=== PATIENT | female | born 1965 | race Caucasian/White ===

== ENCOUNTER 2017-01-15 10:49 | Observation (INO) ==
[2017-01-15] MEDS ORDERED: Ondansetron 4 MG/2 ML VIAL IVP ONE (11:13)
[2017-01-15] MEDS ORDERED: *HR* HYDROmorphone (PF) 1 MG/ML SYRINGE IVP ONE ×2 (11:13→14:29)
--- NOTE | 2017-01-15 11:26 | Emergency Department Note ---
Disposition Clinical Impression: Nephrostomy complication, Renal colic on right side Hydronephrosis Qualifiers: Hydronephrosis type: unspecified Qualified Code(s): N13.30 - Unspecified hydronephrosis Disposition: Admitted As Inpatient Condition: Fair Referrals: NO,PCP [Primary Care Provider] - Forms: Work/School Release, ED Satisfaction Letter Time of Disposition: 13:08 Female Urogenital HPI - General Chief complaint: ED Abdominal Pain Stated complaint: Right flank pain Time Seen by Provider: 01/15/17 11:05 Source: patient Mode of arrival: ambulatory Limitations: no limitations Nursing Notes Reviewed: Yes Vital Signs Reviewed: Yes - History of Present Illness HPI Narrative: Patient with a known history of cervical cancer, bilateral nephrostomy tubes, and diverting urostomy presents with right flank pain since yesterday as well as nausea. No objective fevers. The urostomies continued to drain urine adequately into the collection appliance. She states she is currently taking Bactrim as prescribed for a recent positive urine culture. Pt Subjective Complaint: other Onset (ago): day(s) Radiation: R flank Severity: severe Quality: aching Duration: constant Improves with: none Worsens with: none Urinary Symptoms: flank pain : no Associated symptoms: Reports: nausea/vomiting - Related Data Home Medications Medication Instructions Recorded Confirmed ALPRAZolam [Xanax 1 MG Tablet] 1 mg PO QID PRN 05/24/15 07/30/16 Bupropion HCl [Wellbutrin Xl] 150 mg PO BID 05/24/15 07/30/16 traZODone [TraZODone] 300 mg PO HS 05/24/15 07/30/16 Quetiapine Fumarate [SEROquel] 300 mg PO HS 05/25/15 07/30/16 Omeprazole [PriLOSEC] 20 mg PO DAILY 01/11/17 01/11/17 Previous Rx's Medication Instructions Recorded Sulfamethoxazole/Trimeth DS 1 each PO BID #14 tablet 01/11/17 [Bactrim DS] Allergies Allergy/AdvReac Type Severity Reaction Status Date / Time codeine AdvReac Hives Verified 01/15/17 11:01 ibuprofen AdvReac See Verified 01/15/17 11:01 Comments All systems ED: reviewed and negative except as stated. Constitutional: Reports: as per HPI Eyes: Reports: as per HPI ENT ED: Reports: as per HPI Cardiovascular: Reports: as per HPI Respiratory: Reports: as per HPI Gastrointestinal: Reports: abdominal pain, nausea, vomiting Genitourinary: Reports: other (Right flank pain) Musculoskeletal: Reports: back pain Integumentary: Reports: as per HPI Neurological: Reports: as per HPI Psychiatric: Reports: as per HPI Endocrine: Reports: as per HPI Hematological/Lymphatic: Reports: as per HPI Allergic/Immunologic: Reports: as per HPI Past Medical History - Past Medical History Source: patient Medical history: Reports: other (Cervical cancer) Surgical history: Reports: colostomy, hysterectomy, other Psychiatric history: Reports: anxiety, bipolar, depression 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 - Social History Smoking Status: Current every day smoker Smokeless Tobacco Status: No Alcohol use: Reports: none Drug use: Reports: none Physical Exam - General Limitations: no limitations General appearance: alert, anxious - Head Head exam: atraumatic - Eye Eye exam: Present: normal appearance - ENT ENT exam: normal exam - Neck Neck exam: Present: normal inspection, full ROM - Chest Chest inspection: Present: normal inspection, symmetric chest wall rise - Respiratory Respiratory exam: Present: normal lung sounds bilaterally - Cardiovascular Cardiovascular exam: Present: regular rate, normal rhythm, normal heart sounds - Abdominal Exam Abdominal exam: Present: soft, tenderness (Mild right upper quadrant tenderness without guarding or rebound), other (Healed surgical incision. Diverting urostomy in place with collection appliance intact.) - Rectal Exam Rectal exam: Present: deferred - Extremities Exam Extremities exam: Present: normal inspection - Back Exam Back exam: Present: other (Urostomy tubes in place. No CVA tenderness) - Neurological Exam Neurological exam: Present: alert, oriented X3, CN II-XII intact - Psychiatric Psychiatric exam: Present: anxious - Skin Skin exam: Present: warm, dry, intact Course Course Narrative: Patient presents with continued right flank pain despite taking Bactrim as prescribed for previous UTI. I have reviewed her medical records and see that on 01/11/17 per urine grew out Proteus. It was sensitive to Bactrim. I will obtain an imaging study via CT scan of her abdomen and pelvis to evaluate for obstructing uropathy given her history of cervical cancer and diverting urostomy. I will treat her with analgesics symptomatically. She will be reassessed - Consultations Consultation #1: call placed to urology continuous pillowcase cutter - Dr. Ortiz Consultation #2: Call please to interventional radiology on-call Vital Signs Temperature 97.5 F L 01/15/17 11:01 Pulse Rate 87 01/15/17 11:01 Respiratory Rate 20 01/15/17 11:01 Blood Pressure 107/73 01/15/17 11:01 O2 Sat by Pulse Oximetry 96 01/15/17 11:01 Temperature 97.5 F L 01/15/17 11:01 Pulse Rate 87 01/15/17 11:01 Respiratory Rate 20 01/15/17 11:01 Blood Pressure 107/73 01/15/17 11:01 O2 Sat by Pulse Oximetry 96 01/15/17 11:01 Oxygen Delivery Oxygen Delivery Room Air Urogenital-Female - Medical Records Medical records reviewed: Yes I reviewed the patient's medical records. - Lab Data Lab results reviewed: Yes I reviewed the patient's lab results. Result diagrams: 01/15/17 11:25 01/15/17 11:25 Lab Results 01/15/17 01/15/17 01/15/17 Range/Units 11:25 11:25 12:24 WBC 5.2 (4.3-11.1) K/mcL RBC 4.15 (3.82-4.97) M/mcL Hgb 12.2 (11.5-15.4) g/dL Hct 37.2 (35.3-44.9) % MCV 89.6 (83.0-100.0) fL MCH 29.4 (28.0-33.3) pg MCHC 32.8 (31.6-35.5) g/dL RDW 14.1 (11.5-14.5) % Plt Count 207 (140-400) K/mcL MPV 9.4 (9.4-12.4) fL Immature Gran % 0.2 (0-4) % Seg Neutrophils % 69.1 % Lymphocytes % 23.5 % Monocytes % 5.7 % Eosinophils % 1.1 % Basophils % 0.4 % Neutrophils # 3.6 (1.6-8.9) K/mcL Lymphocytes # 1.2 (0.6-4.6) K/mcL Monocytes # 0.3 (0.0-1.3) K/mcL Eosinophils # 0.1 (0.0-0.6) K/mcL Basophils # 0.0 (0.0-0.2) K/mcL Sodium 136 (136-145) mEq/L Potassium 4.6 H (3.5-4.5) mEq/L Chloride 107 (98-109) mEq/L Carbon Dioxide 24 (19-29) mEq/L BUN 27 H (7-20) mg/dL Creatinine 2.47 H (0.57-1.11) mg/dL Est GFR ( Amer) 25 L (> 60) Est GFR (Non-Af Amer) 21 L (> 60) BUN/Creatinine Ratio 11 (6-26) Glucose 90 (70-99) mg/dL Calculated Osmolality 287 (280-300) Calcium 9.3 (8.6-10.8) mg/dL Total Bilirubin 0.2 (0.2-1.2) mg/dL AST 7 (5-34) Units/L ALT < 6 (0-55) Units/L Alkaline Phosphatase 62 (38-126) Units/L Serum Total Protein 7.0 (6.0-8.3) g/dL Albumin 3.5 (3.5-5.0) g/dL Globulin 3.5 (2.4-3.5) g/dL Albumin/Globulin Ratio 1.0 L (1.1-2.2) Urine Color Yellow (Yellow) Urine Clarity Turbid A (Clear) Urine pH 8.5 H (5.0-8.0) pH Units Ur Specific Moran 1.021 (1.010-1.025) Urine Protein >=300 H (Neg-Trace) mg/dL Urine Glucose (UA) 250 H (Normal) mg/dL Urine Ketones Negative (Negative) mg/dL Urine Blood Negative (Negative) Urine Nitrite Negative (Negative) Urine Bilirubin Small H (Negative) Urine Urobilinogen Normal (Normal) mg/dL Ur Leukocyte Esterase Small H (Negative) - Radiology Data Radiology results reviewed: Yes I reviewed the patient's radiology results.
[2017-01-15 11:32] LABS: Basophils % 0.4 %; Eosinophils # 0.1 K/mcL (0.0-0.6); Eosinophils % 1.1 %; Hematocrit 37.2 % (35.3-44.9); Hemoglobin 12.2 g/dL (11.5-15.4); Immature Granulocytes % 0.2 % (0-4); Lymphocytes # 1.2 K/mcL (0.6-4.6); Lymphocytes % 23.5 %; Mean Corpuscular HGB Conc 32.8 g/dL (31.6-35.5); Mean Corpuscular Hemoglobin 29.4 pg (28.0-33.3); Mean Corpuscular Volume 89.6 fL (83.0-100.0); Mean Platelet Volume 9.4 fL (9.4-12.4); Monocytes # 0.3 K/mcL (0.0-1.3); Monocytes % 5.7 %; Neutrophils # 3.6 K/mcL (1.6-8.9); Platelet Count 207 K/mcL (140-400); Red Blood Count 4.15 M/mcL (3.82-4.97); Red Cell Distribution Width 14.1 % (11.5-14.5); Segmented Neutrophils % 69.1 %
[2017-01-15 11:48] LABS: Albumin 3.5 g/dL (3.5-5.0); Alkaline Phosphatase 62 Units/L (38-126); Aspartate Amino Transferase 7 Units/L (5-34); BUN/Creatinine Ratio 11 (6-26); Bilirubin,Total 0.2 mg/dL (0.2-1.2); Blood Urea Nitrogen 27 mg/dL (7-20); Calcium 9.3 mg/dL (8.6-10.8); Carbon Dioxide 24 mEq/L (19-29); Chloride 107 mEq/L (98-109); Globulin 3.5 g/dL (2.4-3.5); Glucose 90 mg/dL (70-99); Osmolality,Calculated 287 (280-300); Potassium 4.6 mEq/L (3.5-4.5); Sodium 136 mEq/L (136-145); eGFR For African Americans 25 (> 60); eGFR For Non-African Americans 21 (> 60)
[2017-01-15 11:49] LABS: Alanine Aminotransferase < 6 Units/L (0-55)
[2017-01-15 12:59] LABS: Bilirubin,Urine Small (Negative); Blood,Urine Negative (Negative); Clarity,Urine Turbid (Clear); Color,Urine Yellow (Yellow); Glucose,Urine (UA) 250 mg/dL (Normal); Ketones,Urine Negative (Negative); Leukocyte Esterase,Urine Small (Negative); Nitrite,Urine Negative (Negative); PH,Urine 8.5 pH Units (5.0-8.0); Protein,Urine >=300 mg/dL (Neg-Trace); Specific Gravity,Urine 1.021 (1.010-1.025); Urobilinogen,Urine Normal (Normal)
[2017-01-15 13:54] LABS: Bacteria,Urine Many per hpf (None-Few); Calcium Oxalate Crystals,Urine Present; Other Crystals,Urine Present
[2017-01-15] MEDS ORDERED: 0.9 % Sodium Chloride 500 ML ONE (14:00)
[2017-01-15] MEDS ORDERED: Ampicillin/Sulbactam 1,500 MG in 0.9 % Sodium Chloride Mini Bag 100 ML IVPB ONE (14:05)
[2017-01-15] MEDS ORDERED: *HR* HYDROmorphone 2 MG/ML SYRINGE ONE (14:30)
--- NOTE | 2017-01-15 14:43 | IR Procedure Note ---
Date of procedure: 01/15/17 Consent Obtained: Written consent Timeout: Correct patient and procedure verified, Correct site verified, Time out performed, Skin prep completed Local anesthetic: Lidocaine 1% Indications: Malfunction right NU catheter Results/Findings: Exchange right NU catheter Complications: None; Tolerated procedure well (Monitor on floor)
[2017-01-15] MEDS ORDERED: ALPRAZolam 1 MG TABLET PO PRN (16:59)
[2017-01-15] MEDS ORDERED: Ondansetron 4 MG/2 ML VIAL IVP PRN (17:00)
[2017-01-15] MEDS ORDERED: Naloxone 0.4 MG/ML INJ IVP PRN (17:00)
--- NOTE | 2017-01-15 17:14 | Internal Med History&Physical ---
Date of Encounter: 01/15/17 Time of Encounter: 04:45 Assessment and Plan (1) Urinary tract infection Current visit: No Status: Acute Patient is currently on Bactrim. -Cultures pending. -Urology has been consulted. Qualifiers: Urinary tract infection type: acute cystitis Hematuria presence: with hematuria Qualified Code(s): N30.01 - Acute cystitis with hematuria (2) Nephrostomy complication Current visit: Yes Status: Acute Patient's nephrostomy bag sites have been examined. No sign of erythema, bleeding, or infection. CT scan was performed. There is new severe right-sided hydronephrosis, possibly indicating drain/stent malfunction. There is stable mild left hydronephrosis. There is also right nephrolithiasis. Continue antibiotics. Urology has been consulted. (3) Renal colic on right side Current visit: Yes Status: Acute (4) Hydronephrosis Current visit: Yes Status: Acute Qualifiers: Hydronephrosis type: unspecified Qualified Code(s): N13.30 - Unspecified hydronephrosis Internal Medicine - H&P: HPI Chief complaint: Right flank pain Admitted From: Emergency Dept Plans for Post Hospital Care: Home History of present illness: Ms. Joseph is a 52 year old female who presented to the ED today with the chief complaint of pain in the right side of her back for lower rib cage. Patient states that she has had a urinary tract infection for the last 2 weeks, for which she states she saw her primary care provider. She discovered she had an infection due to her nephrostomy bags turning purple. She noted that this indicates bacteria in the urine. She was given Bactrim. About 3 days ago patient began to experience pain in the right side of her back, right below the bottom of her rib cage. She denies having this pain before. She does note however that she does have history of urinary tract infections. She notes that when she was about 18 years old, she began to get them quite frequently. Patient notes that she recently had cervical cancer, and had extensive abdominal surgery. As a result, she had to get nephrostomy bags. She denies having any previous issues with him. Patient states that her pain since admission has really remained relatively stable. Her pain has not changed since she got here. She currently denies nausea, vomiting, fever, chills, headache, or any change in appearance of her urine. Past Med Surg Social Fam HX - Past Medical History Medical history: cancer (Patient has a history of cervical cancer.), other Psychiatric history: anxiety, bipolar, depression - Past Surgical History Surgical History: colostomy, hysterectomy, other - Social History Smoking Status: Current every day smoker Smokeless Tobacco Status: No Alcohol use: none Drug use: none - Family History Father Living Status: Still Living Hx Family Cancer: Yes (prostate) Internal Medicine - H&P: Meds ALPRAZolam [Xanax 1 MG Tablet] 1 mg PO TID PRN 05/24/15 [History] Bupropion HCl [Wellbutrin Xl] 300 mg PO DAILY 05/24/15 [History] traZODone [TraZODone] 300 mg PO HS 05/24/15 [History] Quetiapine Fumarate [SEROquel] 300 mg PO HS 05/25/15 [History] Omeprazole [PriLOSEC] 20 mg PO DAILY 01/11/17 [History] Docusate [Colace] 100 mg PO BID 01/15/17 [History] Perphenazine [Trilafon] 8 mg PO DAILY 01/15/17 [History] Sulfamethoxazole/Trimeth DS [Bactrim DS] 1 tab PO BID 01/15/17 [History] Allergies codeine Adverse Reaction (Verified 01/15/17 11:01) Hives ibuprofen Adverse Reaction (Verified 01/15/17 11:01) See Comments effected liver during chemo treatments All Systems PM: A 10-system review of systems was performed and is negative for pertinent findings except as documented above in the HPI. - Constitutional Constitutional: no chills, no fatigue, no fever(s) - Genitourinary Genitourinary: flank pain (The patient has right-sided flank pain.) - Constitutional Vitals: Temp Pulse Resp BP Pulse Ox 97.5 F L 61 15 129/83 98 01/15/17 15:15 01/15/17 15:15 01/15/17 15:15 01/15/17 15:15 01/15/17 15:15 - Head Head exam: Present: atraumatic, normocephalic - Neck Neck exam general surgery: Present: supple, trachea midline. Absent: lymphadenopathy - Respiratory Respiratory exam: Present: CTAB. Absent: accessory muscle use, rales, rhonchi, wheezes - Cardiovascular Cardiovascular exam: Present: RRR, +S1, +S2. Absent: diastolic murmur, gallop, rubs, systolic murmur - GI/Abdominal GI/Abdominal exam: Present: soft. Absent: tenderness Additional comments: Ostomy bag visualized. Nephrostomy bags examined bilaterally. No redness, swelling, or discharge noted in the area. - Skin Skin exam: Present: dry, intact Internal Med - H&P Results - Labs CBC & Chem 7: 01/15/17 11:25 01/15/17 11:25
--- NOTE | 2017-01-15 17:19 | Event Note ---
Date of Encounter: 01/15/17 Time of Encounter: 17:11 1. Severe right hydronephrosis status post nephrostomy tube placement by the interventional radiology therapy Needs to be followed up by urology 2. Urinary tract infection growing Proteus ESBL, continue Bactrim for a total of 3 weeks May switch to ertapenem if worse 3. Bipolar disorder, stable 4. History of cervical cancer Omeprazole for GI prophylaxis and subcutaneous heparin for DVT prophylaxis. The patient will be admitted for observation. Full code. Time spent on this admission 40 minutes.
--- NOTE | 2017-01-15 17:33 | Urology - Consult Note ---
Date of Encounter: 01/15/17 Time of Encounter: 17:31 - Assessment and Plan (1) Hydronephrosis Current Visit: Yes Status: Acute Assessment and plan: Patient's hydronephrosis has resolved with the exchange of the nephroureteral catheters. Patient can follow-up with urology as needed. It sounds like the nephroureteral catheters are being managed by the gynecologic oncologist. Qualifiers: Hydronephrosis type: unspecified Qualified Code(s): N13.30 - Unspecified hydronephrosis Urology CN:HPI Consult date: 01/15/17 Reason for consult Urology: Hydronephrosis Requesting physician: Tano Elena History of present illness: Ivonne is a 52-year-old female well-known to the urology service for gynecological cancer which led the patient to have bilateral nephroureteral catheters. Patient in the [facility] emergency department today secondary to severe right-sided flank pain. She was found to have severe right-sided hydronephrosis. The right nephroureteral catheter was exchanged and the patient felt remarkably better. Patient has followed up with her gynecological oncologist but patient states she is unaware of any further definitive plan to rid her of her catheters. Past Med Surg Social Fam HX - Past Medical History Medical history: cancer (Patient has a history of cervical cancer.), other Psychiatric history: anxiety, bipolar, depression - Past Surgical History Surgical History: colostomy, hysterectomy, other - Social History Smoking Status: Current every day smoker Smokeless Tobacco Status: No Alcohol use: none Drug use: none - Family History Father Living Status: Still Living Hx Family Cancer: Yes (prostate) Medications and Allergies ALPRAZolam [Xanax 1 MG Tablet] 1 mg PO TID PRN 05/24/15 [History] Bupropion HCl [Wellbutrin Xl] 300 mg PO DAILY 05/24/15 [History] traZODone [TraZODone] 300 mg PO HS 05/24/15 [History] Quetiapine Fumarate [SEROquel] 300 mg PO HS 05/25/15 [History] Omeprazole [PriLOSEC] 20 mg PO DAILY 01/11/17 [History] Docusate [Colace] 100 mg PO BID 01/15/17 [History] Perphenazine [Trilafon] 8 mg PO DAILY 01/15/17 [History] Sulfamethoxazole/Trimeth DS [Bactrim DS] 1 tab PO BID 01/15/17 [History] Allergies codeine Adverse Reaction (Verified 01/15/17 11:01) Hives ibuprofen Adverse Reaction (Verified 01/15/17 11:01) See Comments effected liver during chemo treatments Review of Systems - Constitutional no chills - EENT Nose, mouth and throat: no dizziness - Cardiovascular no chest pain - Respiratory no cough - Gastrointestinal abdominal pain - Genitourinary Genitourinary: as per HPI Exam Initial Vital Signs Temp Pulse Resp BP Pulse Ox 97.5 F L 87 20 107/73 96 01/15/17 11:01 01/15/17 11:01 01/15/17 11:01 01/15/17 11:01 01/15/17 11:01 - General physical appearance Present: well developed - Eyes Present: PERRL - ENT Present: normal nares - Neck Present: no masses - Respiratory Present: normal respiratory effort - Cardiovascular Cardiovascular exam IM: RRR - Abdomen Abdomen: Present: soft Urology Results - Labs 01/15/17 11:25 01/15/17 11:25 Abnormal lab results Potassium 4.6 mEq/L (3.5-4.5) H 01/15/17 11:25 BUN 27 mg/dL (7-20) H 01/15/17 11:25 Creatinine 2.47 mg/dL (0.57-1.11) H 01/15/17 11:25 Est GFR ( Amer) 25 (> 60) L 01/15/17 11:25 Est GFR (Non-Af Amer) 21 (> 60) L 01/15/17 11:25 Albumin/Globulin Ratio 1.0 (1.1-2.2) L 01/15/17 11:25 Urine Clarity Turbid (Clear) A 01/15/17 12:24 Urine pH 8.5 pH Units (5.0-8.0) H 01/15/17 12:24 Urine Protein >=300 mg/dL (Neg-Trace) H 01/15/17 12:24 Urine Glucose (UA) 250 mg/dL (Normal) H 01/15/17 12:24 Urine Bilirubin Small (Negative) H 01/15/17 12:24 Ur Leukocyte Esterase Small (Negative) H 07/18/17 12:24 Urine Bacteria Many per hpf (None-Few) H 01/15/17 12:24 All other labs normal. - Imaging CT scan - abdomen: image reviewed CT scan - pelvis: image reviewed Consult Discharge Plan - Plan Referrals: Yanick Dunn MD [Primary Care Provider] -
[2017-01-15] MEDS: *HR* OxyCODONE/APAP 5/325 TABLET PO PRN (19:04)
[2017-01-15] MEDS: Sulfamethoxazole/Trimeth DS 1 EACH TABLET PO SCH (20:32)
[2017-01-15] MEDS ORDERED: traZODone 50 MG TABLET PO SCH (21:00)
[2017-01-16 07:38] LABS: Basophils % 0.4 %; Eosinophils # 0.1 K/mcL (0.0-0.6); Eosinophils % 1.8 %; Hematocrit 35.4 % (35.3-44.9); Hemoglobin 11.6 g/dL (11.5-15.4); Immature Granulocytes % 0.2 % (0-4); Lymphocytes # 1.7 K/mcL (0.6-4.6); Lymphocytes % 34.8 %; Mean Corpuscular HGB Conc 32.8 g/dL (31.6-35.5); Mean Corpuscular Hemoglobin 29.4 pg (28.0-33.3); Mean Corpuscular Volume 89.8 fL (83.0-100.0); Mean Platelet Volume 10.6 fL (9.4-12.4); Monocytes # 0.3 K/mcL (0.0-1.3); Monocytes % 6.5 %; Neutrophils # 2.8 K/mcL (1.6-8.9); Nucleated Red Blood Cells 0.4 /100 WBC (0); Platelet Count 189 K/mcL (140-400); Red Blood Count 3.94 M/mcL (3.82-4.97); Segmented Neutrophils % 56.3 %
[2017-01-16 08:02] LABS: Calcium 8.7 mg/dL (8.6-10.8)
[2017-01-16 08:03] LABS: Potassium 4.8 mEq/L (3.5-4.5)
[2017-01-16] MEDS: Sulfamethoxazole/Trimeth DS 1 EACH TABLET PO SCH (08:28)
[2017-01-16] MEDS ORDERED: Perphenazine 8 MG TABLET PO SCH (09:00)
[2017-01-16] MEDS ORDERED: 0.9 % Sodium Chloride 1,000 ML IVC SCH ×2 (09:00→11:00)
[2017-01-16] MEDS ORDERED: BuPROPion XL (24 HR) 150 MG TABLET PO SCH (09:00)
[2017-01-16 11:06] VITALS: BP 97/62
--- NOTE | 2017-01-16 11:29 | Discharge Summary ---
<Tano Elena - Last Filed: 01/16/17 11:18> Date of Encounter: 01/16/17 Time of Encounter: 11:00 - Discharge Diagnosis (1) Urinary tract infection Priority: Primary Status: Acute Comments: Patient is currently on Bactrim. Will be continued on bactrim for 14 days after discharge. Qualifiers: Urinary tract infection type: acute cystitis Hematuria presence: with hematuria Qualified Code(s): N30.01 - Acute cystitis with hematuria (2) Nephrostomy complication Priority: Secondary Status: Acute Comments: Patient's nephrostomy bag sites have been examined. No sign of erythema, bleeding, or infection. CT scan was performed. There is new severe right-sided hydronephrosis, possibly indicating drain/stent malfunction. There is stable mild left hydronephrosis. There is also right nephrolithiasis. -Continue antibiotics. (3) Renal colic on right side Priority: Secondary Status: Acute (4) Hydronephrosis Priority: Secondary Status: Acute Qualifiers: Hydronephrosis type: unspecified Qualified Code(s): N13.30 - Unspecified hydronephrosis - Discharge Medications Prescriptions: Sulfamethoxazole/Trimeth SS [Bactrim SS] 1 each PO BID #28 tablet Home Medications: ALPRAZolam [Xanax 1 MG Tablet] 1 mg PO TID PRN 05/24/15 [History] Bupropion HCl [Wellbutrin Xl] 300 mg PO DAILY 05/24/15 [History] traZODone [TraZODone] 300 mg PO HS 05/24/15 [History] Quetiapine Fumarate [SEROquel] 300 mg PO HS 05/25/15 [History] Omeprazole [PriLOSEC] 20 mg PO DAILY 01/11/17 [History] Docusate [Colace] 100 mg PO BID 01/15/17 [History] Perphenazine [Trilafon] 8 mg PO DAILY 01/15/17 [History] Sulfamethoxazole/Trimeth DS [Bactrim DS] 1 tab PO BID 01/15/17 [History] Sulfamethoxazole/Trimeth SS [Bactrim SS] 1 each PO BID #28 tablet 01/16/17 [Rx] Allergies/Adverse Reactions: Allergies codeine Adverse Reaction (Verified 01/15/17 11:01) Hives ibuprofen Adverse Reaction (Verified 01/15/17 11:01) See Comments effected liver during chemo treatments Date of admission: 01/15/17 14:11 Primary care physician: Yanick Dunn MD Consults: 01/15/17 17:08 Consult to Urology [CONS] Routine Consulting Provider: Shanice Howe Reason for Consult: R sided hydronephrosis Call Completed: Yes Discharging clinician: Tano Elena Anticipated date of discharge: 01/16/17 - Patient Status Disposition: Home, Self-Care Condition: Good Overall status at discharge: patient is progressing back to baseline - Discharge Instructions Follow Up With: Yanick Dunn MD [Primary Care Provider] - Additional Instructions: Continue with Bactrim DS by mouth twice a day for 14 days. - Diet and Activity Activity: increase activity as tolerated Diet: advance to your usual diet Hospital course: Ms. Joseph is a 52 year old female with a past history of cervical cancer, nephrostomy, ostomy, and UTI who presented to the ED yesterday with the chief complaint of pain in the right side of her back for lower rib cage. Patient stated that she had had a urinary tract infection for the last 2 weeks, for which she saw her PCP. She discovered she had an infection due to her nephrostomy bags turning purple. She noted that this indicates bacteria in the urine. She was given Bactrim. About 4 days ago patient began to experience pain in the right side of her back, right below the bottom of her rib cage. Patient notes that she recently had cervical cancer, and had extensive abdominal surgery. As a result, she had to get nephrostomy bags. She denies having any previous issues with him. She denied having nausea, vomiting, fever , chills, headache, or any change in appearance of her urine. Patient's temperature on admission was 97.5. Cultures were obtained, and grew Proteus ESBL. This morning, patient's blood pressure was low at 81/58. Patient was given 1 bolus of normal saline. On date of discharge, patient will be given an additional 200 mL per hour for 5 hours. Today, patient states that her pain has improved. She has no other complaints at this time. She states that she would like to go home. She was given the option of staying one more night to monitor fluid levels. The patient stated that she preferred to leave. She will be given Bactrim DS for 14 days. - Time Spent with Patient Total time spent providing and/or coordinating discharge services: - Constitutional Vitals: Temp Pulse Resp BP Pulse Ox 98.0 F 76 14 97/62 97 01/16/17 11:05 01/16/17 11:05 01/16/17 11:05 01/16/17 11:05 01/16/17 11:05 - Head Head exam: Present: atraumatic, normocephalic - Neck Neck exam general surgery: Present: supple, trachea midline. Absent: lymphadenopathy - Respiratory Respiratory exam: Present: CTAB. Absent: accessory muscle use, rales, rhonchi, wheezes - Cardiovascular Cardiovascular exam: Present: RRR, +S1, +S2. Absent: diastolic murmur, gallop, rubs, systolic murmur - GI/Abdominal GI/Abdominal exam: Present: soft, no peritoneal signs. Absent: distended, tenderness Additional comments: Ostomy bag and nephrostomy bags visualized. - Skin Skin exam: Present: dry, intact <Antoine Eubanks H - Last Filed: 01/16/17 11:46> Date of Encounter: 01/16/17 Date of admission: 01/15/17 14:11 Primary care physician: Yanick Dunn MD Consults: 01/15/17 17:08 Consult to Urology [CONS] Routine Consulting Provider: Sharay Carley Reason for Consult: R sided hydronephrosis Call Completed: Yes Hospital course: Ms. Joseph is a 52 year old female - Time Spent with Patient Total time spent providing and/or coordinating discharge services: - Constitutional Vitals: Temp Pulse Resp BP Pulse Ox 98.0 F 76 14 97/62 97 01/16/17 11:05 01/16/17 11:05 01/16/17 11:05 01/16/17 11:05 01/16/17 11:05 - Attending Attestation Poonam VIERA, complete 2 more weeks of Bactrim Patient was given the option to stay an additional day and received fluids but prefers to be discharged later today. I examined this patient and my medical decision-making was reviewed with the Resident Physician. I agree with the documented findings, disposition and treatment plan as described except to the extent set forth below.
[2017-01-16] MEDS: *HR* OxyCODONE/APAP 5/325 TABLET PO PRN (14:11)
== END 2017-01-16 16:25 | disposition home or self-care (01) ==
LOC: 3ANU 10:49 → EMEROO 10:49 → SUATTDRO 14:11 → 3ANU 14:52
PROVIDERS: ADMIT Internal Medicine; ATTEND Internal Medicine

== ENCOUNTER 2017-02-19 18:57 | Inpatient (IN) ==
[2017-02-19 21:56] LABS: Basophils % 0.3 %; Eosinophils % 0.2 %; Hematocrit 41.7 % (35.3-44.9); Hemoglobin 13.3 g/dL (11.5-15.4); Immature Granulocytes % 0.3 % (0-4); Lymphocytes # 1.1 K/mcL (0.6-4.6); Lymphocytes % 8.7 %; Mean Corpuscular HGB Conc 31.9 g/dL (31.6-35.5); Mean Corpuscular Hemoglobin 29.4 pg (28.0-33.3); Mean Corpuscular Volume 92.1 fL (83.0-100.0); Mean Platelet Volume 9.8 fL (9.4-12.4); Monocytes # 0.6 K/mcL (0.0-1.3); Monocytes % 4.8 %; Neutrophils # 10.3 K/mcL (1.6-8.9); Platelet Count 246 K/mcL (140-400); Red Blood Count 4.53 M/mcL (3.82-4.97); Red Cell Distribution Width 13.3 % (11.5-14.5); Segmented Neutrophils % 85.7 %
[2017-02-19] MEDS ORDERED: *HR* Morphine 2 MG/ML SYRINGE IVP ONE (22:08)
[2017-02-19] MEDS ORDERED: Ondansetron 4 MG/2 ML VIAL IVP ONE (22:08)
[2017-02-19] MEDS ORDERED: 0.9 % Sodium Chloride 1,000 ML IVC ONE (22:08)
[2017-02-19 22:11] LABS: Calcium 10.1 mg/dL (8.6-10.8); Potassium 4.8 mEq/L (3.5-4.5)
--- NOTE | 2017-02-19 22:16 | Emergency Department Note ---
START Narrative - START START: 52 year old female wih HX of nephrostomy tube and recently had it changed secondary to stones. Patient is experiencing incresed pain in her nephrostomy tube. I initiated workup on patient with labs and we will need a ABCT to evalluate the nephrotom tube. She will be seen by the PA.
[2017-02-19] MEDS ORDERED: *HR* HYDROmorphone (PF) 1 MG/ML SYRINGE IVP ONE (22:24)
[2017-02-19 22:29] LABS: INR 0.9; Prothrombin Time 9.8 Seconds (9.4-12.1)
[2017-02-19 22:31] LABS: Activated Partial Thrombo Time 32.5 Seconds (26.0-36.0)
[2017-02-19 22:37] LABS: Bilirubin,Direct 0.1 mg/dL (0.0-0.5); Bilirubin,Indirect 0.3 mg/dL (0.0-1.2); Bilirubin,Total 0.4 mg/dL (0.2-1.2)
[2017-02-19] MEDS ORDERED: Levofloxacin 750 MG/150 ML 750 MG/150 ML BAG IVPB ONE (22:53)
[2017-02-19] MEDS ORDERED: Piperacillin/Tazobactam 4.5 GM in D5% in Water (Mini-Bag+) 100 ML IVPB ONE (22:55)
--- NOTE | 2017-02-19 23:11 | Emergency Department Note ---
Disposition Clinical Impression: Malfunction of nephrostomy tube, Right flank pain Leukocytosis Qualifiers: Leukocytosis type: unspecified Qualified Code(s): D72.829 - Elevated white blood cell count, unspecified Parastomal hernia Qualifiers: Obstruction and gangrene presence: without obstruction or gangrene Qualified Code(s): K43.5 - Parastomal hernia without obstruction or gangrene Disposition: Admitted As Inpatient Condition: Fair Abdominal Pain HPI - General Chief Complaint: ED General Medical Stated Complaint: nephro tubes hurting, vomiting Time Seen by Provider: 02/19/17 22:06 Source: patient Mode of arrival: private vehicle Limitations: no limitations Nursing Notes Reviewed: Yes Vital Signs Reviewed: Yes - History of Present Illness Pt Subjective Complaint: flank pain Onset (ago): day(s) Consistency: constant Location: R flank Pain Severity: moderate, severe Pain Scale: 10 Quality: stabbing, sharp Radiation: RLQ Improves with: nothing Worsens with: nothing Context: recent antibiotic use, recent surgery/procedure (Right nephrostomy tube changed 01/14), history of similar episodes Associated symptoms: Reports: nausea, vomiting, other (decreased amount of urine output from right NU tube). Denies: diarrhea, fever, chills, constipation , dysuria, hematemesis, hematochezia, melena, hematuria, anorexia, syncope Treatments prior to arrival: none - Related Data Home Medications Medication Instructions Recorded Confirmed ALPRAZolam [Xanax 1 MG Tablet] 1 mg PO TID PRN 05/24/15 01/15/17 Bupropion HCl [Wellbutrin Xl] 300 mg PO DAILY 05/24/15 01/15/17 traZODone [TraZODone] 300 mg PO HS 05/24/15 01/15/17 Quetiapine Fumarate [SEROquel] 300 mg PO HS 05/25/15 01/15/17 Omeprazole [PriLOSEC] 20 mg PO DAILY 01/11/17 01/15/17 Docusate [Colace] 100 mg PO BID 01/15/17 01/15/17 Perphenazine [Trilafon] 8 mg PO DAILY 01/15/17 01/15/17 Sulfamethoxazole/Trimeth DS 1 tab PO BID 01/15/17 01/15/17 [Bactrim DS] Previous Rx's Medication Instructions Recorded Sulfamethoxazole/Trimeth SS 1 each PO BID #28 tablet 01/16/17 [Bactrim SS] Allergies Allergy/AdvReac Type Severity Reaction Status Date / Time codeine AdvReac Hives Verified 01/15/17 11:01 ibuprofen AdvReac See Verified 01/15/17 11:01 Comments All systems ED: reviewed and negative except as stated. Review of Systems: As Per HPI Constitutional: Denies: fever, chills, weakness, night sweats Cardiovascular: Denies: chest pain, palpitations, dyspnea on exertion Respiratory: Denies: dyspnea Gastrointestinal: Reports: as per HPI, abdominal pain, nausea, vomiting. Denies : diarrhea, constipation, hematemesis, melena, hematochezia Genitourinary: Denies: dysuria, hematuria Musculoskeletal: Denies: joint swelling, arthralgia Neurological: Denies: headache, weakness, confusion Hematological/Lymphatic: Denies: easy bleeding, easy bruising, lymphadenopathy Abdominal Pain PMH - Past Medical History Medical history: Reports: cancer (cervical), other Female Surgical History: Reports: colostomy, JUDITH/BSO, ureteral stent, other ( bilateral nephrostomy tubes) [employer] TECH[employer]ICIAN history: Reports: cervical cancer, other Psychiatric history: Reports: anxiety, bipolar, depression - Social History Smoking status: Current every day smoker Alcohol use: Reports: none Drug use: Reports: none Physical Exam - General Limitations: no limitations General appearance: alert, in no apparent distress - Head Head exam: atraumatic, normocephalic, normal inspection - Eye Eye exam: Present: normal appearance, PERRL. Absent: scleral icterus, conjunctival injection, periorbital swelling - ENT ENT exam: normal exam, normal oropharynx, mucous membranes moist - Neck Neck exam: Present: normal inspection, full ROM, trachea midline. Absent: meningismus - Chest Chest inspection: Present: normal inspection - Respiratory Respiratory exam: Present: normal lung sounds bilaterally. Absent: respiratory distress, wheezes, stridor - Cardiovascular Cardiovascular exam: Present: regular rate, normal rhythm, normal heart sounds - Abdominal Exam Abdominal exam: Present: soft, Non-Tender. Absent: distention, guarding, rebound, rigidity, mass, pulsatile mass - Extremities Exam Extremities exam: Present: normal inspection. Absent: pedal edema - Back Exam Back exam: Present: CVA tenderness (R), other (no erythema or drainage). Absent : CVA tenderness (L), vertebral tenderness - Neurological Exam Neurological exam: Present: alert, oriented X3, CN II-XII intact, normal gait Course Course Narrative: Patient presents for evaluation of right flank pain with nausea, vomiting, and generalized malaise. She states that about a month ago. She was seen here and was diagnosed with a kidney infection and kidney stones. She had her right nephrostomy tube replaced and was put on Bactrim for three weeks. She took this as prescribed. She has had pain, nausea and vomiting for several days. She also noted a decreased urine output and a purple discoloration of the urine bag bilaterally today. She is currently afebrile, mildly hypertensive, and is not tachycardic. She appears uncomfortable but nontoxic. Labs and a CAT scan have been ordered by Dr. Meek Rodriguez. CT shows no acute abnormality. Patient has multiple stable abnormal findings, but nothing acute. Urinalysis is pending. Patient has had little to no output from either kidney, all day today reports nausea, vomiting and right flank pain in the setting of recently replaced right nephrostomy tube. She has a history of renal calculi causing obstruction of the nephrostomy tube a month ago. She does have mildly elevated white blood cell count and is at her baseline renal insufficiency. She will require admission for further evaluation and management. Case was discussed with Dr. Roblero. He has seen the patient and agrees with assessment, plan. He has spoken with the hospitalist who has accepted the patient. Vital Signs Temperature 97.5 F L 02/19/17 19:43 Pulse Rate 88 02/19/17 19:43 Respiratory Rate 20 02/19/17 19:43 Blood Pressure 148/102 02/19/17 19:43 O2 Sat by Pulse Oximetry 98 02/19/17 19:43 Temperature 97.5 F L 02/19/17 19:43 Pulse Rate 88 02/19/17 19:43 Respiratory Rate 20 02/19/17 19:43 Blood Pressure 148/102 02/19/17 19:43 O2 Sat by Pulse Oximetry 98 02/19/17 19:43 Oxygen Delivery Oxygen Delivery Room Air Abdominal Pain - Medical Records Medical records reviewed: Yes I reviewed the patient's medical records. - Lab Data Lab results reviewed: Yes I reviewed the patient's lab results. Lab results narrative: Laboratory Last Values WBC 12.1 K/mcL (4.3-11.1) H 02/19/17 21:46 RBC 4.53 M/mcL (3.82-4.97) 02/19/17 21:46 Hgb 13.3 g/dL (11.5-15.4) 02/19/17 21:46 Hct 41.7 % (35.3-44.9) 02/19/17 21:46 MCV 92.1 fL (83.0-100.0) 02/19/17 21:46 MCH 29.4 pg (28.0-33.3) 02/19/17 21:46 MCHC 31.9 g/dL (31.6-35.5) 02/19/17 21:46 RDW 13.3 % (11.5-14.5) 02/19/17 21:46 Plt Count 246 K/mcL (140-400) 02/19/17 21:46 MPV 9.8 fL (9.4-12.4) 02/19/17 21:46 Immature Gran % 0.3 % (0-4) 02/19/17 21:46 Seg Neutrophils % 85.7 % 02/19/17 21:46 Lymphocytes % 8.7 % 02/19/17 21:46 Monocytes % 4.8 % 02/19/17 21:46 Eosinophils % 0.2 % 02/19/17 21:46 Basophils % 0.3 % 02/19/17 21:46 Neutrophils # 10.3 K/mcL (1.6-8.9) H 02/19/17 21:46 Lymphocytes # 1.1 K/mcL (0.6-4.6) 02/19/17 21:46 Monocytes # 0.6 K/mcL (0.0-1.3) 02/19/17 21:46 Eosinophils # 0.0 K/mcL (0.0-0.6) 02/19/17 21:46 Basophils # 0.0 K/mcL (0.0-0.2) 02/19/17 21:46 PT 9.8 Seconds (9.4-12.1) 02/19/17 21:46 INR 0.9 02/19/17 21:46 APTT 32.5 Seconds (26.0-36.0) 02/19/17 21:46 Sodium 137 mEq/L (136-145) 02/19/17 21:46 Potassium 4.8 mEq/L (3.5-4.5) H 02/19/17 21:46 Chloride 103 mEq/L (98-109) 02/19/17 21:46 Carbon Dioxide 26 mEq/L (19-29) 02/19/17 21:46 BUN 40 mg/dL (7-20) H 02/19/17 21:46 Creatinine 2.61 mg/dL (0.57-1.11) H 02/19/17 21:46 Est GFR ( Amer) 23 (> 60) L 02/19/17 21:46 Est GFR (Non-Af Amer) 19 (> 60) L 02/19/17 21:46 BUN/Creatinine Ratio 15 (6-26) 02/19/17 21:46 Glucose 104 mg/dL (70-99) H 02/19/17 21:46 Calculated Osmolality 294 (280-300) 02/19/17 21:46 Lactic Acid 0.4 mmol/L (0.5-2.2) L 02/19/17 22:43 Calcium 10.1 mg/dL (8.6-10.8) 02/19/17 21:46 Total Bilirubin 0.4 mg/dL (0.2-1.2) 02/19/17 21:46 Direct Bilirubin 0.1 mg/dL (0.0-0.5) 02/19/17 21:46 Indirect Bilirubin 0.3 mg/dL (0.0-1.2) 02/19/17 21:46 AST 9 Units/L (5-34) 02/19/17 21:46 ALT 7 Units/L (0-55) 02/19/17 21:46 Alkaline Phosphatase 73 Units/L (38-126) 02/19/17 21:46 Troponin I 0.01 ng/mL (0-0.03) 02/19/17 21:46 Serum Total Protein 8.0 g/dL (6.0-8.3) 02/19/17 21:46 Albumin 4.0 g/dL (3.5-5.0) 02/19/17 21:46 Globulin 4.0 g/dL (2.4-3.5) H 02/19/17 21:46 Albumin/Globulin Ratio 1.0 (1.1-2.2) L 02/19/17 21:46 Amylase 70 Units/L (25-125) 02/19/17 21:46 Lipase 13 Units/L (8-78) 02/19/17 21:46 Urine Color Red (Yellow) A 02/20/17 01:00 Urine Clarity Turbid (Clear) A 02/20/17 01:00 Urine pH 8.5 pH Units (5.0-8.0) H 02/20/17 01:00 Ur Specific [place] 1.009 (1.010-1.025) L 02/20/17 01:00 Urine Protein >=300 mg/dL (Neg-Trace) H 02/20/17 01:00 Urine Glucose (UA) Normal mg/dL (Normal) 02/20/17 01:00 Urine Ketones Negative mg/dL (Negative) 02/20/17 01:00 Urine Blood Negative (Negative) 02/20/17 01:00 Urine Nitrite Positive (Negative) A 02/20/17 01:00 Urine Bilirubin Negative (Negative) 02/20/17 01:00 Urine Urobilinogen Normal mg/dL (Normal) 02/20/17 01:00 Ur Leukocyte Esterase Moderate (Negative) H 02/20/17 01:00 Result diagrams: 02/19/17 21:46 02/19/17 21:46 Lab Results 02/19/17 02/19/17 02/19/17 Range/Units 21:46 21:46 21:46 WBC 12.1 H (4.3-11.1) K/mcL RBC 4.53 (3.82-4.97) M/mcL Hgb 13.3 (11.5-15.4) g/dL Hct 41.7 (35.3-44.9) % MCV 92.1 (83.0-100.0) fL MCH 29.4 (28.0-33.3) pg MCHC 31.9 (31.6-35.5) g/dL RDW 13.3 (11.5-14.5) % Plt Count 246 (140-400) K/mcL MPV 9.8 (9.4-12.4) fL Immature Gran % 0.3 (0-4) % Seg Neutrophils % 85.7 % Lymphocytes % 8.7 % Monocytes % 4.8 % Eosinophils % 0.2 % Basophils % 0.3 % Neutrophils # 10.3 H (1.6-8.9) K/mcL Lymphocytes # 1.1 (0.6-4.6) K/mcL Monocytes # 0.6 (0.0-1.3) K/mcL Eosinophils # 0.0 (0.0-0.6) K/mcL Basophils # 0.0 (0.0-0.2) K/mcL PT 9.8 (9.4-12.1) Seconds INR 0.9 APTT 32.5 (26.0-36.0) Seconds Sodium 137 (136-145) mEq/L Potassium 4.8 H (3.5-4.5) mEq/L Chloride 103 (98-109) mEq/L Carbon Dioxide 26 (19-29) mEq/L BUN 40 H (7-20) mg/dL Creatinine 2.61 H (0.57-1.11) mg/dL Est GFR ( Amer) 23 L (> 60) Est GFR (Non-Af Amer) 19 L (> 60) BUN/Creatinine Ratio 15 (6-26) Glucose 104 H (70-99) mg/dL Calculated Osmolality 294 (280-300) Lactic Acid (0.5-2.2) mmol/L Calcium 10.1 (8.6-10.8) mg/dL Total Bilirubin 0.4 (0.2-1.2) mg/dL Direct Bilirubin 0.1 (0.0-0.5) mg/dL Indirect Bilirubin 0.3 (0.0-1.2) mg/dL AST 9 (5-34) Units/L ALT 7 (0-55) Units/L Alkaline Phosphatase 73 (38-126) Units/L Troponin I (0-0.03) ng/mL Serum Total Protein 8.0 (6.0-8.3) g/dL Albumin 4.0 (3.5-5.0) g/dL Globulin 4.0 H (2.4-3.5) g/dL Albumin/Globulin Ratio 1.0 L (1.1-2.2) Amylase 70 (25-125) Units/L Lipase 13 (8-78) Units/L Urine Color (Yellow) Urine Clarity (Clear) Urine pH (5.0-8.0) pH Units Ur Specific [place] (1.010-1.025) Urine Protein (Neg-Trace) mg/dL Urine Glucose (UA) (Normal) mg/dL Urine Ketones (Negative) mg/dL Urine Blood (Negative) Urine Nitrite (Negative) Urine Bilirubin (Negative) Urine Urobilinogen (Normal) mg/dL Ur Leukocyte Esterase (Negative) Urine Microscopic RBC (0-3) per hpf Urine Microscopic WBC (0-3) per hpf Ur Squamous Epith Cells (None-Few) per lpf Ur Renal Epithelial Cell (None-Few) per hpf Triple Phos Crystals Amorphous Sediment (Few) Urine Bacteria (None-Few) per hpf Hyaline Casts Urine Mucus (Few) Ur Culture Indicated? (NO) 02/19/17 02/19/17 02/20/17 Range/Units 21:46 22:43 01:00 WBC (4.3-11.1) K/mcL RBC (3.82-4.97) M/mcL Hgb (11.5-15.4) g/dL Hct (35.3-44.9) % MCV (83.0-100.0) fL MCH (28.0-33.3) pg MCHC (31.6-35.5) g/dL RDW (11.5-14.5) % Plt Count (140-400) K/mcL MPV (9.4-12.4) fL Immature Gran % (0-4) % Seg Neutrophils % % Lymphocytes % % Monocytes % % Eosinophils % % Basophils % % Neutrophils # (1.6-8.9) K/mcL Lymphocytes # (0.6-4.6) K/mcL Monocytes # (0.0-1.3) K/mcL Eosinophils # (0.0-0.6) K/mcL Basophils # (0.0-0.2) K/mcL PT (9.4-12.1) Seconds INR APTT (26.0-36.0) Seconds Sodium (136-145) mEq/L Potassium (3.5-4.5) mEq/L Chloride (98-109) mEq/L Carbon Dioxide (19-29) mEq/L BUN (7-20) mg/dL Creatinine (0.57-1.11) mg/dL Est GFR ( Amer) (> 60) Est GFR (Non-Af Amer) (> 60) BUN/Creatinine Ratio (6-26) Glucose (70-99) mg/dL Calculated Osmolality (280-300) Lactic Acid 0.4 L (0.5-2.2) mmol/L Calcium (8.6-10.8) mg/dL Total Bilirubin (0.2-1.2) mg/dL Direct Bilirubin (0.0-0.5) mg/dL Indirect Bilirubin (0.0-1.2) mg/dL AST (5-34) Units/L ALT (0-55) Units/L Alkaline Phosphatase (38-126) Units/L Troponin I 0.01 (0-0.03) ng/mL Serum Total Protein (6.0-8.3) g/dL Albumin (3.5-5.0) g/dL Globulin (2.4-3.5) g/dL Albumin/Globulin Ratio (1.1-2.2) Amylase (25-125) Units/L Lipase (8-78) Units/L Urine Color Dark Yellow (Yellow) Urine Clarity Turbid A (Clear) Urine pH 8.5 H (5.0-8.0) pH Units Ur Specific [place] 1.020 (1.010-1.025) Urine Protein >=300 H (Neg-Trace) mg/dL Urine Glucose (UA) Normal (Normal) mg/dL Urine Ketones Negative (Negative) mg/dL Urine Blood Negative (Negative) Urine Nitrite Positive A (Negative) Urine Bilirubin Negative (Negative) Urine Urobilinogen Normal (Normal) mg/dL Ur Leukocyte Esterase Large H (Negative) Urine Microscopic RBC 5-15 H (0-3) per hpf Urine Microscopic WBC 0-3 (0-3) per hpf Ur Squamous Epith Cells Many H (None-Few) per lpf Ur Renal Epithelial Cell (None-Few) per hpf Triple Phos Crystals Present Amorphous Sediment Few (Few) Urine Bacteria Many H (None-Few) per hpf Hyaline Casts Test Not Performed Urine Mucus Moderate H (Few) Ur Culture Indicated? YES A (NO) 02/20/17 Range/Units 01:00 WBC (4.3-11.1) K/mcL RBC (3.82-4.97) M/mcL Hgb (11.5-15.4) g/dL Hct (35.3-44.9) % MCV (83.0-100.0) fL MCH (28.0-33.3) pg MCHC (31.6-35.5) g/dL RDW (11.5-14.5) % Plt Count (140-400) K/mcL MPV (9.4-12.4) fL Immature Gran % (0-4) % Seg Neutrophils % % Lymphocytes % % Monocytes % % Eosinophils % % Basophils % % Neutrophils # (1.6-8.9) K/mcL Lymphocytes # (0.6-4.6) K/mcL Monocytes # (0.0-1.3) K/mcL Eosinophils # (0.0-0.6) K/mcL Basophils # (0.0-0.2) K/mcL PT (9.4-12.1) Seconds INR APTT (26.0-36.0) Seconds Sodium (136-145) mEq/L Potassium (3.5-4.5) mEq/L Chloride (98-109) mEq/L Carbon Dioxide (19-29) mEq/L BUN (7-20) mg/dL Creatinine (0.57-1.11) mg/dL Est GFR ( Amer) (> 60) Est GFR (Non-Af Amer) (> 60) BUN/Creatinine Ratio (6-26) Glucose (70-99) mg/dL Calculated Osmolality (280-300) Lactic Acid (0.5-2.2) mmol/L Calcium (8.6-10.8) mg/dL Total Bilirubin (0.2-1.2) mg/dL Direct Bilirubin (0.0-0.5) mg/dL Indirect Bilirubin (0.0-1.2) mg/dL AST (5-34) Units/L ALT (0-55) Units/L Alkaline Phosphatase (38-126) Units/L Troponin I (0-0.03) ng/mL Serum Total Protein (6.0-8.3) g/dL Albumin (3.5-5.0) g/dL Globulin (2.4-3.5) g/dL Albumin/Globulin Ratio (1.1-2.2) Amylase (25-125) Units/L Lipase (8-78) Units/L Urine Color Red A (Yellow) Urine Clarity Turbid A (Clear) Urine pH 8.5 H (5.0-8.0) pH Units Ur Specific [place] 1.009 L (1.010-1.025) Urine Protein >=300 H (Neg-Trace) mg/dL Urine Glucose (UA) Normal (Normal) mg/dL Urine Ketones Negative (Negative) mg/dL Urine Blood Negative (Negative) Urine Nitrite Positive A (Negative) Urine Bilirubin Negative (Negative) Urine Urobilinogen Normal (Normal) mg/dL Ur Leukocyte Esterase Moderate H (Negative) Urine Microscopic RBC 5-15 H (0-3) per hpf Urine Microscopic WBC 3-5 H (0-3) per hpf Ur Squamous Epith Cells Many H (None-Few) per lpf Ur Renal Epithelial Cell Few (None-Few) per hpf Triple Phos Crystals Present Amorphous Sediment Moderate H (Few) Urine Bacteria Many H (None-Few) per hpf Hyaline Casts Urine Mucus Many H (Few) Ur Culture Indicated? YES A (NO) - EKG Data EKG attestation: Yes I reviewed and interpreted this EKG. EKG shows normal: sinus rhythm Rate: normal Rhythm: NSR [place]/QRS: normal When compared to previous EKG there are: previous EKG unavailable Interpretation: normal EKG Attestation Statement - Attestation Attestation: I, Bird Roblero DO have provided [id number] time during the care of this patient. Detailed review the presentation, symptoms, medical history were discussed and reviewed with the mid-level provider Makayla Carnes PA-C/[facility]. Medical intervention labs and imaging studies were reviewed in detail. See full documentation of physical exam and course of care in the mid-level provider 's note. I agree with the determined course of care, medical interventio,n and disposition put forth by the mid-level provider. See below documentation for changes or alterations in documentation. 52-year-old female with chronic medical issues including bilateral nephrostomy tube and diverting colostomy presents with decreased output in the right nephrostomy tube as well as decreased output in the left nephrostomy tube. Patient has history of obstruction secondary to stone and possible infection. She is concerned she had abdominal discomfort including right flank pain. Patient denied any other complaints or issues prior to the events. Labs and imaging were ordered. Patient has stable CT imaging of the abdomen at this time but otherwise patient has a negative workup for infectious etiology or signs of issue in the abdomen. Patient will be admitted for evaluation of the nephrostomy related issue. She is comfortable with this plan no other concerns or issues. Hospitals contacted admission accepted at this point. See detailed documentation by the mid-level provider.
[2017-02-20 01:28] LABS: Bilirubin,Urine Negative (Negative); Blood,Urine Negative (Negative); Clarity,Urine Turbid (Clear); Color,Urine Red (Yellow); Glucose,Urine (UA) Normal (Normal); Ketones,Urine Negative (Negative); Leukocyte Esterase,Urine Moderate (Negative); Nitrite,Urine Positive (Negative); PH,Urine 8.5 pH Units (5.0-8.0); Protein,Urine >=300 mg/dL (Neg-Trace); Specific Gravity,Urine 1.009 (1.010-1.025); Urobilinogen,Urine Normal (Normal)
[2017-02-20 01:33] LABS: Bilirubin,Urine Negative (Negative); Blood,Urine Negative (Negative); Clarity,Urine Turbid (Clear); Color,Urine Dark Yellow (Yellow); Glucose,Urine (UA) Normal (Normal); Ketones,Urine Negative (Negative); Leukocyte Esterase,Urine Large (Negative); Nitrite,Urine Positive (Negative); PH,Urine 8.5 pH Units (5.0-8.0); Protein,Urine >=300 mg/dL (Neg-Trace); Squamous Epithelial Cell,Urine Many per lpf (None-Few); Urobilinogen,Urine Normal (Normal)
[2017-02-20 01:35] LABS: Squamous Epithelial Cell,Urine Many per lpf (None-Few); WBC,Urine 0-3 per hpf (0-3)
[2017-02-20 01:43] LABS: Amorphous Sediment,Urine Moderate (Few); Renal Epithelial Cells,Urine Few per hpf (None-Few); Triple Phosphate Crystal,Urine Present
[2017-02-20 01:44] LABS: Bacteria,Urine Many per hpf (None-Few); Mucus,Urine Many (Few)
[2017-02-20 01:45] LABS: Amorphous Sediment,Urine Few (Few); Bacteria,Urine Many per hpf (None-Few); Mucus,Urine Moderate (Few); Triple Phosphate Crystal,Urine Present
[2017-02-20] MEDS ORDERED: Naloxone 0.4 MG/ML INJ IVP PRN (02:05)
[2017-02-20] MEDS ORDERED: *HR* Morphine 2 MG/ML SYRINGE IVP PRN (02:05)
--- NOTE | 2017-02-20 02:19 | Internal Med History&Physical ---
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 No significant change compared to prior study. 2. Stable positioning of bilateral nephro ureteral tubes. 3. Stable severe right hydronephrosis. 4. Stable mild nonspecific perinephric stranding. 5. The left kidney is unchanged in appearance. No definite left hydronephrosis identified. There is either prominent no calices versus hyperdense renal pyramids. 6. Stable postsurgical changes as before. 7. Compared to the prior study there is a new small parastomal hernia containing a loop of nonobstructed small bowel. etiology: complicated UTI vs pyelonephritis (stranding of b/l kidneys) Plan: IVF Will start zosyn (ESBL proteus sensitive based on previous cultures) Urine cultures Blood cultures Urology consult Nausea and pain control GI prophylaxis Regular diet (2) Anxiety and depression Current visit: Yes Status: Acute Controlled. Patient states she developed this secondary to her cervical cancer Plan: Continue Seroquel, Wellbutrin, Xanax (3) DVT prophylaxis Current visit: Yes Status: Acute Heparin subcutaneous Internal Medicine - H&P: HPI Chief complaint: right flank pain Admitted From: Home Plans for Post Hospital Care: Home History of present illness: Ms. Joseph is a 52 year old female cc of right flank pain. Patient has b/l nephrostomy tubes 2nd to extensive abdominal surgery (colostomy, removal of baldder, vaginal reconstruction) from cervical cancer. States had sudden onset of right flank pain radiating to the front describes a throbbing 10 out of 10 associated nausea and chills. Reports brownish discoloration of urine in right nephrostomy bag, with decreased urine production and change in color to left nephrostomy bag to purple which she indicates is a sign of infection. Reports no pain on left flank and no change in urine production on the left. Reports drainage from bilateral entry points nephrostomy tube described as brownish fluid. Denies erythema around nephrostomy tube. Dressing was changed earlier this morning. Patient tried Aleve without relief. Denies other exacerbation and relieving factors. On 02/14/17 patient was admitted for similar presentation and was found to have blockage of the right nephrostomy tube secondary to renal colliculi with concomitant right hydronephrosis. At that time she had replacement regimen nephrostomy tube. She also was treated for ESBL Proteus and was on Bactrim for 14 days. Patient reports finishing her antibiotic regimen. Past Med Surg Social Fam HX - Past Medical History Medical history: cancer (cervical), other Psychiatric history: anxiety, bipolar, depression - Past Surgical History Surgical History: colostomy, hysterectomy, other - Social History Smoking Status: Current every day smoker Smokeless Tobacco Status: No Alcohol use: none Drug use: none - Family History Father Living Status: Still Living Hx Family Cancer: Yes (prostate) Internal Medicine - H&P: Meds ALPRAZolam [Xanax 1 MG Tablet] 1 mg PO TID PRN 05/24/15 [History] Bupropion HCl [Wellbutrin Xl] 300 mg PO DAILY 05/24/15 [History] traZODone [TraZODone] 300 mg PO HS 05/24/15 [History] Quetiapine Fumarate [SEROquel] 300 mg PO HS 05/25/15 [History] Omeprazole [PriLOSEC] 20 mg PO DAILY 01/11/17 [History] Docusate [Colace] 100 mg PO BID 01/15/17 [History] Perphenazine [Trilafon] 8 mg PO DAILY 01/15/17 [History] Sulfamethoxazole/Trimeth DS [Bactrim DS] 1 tab PO BID 01/15/17 [History] Sulfamethoxazole/Trimeth SS [Bactrim SS] 1 each PO BID #28 tablet 01/16/17 [Rx] 3 Allergy/AdvReac Type Severity Reaction Status Date / Time codeine AdvReac Hives Verified 01/15/17 11:01 ibuprofen AdvReac See Verified 01/15/17 11:01 Comments All Systems PM: A 10-system review of systems was performed and is negative for pertinent findings except as documented above in the HPI. Review of systems: Constitutional: Denies fever. Reports chills HEENT: Denies headache, vision changes, neck pain, sore throat, rhinorrhea Heart: Denies chest pain palpitations Lungs: Denies shortness of breath cough Abdomen: Right flank pain with nausea. Denies vomiting, diarrhea, reports no change in colostomy output Back: Denies back pain Skin: Denies erythema, rash Kidney: Denies dysuria, hematuria Extremities: Denies swelling, pain Neuro: Denies numbness, and tingling - Constitutional Vitals: Temp Pulse Resp BP Pulse Ox 97.5 F L 88 18 138/95 98 02/19/17 19:43 02/19/17 19:43 02/20/17 02:07 02/20/17 02:07 02/19/17 19:43 - Other Additional findings: General: Alert and oriented to place time and situation. Without distress HEENT: Head atraumatic, normocephalic, EOMI, PERRLA, neck nontender to palpation , absent Lymphadenopathy, Moist Mucous Membranes, Heart: Regular rate and rhythm with no murmur Lungs: Clear to auscultation bilaterally Abdomen: Soft nontender, nondistended positive bowel sounds, colostomy bag LLQ with output of fecal material Urinary: b/l nephorostomy tube without surround erythema or drainage. W/ dressing. right bag outputing red turbid urine and left bag purple discoloration Extremities: Absent pedal edema, Skin: warm and dry Neuro: Cranial nerves II through XII intact, sensation equal bilaterally, strength upper and lower extremity 5/5, alert oriented 3 Vascular: Pedal and radial pulses 2 out of 4 Internal Med - H&P Results - Labs CBC & Chem 7: 02/19/17 21:46 02/19/17 21:46 <Ja Staley - Last Filed: 02/20/17 04:50> Date of Encounter: 02/20/17 Internal Medicine - H&P: HPI History of present illness: Ms. Joseph is a 52 year old female All Systems PM: A 10-system review of systems was performed and is negative for pertinent findings except as documented above in the HPI. - Constitutional Vitals: Temp Pulse Resp BP Pulse Ox 98.0 F 69 17 122/79 94 02/20/17 02:41 02/20/17 02:41 02/20/17 02:41 02/20/17 02:41 02/20/17 02:41 Internal Med - H&P Results - Labs CBC & Chem 7: 02/19/17 21:46 02/19/17 21:46 - Attending Attestation I examined this patient and my medical decision-making was reviewed with the Resident Physician, Dr. Tyler Alvarado. I agree with the documented findings, disposition and treatment plan as described except to the extent set forth below. I have independently obtained history and examined the patient and my findings are summarized below: Patient presented to the hospital due to right flank pain. She is in no acute distress awake alert oriented. Vital signs are stable Heart is regular, lungs are clear, abdomen is soft. There are bilateral nephrostomy tubes draining dark urine. Left nephrostomy tube and bag are purple secondary to continuing an indicator of infection. Plan: IV fluids, IV hydromorphone for pain, Zofran for nausea. We will treat infection with Zosyn. Follow-up blood cultures and urine cultures. Consult urology. Acute on chronic renal failure: IV fluids, avoid nephrotoxins, replacement nephrostomy tube by urology. Monitor BUN and creatinine. She is at high risk for morbidity, mortality and complications due to history of cancer and treatment with IV controlled substances for pain.
[2017-02-20] MEDS: 0.9 % Sodium Chloride 1,000 ML IVC SCH ×2 (04:14→10:16)
[2017-02-20] MEDS: *HR* HYDROmorphone (PF) 1 MG/ML SYRINGE IVP PRN ×3 (04:25→19:50)
[2017-02-20] MEDS: *HR* Heparin 5,000 UNIT/ML VIAL SQ SCH ×3 (05:30→21:18)
[2017-02-20] MEDS ORDERED: Piperacillin/Tazobactam 3.375 GM in D5% in Water (Mini-Bag+) 100 ML IVPB SCH (06:00)
[2017-02-20] MEDS ORDERED: 0.9 % Sodium Chloride 500 ML ONE (07:54)
--- NOTE | 2017-02-20 09:23 | IR Procedure Note ---
Consent Obtained: Written consent Timeout: Correct patient and procedure verified, Correct site verified, Time out performed, Skin prep completed Indications: obstructed nephroureteric catheter right Procedure Performed: exchange Site/Technique: right Results/Findings: Pussy urine Estimated blood loss (cc): 0 Complications: None; Tolerated procedure well Post Procedure Treatment Plan: dc to floor
[2017-02-20] MEDS: BuPROPion XL (24 HR) 150 MG TABLET PO SCH (10:16)
[2017-02-20] MEDS: ALPRAZolam 1 MG TABLET PO PRN ×2 (10:30→21:18)
--- NOTE | 2017-02-20 13:35 | Event Note ---
Date of Encounter: 02/20/17 Time of Encounter: 10:45 Patient underwent replacement of nephrostomy tube this morning. Doing well postprocedure. Patient did have purulent urine through the catheter. We will await culture results as patient has had prior urinary tract infections with ESBL producing Proteus. She has never been treated with intravenous antibiotics long-term. If her urine cultures are positive again with ESBL producing bacteria, she will need to be treated with intravenous antibiotics. For now will start patient back on her diet. Change antibiotics to ertapenem.
[2017-02-20] MEDS: Ertapenem 1,000 MG in 0.9 % Sodium Chloride Mini Bag 100 ML IVPB SCH (14:20)
--- NOTE | 2017-02-20 14:55 | Electrocardiograph Report ---
[place] [id number] Test Date: 2017-02-19 Pat Name: Ivonne Joseph Department: 104 Room: 3A Gender: F Manufacturing Manager: JENS : 1965 Requested By: Lourdes Rodriguez Order Number: [id number] Reading MD: Andrea Cabrera MD Measurements Intervals [place] Rate: 66 P: MN: 0 QRS: 66 QRSD: 84 T: 52 QT: 400 QTc: 413 Interpretive Statements SINUS BRADYCARDIA BASELINE ARTIFACT Electronically Signed On 02-20-2017 14:53:28 EDT by Andrea Cabrera MD
[2017-02-20] MEDS: Ondansetron 4 MG/2 ML VIAL IVP PRN (19:50)
[2017-02-20] MEDS: traZODone 50 MG TABLET PO SCH (21:18)
[2017-02-21] MEDS: 0.9 % Sodium Chloride 1,000 ML IVC SCH ×2 (00:16→10:25)
[2017-02-21] MEDS ORDERED: Acetaminophen 325 MG TABLET PO PRN (04:36)
[2017-02-21] MEDS: *HR* Heparin 5,000 UNIT/ML VIAL SQ SCH ×3 (05:30→19:52)
[2017-02-21 06:26] LABS: Basophils % 0.4 %; Eosinophils # 0.1 K/mcL (0.0-0.6); Eosinophils % 1.5 %; Immature Granulocytes % 0.4 % (0-4); Lymphocytes # 1.2 K/mcL (0.6-4.6); Lymphocytes % 25.8 %; Mean Corpuscular HGB Conc 32.3 g/dL (31.6-35.5); Mean Corpuscular Hemoglobin 29.6 pg (28.0-33.3); Mean Corpuscular Volume 91.5 fL (83.0-100.0); Mean Platelet Volume 10.1 fL (9.4-12.4); Monocytes # 0.4 K/mcL (0.0-1.3); Monocytes % 8.2 %; Platelet Count 136 K/mcL (140-400); Red Blood Count 3.28 M/mcL (3.82-4.97); Red Cell Distribution Width 13.4 % (11.5-14.5); Segmented Neutrophils % 63.7 %
[2017-02-21 06:27] LABS: Hemoglobin 9.7 g/dL (11.5-15.4)
[2017-02-21 06:45] LABS: Potassium 4.1 mEq/L (3.5-4.5)
[2017-02-21 06:46] LABS: Calcium 8.5 mg/dL (8.6-10.8)
[2017-02-21] MEDS: Perphenazine 8 MG TABLET PO SCH (10:04)
[2017-02-21] MEDS: BuPROPion XL (24 HR) 150 MG TABLET PO SCH (10:04)
[2017-02-21] MEDS: *HR* HYDROmorphone (PF) 1 MG/ML SYRINGE IVP PRN ×3 (10:05→19:45)
[2017-02-21] MEDS: Ertapenem 1,000 MG in 0.9 % Sodium Chloride Mini Bag 100 ML IVPB SCH (10:05)
--- NOTE | 2017-02-21 13:02 | Internal Med Progress Note ---
Date of Encounter: 02/21/17 Time of Encounter: 09:20 - Assessment and plan (1) Complicated UTI (urinary tract infection) Current Visit: Yes Status: Acute Assessment and plan: Patient with acute urinary tract infection/pyelitis of the left kidney. Urine culture positive for Proteus mirabilis. Patient has had recurrent infections with the same organism and in the past has had ESBL producing Proteus mirabilis infection. As such, her antibiotics have been changed to ertapenem. We will await sensitivity on current infection but most likely patient will need IV antibiotics for 2 weeks to treat this infection. Case management are aware of patient's situation. Moderate risk for complications. (2) Malfunction of nephrostomy tube Current Visit: Yes Status: Acute Assessment and plan: Status post replacement of left sided nephrostomy tube. Draining well. (3) Chronic kidney disease, stage III (moderate) Current Visit: Yes Status: Chronic Assessment and plan: Stable renal function. Creatinine is 1.88 today. (4) DVT prophylaxis Current Visit: Yes Status: Acute Assessment and plan: With subcutaneous heparin - Subjective Interval history: Patient is awake and alert and feels much better today. Denies any new complaints at this time. No significant pain. No fever or chills reported. - Constitutional Vitals: Temp Pulse Resp BP Pulse Ox 97.9 F 69 18 104/74 96 02/21/17 10:04 02/21/17 10:04 02/21/17 10:04 02/21/17 10:04 02/21/17 10:04 General appearance: Present: cooperative, A&O X 3, no acute distress, answers questions appropriately - Neck Neck exam general surgery: Present: supple, trachea midline. Absent: lymphadenopathy - Respiratory Respiratory exam: Present: CTAB. Absent: accessory muscle use, rales, rhonchi, wheezes - Cardiovascular Cardiovascular exam: Present: RRR, +S1, +S2. Absent: diastolic murmur, gallop, rubs, systolic murmur - GI/Abdominal GI/Abdominal exam: Present: normal bowel sounds, soft, no peritoneal signs. Absent: distended, tenderness - Additional comments: Bilateral nephrostomy tubes in place - Neurological Exam Neurological exam: Present: alert, oriented X3, no focal deficits. Absent: facial droop, speech deficit Internal Medicine: Result - Labs CBC & Chem 7: 02/21/17 05:59 08/24/17 05:59 Labs: Short CBC 02/21/17 Range/Units 05:59 WBC 4.7 D (4.3-11.1) K/mcL Hgb 9.7 L D (11.5-15.4) g/dL Hct 30.0 L (35.3-44.9) % Plt Count 136 L (140-400) K/mcL Neutrophils # 3.0 (1.6-8.9) K/mcL BMP 02/21/17 05:59 Sodium 139 Potassium 4.1 Chloride 108 Carbon Dioxide 21 BUN 21 H D Creatinine 1.88 H Glucose 90 Calcium 8.5 L D - ABG Interpretation ABG results: PT/INR, D-dimer PT 9.8 Seconds (9.4-12.1) 02/19/17 21:46 Consult Discharge Plan - Plan Referrals: Yanick Dunn MD [Primary Care Provider] -
[2017-02-21] MEDS: Ondansetron 4 MG/2 ML VIAL IVP PRN (14:45)
[2017-02-21] MEDS: ALPRAZolam 1 MG TABLET PO PRN (14:45)
[2017-02-21] MEDS: traZODone 50 MG TABLET PO SCH (19:44)
[2017-02-22] MEDS: *HR* Heparin 5,000 UNIT/ML VIAL SQ SCH (06:15)
[2017-02-22 07:00] VITALS: BP 94/59
[2017-02-22] MEDS: Ertapenem 1,000 MG in 0.9 % Sodium Chloride Mini Bag 100 ML IVPB SCH (08:13)
[2017-02-22] MEDS: BuPROPion XL (24 HR) 150 MG TABLET PO SCH (08:14)
[2017-02-22] MEDS: Perphenazine 8 MG TABLET PO SCH (08:15)
[2017-02-22] MEDS: *HR* HYDROmorphone (PF) 1 MG/ML SYRINGE IVP PRN (08:47)
[2017-02-22] MEDS ORDERED: Lidocaine -MPF 1% 5 ML AMPUL INFILT ONE (10:04)
--- NOTE | 2017-02-22 10:17 | Discharge Summary ---
Date of Encounter: 02/22/17 Time of Encounter: 09:35 - Discharge Diagnosis (1) Complicated UTI (urinary tract infection) Priority: Primary Status: Acute (2) Malfunction of nephrostomy tube Priority: Secondary Status: Acute (3) Chronic kidney disease, stage III (moderate) Priority: Secondary Status: Chronic (4) DVT prophylaxis Priority: Secondary Status: Acute (5) ESBL (extended spectrum beta-lactamase) producing bacteria infection Priority: Secondary Status: Acute - Discharge Medications Prescriptions: Ertapenem [INVanz] 1,000 mg IVPB DAILY #11 vial Home Medications: ALPRAZolam [Xanax 1 MG Tablet] 1 mg PO TID PRN 05/24/15 [History] Bupropion HCl [Wellbutrin Xl] 300 mg PO DAILY 05/24/15 [History] traZODone [TraZODone] 300 mg PO HS 05/24/15 [History] Quetiapine Fumarate [Seroquel] 300 mg PO HS 05/25/15 [History] Omeprazole [PriLOSEC] 20 mg PO DAILY 01/11/17 [History] Docusate [Colace] 100 mg PO BID 01/15/17 [History] Perphenazine [Trilafon] 8 mg PO DAILY 01/15/17 [History] Ertapenem [INVanz] 1,000 mg IVPB DAILY #11 vial 02/22/17 [Rx] Allergies/Adverse Reactions: 3 Allergy/AdvReac Type Severity Reaction Status Date / Time codeine AdvReac Hives Verified 01/15/17 11:01 ibuprofen AdvReac See Verified 01/15/17 11:01 Comments Date of admission: 02/21/17 12:53 Primary care physician: Yanick Dunn MD Consults: 02/22/17 10:04 Consult to Invasive Line Access Team [CONS] Routine Reason for Consult: Picc Line Insertion Line Type: EPIV PICC line indications: assistant terminal manager Med/Antibiotic Discharging clinician: Mari Sigala Anticipated date of discharge: 02/22/17 - Patient Status Disposition: Home Health Service Condition: Good Functional capacity at discharge: independent ambulation Overall status at discharge: patient is progressing back to baseline - Discharge Instructions Instructions: Urinary Tract Infection in Women (DC) Follow Up With: Yanick Dunn MD [Primary Care Provider] - 02/27/17 1:00 pm - Diet and Activity Activity: increase activity as tolerated Diet: low fat, low cholesterol, low salt diet Hospital course: Ms. Joseph is a 52 year old female patient with a history of chronic bilateral nephrostomy tubes due to cervical cancer with extensive lower abdominal surgeries, vaginal reconstruction and cystectomy, presented to the ER with complaints of right-sided flank pain. She did have right-sided severe hydronephrosis and there was concern for obstructed nephrostomy tube on the right. She was evaluated by urology and recommended replacement of the right for ostomy tube. Interventional radiology evaluated the patient and then exchanged the right nephrostomy tube. Patient was found to have a pyelitis/ pyonephrosis. Patient has had multiple recurrent infections with Proteus mirabilis and was also previously ESBL positive. This time again her urine cultures have grown Proteus mirabilis and this again appears to be ESBL producing. It is sensitive to ertapenem and patient will be discharged on intravenous ertapenem for 2 weeks. She can follow up further with urology as outpatient for management of her nephrostomy. - Time Spent with Patient Total time spent providing and/or coordinating discharge services: Less than 30 minutes (25 min) - Constitutional Vitals: Temp Pulse Resp BP Pulse Ox 98.0 F 64 15 94/59 95 02/22/17 06:55 02/22/17 06:55 02/22/17 06:55 02/22/17 06:55 02/22/17 06:55 General appearance: Present: cooperative, A&O X 3, no acute distress, answers questions appropriately - Respiratory Respiratory exam: Present: CTAB. Absent: accessory muscle use, rales, rhonchi, wheezes - Cardiovascular Cardiovascular exam: Present: RRR, +S1, +S2. Absent: diastolic murmur, gallop, rubs, systolic murmur - GI/Abdominal GI/Abdominal exam: Present: normal bowel sounds, soft, no peritoneal signs. Absent: distended, tenderness
--- NOTE | 2017-02-22 10:20 | Physician Discharge Referral ---
Home Health/Hosp Referral Info Transfer to: Home Health Provider in Charge Post Discharge: PCP - Diagnosis (1) Complicated UTI (urinary tract infection) Priority: Primary Status: Acute (2) Malfunction of nephrostomy tube Priority: Secondary Status: Acute (3) Chronic kidney disease, stage III (moderate) Priority: Secondary Status: Chronic (4) DVT prophylaxis Priority: Secondary Status: Acute (5) ESBL (extended spectrum beta-lactamase) producing bacteria infection Priority: Secondary Status: Acute - Respiratory Orders Smoking Cessation: Smoking cessation has been advised. For more information, call the [place] [employer] Quit Line at 2-451-XYMP-NOW. - Activity Activity Orders: Up ad bonita - Services Needed Following services are medically necessary services: Nursing - Transfer Medications Prescriptions: Ertapenem [INVanz] 1,000 mg IVPB DAILY #11 vial Home Medications: ALPRAZolam [Xanax 1 MG Tablet] 1 mg PO TID PRN 05/24/15 [History] Bupropion HCl [Wellbutrin Xl] 300 mg PO DAILY 05/24/15 [History] traZODone [TraZODone] 300 mg PO HS 05/24/15 [History] Quetiapine Fumarate [Seroquel] 300 mg PO HS 05/25/15 [History] Omeprazole [PriLOSEC] 20 mg PO DAILY 01/11/17 [History] Docusate [Colace] 100 mg PO BID 01/15/17 [History] Perphenazine [Trilafon] 8 mg PO DAILY 01/15/17 [History] Ertapenem [INVanz] 1,000 mg IVPB DAILY #11 vial 02/22/17 [Rx] Allergies/Adverse Reactions: 3 Allergy/AdvReac Type Severity Reaction Status Date / Time codeine AdvReac Hives Verified 01/15/17 11:01 ibuprofen AdvReac See Verified 01/15/17 11:01 Comments Certification: Further, I certify that my clinical findings support that this patient is homebound (i.e. absences from home require considerable and taxing effort and are for medical reasons or latter-day services or infrequently or short duration when for other reasons) because: Homebound Reason: Patient requires assistance of a person or device to safely leave home (Needs home IV antibiotic therapy for ESBL proteus infection) Attestation: My signature below is to certify that this patient is under my care and that I, or nurse practitioner, or a physician's insurance assistant working with me, has a face-to -face encounter with this patient.
== END 2017-02-22 14:23 | disposition home health service (06) | DRG 690 ==
LOC: 3ANU 18:57 → EMEROO 18:57 → 3ANU 02-20 02:19
PROVIDERS: ADMIT Internal Medicine Hematology & Oncology; ATTEND Internal Medicine

== ENCOUNTER 2017-05-09 14:12 | Inpatient (IN) ==
--- NOTE | 2017-05-09 15:39 | Emergency Department Note ---
Disposition Clinical Impression: Pyelonephritis Disposition: Admitted As Inpatient Condition: Fair Female Urogenital HPI - General Chief complaint: ED Urogenital-Female Stated complaint: Possible kidney infection Time Seen by Provider: 05/09/17 14:52 Source: patient Limitations: no limitations Nursing Notes Reviewed: Yes Vital Signs Reviewed: Yes - History of Present Illness HPI Narrative: Patient has a history of cervical cancer with recurrence and does have a surgeon at [facility] and presents with back pain which started today constant and does have nausea and chills but no recorded fever. No vomiting. Does have bilateral nephrostomy tubes due to recurrent kidney stones. She denies any blood in the urine or stool. States that the urine evident in the tubes is cloudy. Social history: Smoker but only one or 2 cigarettes per day, no alcohol or drugs - Related Data Home Medications Medication Instructions Recorded Confirmed ALPRAZolam [Xanax 1 MG Tablet] 1 mg PO TID PRN 05/24/15 05/09/17 Quetiapine Fumarate [Seroquel] 300 mg PO HS 05/25/15 05/09/17 Omeprazole [PriLOSEC] 20 mg PO BID 01/11/17 05/09/17 Docusate [Colace] 100 mg PO BID 01/15/17 05/09/17 Trazodone HCl 300 mg PO HS 05/09/17 05/09/17 buPROPion HCl [Bupropion HCl Sr] 200 mg PO BID 05/09/17 05/09/17 Allergies Allergy/AdvReac Type Severity Reaction Status Date / Time codeine AdvReac Hives Verified 05/09/17 14:29 ibuprofen AdvReac See Verified 05/09/17 14:29 Comments Review of Systems: Constitutional: No fever Vision: No blurred vision ENT: No rhinorrhea Respiratory: No cough Allergic: No allergies : No blood in urine GI: No blood in stool Hematologic: No bruising Dermatologic: No skin rash Musculoskeletal: No pain in the extremities Neuro: No numbness of the extremities Past Medical History - Past Medical History Medical history: Reports: cancer, renal disease, other Surgical history: Reports: colostomy, hysterectomy, other Psychiatric history: Reports: anxiety, bipolar, 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 EYES: PERRL, no scleral icterus. NOSE: The nose is normal in appearance without rhinorrhea RESP: Normal chest excursion with respiration; breath sounds clear and equal bilaterally; no wheezes, rhonchi, or rales CARD: Regular rhythm, without murmurs, rub or gallop ABD: Non-distended; non-tender, soft,without rigidity, rebound or guarding SKIN: Normal for age and race; warm and dry; no apparent lesions Back: Bilateral nephrostomy tubes, bilateral CVA discomfort with percussion - General Limitations: no limitations General appearance: alert Course Vital Signs Temperature 98.2 F 05/09/17 14:34 Pulse Rate 89 05/09/17 14:34 Respiratory Rate 20 05/09/17 14:34 Blood Pressure 110/75 05/09/17 14:34 O2 Sat by Pulse Oximetry 96 05/09/17 14:34 Temperature 97.9 F 05/09/17 20:37 Pulse Rate 69 05/09/17 20:37 Respiratory Rate 18 05/09/17 20:37 Blood Pressure 104/71 05/09/17 20:37 O2 Sat by Pulse Oximetry 97 05/09/17 20:37 Oxygen Delivery Oxygen Delivery Room Air Urogenital-Female - MDM Narrative Medical decision making narrative: Patient's symptoms are concerning for a polynephritis, she just finished taking amoxicillin for urinary tract infection, culture results are been reviewed, she likely admitted for intravenous antibiotics. She states that if things go onto a long that she has had significant problems related to waiting too long to start antibiotics 1540 - Medical Records Medical records reviewed: Yes I reviewed the patient's medical records. - Lab Data Result diagrams: 05/09/17 16:49 05/09/17 16:49 Lab Results 05/09/17 05/09/17 05/09/17 Range/Units 16:49 16:49 16:49 WBC 5.3 (4.3-11.1) K/mcL RBC 4.21 (3.82-4.97) M/mcL Hgb 12.8 (11.5-15.4) g/dL Hct 38.5 (35.3-44.9) % MCV 91.4 (83.0-100.0) fL MCH 30.4 (28.0-33.3) pg MCHC 33.2 (31.6-35.5) g/dL RDW 12.7 (11.5-14.5) % Plt Count 201 (140-400) K/mcL MPV 10.3 (9.4-12.4) fL Immature Gran % 0.2 (0-4) % Seg Neutrophils % 60.4 % Lymphocytes % 31.4 % Monocytes % 5.7 % Eosinophils % 1.7 % Basophils % 0.6 % Neutrophils # 3.2 (1.6-8.9) K/mcL Lymphocytes # 1.7 (0.6-4.6) K/mcL Monocytes # 0.3 (0.0-1.3) K/mcL Eosinophils # 0.1 (0.0-0.6) K/mcL Basophils # 0.0 (0.0-0.2) K/mcL Sodium 137 (136-145) mEq/L Potassium 4.0 (3.5-4.5) mEq/L Chloride 108 (98-109) mEq/L Carbon Dioxide 19 (19-29) mEq/L BUN 20 (7-20) mg/dL Creatinine 2.07 H (0.57-1.11) mg/dL Est GFR ( Amer) 30 L (> 60) Est GFR (Non-Af Amer) 25 L (> 60) BUN/Creatinine Ratio 10 (6-26) Glucose 75 (70-99) mg/dL Calculated Osmolality 285 (280-300) Lactic Acid 0.6 (0.5-2.2) mmol/L Calcium 9.2 (8.6-10.8) mg/dL
[2017-05-09] MEDS ORDERED: Ondansetron 4 MG/2 ML VIAL IVP ONE (15:40)
[2017-05-09] MEDS: 0.9 % Sodium Chloride 1,000 ML IVC SCH ×2 (16:16→23:56)
[2017-05-09] MEDS ORDERED: *HR* HYDROmorphone (PF) 1 MG/ML SYRINGE IVP ONE (16:42)
[2017-05-09 17:05] LABS: Basophils % 0.6 %; Eosinophils # 0.1 K/mcL (0.0-0.6); Eosinophils % 1.7 %; Hematocrit 38.5 % (35.3-44.9); Hemoglobin 12.8 g/dL (11.5-15.4); Immature Granulocytes % 0.2 % (0-4); Lymphocytes # 1.7 K/mcL (0.6-4.6); Lymphocytes % 31.4 %; Mean Corpuscular HGB Conc 33.2 g/dL (31.6-35.5); Mean Corpuscular Hemoglobin 30.4 pg (28.0-33.3); Mean Corpuscular Volume 91.4 fL (83.0-100.0); Mean Platelet Volume 10.3 fL (9.4-12.4); Monocytes # 0.3 K/mcL (0.0-1.3); Monocytes % 5.7 %; Neutrophils # 3.2 K/mcL (1.6-8.9); Platelet Count 201 K/mcL (140-400); Red Blood Count 4.21 M/mcL (3.82-4.97); Red Cell Distribution Width 12.7 % (11.5-14.5); Segmented Neutrophils % 60.4 %
[2017-05-09 17:13] LABS: Calcium 9.2 mg/dL (8.6-10.8)
[2017-05-09] MEDS ORDERED: Piperacillin/Tazobactam 4.5 GM in D5% in Water (Mini-Bag+) 100 ML IVPB ONE (18:08)
[2017-05-09] MEDS ORDERED: FLUARIX QUAD 2017-18 36MOS UP/PF 0.5 ML SYRINGE IM ONE (20:48)
[2017-05-09] MEDS ORDERED: Naloxone 0.4 MG/ML INJ IVP PRN (21:46)
[2017-05-09] MEDS ORDERED: *HR* HYDROcodone/Acet 5/325 mg TABLET PO PRN (21:46)
[2017-05-09] MEDS ORDERED: Acetaminophen 325 MG TABLET PO PRN (21:46)
[2017-05-09] MEDS ORDERED: *HR* Morphine 2 MG/ML SYRINGE IVP PRN (21:46)
--- NOTE | 2017-05-09 21:55 | Internal Med History&Physical ---
Date of Encounter: 05/09/17 Time of Encounter: 21:53 Assessment and Plan (1) Pyelonephritis Current visit: Yes Status: Acute - Pt has a history of recurrent UTI and pyelonephritis with b/l nephrostomy tubes - Afebrile, no WBC count. - Recently completed course of amoxicillin 2 weeks ago. Hx of ESBL - Started on Zosyn in ED. Will continue zosyn pending results of UA. - Will hold off on extended spectrum abx until cultures retuen. Pt is non septic. - UA and culture pending. Blood cx pending. (2) UTI (urinary tract infection) Current visit: Yes Status: Acute - UA and UTI pending. - Further management as above for pyelonephritis. Qualifiers: Urinary tract infection type: catheter-associated UTI Indwelling urinary catheter type: nephrostomy catheter Encounter type: subsequent encounter Qualified Code(s): T83.512D - Infection and inflammatory reaction due to nephrostomy catheter, subsequent encounter; N39.0 - Urinary tract infection, site not specified (3) Anxiety and depression Current visit: Yes Status: Chronic - Well controlled at this time. - Continue home meds. (4) Chronic kidney disease, stage III (moderate) Current visit: Yes Status: Chronic Cr of 2.07 on admission. - Appears to be at baseline per chart review. - Will continue to monitor and avoid nephrotoxic agents. (5) DVT prophylaxis Current visit: No Status: Acute - No hematuria. Heparin 5000 units q12 Internal Medicine - H&P: HPI Chief complaint: CVA pain b/l Admitted From: Emergency Dept Plans for Post Hospital Care: Home History of present illness: Ms. Joseph is a 52 year old female with a PMHx of b/l nephrostomy tubes secondary to nephrolithiasis and recurrent UTIs with ESBL presents to ED with a complaint of bilateral back tenderness and pain. She states that she gets recurrent UTIs and was recently treated 2 weeks ago for one with amoxicillin. She is unsure if her symptoms ever completely resolved. She admits to feeling warm but has not taken her temperature. She also has noticed some cloudiness in her ostomy tubes as well as symptoms of nausea with vomiting and radiation of her CVA pain to bilateral groin. She follows with Dr. Aguirre at [facility], and was recently referred to [facility] but was not able to make an appointment until May. Abdominal CT on 02/19/17 shows chronic severe right hydronephrosis with bilateral nephrostomy tubes in good position. Non specific perinephric stranding. In the ED, vital signs unremarkable. Labs show Cr of 2.07 which appears to be at baseline. She was started on Zosyn. Past Med Surg Social Fam HX - Past Medical History Medical history: cancer, renal disease, other Psychiatric history: anxiety, bipolar, depression - Past Surgical History Surgical History: colostomy, hysterectomy, other - Social History Smoking Status: Current every day smoker Smokeless Tobacco Status: No Alcohol use: none Drug use: none - Family History Father Living Status: Still Living Hx Family Cancer: Yes (prostate) Internal Medicine - H&P: Meds ALPRAZolam [Xanax 1 MG Tablet] 1 mg PO TID PRN 05/24/15 [History] Quetiapine Fumarate [Seroquel] 300 mg PO HS 05/25/15 [History] Omeprazole [PriLOSEC] 20 mg PO BID 01/11/17 [History] Docusate [Colace] 100 mg PO BID 01/15/17 [History] Trazodone HCl 300 mg PO HS 05/09/17 [History] buPROPion HCl [Bupropion HCl Sr] 200 mg PO BID 05/09/17 [History] 3 Allergy/AdvReac Type Severity Reaction Status Date / Time codeine AdvReac Hives Verified 05/09/17 14:29 ibuprofen AdvReac See Verified 05/09/17 14:29 Comments All Systems PM: A 10-system review of systems was performed and is negative for pertinent findings except as documented above in the HPI. - Constitutional Constitutional: chills, no excessive sweating, no fatigue, no fever(s), no lethargy, no malaise, no weakness - Cardiovascular Cardiovascular ROS IM: no chest pain, no dyspnea, no dyspnea on exertion, no edema, no lightheadedness - Respiratory Respiratory: no cough, no dyspnea, no dyspnea on exertion - Gastrointestinal Gastrointestinal: abdominal pain, nausea, no change in bowel habits, no change in stool character, no constipation, no diarrhea, no hematemesis, no hematochezia, no loose stools, no melena, no vomiting - Genitourinary Genitourinary: as per HPI, other (cloudy urine), no hematuria - Neurological Neurological ROS: no numbness, no tingling, no weakness - Constitutional Vitals: Temp Pulse Resp BP Pulse Ox 97.9 F 69 18 104/71 97 05/09/17 20:37 05/09/17 20:37 05/09/17 20:37 05/09/17 20:37 05/09/17 20:37 Exam: Gen.: Vitals noted. No acute distress. AAOx3 HEENT: PERRL/EOMI, oropharynx clear, Normocephalic, atraumatic, MMM Neck: Supple. No adenopathy. Cardiac: RRR, no murmur, +S1/S2 Pulmonary: CTA bilaterally, no wheezes, rales or rhonchi, equal chest expansion Abdomen: soft, tender to palpation in LUQ, epigastric regions. BS noted, no guarding Back: Urostomy tubes bilaterally with tenderness to palpation. Bags recently emptied. No obvious blood. MSK: ROM intact, no joint swelling noted Extremities: no BLE edema, nontender calf, no cyanosis or clubbing Neuro: A&Ox3, moves all extremities, no focal deficits Psych: Appropriate mood and behavior Internal Med - H&P Results - Labs CBC & Chem 7: 05/09/17 16:49 05/09/17 16:49
--- NOTE | 2017-05-09 23:14 | Event Note ---
Date of Encounter: 05/09/17 Time of Encounter: 23:12 Patient and examined with medical imaging technologist. Patient has bilateral nephrostomy tubes after complications related to radiation therapy for uterine cancer. She has been complaining of bilateral loin pain, cloudy urine and foul-smelling urine. She also mentioned that left nephrostomy tube is not draining well but this is also not new. Will check your analysis. She has prior history of multi- drug-resistant urine tract infections. She just completed the course of ampicillin 2 weeks ago.
[2017-05-10 00:32] LABS: Bilirubin,Urine Negative (Negative); Clarity,Urine Turbid (Clear); Color,Urine Yellow (Yellow); Glucose,Urine (UA) Normal (Normal)
[2017-05-10 00:33] LABS: Blood,Urine Negative (Negative); Ketones,Urine Negative (Negative); Leukocyte Esterase,Urine Large (Negative); Nitrite,Urine Positive (Negative); PH,Urine 8.5 pH Units (5.0-8.0); Protein,Urine 100 mg/dL (Neg-Trace); Urobilinogen,Urine Normal (Normal)
[2017-05-10 00:40] LABS: Amorphous Sediment,Urine Few (Few); Bacteria,Urine Many per hpf (None-Few)
[2017-05-10 00:42] LABS: Triple Phosphate Crystal,Urine Present
[2017-05-10 00:43] LABS: RBC,Urine 0-3 per hpf (0-3)
[2017-05-10] MEDS: Ondansetron 4 MG/2 ML VIAL IVP PRN ×2 (03:16→16:19)
[2017-05-10] MEDS: *HR* HYDROmorphone (PF) 1 MG/ML SYRINGE IVP PRN ×4 (03:16→21:59)
[2017-05-10 03:47] LABS: Basophils % 0.6 %; Eosinophils # 0.1 K/mcL (0.0-0.6); Eosinophils % 2.2 %; Hematocrit 36.6 % (35.3-44.9); Hemoglobin 12.1 g/dL (11.5-15.4); Immature Granulocytes % 0.6 % (0-4); Lymphocytes # 2.4 K/mcL (0.6-4.6); Lymphocytes % 38.7 %; Mean Corpuscular HGB Conc 33.1 g/dL (31.6-35.5); Mean Corpuscular Hemoglobin 30.1 pg (28.0-33.3); Mean Platelet Volume 10.4 fL (9.4-12.4); Monocytes # 0.5 K/mcL (0.0-1.3); Monocytes % 7.7 %; Platelet Count 192 K/mcL (140-400); Red Blood Count 4.02 M/mcL (3.82-4.97); Red Cell Distribution Width 12.8 % (11.5-14.5); Segmented Neutrophils % 50.2 %
[2017-05-10 04:06] LABS: Neutrophils # 3.2 K/mcL (1.6-8.9)
[2017-05-10 04:07] LABS: Platelet Estimate Normal (Normal)
[2017-05-10 05:18] LABS: Calcium 8.5 mg/dL (8.6-10.8); Potassium 4.1 mEq/L (3.5-4.5)
[2017-05-10] MEDS: *HR* Heparin 5,000 UNIT/ML VIAL SQ SCH ×2 (05:28→18:23)
[2017-05-10] MEDS ORDERED: Piperacillin/Tazobactam 3.375 GM in D5% in Water 50 ML IVPB SCH (06:00)
[2017-05-10] MEDS: BuPROPion SR (12 HR) 100 MG TABLET PO SCH ×2 (08:39→22:02)
[2017-05-10] MEDS: 0.9 % Sodium Chloride 1,000 ML IVC SCH ×15 (12:00→12:56)
[2017-05-10] MEDS ORDERED: *HR* OxyCODONE/APAP 5/325 TABLET PO PRN (13:08)
[2017-05-10] MEDS: Piperacillin/Tazobactam 3.375 GM in D5% in Water 50 ML IVPB SCH (18:23)
[2017-05-10] MEDS: traZODone 50 MG TABLET PO SCH (22:01)
--- NOTE | 2017-05-10 23:27 | Internal Med Progress Note ---
Date of Encounter: 05/10/17 Time of Encounter: 14:24 - Assessment and plan (1) Pyelonephritis Current Visit: Yes Status: Acute Assessment and plan: Cultures returned positive for multiple organisms. Sensitivities are available. They are sensitive to Zosyn so will continue this for now. Nephrostomy tubes draining fluid and do not appear clotted/obstructed. She has an upcoming appointment in May at [facility] for urologic complications. Will consult Urology, appreciate recommendations on antibiotic selection upon discharge. Discontinue [place] and change to Percocet prn. (2) History of creation of ostomy Current Visit: No Status: Acute (3) ESBL (extended spectrum beta-lactamase) producing bacteria infection Current Visit: No Status: Acute (4) Chronic kidney disease, stage III (moderate) Current Visit: Yes Status: Chronic - Subjective Interval history: Pain still present only mildly improved with [place]. She denies fevers/chills. - Constitutional Vitals: Temp Pulse Resp BP Pulse Ox 97.5 F L 69 16 118/69 95 05/10/17 19:40 05/10/17 19:40 05/10/17 19:40 05/10/17 19:40 05/10/17 19:40 Exam: HEENT: MMM Cardiac: RRR, no murmur, +S1/S2 Pulmonary: CTA bilaterally, no wheezes, rales or rhonchi, equal chest expansion Abdomen: soft, tender to palpation in LUQ, epigastric regions. BS noted, no guarding Back: Urostomy tubes bilaterally with tenderness to palpation. Bags recently emptied. No obvious blood. Extremities: no BLE edema, nontender calf, no cyanosis or clubbing Neuro: A&Ox3, moves all extremities, no focal deficits Psych: Appropriate mood and behavior Internal Medicine: Result - Labs CBC & Chem 7: 05/10/17 03:34 05/10/17 04:08 Labs: Short CBC 05/10/17 Range/Units 03:34 WBC 6.3 (4.3-11.1) K/mcL Hgb 12.1 (11.5-15.4) g/dL Hct 36.6 (35.3-44.9) % Plt Count 192 (140-400) K/mcL Neutrophils # 3.2 (1.6-8.9) K/mcL BMP 05/10/17 04:08 Sodium 140 Potassium 4.1 Chloride 109 Carbon Dioxide 23 BUN 22 H Creatinine 2.34 H Glucose 92 Calcium 8.5 L Urine 05/10/17 Range/Units 00:12 Urine Color Yellow (Yellow) Urine Clarity Turbid A (Clear) Urine pH 8.5 H (5.0-8.0) pH Units Ur Specific [place] 1.020 (1.010-1.025) Urine Protein 100 H (Neg-Trace) mg/dL Urine Glucose (UA) Normal (Normal) mg/dL Consult Discharge Plan - Plan Referrals: Yanick Dunn MD [Primary Care Provider] - 05/15/17 1:00 pm
[2017-05-11] MEDS: 0.9 % Sodium Chloride 1,000 ML IVC SCH (02:34)
[2017-05-11] MEDS: *HR* HYDROmorphone (PF) 1 MG/ML SYRINGE IVP PRN ×5 (03:15→22:22)
[2017-05-11 06:33] LABS: Basophils % 0.5 %; Eosinophils # 0.1 K/mcL (0.0-0.6); Eosinophils % 2.8 %; Hemoglobin 11.4 g/dL (11.5-15.4); Lymphocytes # 1.6 K/mcL (0.6-4.6); Lymphocytes % 39.4 %; Mean Corpuscular HGB Conc 31.7 g/dL (31.6-35.5); Mean Corpuscular Hemoglobin 29.6 pg (28.0-33.3); Mean Corpuscular Volume 93.5 fL (83.0-100.0); Mean Platelet Volume 10.3 fL (9.4-12.4); Monocytes # 0.2 K/mcL (0.0-1.3); Monocytes % 6.1 %; Platelet Count 158 K/mcL (140-400); Red Blood Count 3.85 M/mcL (3.82-4.97); Red Cell Distribution Width 12.9 % (11.5-14.5); Segmented Neutrophils % 51.2 %
[2017-05-11 06:49] LABS: Calcium 8.4 mg/dL (8.6-10.8); Potassium 4.7 mEq/L (3.5-4.5)
[2017-05-11] MEDS: *HR* Heparin 5,000 UNIT/ML VIAL SQ SCH ×2 (08:11→17:39)
[2017-05-11] MEDS: Piperacillin/Tazobactam 3.375 GM in D5% in Water 50 ML IVPB SCH ×2 (08:45→17:39)
[2017-05-11] MEDS: BuPROPion SR (12 HR) 100 MG TABLET PO SCH ×2 (08:57→22:21)
--- NOTE | 2017-05-11 09:03 | Urology - Consult Note ---
Date of Encounter: 05/11/17 Time of Encounter: 09:01 - Assessment and Plan (1) Complicated UTI (urinary tract infection) Current Visit: No Status: Acute Assessment and plan: Recommend to continue with broad-spectrum antibiotic until cultures return. Patient is scheduled with [facility] next month for evaluation of ileal conduit revision. Patient may need nephroureteral catheters exchanged as they were last changed in January. This can be performed on Saturday or Saturday with interventional radiology. Urology CN:SHAYAN Consult date: 05/11/17 Reason for consult Urology: Other (bilateral nephrostomy tubes) Requesting physician: Kota Ortez History of present illness: Ivonne is a 52-year-old female with a history of bilateral nephroureteral catheters secondary to hydronephrosis from ileo-ureteral anastomotic issues. Patient is scheduled with [facility] urology for evaluation of possible revision. Patient is now admitted secondary to another urinary tract infection. Initial results reveal Proteus. Patient had multi drug resistant Proteus during last admission. Past Med Surg Social Fam HX - Past Medical History Medical history: cancer, renal disease, other Psychiatric history: anxiety, bipolar, depression - Past Surgical History Surgical History: colostomy, hysterectomy, other - Social History Smoking Status: Current every day smoker Smokeless Tobacco Status: No Alcohol use: none Drug use: none - Family History Father Living Status: Still Living Hx Family Cancer: Yes (prostate) Medications and Allergies ALPRAZolam [Xanax 1 MG Tablet] 1 mg PO TID PRN 05/24/15 [History] Quetiapine Fumarate [Seroquel] 300 mg PO HS 05/25/15 [History] Omeprazole [PriLOSEC] 20 mg PO BID 01/11/17 [History] Docusate [Colace] 100 mg PO BID 01/15/17 [History] Trazodone HCl 300 mg PO HS 05/09/17 [History] buPROPion HCl [Bupropion HCl Sr] 200 mg PO BID 05/09/17 [History] 3 Allergy/AdvReac Type Severity Reaction Status Date / Time codeine AdvReac Hives Verified 05/09/17 14:29 ibuprofen AdvReac See Verified 05/09/17 14:29 Comments Review of Systems - Constitutional no chills - EENT Nose, mouth and throat: no dizziness - Respiratory no cough - Gastrointestinal abdominal pain Exam Initial Vital Signs Temp Pulse Resp BP Pulse Ox 98.2 F 89 20 110/75 96 05/09/17 14:34 05/09/17 14:34 05/09/17 14:34 05/09/17 14:34 05/09/17 14:34 - General physical appearance Present: well developed - Neck Present: no masses - Respiratory Present: normal respiratory effort - Cardiovascular Cardiovascular exam IM: RRR - Abdomen Abdomen: Present: soft Urology Results - Labs 05/11/17 06:22 05/11/17 06:22 Abnormal lab results WBC 4.0 K/mcL (4.3-11.1) L 05/11/17 06:22 Hgb 11.4 g/dL (11.5-15.4) L 05/11/17 06:22 Potassium 4.7 mEq/L (3.5-4.5) H 05/11/17 06:22 Chloride 111 mEq/L (98-109) H 05/11/17 06:22 BUN 21 mg/dL (7-20) H 05/11/17 06:22 Creatinine 1.96 mg/dL (0.57-1.11) H 05/11/17 06:22 Est GFR ( Amer) 32 (> 60) L 05/11/17 06:22 Est GFR (Non-Af Amer) 27 (> 60) L 05/11/17 06:22 Glucose 105 mg/dL (70-99) H 05/11/17 06:22 Calcium 8.4 mg/dL (8.6-10.8) L 05/11/17 06:22 Urine Clarity Turbid (Clear) A 05/10/17 00:12 Urine pH 8.5 pH Units (5.0-8.0) H 05/10/17 00:12 Urine Protein 100 mg/dL (Neg-Trace) H 05/10/17 00:12 Urine Nitrite Positive (Negative) A 05/10/17 00:12 Ur Leukocyte Esterase Large (Negative) H 05/10/17 00:12 Urine Microscopic WBC 5-15 per hpf (0-3) H 05/10/17 00:12 Urine Bacteria Many per hpf (None-Few) H 05/10/17 00:12 Ur Culture Indicated? YES (NO) A 11/10/17 00:12 Diabetes panel 05/11/17 Range/Units 06:22 Sodium 141 (136-145) mEq/L Potassium 4.7 H (3.5-4.5) mEq/L Chloride 111 H (98-109) mEq/L Carbon Dioxide 22 (19-29) mEq/L BUN 21 H (7-20) mg/dL Creatinine 1.96 H (0.57-1.11) mg/dL Glucose 105 H (70-99) mg/dL Calcium 8.4 L (8.6-10.8) mg/dL Calcium panel 05/11/17 Range/Units 06:22 Calcium 8.4 L (8.6-10.8) mg/dL Pituitary panel 05/11/17 Range/Units 06:22 Sodium 141 (136-145) mEq/L Potassium 4.7 H (3.5-4.5) mEq/L Chloride 111 H (98-109) mEq/L Carbon Dioxide 22 (19-29) mEq/L BUN 21 H (7-20) mg/dL Creatinine 1.96 H (0.57-1.11) mg/dL Glucose 105 H (70-99) mg/dL Calcium 8.4 L (8.6-10.8) mg/dL Adrenal panel 05/11/17 Range/Units 06:22 Sodium 141 (136-145) mEq/L Potassium 4.7 H (3.5-4.5) mEq/L Chloride 111 H (98-109) mEq/L Carbon Dioxide 22 (19-29) mEq/L BUN 21 H (7-20) mg/dL Creatinine 1.96 H (0.57-1.11) mg/dL Glucose 105 H (70-99) mg/dL Calcium 8.4 L (8.6-10.8) mg/dL All other labs normal. Consult Discharge Plan - Plan Referrals: Yanick Dunn MD [Primary Care Provider] - 05/15/17 1:00 pm
[2017-05-11] MEDS ORDERED: *HR* OxyCODONE/APAP 5/325 TABLET PO PRN (10:12)
[2017-05-11] MEDS: ALPRAZolam 1 MG TABLET PO PRN (12:37)
[2017-05-11] MEDS: *HR* OxyCODONE Immed Rel 5 MG TABLET PO PRN (17:40)
[2017-05-11] MEDS: Ondansetron 4 MG/2 ML VIAL IVP PRN (18:44)
[2017-05-11] MEDS: traZODone 50 MG TABLET PO SCH (22:20)
--- NOTE | 2017-05-11 23:41 | Internal Med Progress Note ---
Date of Encounter: 05/11/17 Time of Encounter: 13:39 - Assessment and plan (1) Complicated UTI (urinary tract infection) Current Visit: No Status: Acute Assessment and plan: Secondary to Proteus. Urology is following, recommendations appreciated. Continue Zosyn until cultures result. Will place IR consult Saturday morning, as she may need nephroureteral cath exchange. She is concerned of APAP in Percocet, she states she has had elevated liver enzymes in the past. Will change to Roxycodone. If pain is still unmanageable , will consider increasing Roxycodone dose. Possibly increase Dilaudid for breakthrough to 1 mg Q3H but this is less desirable for chronic pain. NSAIDs such as Toradol are contraindicated for her due to CKD. (2) History of creation of ostomy Current Visit: No Status: Acute (3) Chronic kidney disease, stage III (moderate) Current Visit: Yes Status: Chronic - Subjective Interval history: Switched to Percocet yesterday as [place] was ineffective. Percocet was tried yesterday and this morning, does not seem to alleviate pain much. She denies fevers/chills, n/v. - Constitutional Vitals: Temp Pulse Resp BP Pulse Ox 97.9 F 65 18 115/75 96 05/11/17 18:39 05/11/17 18:39 05/11/17 18:39 05/11/17 18:39 05/11/17 18:39 Exam: Gen: NAD, AAOx3 CVS: RRR Lungs: CTAB Abd: NT/ND : nephrotomy tubes in place, draining without any purulence Ext: no edema Internal Medicine: Result - Labs CBC & Chem 7: 05/11/17 06:22 05/11/17 06:22 Labs: Short CBC 05/11/17 Range/Units 06:22 WBC 4.0 L (4.3-11.1) K/mcL Hgb 11.4 L (11.5-15.4) g/dL Hct 36.0 (35.3-44.9) % Plt Count 158 (140-400) K/mcL Neutrophils # 2.0 (1.6-8.9) K/mcL BMP 05/11/17 06:22 Sodium 141 Potassium 4.7 H Chloride 111 H Carbon Dioxide 22 BUN 21 H Creatinine 1.96 H Glucose 105 H Calcium 8.4 L Consult Discharge Plan - Plan Referrals: Yanick Dunn MD [Primary Care Provider] - 05/15/17 1:00 pm
[2017-05-12] MEDS: *HR* OxyCODONE Immed Rel 5 MG TABLET PO PRN ×3 (04:25→22:05)
[2017-05-12 05:01] LABS: Basophils % 0.4 %; Eosinophils # 0.1 K/mcL (0.0-0.6); Eosinophils % 2.5 %; Hematocrit 34.2 % (35.3-44.9); Hemoglobin 10.9 g/dL (11.5-15.4); Immature Granulocytes % 0.2 % (0-4); Lymphocytes # 1.7 K/mcL (0.6-4.6); Lymphocytes % 36.4 %; Mean Corpuscular HGB Conc 31.9 g/dL (31.6-35.5); Mean Corpuscular Hemoglobin 29.9 pg (28.0-33.3); Mean Platelet Volume 10.5 fL (9.4-12.4); Monocytes # 0.2 K/mcL (0.0-1.3); Monocytes % 5.1 %; Neutrophils # 2.6 K/mcL (1.6-8.9); Platelet Count 172 K/mcL (140-400); Red Blood Count 3.64 M/mcL (3.82-4.97); Segmented Neutrophils % 55.4 %
[2017-05-12 06:02] LABS: Calcium 8.8 mg/dL (8.6-10.8); Potassium 5.4 mEq/L (3.5-4.5)
[2017-05-12] MEDS: *HR* Heparin 5,000 UNIT/ML VIAL SQ SCH ×2 (06:27→17:50)
[2017-05-12] MEDS: *HR* HYDROmorphone (PF) 1 MG/ML SYRINGE IVP PRN ×3 (06:52→17:50)
[2017-05-12] MEDS: Piperacillin/Tazobactam 3.375 GM in D5% in Water 50 ML IVPB SCH ×2 (06:53→17:49)
--- NOTE | 2017-05-12 08:42 | Urology Progress Note ---
Date of Encounter: 05/12/17 Time of Encounter: 08:41 - Assessment and Plan (1) Complicated UTI (urinary tract infection) Current Visit: No Status: Acute Assessment and plan: order for nephrostomy tube exchanged placed. abx per primary team. Progress Note Narrative: patient seen. feeling better. final culture not returned. Objective Initial Vital Signs Temp Pulse Resp BP Pulse Ox 98.2 F 89 20 110/75 96 05/09/17 14:34 05/09/17 14:34 05/09/17 14:34 05/09/17 14:34 05/09/17 14:34 - General physical appearance Present: well developed - Abdomen Present: soft - Labs 05/12/17 04:12 05/12/17 05:43 Diabetes panel 05/12/17 Range/Units 05:43 Sodium 138 (136-145) mEq/L Potassium 5.4 H (3.5-4.5) mEq/L Chloride 108 (98-109) mEq/L Carbon Dioxide 23 (19-29) mEq/L BUN 26 H (7-20) mg/dL Creatinine 2.02 H (0.57-1.11) mg/dL Glucose 98 (70-99) mg/dL Calcium 8.8 (8.6-10.8) mg/dL Calcium panel 05/12/17 Range/Units 05:43 Calcium 8.8 (8.6-10.8) mg/dL Pituitary panel 05/12/17 Range/Units 05:43 Sodium 138 (136-145) mEq/L Potassium 5.4 H (3.5-4.5) mEq/L Chloride 108 (98-109) mEq/L Carbon Dioxide 23 (19-29) mEq/L BUN 26 H (7-20) mg/dL Creatinine 2.02 H (0.57-1.11) mg/dL Glucose 98 (70-99) mg/dL Calcium 8.8 (8.6-10.8) mg/dL Adrenal panel 05/12/17 Range/Units 05:43 Sodium 138 (136-145) mEq/L Potassium 5.4 H (3.5-4.5) mEq/L Chloride 108 (98-109) mEq/L Carbon Dioxide 23 (19-29) mEq/L BUN 26 H (7-20) mg/dL Creatinine 2.02 H (0.57-1.11) mg/dL Glucose 98 (70-99) mg/dL Calcium 8.8 (8.6-10.8) mg/dL Consult Discharge Plan - Plan Referrals: Yanick Dunn MD [Primary Care Provider] - 05/15/17 1:00 pm
[2017-05-12] MEDS: BuPROPion SR (12 HR) 100 MG TABLET PO SCH ×2 (09:26→20:17)
[2017-05-12] MEDS: traZODone 50 MG TABLET PO SCH (20:16)
--- NOTE | 2017-05-12 22:46 | Internal Med Progress Note ---
Date of Encounter: 05/12/17 Time of Encounter: 10:43 - Assessment and plan (1) Complicated UTI (urinary tract infection) Current Visit: No Status: Acute Assessment and plan: Continue Zosyn until cultures result. Urology is following, recommendations appreciated. IR consulted as she may need nephroureteral cath exchange. Continue pain control with Roxycodone and Dilaudid for breakthrough. She is poor candidate for NSAIDs due to renal function. Has history of elevated LFTs and so Percocet was discontinued. (2) History of creation of ostomy Current Visit: No Status: Acute (3) Chronic kidney disease, stage III (moderate) Current Visit: Yes Status: Chronic - Subjective Interval history: Denies fevers/chills, n/v. - Constitutional Vitals: Temp Pulse Resp BP Pulse Ox 98.2 F 67 15 104/71 95 05/12/17 19:10 05/12/17 19:10 05/12/17 19:10 05/12/17 19:10 05/12/17 19:10 Exam: Gen: NAD CVS: RRR Lungs: CTAB Ext: No edema Bilateral nephrostomy tubes in place. Internal Medicine: Result - Labs CBC & Chem 7: 05/12/17 04:12 05/12/17 05:43 Labs: Short CBC 05/12/17 Range/Units 04:12 WBC 4.7 (4.3-11.1) K/mcL Hgb 10.9 L (11.5-15.4) g/dL Hct 34.2 L (35.3-44.9) % Plt Count 172 (140-400) K/mcL Neutrophils # 2.6 (1.6-8.9) K/mcL BMP 05/12/17 05:43 Sodium 138 Potassium 5.4 H Chloride 108 Carbon Dioxide 23 BUN 26 H Creatinine 2.02 H Glucose 98 Calcium 8.8 Consult Discharge Plan - Plan Referrals: Yanick Dunn MD [Primary Care Provider] - 05/15/17 1:00 pm
[2017-05-13] MEDS: *HR* HYDROmorphone (PF) 1 MG/ML SYRINGE IVP PRN ×5 (02:38→21:52)
[2017-05-13] MEDS: *HR* Heparin 5,000 UNIT/ML VIAL SQ SCH ×2 (05:44→17:56)
[2017-05-13] MEDS: Piperacillin/Tazobactam 3.375 GM in D5% in Water 50 ML IVPB SCH (05:44)
[2017-05-13 05:50] LABS: Basophils % 0.7 %; Eosinophils # 0.1 K/mcL (0.0-0.6); Eosinophils % 3.1 %; Hemoglobin 10.5 g/dL (11.5-15.4); Immature Granulocytes % 0.2 % (0-4); Lymphocytes # 1.7 K/mcL (0.6-4.6); Mean Corpuscular HGB Conc 31.8 g/dL (31.6-35.5); Mean Corpuscular Hemoglobin 29.5 pg (28.0-33.3); Mean Corpuscular Volume 92.7 fL (83.0-100.0); Mean Platelet Volume 10.4 fL (9.4-12.4); Monocytes # 0.4 K/mcL (0.0-1.3); Monocytes % 7.8 %; Neutrophils # 2.3 K/mcL (1.6-8.9); Platelet Count 156 K/mcL (140-400); Red Blood Count 3.56 M/mcL (3.82-4.97); Red Cell Distribution Width 12.8 % (11.5-14.5); Segmented Neutrophils % 51.2 %
[2017-05-13 05:53] LABS: Prothrombin Time 10.3 Seconds (9.4-12.1)
[2017-05-13 05:55] LABS: Activated Partial Thrombo Time 30.3 Seconds (26.0-36.0)
[2017-05-13 06:09] LABS: Calcium 8.7 mg/dL (8.6-10.8); Potassium 4.6 mEq/L (3.5-4.5)
[2017-05-13] MEDS: Ondansetron 4 MG/2 ML VIAL IVP PRN ×2 (07:48→16:04)
[2017-05-13] MEDS: BuPROPion SR (12 HR) 100 MG TABLET PO SCH ×2 (08:01→21:52)
[2017-05-13] MEDS ORDERED: 0.9 % Sodium Chloride 500 ML ONE ×2 (11:02→11:52)
[2017-05-13] MEDS ORDERED: *HR* Midazolam HCl 2 MG/2 ML VIAL IVP ONE (11:46)
[2017-05-13] MEDS ORDERED: *HR* FentaNYL (PF) 100 MCG/2 ML VIAL IVP ONE ×2 (11:46→12:00)
--- NOTE | 2017-05-13 11:47 | Pre-Sedation Evaluation ---
Pre-sedation evaluation - Pre-sedation checklist Date of procedure: 05/13/17 Procedure: nephrostomy tube insertion Recent Vitals: Last Vital Signs Temp 97.8 F 05/13/17 06:28 Pulse 74 05/13/17 06:28 Resp 18 05/13/17 06:28 BP 114/77 05/13/17 06:28 Pulse Ox 95 05/13/17 06:28 H&P (including ROS) documented in medical record: Yes Previous reaction to sedatives/anesthetics: No Dietary Status: NPO after Midnight Airway Assessment: Patient can open mouth completely, TMJ function normal, Micrognathia (under-bite, receding chin) absent, Neck with adequate range of motion Dentition: No loose teeth or bridges Possible difficult airway: No ASA Classification *see protocol: CLASS II-Mild systemic disease Plan of Care: Pt appropriate candidate for procedure/moderate/conscious sedation , Risks/benefits of procedure/sedation discussed w/ patient/family, If not NPO; Risk of intake outweiged by necessity to perform procedure
--- NOTE | 2017-05-13 13:57 | IR Procedure Note ---
Date of procedure: 05/13/17 Consent Obtained: Written consent Timeout: Correct patient and procedure verified, Correct site verified, Time out performed, Skin prep completed Indications: renal obstruction, infection Procedure Performed: exchange of bilateral nephroureteric tubes Site/Technique: bilateral Results/Findings: adequate placement Estimated blood loss (cc): 0 Complications: None; Tolerated procedure well Post Procedure Treatment Plan: dc to floor
[2017-05-13] MEDS: *HR* OxyCODONE Immed Rel 5 MG TABLET PO PRN (14:14)
[2017-05-13] MEDS ORDERED: Cefepime HCl 2,000 MG in Water for inj. (sterile) 20 ML IVP SCH (15:00)
[2017-05-13] MEDS: ALPRAZolam 1 MG TABLET PO PRN (17:56)
[2017-05-13] MEDS: traZODone 50 MG TABLET PO SCH (21:52)
[2017-05-14 04:17] LABS: Basophils % 0.6 %; Eosinophils # 0.1 K/mcL (0.0-0.6); Eosinophils % 2.2 %; Hematocrit 34.8 % (35.3-44.9); Hemoglobin 11.3 g/dL (11.5-15.4); Immature Granulocytes % 0.4 % (0-4); Lymphocytes # 1.3 K/mcL (0.6-4.6); Lymphocytes % 26.2 %; Mean Corpuscular HGB Conc 32.5 g/dL (31.6-35.5); Mean Corpuscular Volume 92.3 fL (83.0-100.0); Mean Platelet Volume 10.4 fL (9.4-12.4); Monocytes # 0.4 K/mcL (0.0-1.3); Monocytes % 8.1 %; Neutrophils # 3.2 K/mcL (1.6-8.9); Platelet Count 156 K/mcL (140-400); Red Blood Count 3.77 M/mcL (3.82-4.97); Red Cell Distribution Width 12.6 % (11.5-14.5); Segmented Neutrophils % 62.5 %
[2017-05-14] MEDS: *HR* OxyCODONE Immed Rel 5 MG TABLET PO PRN ×2 (04:22→13:31)
--- NOTE | 2017-05-14 04:25 | Internal Med Progress Note ---
Date of Encounter: 05/13/17 Time of Encounter: 09:55 - Assessment and plan (1) Complicated UTI (urinary tract infection) Current Visit: No Status: Acute Assessment and plan: Continue Zosyn until cultures result. Urology is following, recommendations appreciated. IR to exchange of bilateral nephro-ureteric catheters today. (2) Chronic kidney disease, stage III (moderate) Current Visit: Yes Status: Chronic - Subjective Interval history: No acute events. Denies fevers/chills, n/v. - Constitutional Vitals: Temp Pulse Resp BP Pulse Ox 98.2 F 67 17 111/76 93 05/14/17 04:03 05/14/17 04:03 05/14/17 04:03 05/14/17 04:03 05/14/17 04:03 Exam: Gen: NAD CVS: RRR Lungs: CTAB Ext: No edema Bilateral nephrostomy tubes in place. Internal Medicine: Result - Labs CBC & Chem 7: 05/14/17 04:01 05/13/17 05:31 Labs: Short CBC 05/13/17 05/14/17 Range/Units 05:31 04:01 WBC 4.5 5.1 (4.3-11.1) K/mcL Hgb 10.5 L 11.3 L (11.5-15.4) g/dL Hct 33.0 L 34.8 L (35.3-44.9) % Plt Count 156 156 (140-400) K/mcL Neutrophils # 2.3 3.2 (1.6-8.9) K/mcL BMP 05/13/17 05:31 Sodium 137 Potassium 4.6 H Chloride 105 Carbon Dioxide 24 BUN 27 H Creatinine 2.45 H Glucose 100 H Calcium 8.7 - ABG Interpretation ABG results: PT/INR, D-dimer PT 10.3 Seconds (9.4-12.1) 05/13/17 05:31 - Impressions Impressions Nephrostomy Tube Change 05/13/17 00:00 IMPRESSION: Successful exchange of bilateral nephro-ureteric catheters. Moderate sedation administered over 30 minutes. D/ / 05/13/2017 14:22:24 Silvana Wong MD / julian Interpreting Provider: Silvana Wong MD Nephrostomy Tube Change 05/13/17 00:00 IMPRESSION: Successful exchange of bilateral nephro-ureteric catheters. Moderate sedation administered over 30 minutes. D/ / 05/13/2017 14:22:24 Silvana Wong MD / julian Interpreting Provider: Silvana Wong MD Consult Discharge Plan - Plan Referrals: Yanick Dunn MD [Primary Care Provider] - 05/22/17 1:00 pm
[2017-05-14 04:30] LABS: Calcium 9.1 mg/dL (8.6-10.8); Potassium 4.5 mEq/L (3.5-4.5)
[2017-05-14] MEDS: *HR* Heparin 5,000 UNIT/ML VIAL SQ SCH (06:22)
[2017-05-14] MEDS ORDERED: Ertapenem 1,000 MG in Water for inj. (sterile) 10 ML IVP SCH ×2 (09:00→09:15)
[2017-05-14] MEDS: ALPRAZolam 1 MG TABLET PO PRN (09:29)
[2017-05-14] MEDS: *HR* HYDROmorphone (PF) 1 MG/ML SYRINGE IVP PRN (09:29)
[2017-05-14] MEDS: BuPROPion SR (12 HR) 100 MG TABLET PO SCH (09:29)
[2017-05-14 10:34] VITALS: BP 98/67
[2017-05-14] MEDS: Ondansetron 4 MG/2 ML VIAL IVP PRN (13:31)
--- NOTE | 2017-05-14 14:17 | Discharge Summary ---
Date of Encounter: 05/14/17 Time of Encounter: 14:16 - Discharge Diagnosis (1) Complicated UTI (urinary tract infection) Priority: Primary Status: Acute (2) Chronic kidney disease, stage III (moderate) Priority: Secondary Status: Chronic - Discharge Medications Prescriptions: Ertapenem [INVanz] 500 mg IVPB DAILY #13 vial Home Medications: ALPRAZolam [Xanax 1 MG Tablet] 1 mg PO TID PRN 05/24/15 [History] Quetiapine Fumarate [Seroquel] 300 mg PO HS 05/25/15 [History] Omeprazole [PriLOSEC] 20 mg PO BID 01/11/17 [History] Docusate [Colace] 100 mg PO BID 01/15/17 [History] Trazodone HCl 300 mg PO HS 05/09/17 [History] buPROPion HCl [Bupropion HCl Sr] 200 mg PO BID 05/09/17 [History] Ertapenem [INVanz] 500 mg IVPB DAILY #13 vial 05/14/17 [Rx] Allergies/Adverse Reactions: 3 Allergy/AdvReac Type Severity Reaction Status Date / Time codeine AdvReac Hives Verified 05/09/17 14:29 ibuprofen AdvReac See Verified 05/09/17 14:29 Comments Date of admission: 05/14/17 11:45 Primary care physician: Yanick Dunn MD Consults: 05/10/17 16:19 Consult to Urology [CONS] Routine Consulting Provider: Urology [place] Reason for Consult: Pyelonephritis Call Completed: Yes 05/12/17 08:40 Consult to Interventional Radiology [CONS] Routine Consulting Provider: Radiology Interventional [place] Reason for Consult: change bilateral nephroureteral catheters Call Completed: No 05/14/17 07:52 Consult to Paring Machine Operator [CONS] Routine Reason for SW Consult: discharge plan- needs Iv antibiotics Discharging clinician: Mari Sigala Anticipated date of discharge: 05/14/17 - Patient Status Disposition: Home Health Service Condition: Good Functional capacity at discharge: independent ambulation Overall status at discharge: patient is progressing back to baseline - Discharge Instructions Instructions: Urinary Tract Infection in Women (DC) Follow Up With: Yanick Dunn MD [Primary Care Provider] - 05/22/17 1:00 pm Marixa Mccoy, OBSERVER HELPER [Advanced Practice Nurse] - (in 1-2 weeks for follow up regarding recurrent UTI) - Diet and Activity Activity: as per physical therapy Diet: low fat, low cholesterol, low salt diet Hospital course: Ms. Joseph is a 52 year old female patient with a history of bilateral nephrostomy tubes due to nephrolithiasis with recurrent urinary tract infections with ESBL organisms presented to the ER with complaints of bilateral lower back tenderness and pain. She had been treated with antibiotics multiple times recently and was once again diagnosed with acute urinary tract infection. Urology was consulted as she was noted to have cloudy urine and through her nephrostomy tubes. She was evaluated by urology and recommended exchange of nephrostomy tubes this procedure was done yesterday. Her urine culture was positive for Escherichia coli and Klebsiella pneumoniae along with Proteus mirabilis. All 3 bacteria are sensitive to ertapenem. Patient has now been started on ertapenem and will complete 14 day antibiotic course at home. She will also follow up with her urologist and has also been referred to [facility] to help manage her condition. She will also follow up with infectious disease for further management. It Is very likely that the patient has chronic colonization with Proteus mirabilis and may not require further treatment for this organism if this is the case. - Time Spent with Patient Total time spent providing and/or coordinating discharge services: Greater than 30 minutes (35 min) - Constitutional Vitals: Temp Pulse Resp BP Pulse Ox 97.6 F 62 16 98/67 94 05/14/17 10:30 05/14/17 10:30 05/14/17 10:30 05/14/17 10:30 05/14/17 10:30 General appearance: Present: cooperative, A&O X 3, answers questions appropriately - Respiratory Respiratory exam: Present: CTAB. Absent: accessory muscle use, rales, rhonchi, wheezes - Cardiovascular Cardiovascular exam: Present: RRR, +S1, +S2. Absent: diastolic murmur, gallop, rubs, systolic murmur - GI/Abdominal GI/Abdominal exam: Present: normal bowel sounds, soft, no peritoneal signs. Absent: distended, tenderness Additional comments: Bilateral nephrostomy tubes in place draining clear urine - Neurological Exam Neurological exam: Present: alert, oriented X3, no focal deficits. Absent: facial droop, speech deficit
--- NOTE | 2017-05-14 14:26 | Physician Discharge Referral ---
Home Health/Hosp Referral Info Transfer to: Home Health Provider in Charge Post Discharge: PCP - Diagnosis (1) Complicated UTI (urinary tract infection) Priority: Primary Status: Acute (2) Chronic kidney disease, stage III (moderate) Priority: Secondary Status: Chronic - Respiratory Orders Smoking Cessation: Smoking cessation has been advised. For more information, call the [place] Tobacco Quit Line at 4-654-VNPL-NOW. - Diet/Nutrition Diet/Nutrition Orders: Cardiac - Activity Activity Orders: Up ad bonita - Services Needed Following services are medically necessary services: Nursing, Home Infusion Home Care Orders: Please check CBC, basic panel on 05/17/17 - Transfer Medications Prescriptions: Ertapenem [INVanz] 500 mg IVPB DAILY #13 vial Home Medications: ALPRAZolam [Xanax 1 MG Tablet] 1 mg PO TID PRN 05/24/15 [History] Quetiapine Fumarate [Seroquel] 300 mg PO HS 05/25/15 [History] Omeprazole [PriLOSEC] 20 mg PO BID 01/11/17 [History] Docusate [Colace] 100 mg PO BID 01/15/17 [History] Trazodone HCl 300 mg PO HS 05/09/17 [History] buPROPion HCl [Bupropion HCl Sr] 200 mg PO BID 05/09/17 [History] Ertapenem [INVanz] 500 mg IVPB DAILY #13 vial 05/14/17 [Rx] Allergies/Adverse Reactions: 3 Allergy/AdvReac Type Severity Reaction Status Date / Time codeine AdvReac Hives Verified 05/09/17 14:29 ibuprofen AdvReac See Verified 05/09/17 14:29 Comments Certification: Further, I certify that my clinical findings support that this patient is homebound (i.e. absences from home require considerable and taxing effort and are for medical reasons or evangelical services or infrequently or short duration when for other reasons) because: Homebound Reason: Patient requires assistance of a person or device to safely leave home (Patient requires home IV antibiotics) Attestation: My signature below is to certify that this patient is under my care and that I, or nurse practitioner, or a physician's nurseryman assistant working with me, has a face-to -face encounter with this patient.
[2017-05-14] MEDS ORDERED: FLUBLOK QUAD 17/18 (18YR UP)/PF 0.5 ML SYRINGE IM ONE (15:00)
[2017-05-14] MEDS ORDERED: FLUARIX QUAD 2017-18 36MOS UP/PF 0.5 ML SYRINGE IM ONE (15:15)
[2017-05-15] MEDS ORDERED: ERTAPENEM IVP SCH (09:00)
[2017-05-15] MEDS ORDERED: WATER FOR INJ IVP SCH (09:00)
== END 2017-05-14 15:43 | disposition home health service (06) | DRG 699 ==
LOC: EMEROO 14:12 → 3ANU 14:12 → SUATTDRO 19:04 → 3ANU 19:06
PROVIDERS: ADMIT Internal Medicine; ATTEND Internal Medicine

== ENCOUNTER 2017-06-23 15:26 | Inpatient (IN) ==
[2017-06-23] MEDS ORDERED: 0.9 % Sodium Chloride 1,000 ML IVC ONE (15:49)
--- NOTE | 2017-06-23 15:53 | Emergency Department Note ---
START Narrative - START START: I examined this patient and my medical decision-making was reviewed with the emergency medicine resident. I agree with the documented findings, disposition and treatment plan as described except to the extent set forth below. Patient seen with emergency medicine resident Dr. Aquiles Grove, Please see a copy of his note for details of the H&P, ED evaluation, management and disposition. I have independently evaluated the patient and confirmed appropriate portions of the history and physical exam. Briefly: A 52-year-old female history of bladder cancer with bilateral nephrostomy tubes being treated for infection of her nephrostomy tube status post. IV ertapenem but has not filled the prescription yet presents here with bilateral flank pain and fatigue. Low-grade fever chills. She said that she has been cleaning her PICC line but noticed that there is little red. The nephrostomy tubes are draining bilaterally with cloudy material not frankly purulent at this time. Patient will undergo sepsis protocol with IV fluids blood cultures place an ultrasound-guided line on the other ARM and remove this PICC line since is some redness around it concerning for possible line infection. She will get labs including serum lactate with admission and anticipated. Provided 30 minutes of critical care services for this patient. Disposition is pending
[2017-06-23 16:00] LABS: Bilirubin,Urine Negative (Negative); Blood,Urine Negative (Negative); Clarity,Urine Cloudy (Clear); Color,Urine Yellow (Yellow); Glucose,Urine (UA) Normal (Normal); Ketones,Urine Negative (Negative); Leukocyte Esterase,Urine Large (Negative); Nitrite,Urine Positive (Negative); PH,Urine 7.5 pH Units (5.0-8.0); Protein,Urine 100 mg/dL (Neg-Trace); Specific Gravity,Urine 1.023 (1.010-1.025); Urobilinogen,Urine Normal (Normal)
[2017-06-23 16:02] LABS: Bacteria,Urine Many per hpf (None-Few); Hyaline Casts,Urine None Seen per lpf (None-Few); Squamous Epithelial Cell,Urine Many per lpf (None-Few); WBC,Urine TNTC per hpf (0-3)
--- NOTE | 2017-06-23 16:05 | Emergency Department Note ---
Disposition Clinical Impression: Pyelonephritis, Chronic kidney disease, stage III (moderate), Complicated UTI ( urinary tract infection) Disposition: Admitted As Inpatient Condition: Good Time of Disposition: 17:41 General Adult HPI - General Chief complaint: ED Abdominal Pain Stated complaint: bilat flank pain Time Seen by Provider: 06/23/17 15:33 Source: patient Limitations: no limitations Nursing Notes Reviewed: Yes Vital Signs Reviewed: Yes - History of Present Illness HPI Narrative: 52-year-old female history of cervical carcinoma and bilateral nephrostomy tubes presents to the ED with bilateral flank pain. Symptoms have been ongoing for the past several weeks. Patient reports chills at home no fevers. She complains of some nausea and some mild abdominal pain but most of her pain is to both her flanks near the nephrostomy tube. She has noticed cloudier output. She has what she reported a PICC line in her right arm where she was supposed to receive IV antibiotics but has not. She has the prescription with her in it appears that the prescription date was 05/14/[address] Sigala for Ertapenem. States she been diagnosed with multiple urinary tract and kidney infections but has not been receiving any antibiotics. She also has a colostomy in the left lower quadrant. All of these replaced after her radical hysterectomy for her cervical carcinoma. Patient denies any other complaints such as fever or chills. Septic workup initiated with blood cultures urinalysis and lactate. Patients urologist is Dr. Aguirre. She also states she is followed up with a specialist at [facility] Dr. Mack who should be performing a procedure regarding her nephrostomy tubes she reports. He is supposed to receive a call sometime in the next week or so regarding this. Pain Scale: 8 - Related Data Home Medications Medication Instructions Recorded Confirmed ALPRAZolam [Xanax 1 MG Tablet] 1 mg PO TID PRN 05/24/15 05/09/17 Quetiapine Fumarate [Seroquel] 300 mg PO HS 05/25/15 05/09/17 Omeprazole [PriLOSEC] 20 mg PO BID 01/11/17 05/09/17 Docusate [Colace] 100 mg PO BID 01/15/17 05/09/17 Trazodone HCl 300 mg PO HS 05/09/17 05/09/17 buPROPion HCl [Bupropion HCl Sr] 200 mg PO BID 05/09/17 05/09/17 Previous Rx's Medication Instructions Recorded Ertapenem [INVanz] 500 mg IVPB DAILY #13 vial 05/14/17 Ondansetron ODT [Zofran ODT] 4 mg SL Q6HR #10 tab.rapdis 06/04/17 Allergies Allergy/AdvReac Type Severity Reaction Status Date / Time codeine AdvReac Hives Verified 06/23/17 15:27 ibuprofen AdvReac See Verified 06/23/17 15:27 Comments All systems ED: reviewed and negative except as stated. Review of Systems: As Per HPI Constitutional: Reports: chills. Denies: fever ENT ED: Denies: congestion Cardiovascular: Denies: chest pain, dyspnea on exertion Respiratory: Denies: cough, dyspnea Gastrointestinal: Reports: abdominal pain, nausea, vomiting. Denies: diarrhea Genitourinary: Denies: urgency, dysuria Musculoskeletal: Reports: back pain Integumentary: Denies: rash, abrasion, lesions Neurological: Denies: headache Past Medical History - Past Medical History Attestation: Yes The following information was validated with the patient. Source: patient Medical history: Reports: cancer, renal disease, other Surgical history: Reports: colostomy, hysterectomy, other Psychiatric history: Reports: anxiety, bipolar, depression ACCOUNTING MANAGER history: Reports: cervical cancer, other - Social History Smoking Status: Current every day smoker Smokeless Tobacco Status: No Alcohol use: Reports: none Drug use: Reports: none Physical Exam - General Limitations: no limitations General appearance: alert, in no apparent distress - Head Head exam: atraumatic, normocephalic, normal inspection - Eye Eye exam: Present: normal appearance, PERRL, EOMI - ENT ENT exam: normal exam, normal oropharynx, mucous membranes moist - Neck Neck exam: Present: normal inspection, full ROM, trachea midline. Absent: tenderness - Chest Chest inspection: Present: normal inspection, symmetric chest wall rise - Respiratory Respiratory exam: Present: normal lung sounds bilaterally. Absent: respiratory distress, wheezes - Cardiovascular Cardiovascular exam: Present: regular rate, normal rhythm, normal heart sounds - Abdominal Exam Abdominal exam: Present: soft, Non-Tender, diminished bowel sounds, other ( Colostomy and left lower quadrant, pink stoma). Absent: tenderness, distention , guarding, rebound, rigidity - Extremities Exam Extremities exam: Present: normal inspection, full ROM, normal capillary refill. Absent: tenderness, pedal edema - Back Exam Back exam: Present: normal inspection, full ROM, CVA tenderness (R), CVA tenderness (L), other (Bilateral nephrostomy tubes with cloudy urine output). Absent: tenderness - Neurological Exam Neurological exam: Present: alert, oriented X3 - Skin Skin exam: Present: warm, dry, intact, normal color. Absent: rash, cyanosis, diaphoresis Course - Reevaluation(s) Reevaluation #1: Patient presents with bilateral flank pain was some mild abdominal pain and nausea. Patient is afebrile. She is slightly tachycardic with some CVA tenderness more on the left than the right. Patient has bilateral nephrostomy tubes. Review of her prior urinalysis and culture she has multi-resistant urinary tract infections. She was recently prescribed antibiotic that she has not been receiving she has not filled prescription. Concern for pyelonephritis. Basic labs and imaging ordered. CT of the abdomen and pelvis shows no hydronephrosis but there is a nonobstructing right renal calculi. Urinalysis is cloudy with positive nitrite and large leuk esterase with an acute infection. She is not septic appearing. Heart rate has improved with normal saline. She began is afebrile without leukocytosis. Lactic acid added. Blood cultures ordered. Her renal insufficiency appears that baseline at 1.75. She has underlying CKD 3. At this time she would benefit from admission for further treatment for her infection. Patients in agreement with this plan. Impression is urinary tract infection possible pyelonephritis Abdomen/Pelvis CT 06/23/17 15:50 IMPRESSION: Bilateral percutaneous nephrostomy tubes remain in place. Previously noted nonobstructing right renal calculi have migrated from the collecting system to the proximal ureter. No hydronephrosis. Unchanged periaortic lymphadenopathy. D/ / Regan Cee MD / Regan Cee MD Interpreting Provider: Regan Cee MD - Consultations Consultation #1: Spoke with on-call hospitalist justice Royal to admit for multi-resistant UTI, flank pain, pyelonephritis. No further orders at this time Time: 17:21 Vital Signs Temperature 97.8 F 06/23/17 15:28 Pulse Rate 100 06/23/17 15:28 Respiratory Rate 18 06/23/17 15:28 Blood Pressure 107/81 06/23/17 15:28 O2 Sat by Pulse Oximetry 99 06/23/17 15:28 Temperature 97.8 F 06/23/17 15:28 Pulse Rate 100 06/23/17 15:28 Respiratory Rate 18 06/23/17 15:28 Blood Pressure 107/81 06/23/17 15:28 O2 Sat by Pulse Oximetry 99 06/23/17 15:28 Oxygen Delivery Oxygen Delivery Room Air Medical Decision Making - MDM Narrative Medical decision making narrative: Patient was discussed with my attending physician who agrees with ED management and final disposition. They independently evaluated the patient. Please refer to their attestation to this encounter for additional information. This note was generated by [employer] voice recognition software and as a result grammatical or spelling errors may occur using this program. - Medical Records Medical records reviewed: Yes I reviewed the patient's medical records. - Lab Data Lab results reviewed: Yes I reviewed the patient's lab results. Result diagrams: 06/23/17 16:19 06/23/17 16:19 Lab Results 06/23/17 06/23/17 06/23/17 Range/Units 15:34 16:19 16:19 WBC 6.8 (4.3-11.1) K/mcL RBC 4.42 (3.82-4.97) M/mcL Hgb 13.1 (11.5-15.4) g/dL Hct 39.7 (35.3-44.9) % MCV 89.8 (83.0-100.0) fL MCH 29.6 (28.0-33.3) pg MCHC 33.0 (31.6-35.5) g/dL RDW 12.9 (11.5-14.5) % Plt Count 321 (140-400) K/mcL MPV 9.6 (9.4-12.4) fL Immature Gran % 0.1 (0-4) % Seg Neutrophils % 77.6 % Lymphocytes % 17.4 % Monocytes % 4.0 % Eosinophils % 0.6 % Basophils % 0.3 % Neutrophils # 5.3 (1.6-8.9) K/mcL Lymphocytes # 1.2 (0.6-4.6) K/mcL Monocytes # 0.3 (0.0-1.3) K/mcL Eosinophils # 0.0 (0.0-0.6) K/mcL Basophils # 0.0 (0.0-0.2) K/mcL Immature Plt Fraction 2.9 (1.1-6.1) % Sodium 140 (136-145) mEq/L Potassium 4.6 (3.5-5.1) mEq/L Chloride 105 (98-107) mEq/L Carbon Dioxide 24 (23-29) mEq/L BUN 17 (6-20) mg/dL Creatinine 1.75 H (0.60-1.20) mg/dL Est GFR ( Amer) 37 L (> 60) Est GFR (Non-Af Amer) 31 L (> 60) BUN/Creatinine Ratio 10 (6-26) Glucose 86 (70-105) mg/dL Calculated Osmolality 291 (280-300) Calcium 9.6 (8.6-10.3) mg/dL Total Bilirubin 0.3 (0.3-1.0) mg/dL Direct Bilirubin 0.0 (0.0-0.2) mg/dL Indirect Bilirubin 0.3 (0.0-1.2) mg/dL AST 8 L (13-39) Units/L ALT 5 L (7-52) Units/L Alkaline Phosphatase 59 (34-104) Units/L Serum Total Protein 7.1 (6.4-8.9) g/dL Albumin 4.0 (3.5-5.7) g/dL Globulin 3.1 (2.4-3.5) g/dL Albumin/Globulin Ratio 1.3 (1.1-2.2) Lipase 5 L (11-82) Units/L Urine Color Yellow (Yellow) Urine Clarity Cloudy A (Clear) Urine pH 7.5 (5.0-8.0) pH Units Ur Specific [place] 1.023 (1.010-1.025) Urine Protein 100 H (Neg-Trace) mg/dL Urine Glucose (UA) Normal (Normal) mg/dL Urine Ketones Negative (Negative) mg/dL Urine Blood Negative (Negative) Urine Nitrite Positive A (Negative) Urine Bilirubin Negative (Negative) Urine Urobilinogen Normal (Normal) mg/dL Ur Leukocyte Esterase Large H (Negative) Urine Microscopic RBC 3-5 H (0-3) per hpf Urine Microscopic WBC TNTC H (0-3) per hpf Ur Squamous Epith Cells Many H (None-Few) per lpf Urine Bacteria Many H (None-Few) per hpf Hyaline Casts None Seen (None-Few) per lpf - Radiology Data Radiology results reviewed: Yes I reviewed the patient's radiology results. Abdomen/Pelvis CT 06/23/17 15:50
[2017-06-23 16:26] LABS: Basophils % 0.3 %; Eosinophils % 0.6 %; Hematocrit 39.7 % (35.3-44.9); Hemoglobin 13.1 g/dL (11.5-15.4); Immature Granulocytes % 0.1 % (0-4); Immature Platelets 2.9 % (1.1-6.1); Lymphocytes # 1.2 K/mcL (0.6-4.6); Lymphocytes % 17.4 %; Mean Corpuscular Hemoglobin 29.6 pg (28.0-33.3); Mean Corpuscular Volume 89.8 fL (83.0-100.0); Mean Platelet Volume 9.6 fL (9.4-12.4); Monocytes # 0.3 K/mcL (0.0-1.3); Neutrophils # 5.3 K/mcL (1.6-8.9); Platelet Count 321 K/mcL (140-400); Red Blood Count 4.42 M/mcL (3.82-4.97); Red Cell Distribution Width 12.9 % (11.5-14.5); Segmented Neutrophils % 77.6 %
[2017-06-23 16:42] LABS: Albumin/Globulin Ratio 1.3 (1.1-2.2); Bilirubin,Indirect 0.3 mg/dL (0.0-1.2); Bilirubin,Total 0.3 mg/dL (0.3-1.0); Calcium 9.6 mg/dL (8.6-10.3); Globulin 3.1 g/dL (2.4-3.5); Potassium 4.6 mEq/L (3.5-5.1); Total Protein 7.1 g/dL (6.4-8.9)
[2017-06-23] MEDS ORDERED: Ondansetron 4 MG/2 ML VIAL IVP ONE (16:59)
[2017-06-23] MEDS ORDERED: *HR* HYDROmorphone (PF) 1 MG/ML SYRINGE IVP ONE (16:59)
[2017-06-23] MEDS ORDERED: Ertapenem 1,000 MG in Water for inj. (sterile) 10 ML IVP ONE (17:20)
--- NOTE | 2017-06-23 18:01 | Internal Med History&Physical ---
Date of Encounter: 06/24/17 Time of Encounter: 18:01 Assessment and Plan (1) Complicated UTI (urinary tract infection) Current visit: Yes Status: Acute Pt has a history of recurrent UTI and pyelonephritis with b/l nephrostomy tubes - Afebrile, no WBC count. - Hx of ESBL - Started on Invanz in ED. Will continue Invanz pending results of UA. - UA and culture pending. Blood cx pending. (2) Chronic kidney disease, stage III (moderate) Current visit: Yes Status: Chronic Cr of 1.7 on admission. - Appears to be at baseline per chart review. - Will continue to monitor and avoid nephrotoxic agents. (3) Anxiety and depression Current visit: No Status: Chronic - Well controlled at this time. - Continue home meds. (4) Cervical cancer Current visit: No Status: Chronic s/P extensive abdominal surgery (colostomy, removal of bladder, vaginal reconstruction) (5) DVT prophylaxis Current visit: No Status: Acute Internal Medicine - H&P: HPI Chief complaint: bilateral flank pain Admitted From: Home Plans for Post Hospital Care: Home History of present illness: 52-year-old female history of cervical carcinoma S/0P extensive abdominal surgery (colostomy, removal of bladder, vaginal reconstruction) fand bilateral nephrostomy tubes presents to the ED with bilateral flank pain as well as chills with no fevers. She also complains of some nausea with no vomiting. She stated that she has a PICC line in her right arm where she was supposed to receive IV Ertapenem but has not. She also states that she suppose to have procedure regarding her nephrostomy tubes and she waiting to receive a call sometime in the next week or so regarding this. The patient was admitted for further evaluation and management of possible recurrent UTI. Past Med Surg Social Fam HX - Past Medical History Medical history: cancer, renal disease, other Psychiatric history: anxiety, bipolar, depression - Past Surgical History Surgical History: colostomy, hysterectomy, other - Social History Smoking Status: Current every day smoker Smokeless Tobacco Status: No Alcohol use: none Drug use: none - Family History Father Living Status: Still Living Hx Family Cancer: Yes (prostate) Internal Medicine - H&P: Meds ALPRAZolam [Xanax 1 MG Tablet] 1 mg PO TID PRN 05/24/15 [History] Quetiapine Fumarate [Seroquel] 300 mg PO HS 05/25/15 [History] Omeprazole [PriLOSEC] 20 mg PO BID 01/11/17 [History] Docusate [Colace] 100 mg PO BID PRN 01/15/17 [History] Trazodone HCl 300 mg PO HS 05/09/17 [History] buPROPion HCl [Bupropion HCl Sr] 200 mg PO BID 05/09/17 [History] Ertapenem [INVanz] 500 mg IVPB DAILY #13 vial 05/14/17 [Rx] Ondansetron ODT [Zofran ODT] 4 mg SL Q6HR PRN 06/23/17 [History] 3 Allergy/AdvReac Type Severity Reaction Status Date / Time codeine AdvReac Hives Verified 06/23/17 15:27 ibuprofen AdvReac See Verified 06/23/17 15:27 Comments All Systems PM: A 10-system review of systems was performed and is negative for pertinent findings except as documented above in the HPI. - Constitutional Constitutional: no chills, no fever(s), no night sweats - Respiratory Respiratory: no cough, no dyspnea, no wheezing, no excessive phlegm production - Gastrointestinal Gastrointestinal: no abdominal pain, no diarrhea, no hematemesis, no hematochezia, no melena, no nausea, no vomiting - Genitourinary Genitourinary: flank pain, no change in urinary stream, no dysuria, no hematuria - Constitutional Vitals: Temp Pulse Resp BP Pulse Ox 97.8 F 100 16 119/86 99 06/23/17 15:28 06/23/17 15:28 06/23/17 17:58 06/23/17 17:58 06/23/17 15:28 General appearance: Present: A&O X 3, pleasant - Head Head exam: Present: atraumatic, normocephalic - Eye Eye exam: Present: PERRL, conjuntiva pink, sclera anicteric Pupils: Present: PERRL - Neck Neck exam general surgery: Present: supple, trachea midline. Absent: lymphadenopathy - Respiratory Respiratory exam: Present: CTAB. Absent: accessory muscle use, rales, rhonchi, wheezes - Cardiovascular Cardiovascular exam: Present: RRR, +S1, +S2. Absent: diastolic murmur, gallop, rubs, systolic murmur - GI/Abdominal GI/Abdominal exam: Present: normal bowel sounds, soft, no peritoneal signs. Absent: distended, tenderness - Extremities Exam Extremities exam: Present: warm, radial pulses palpable and symmetrical. Absent : calf tenderness, cyanotic, pedal edema Internal Med - H&P Results - Labs CBC & Chem 7: 06/24/17 04:54 06/24/17 05:32
[2017-06-23] MEDS ORDERED: Acetaminophen 325 MG TABLET PO PRN (18:19)
[2017-06-23] MEDS ORDERED: Naloxone 0.4 MG/ML INJ IVP PRN (18:19)
[2017-06-23] MEDS ORDERED: *HR* Morphine 2 MG/ML SYRINGE IVP PRN (18:19)
[2017-06-23] MEDS ORDERED: Mag Hydrox/Al Hydrox/Simeth 30 ML UDC PO PRN (18:28)
[2017-06-23 19:09] LABS: Prothrombin Time 10.8 Seconds (9.4-12.1)
[2017-06-23] MEDS: *HR* HYDROmorphone (PF) 1 MG/ML SYRINGE IVP PRN (19:09)
[2017-06-23 19:12] LABS: Activated Partial Thrombo Time 33.3 Seconds (26.0-36.0)
[2017-06-23] MEDS: 0.9 % Sodium Chloride 1,000 ML IVC SCH (19:50)
[2017-06-23] MEDS: ALPRAZolam 1 MG TABLET PO PRN (22:44)
[2017-06-23] MEDS: traZODone 50 MG TABLET PO SCH (22:44)
[2017-06-24] MEDS: *HR* HYDROmorphone (PF) 1 MG/ML SYRINGE IVP PRN ×5 (00:13→21:28)
[2017-06-24] MEDS: 0.9 % Sodium Chloride 1,000 ML IVC SCH (03:51)
[2017-06-24 05:08] LABS: Basophils % 0.5 %; Eosinophils # 0.1 K/mcL (0.0-0.6); Eosinophils % 1.7 %; Hematocrit 34.9 % (35.3-44.9); Immature Granulocytes % 0.2 % (0-4); Lymphocytes # 1.5 K/mcL (0.6-4.6); Mean Corpuscular HGB Conc 32.4 g/dL (31.6-35.5); Mean Corpuscular Hemoglobin 29.5 pg (28.0-33.3); Mean Corpuscular Volume 91.1 fL (83.0-100.0); Mean Platelet Volume 9.7 fL (9.4-12.4); Monocytes # 0.3 K/mcL (0.0-1.3); Monocytes % 7.2 %; Neutrophils # 2.1 K/mcL (1.6-8.9); Platelet Count 241 K/mcL (140-400); Red Blood Count 3.83 M/mcL (3.82-4.97); Red Cell Distribution Width 13.1 % (11.5-14.5); Segmented Neutrophils % 52.4 %
[2017-06-24 05:10] LABS: Hemoglobin 11.3 g/dL (11.5-15.4)
[2017-06-24 05:23] LABS: Prothrombin Time 10.8 Seconds (9.4-12.1)
[2017-06-24 05:26] LABS: Activated Partial Thrombo Time 31.3 Seconds (26.0-36.0)
[2017-06-24 06:34] LABS: Albumin 3.1 g/dL (3.5-5.7); Albumin/Globulin Ratio 1.3 (1.1-2.2); Bilirubin,Total 0.3 mg/dL (0.3-1.0); Calcium 8.8 mg/dL (8.6-10.3); Chol/HDL Ratio 6.3 (0-4.9); Globulin 2.4 g/dL (2.4-3.5); Magnesium 2.1 mg/dL (1.6-2.6); Phosphorous 5.5 mg/dL (2.7-4.5); Potassium 5.2 mEq/L (3.5-5.1); Total Protein 5.5 g/dL (6.4-8.9)
[2017-06-24] MEDS: Ertapenem 1,000 MG in Water for inj. (sterile) 10 ML IVP SCH (08:28)
[2017-06-24] MEDS ORDERED: ALPRAZolam 1 MG TABLET PO PRN (08:42)
[2017-06-24] MEDS: BuPROPion SR (12 HR) 100 MG TABLET PO SCH ×2 (09:53→21:28)
[2017-06-24] MEDS: ALPRAZolam 1 MG TABLET PO PRN ×2 (09:53→21:34)
--- NOTE | 2017-06-24 10:04 | Internal Med Progress Note ---
Date of Encounter: 06/24/17 Time of Encounter: 09:00 - Assessment and plan (1) Cervical cancer Current Visit: No Status: Chronic Assessment and plan: Status post extensive abdominal surgery with hysterectomy, colostomy, vaginal reconstruction, and removal of bladder. Qualifiers: Malignant neoplasm of cervix location: unspecified location Qualified Code( s): C53.9 - Malignant neoplasm of cervix uteri, unspecified (2) Anxiety and depression Current Visit: No Status: Chronic Assessment and plan: Continue with Xanax, trazodone, and quetiapine (3) Complicated UTI (urinary tract infection) Current Visit: Yes Status: Acute Assessment and plan: Continue with ertapenem. Continue with IV fluids. She grew ESBL in the past. We will follow up on cultures and adjust antibiotics as needed. She may need to be on IV antibiotics at discharge. Continue with pain control and antiemetics. (4) Chronic kidney disease, stage III (moderate) Current Visit: Yes Status: Chronic Assessment and plan: Seems to be around baseline. We will continue to monitor. (5) DVT prophylaxis Current Visit: No Status: Acute Assessment and plan: Heparin subcutaneous - Subjective Interval history: No acute events. The patient was admitted with a urinary tract infection. She has been afebrile. She has been admitted before for urinary tract infection. She says the nausea is better. She was able to tolerate diet. Still has flank pain. - Constitutional Vitals: Temp Pulse Resp BP Pulse Ox 97.6 F 71 16 109/67 96 06/24/17 07:27 06/24/17 07:27 06/24/17 07:27 06/24/17 07:27 06/24/17 07:27 General appearance: Present: A&O X 3, pleasant Exam: GEN: NAD CVS: RRR. S1, S2, No m/r/g RESP: CTAB ABD: Soft, mild tenderness in the right flank, ND, +BS. Urostomy tubes as well as colostomy bag is noted. EXT: No edema. 2+ DP. No rashes NEURO: Nonfocal Internal Medicine: Result - Labs CBC & Chem 7: 06/24/17 04:54 06/24/17 05:32 Labs: Short CBC 06/24/17 Range/Units 04:54 WBC 4.0 L (4.3-11.1) K/mcL Hgb 11.3 L D (11.5-15.4) g/dL Hct 34.9 L (35.3-44.9) % Plt Count 241 (140-400) K/mcL Neutrophils # 2.1 (1.6-8.9) K/mcL BMP 06/24/17 05:32 Sodium 141 Potassium 5.2 H Chloride 114 H Carbon Dioxide 21 L BUN 19 Creatinine 1.74 H Glucose 85 Calcium 8.8 Liver Function 06/24/17 Range/Units 05:32 Total Bilirubin 0.3 (0.3-1.0) mg/dL AST 10 L (13-39) Units/L ALT 4 L (7-52) Units/L Alkaline Phosphatase 47 (34-104) Units/L Albumin 3.1 L (3.5-5.7) g/dL - ABG Interpretation ABG results: PT/INR, D-dimer PT 10.8 Seconds (9.4-12.1) 06/24/17 04:54 Consult Discharge Plan - Plan Referrals: Yanick Dunn MD [Primary Care Provider] -
[2017-06-24] MEDS: Ondansetron ODT 4 MG TAB.RAPDIS SL PRN (11:16)
[2017-06-24] MEDS: *HR* Heparin 5,000 UNIT/ML VIAL SQ SCH ×2 (13:34→21:28)
[2017-06-24] MEDS ORDERED: TRAZODONE HCL 300 MG PO SCH (21:00)
[2017-06-24] MEDS: traZODone 50 MG TABLET PO SCH (21:28)
[2017-06-25] MEDS: *HR* HYDROmorphone (PF) 1 MG/ML SYRINGE IVP PRN ×5 (04:32→20:47)
[2017-06-25 05:05] LABS: Basophils % 0.7 %; Eosinophils # 0.1 K/mcL (0.0-0.6); Eosinophils % 2.7 %; Hematocrit 33.3 % (35.3-44.9); Hemoglobin 10.5 g/dL (11.5-15.4); Lymphocytes # 1.3 K/mcL (0.6-4.6); Lymphocytes % 31.9 %; Mean Corpuscular HGB Conc 31.5 g/dL (31.6-35.5); Mean Corpuscular Hemoglobin 29.1 pg (28.0-33.3); Mean Corpuscular Volume 92.2 fL (83.0-100.0); Mean Platelet Volume 10.2 fL (9.4-12.4); Monocytes # 0.3 K/mcL (0.0-1.3); Monocytes % 7.4 %; Neutrophils # 2.3 K/mcL (1.6-8.9); Platelet Count 227 K/mcL (140-400); Red Blood Count 3.61 M/mcL (3.82-4.97); Red Cell Distribution Width 13.2 % (11.5-14.5); Segmented Neutrophils % 57.3 %
[2017-06-25 05:25] LABS: Calcium 8.3 mg/dL (8.6-10.3); Potassium 4.1 mEq/L (3.5-5.1)
[2017-06-25] MEDS: *HR* Heparin 5,000 UNIT/ML VIAL SQ SCH ×3 (05:41→20:47)
[2017-06-25] MEDS: Ertapenem 1,000 MG in Water for inj. (sterile) 10 ML IVP SCH (07:52)
[2017-06-25] MEDS: BuPROPion SR (12 HR) 100 MG TABLET PO SCH ×2 (07:54→20:49)
[2017-06-25] MEDS: ALPRAZolam 1 MG TABLET PO PRN ×2 (07:56→21:39)
[2017-06-25] MEDS: Ondansetron ODT 4 MG TAB.RAPDIS SL PRN ×2 (09:39→17:09)
[2017-06-25 11:18] LABS: Bilirubin,Urine Negative (Negative); Blood,Urine Negative (Negative); Clarity,Urine Cloudy (Clear); Color,Urine Yellow (Yellow); Glucose,Urine (UA) Normal (Normal); Ketones,Urine Negative (Negative); Leukocyte Esterase,Urine Moderate (Negative); Nitrite,Urine Positive (Negative); Protein,Urine 100 mg/dL (Neg-Trace); Urobilinogen,Urine Normal (Normal)
[2017-06-25 11:20] LABS: Hyaline Casts,Urine None Seen per lpf (None-Few); RBC,Urine 0-3 per hpf (0-3); Squamous Epithelial Cell,Urine Many per lpf (None-Few)
--- NOTE | 2017-06-25 11:30 | Internal Med Progress Note ---
Date of Encounter: 06/25/17 Time of Encounter: 09:20 - Assessment and plan (1) Complicated UTI (urinary tract infection) Current Visit: Yes Status: Acute Assessment and plan: Continue with ertapenem. Unfortunately no cultures were sent. I will repeat urinalysis with cultures. The patient has been receiving IV antibiotics so I suspect her urine may be clearing up. We may never have cultures come back positive now that she has been on antibiotics for 2 days. If that is case and the patient's hemodynamically stable while I will have to discharge the patient on IV ertapenem to finish 10 day course. Continue with IV fluids. She grew ESBL in the past. Continue with pain control and antiemetics. (2) Cervical cancer Current Visit: No Status: Chronic Assessment and plan: Status post extensive abdominal surgery with hysterectomy, colostomy, vaginal reconstruction, and removal of bladder. Qualifiers: Malignant neoplasm of cervix location: unspecified location Qualified Code( s): C53.9 - Malignant neoplasm of cervix uteri, unspecified (3) Anxiety and depression Current Visit: No Status: Chronic Assessment and plan: Continue with Xanax, trazodone, and quetiapine (4) Chronic kidney disease, stage III (moderate) Current Visit: Yes Status: Chronic Assessment and plan: Seems to be around baseline. We will continue to monitor. (5) DVT prophylaxis Current Visit: No Status: Acute Assessment and plan: Heparin subcutaneous - Subjective Interval history: No acute events. Patient's MAXIMUM TEMPERATURE was 99.7. She continues to complain of flank pain although it is better. She still feels nauseous. I called micro-lab and no cultures were sent from the time of admission - Constitutional Vitals: Temp Pulse Resp BP Pulse Ox 97.8 F 56 14 97/63 97 06/25/17 11:07 06/25/17 11:07 06/25/17 11:07 06/25/17 11:07 06/25/17 11:07 General appearance: Present: A&O X 3, pleasant Exam: GEN: NAD CVS: RRR. S1, S2, No m/r/g RESP: CTAB ABD: Soft, mild tenderness in the right flank, ND, +BS. Urostomy tubes as well as colostomy bag is noted. EXT: No edema. 2+ DP. No rashes NEURO: Nonfocal Internal Medicine: Result - Labs CBC & Chem 7: 06/25/17 04:21 06/25/17 04:21 Labs: Short CBC 06/25/17 Range/Units 04:21 WBC 4.0 L (4.3-11.1) K/mcL Hgb 10.5 L (11.5-15.4) g/dL Hct 33.3 L (35.3-44.9) % Plt Count 227 (140-400) K/mcL Neutrophils # 2.3 (1.6-8.9) K/mcL BMP 06/25/17 04:21 Sodium 139 Potassium 4.1 Chloride 110 H Carbon Dioxide 24 BUN 21 H Creatinine 1.87 H Glucose 81 Calcium 8.3 L Urine 06/25/17 Range/Units 11:03 Urine Color Yellow (Yellow) Urine Clarity Cloudy A (Clear) Urine pH 7.0 (5.0-8.0) pH Units Ur Specific Cyrus 1.020 (1.010-1.025) Urine Protein 100 H (Neg-Trace) mg/dL Urine Glucose (UA) Normal (Normal) mg/dL - ABG Interpretation ABG results: PT/INR, D-dimer PT 10.8 Seconds (9.4-12.1) 06/24/17 04:54 Consult Discharge Plan - Plan Referrals: Yanick Dunn MD [Primary Care Provider] -
[2017-06-25 11:41] LABS: Bacteria,Urine Moderate per hpf (None-Few); Renal Epithelial Cells,Urine Few per hpf (None-Few)
[2017-06-25 11:42] LABS: WBC,Urine 50-100 per hpf (0-3)
[2017-06-25] MEDS: traZODone 50 MG TABLET PO SCH (20:48)
[2017-06-26 05:42] LABS: Basophils % 0.8 %; Eosinophils # 0.1 K/mcL (0.0-0.6); Eosinophils % 2.5 %; Hematocrit 33.1 % (35.3-44.9); Hemoglobin 10.6 g/dL (11.5-15.4); Lymphocytes # 1.5 K/mcL (0.6-4.6); Lymphocytes % 37.1 %; Mean Corpuscular Hemoglobin 29.7 pg (28.0-33.3); Mean Corpuscular Volume 92.7 fL (83.0-100.0); Mean Platelet Volume 10.2 fL (9.4-12.4); Monocytes # 0.3 K/mcL (0.0-1.3); Neutrophils # 2.1 K/mcL (1.6-8.9); Platelet Count 210 K/mcL (140-400); Red Blood Count 3.57 M/mcL (3.82-4.97); Red Cell Distribution Width 13.2 % (11.5-14.5); Segmented Neutrophils % 52.6 %
[2017-06-26 05:56] LABS: Calcium 8.5 mg/dL (8.6-10.3); Potassium 4.1 mEq/L (3.5-5.1)
[2017-06-26] MEDS: Ondansetron ODT 4 MG TAB.RAPDIS SL PRN (06:01)
[2017-06-26] MEDS: *HR* Heparin 5,000 UNIT/ML VIAL SQ SCH ×2 (06:02→14:26)
[2017-06-26] MEDS: *HR* HYDROmorphone (PF) 1 MG/ML SYRINGE IVP PRN ×3 (06:03→14:27)
[2017-06-26 06:07] VITALS: BP 120/74
[2017-06-26] MEDS: ALPRAZolam 1 MG TABLET PO PRN (08:00)
[2017-06-26] MEDS: BuPROPion SR (12 HR) 100 MG TABLET PO SCH (08:00)
[2017-06-26] MEDS ORDERED: Ertapenem 500 MG in Water for inj. (sterile) 10 ML IVP SCH (09:00)
--- NOTE | 2017-06-26 09:12 | Discharge Summary ---
Date of Encounter: 06/26/17 Time of Encounter: 09:20 - Discharge Diagnosis (1) Complicated UTI (urinary tract infection) Priority: Primary Status: Acute (2) Cervical cancer Priority: Secondary Status: Chronic Qualifiers: Malignant neoplasm of cervix location: unspecified location Qualified Code( s): C53.9 - Malignant neoplasm of cervix uteri, unspecified (3) Anxiety and depression Priority: Secondary Status: Chronic (4) Chronic kidney disease, stage III (moderate) Priority: Secondary Status: Chronic - Discharge Medications Prescriptions: Ertapenem [INVanz] 500 mg IVPB DAILY #10 vial Home Medications: ALPRAZolam [Xanax 1 MG Tablet] 1 mg PO TID PRN 05/24/15 [History] Quetiapine Fumarate [Seroquel] 300 mg PO HS 05/25/15 [History] Omeprazole [PriLOSEC] 20 mg PO BID 01/11/17 [History] Docusate [Colace] 100 mg PO BID PRN 01/15/17 [History] Trazodone HCl 300 mg PO HS 05/09/17 [History] buPROPion HCl [Bupropion HCl Sr] 200 mg PO BID 05/09/17 [History] Ondansetron ODT [Zofran ODT] 4 mg SL Q6HR PRN 06/23/17 [History] Ertapenem [INVanz] 500 mg IVPB DAILY #10 vial 06/26/17 [Rx] Allergies/Adverse Reactions: 3 Allergy/AdvReac Type Severity Reaction Status Date / Time codeine AdvReac Hives Verified 06/23/17 15:27 ibuprofen AdvReac See Verified 06/23/17 15:27 Comments Date of admission: 06/23/17 18:21 Primary care physician: Yanick Dunn MD - Patient Status Disposition: Home, Self-Care Condition: Fair Overall status at discharge: patient is progressing back to baseline - Discharge Instructions Follow Up With: Yanick Dunn MD [Primary Care Provider] - - Diet and Activity Activity: resume usual activities as tolerated Diet: regular diet Hospital course: Ms. Joseph is a 52 year old female cervical carcinoma S/P extensive abdominal surgery (colostomy, removal of bladder, vaginal reconstruction, hysterectomy) and bilateral nephrostomy tubes presented to the ED with bilateral flank pain as well as chills with no fevers. She apparently has been diagnosed with a urinary tract infection in the past and needed IV ertapenem. She was set up with IV antibiotics as an outpatient but never really picked up the prescription or some kind of confusion happened and she never started on IV antibiotics.. She presented to the ED where she had a urinalysis that came back signs of urinary tract infection. No cultures were sent from that unfortunately. She was started on IV ertapenem given her previous culture of ESBL. She improved on the IV ertapenem. Given the fact that she improved and had no cultures available, I ended up continuing patient on IV ertapenem and at discharge to finish 10 more days of IV antibiotics. A PICC line was placed prior to discharge. Of note the patient had a CT of the pelvis done in the emergency department which showed bilateral vertiginous nephrostomy tubes remaining in place. There was no hydronephrosis. There was no other acute findings. - Time Spent with Patient Total time spent providing and/or coordinating discharge services: Greater than 30 minutes - Constitutional Vitals: Temp Pulse Resp BP Pulse Ox 98.8 F 65 14 120/74 95 06/26/17 06:04 06/26/17 06:04 06/26/17 06:04 06/26/17 06:04 06/26/17 06:04 General appearance: Present: A&O X 3, pleasant Exam: GEN: NAD CVS: RRR. S1, S2, No m/r/g RESP: CTAB ABD: Soft, mild tenderness in the right flank, ND, +BS. Urostomy tubes as well as colostomy bag is noted. EXT: No edema. 2+ DP. No rashes NEURO: Nonfocal - VTE Documentation of Mechanical Device: Intermittent pneumatic compression device
--- NOTE | 2017-06-26 09:19 | Physician Discharge Referral ---
Home Health/Hosp Referral Info Transfer to: Home Health - Diagnosis (1) Complicated UTI (urinary tract infection) Priority: Primary Status: Acute (2) Cervical cancer Priority: Secondary Status: Chronic (3) Anxiety and depression Priority: Secondary Status: Chronic (4) Chronic kidney disease, stage III (moderate) Priority: Secondary Status: Chronic - Respiratory Orders Smoking Cessation: Smoking cessation has been advised. For more information, call the [place] Tobacco Quit Line at 9-723-FOUU-NOW. - Diet/Nutrition Diet/Nutrition Orders: Regular - Services Needed Following services are medically necessary services: Home Health Aide, Home Infusion - Transfer Medications Prescriptions: Ertapenem [INVanz] 500 mg IVPB DAILY #10 vial Home Medications: ALPRAZolam [Xanax 1 MG Tablet] 1 mg PO TID PRN 05/24/15 [History] Quetiapine Fumarate [Seroquel] 300 mg PO HS 05/25/15 [History] Omeprazole [PriLOSEC] 20 mg PO BID 01/11/17 [History] Docusate [Colace] 100 mg PO BID PRN 01/15/17 [History] Trazodone HCl 300 mg PO HS 05/09/17 [History] buPROPion HCl [Bupropion HCl Sr] 200 mg PO BID 05/09/17 [History] Ondansetron ODT [Zofran ODT] 4 mg SL Q6HR PRN 06/23/17 [History] Ertapenem [INVanz] 500 mg IVPB DAILY #10 vial 06/26/17 [Rx] Allergies/Adverse Reactions: 3 Allergy/AdvReac Type Severity Reaction Status Date / Time codeine AdvReac Hives Verified 06/23/17 15:27 ibuprofen AdvReac See Verified 06/23/17 15:27 Comments Certification: Further, I certify that my clinical findings support that this patient is homebound (i.e. absences from home require considerable and taxing effort and are for medical reasons or jain services or infrequently or short duration when for other reasons) because: Homebound Reason: Patient requires assistance of a person or device to safely leave home Attestation: My signature below is to certify that this patient is under my care and that I, or nurse practitioner, or a physician's volunteer assistant working with me, has a face-to -face encounter with this patient.
[2017-06-26] MEDS ORDERED: Lidocaine -MPF 1% 5 ML AMPUL INFILT ONE (12:58)
== END 2017-06-26 15:15 | disposition home health service (06) | DRG 690 ==
LOC: EMEROO 15:26 → 3ANU 15:26
PROVIDERS: ADMIT Internal Medicine Nephrology; ATTEND Internal Medicine

== ENCOUNTER 2018-01-26 10:18 | Inpatient (IN) ==
--- NOTE | 2018-01-26 10:35 | Emergency Department Note ---
Disposition Clinical Impression: Complicated urinary tract infection, Acute on chronic renal insufficiency Disposition: Admitted As Inpatient Condition: Good General Adult HPI - General Chief complaint: ED Urogenital-Female Stated complaint: "infection" Time Seen by Provider: 01/26/18 10:31 - History of Present Illness Pain Scale: 6 - Related Data Home Medications Medication Instructions Recorded Confirmed ALPRAZolam [Xanax 1 MG Tablet] 1 mg PO TID PRN 05/24/15 01/26/18 Quetiapine Fumarate [Seroquel] 400 mg PO HS 05/25/15 01/26/18 Trazodone HCl 300 mg PO HS 05/09/17 01/26/18 Ondansetron ODT [Zofran ODT] 4 mg SL Q6HR PRN 06/23/17 01/26/18 Duloxetine HCl [Cymbalta] 60 mg PO DAILY 01/26/18 01/26/18 Pantoprazole Sodium [Protonix] 40 mg PO DAILY 01/26/18 01/26/18 Allergies Allergy/AdvReac Type Severity Reaction Status Date / Time codeine AdvReac Hives Verified 10/20/17 18:47 ibuprofen AdvReac See Verified 10/20/17 18:47 Comments morphine AdvReac Vomiting Verified 10/20/17 18:47 Past Medical History - Past Medical History Medical history: Reports: cancer, renal disease, other Surgical history: Reports: colostomy, hysterectomy, other Psychiatric history: Reports: anxiety, bipolar, depression [employer] history: Reports: cervical cancer, other - Social History Smoking Status: Former smoker Smokeless Tobacco Status: No Alcohol use: Reports: none Drug use: Reports: none Course Vital Signs Temperature 98.0 F 01/26/18 10:22 Pulse Rate 96 01/26/18 10:22 Respiratory Rate 18 01/26/18 10:22 Blood Pressure 138/90 01/26/18 10:22 O2 Sat by Pulse Oximetry 97 01/26/18 10:22 Temperature 97.8 F 01/26/18 19:42 Pulse Rate 55 01/26/18 19:42 Respiratory Rate 16 01/26/18 19:42 Blood Pressure 125/82 01/26/18 19:42 O2 Sat by Pulse Oximetry 98 01/26/18 19:42 Oxygen Delivery Oxygen Delivery Room Air Medical Decision Making - Lab Data Result diagrams: 01/26/18 11:29 01/26/18 11:29 Lab Results 01/26/18 01/26/18 01/26/18 Range/Units 10:50 11:29 11:29 WBC 6.5 (4.3-11.1) K/mcL RBC 4.08 (3.82-4.97) M/mcL Hgb 11.7 (11.5-15.4) g/dL Hct 36.5 (35.3-44.9) % MCV 89.5 (83.0-100.0) fL MCH 28.7 (28.0-33.3) pg MCHC 32.1 (31.6-35.5) g/dL RDW 14.5 (11.5-14.5) % Plt Count 352 (140-400) K/mcL MPV 10.4 (9.4-12.4) fL Immature Gran % 0.3 (0-4) % Seg Neutrophils % 79.4 % Lymphocytes % 16.2 % Monocytes % 3.2 % Eosinophils % 0.6 % Basophils % 0.3 % Neutrophils # 5.2 (1.6-8.9) K/mcL Lymphocytes # 1.1 (0.6-4.6) K/mcL Monocytes # 0.2 (0.0-1.3) K/mcL Eosinophils # 0.0 (0.0-0.6) K/mcL Basophils # 0.0 (0.0-0.2) K/mcL Sodium 138 (136-145) mEq/L Potassium 4.9 (3.5-5.1) mEq/L Chloride 110 H (98-107) mEq/L Carbon Dioxide 22 L (23-29) mEq/L BUN 25 H (6-20) mg/dL Creatinine 2.50 H (0.60-1.20) mg/dL Est GFR ( Amer) 24 L (> 60) Est GFR (Non-Af Amer) 20 L (> 60) BUN/Creatinine Ratio 10 (6-26) Glucose 108 H (70-105) mg/dL Calculated Osmolality 291 (280-300) Calcium 9.6 (8.6-10.3) mg/dL Urine Color Yellow (Yellow) Urine Clarity Turbid A (Clear) Urine pH 7.0 (5.0-8.0) pH Units Ur Specific Whitney 1.015 (1.010-1.025) Urine Protein 30 H (Neg-Trace) mg/dL Urine Glucose (UA) Normal (Normal) mg/dL Urine Ketones Negative (Negative) mg/dL Urine Blood Negative (Negative) Urine Nitrite Positive A (Negative) Urine Bilirubin Negative (Negative) Urine Urobilinogen Normal (Normal) mg/dL Ur Leukocyte Esterase Large H (Negative) Urine Microscopic RBC 0-3 (0-3) per hpf Urine Microscopic WBC TNTC H (0-3) per hpf Ur Squamous Epith Cells Moderate H (None-Few) per lpf Urine Bacteria Many H (None-Few) per hpf Attestation Statement - Attestation Attestation: I examined this patient and my medical decision-making was reviewed with the Resident Physician. I agree with the documented findings, disposition and treatment plan as described except to the extent set forth below. [id number] time provided Patient presents with chills and subjective sensation that she has an infection. She has a right-sided diverging nephrostomy tube due to cervical cancer. Triage note and vitals reviewed by me. Patient has no SIRS criteria. She does not appear systemically ill. Patient evaluated in conjunction with the resident physician Dr. Grove
[2018-01-26] MEDS ORDERED: Ondansetron 4 MG/2 ML VIAL IVP ONE (10:40)
[2018-01-26] MEDS ORDERED: 0.9 % Sodium Chloride 1,000 ML IVC ONE (10:40)
--- NOTE | 2018-01-26 10:46 | Emergency Department Note ---
Disposition Clinical Impression: Complicated urinary tract infection, Acute on chronic renal insufficiency Disposition: Admitted As Inpatient Condition: Good Time of Disposition: 12:19 Female Urogenital HPI - General Chief complaint: ED Urogenital-Female Stated complaint: "infection" Time Seen by Provider: 01/26/18 10:31 Source: patient, family Limitations: no limitations Nursing Notes Reviewed: Yes Vital Signs Reviewed: Yes - History of Present Illness HPI Narrative: 53-year-old female history of cervical cancer s/p hysterectomy and right diverting nephrostomy and urostomy presents to the emergency department with concern of infection. The past 4 days she is been experiencing some chills some nausea and vomited 2 days ago. She has noticed some foul-smelling urine out of her urostomy and dark urine. She has had the nephrostomy tubes for the past few years. Recently she had her left nephrostomy tube removed. Her right nephrostomy tube has been unchanged for the past 3 to 4 months here at [facility] with IR. She has a schedule appointment with her urologist tomorrow Dr. Mancia in [place] at 1230 but didn't think she could make it until then. No documented fevers at home. Denies any cough or congestion. No abdominal pain. - Related Data Home Medications Medication Instructions Recorded Confirmed ALPRAZolam [Xanax 1 MG Tablet] 1 mg PO TID PRN 05/24/15 01/26/18 Quetiapine Fumarate [Seroquel] 400 mg PO HS 05/25/15 01/26/18 Trazodone HCl 300 mg PO HS 05/09/17 01/26/18 Ondansetron ODT [Zofran ODT] 4 mg SL Q6HR PRN 06/23/17 01/26/18 Duloxetine HCl [Cymbalta] 60 mg PO DAILY 01/26/18 01/26/18 Pantoprazole Sodium [Protonix] 40 mg PO DAILY 01/26/18 01/26/18 Allergies Allergy/AdvReac Type Severity Reaction Status Date / Time codeine AdvReac Hives Verified 10/20/17 18:47 ibuprofen AdvReac See Verified 10/20/17 18:47 Comments morphine AdvReac Vomiting Verified 10/20/17 18:47 All systems ED: reviewed and negative except as stated. Review of Systems: As Per HPI Constitutional: Reports: chills. Denies: fever, weakness ENT ED: Denies: congestion Cardiovascular: Denies: chest pain Respiratory: Reports: cough. Denies: dyspnea Gastrointestinal: Reports: nausea, vomiting. Denies: abdominal pain, diarrhea Genitourinary: Reports: frequency. Denies: urgency Musculoskeletal: Reports: back pain. Denies: neck pain Integumentary: Denies: rash, abrasion Neurological: Denies: headache Past Medical History - Past Medical History Attestation: Yes The following information was validated with the patient. Source: patient Medical history: Reports: cancer, renal disease, other Surgical history: Reports: colostomy, hysterectomy, other Psychiatric history: Reports: anxiety, bipolar, depression CHEMIST ENZYMES history: Reports: cervical cancer, other - Social History Smoking Status: Former smoker Smokeless Tobacco Status: No Alcohol use: Reports: none Drug use: Reports: none Physical Exam - General Limitations: no limitations General appearance: alert, in no apparent distress - Head Head exam: atraumatic, normocephalic, normal inspection - Eye Eye exam: Present: normal appearance, PERRL, EOMI. Absent: scleral icterus - ENT ENT exam: normal exam, normal oropharynx, mucous membranes moist - Neck Neck exam: Present: normal inspection, full ROM, trachea midline - Chest Chest inspection: Present: normal inspection, symmetric chest wall rise - Respiratory Respiratory exam: Present: normal lung sounds bilaterally. Absent: respiratory distress, wheezes - Cardiovascular Cardiovascular exam: Present: regular rate, normal rhythm, normal heart sounds - Abdominal Exam Abdominal exam: Present: soft, Non-Tender, normal bowel sounds, other (urostomy in LLQ, clear yellow urine, stoma is pink without discharge). Absent: tenderness, distention, guarding, rebound, rigidity - Extremities Exam Extremities exam: Present: normal inspection, full ROM, normal capillary refill. Absent: tenderness, pedal edema - Back Exam Back exam: Present: normal inspection, full ROM, CVA tenderness (R). Absent: tenderness, CVA tenderness (L) - Neurological Exam Neurological exam: Present: alert, oriented X3 - Psychiatric Psychiatric exam: Present: normal affect, normal mood - Skin Skin exam: Present: warm, dry, intact, normal color - Expanded Skin Exam Type of lesion: Present: other (nephrostomy tube in the right flank, slight erythma, no pus discharge or induration or fluctuance) Course Course Narrative: Patient presents with concern of infection. She has a nephrostomy tube and urostomy, has noted dark foul-smelling urine. Subjective chills at home. Some associated nausea and vomiting. She notes cough as well. Urosotomy is pink. Some discharge around nephrostomy tube. She does not meet SIRS criteria and is not septic appearing, will check blood cultures, UA/culture, and basic labs. Zofran for nausea and IVF. Will rule out for sources of infection with CXR as well. - Reevaluation(s) Reevaluation #1: Urinalysis appears consistent with infection. Review of her prior cultures she has grown Proteus that is sensitive to Zosyn. Will cover her with Zosyn. Patient has had her nephrostomy tubes replaced hereby interventional radiology and will require admission and she is okay with this plan. She was offered transfer but would prefer to stay here at [facility] in [place]. Impression is complicated UTI Time: 11:31 Reevaluation #2: No leukocytosis. Her creatinine function is 2.5 this is a acute on chronic renal insufficiency. She continues to make urine. Her abdomen remain soft nontender nondistended. Unfortunately interventional radiology is unavailable today. At this time she will be admitted to the hospitalist service and likely interventional radiology consultation for replacement of her nephrostomy tube due to her complicated urinary tract infection. Patient is in agreement with this plan. Time: 12:20 - Consultations Consultation #1: Spoke with on-call hospitalist justice Roy to admit for complicated UTI and acute on chronic renal insufficiency. No further orders at this time Time: 12:24 Vital Signs Temperature 98.0 F 01/26/18 10:22 Pulse Rate 96 01/26/18 10:22 Respiratory Rate 18 01/26/18 10:22 Blood Pressure 138/90 01/26/18 10:22 O2 Sat by Pulse Oximetry 97 01/26/18 10:22 Temperature 98.0 F 01/26/18 10:38 Pulse Rate 60 01/26/18 11:57 Respiratory Rate 01/26/18 11:57 Blood Pressure 128/89 01/26/18 11:57 O2 Sat by Pulse Oximetry 93 01/26/18 11:57 Oxygen Delivery Oxygen Delivery Room Air Urogenital-Female - MDM Narrative Medical decision making narrative: Patient was discussed with my attending physician who agrees with ED management and final disposition. They independently evaluated the patient. Please refer to their attestation to this encounter for additional information. This note was generated by [employer] voice recognition software and as a result grammatical or spelling errors may occur using this program. - Medical Records Medical records reviewed: Yes I reviewed the patient's medical records. - Lab Data Lab results reviewed: Yes I reviewed the patient's lab results. Result diagrams: 01/26/18 11:29 01/26/18 11:29 Lab Results 01/26/18 01/26/18 01/26/18 Range/Units 10:50 11:29 11:29 WBC 6.5 (4.3-11.1) K/mcL RBC 4.08 (3.82-4.97) M/mcL Hgb 11.7 (11.5-15.4) g/dL Hct 36.5 (35.3-44.9) % MCV 89.5 (83.0-100.0) fL MCH 28.7 (28.0-33.3) pg MCHC 32.1 (31.6-35.5) g/dL RDW 14.5 (11.5-14.5) % Plt Count 352 (140-400) K/mcL MPV 10.4 (9.4-12.4) fL Immature Gran % 0.3 (0-4) % Seg Neutrophils % 79.4 % Lymphocytes % 16.2 % Monocytes % 3.2 % Eosinophils % 0.6 % Basophils % 0.3 % Neutrophils # 5.2 (1.6-8.9) K/mcL Lymphocytes # 1.1 (0.6-4.6) K/mcL Monocytes # 0.2 (0.0-1.3) K/mcL Eosinophils # 0.0 (0.0-0.6) K/mcL Basophils # 0.0 (0.0-0.2) K/mcL Sodium 138 (136-145) mEq/L Potassium 4.9 (3.5-5.1) mEq/L Chloride 110 H (98-107) mEq/L Carbon Dioxide 22 L (23-29) mEq/L BUN 25 H (6-20) mg/dL Creatinine 2.50 H (0.60-1.20) mg/dL Est GFR ( Amer) 24 L (> 60) Est GFR (Non-Af Amer) 20 L (> 60) BUN/Creatinine Ratio 10 (6-26) Glucose 108 H (70-105) mg/dL Calculated Osmolality 291 (280-300) Calcium 9.6 (8.6-10.3) mg/dL Urine Color Yellow (Yellow) Urine Clarity Turbid A (Clear) Urine pH 7.0 (5.0-8.0) pH Units Ur Specific Maxwell 1.015 (1.010-1.025) Urine Protein 30 H (Neg-Trace) mg/dL Urine Glucose (UA) Normal (Normal) mg/dL Urine Ketones Negative (Negative) mg/dL Urine Blood Negative (Negative) Urine Nitrite Positive A (Negative) Urine Bilirubin Negative (Negative) Urine Urobilinogen Normal (Normal) mg/dL Ur Leukocyte Esterase Large H (Negative) Urine Microscopic RBC 0-3 (0-3) per hpf Urine Microscopic WBC TNTC H (0-3) per hpf Ur Squamous Epith Cells Moderate H (None-Few) per lpf Urine Bacteria Many H (None-Few) per hpf - Radiology Data Radiology results reviewed: Yes I reviewed the patient's radiology results. Chest X-Ray 01/26/18 10:40 IMPRESSION: No acute cardiopulmonary disease. D/ / Hal Bejarano MD / Hal Bejarano MD Interpreting Provider: Hal Bejarano MD
[2018-01-26 11:02] LABS: Bilirubin,Urine Negative (Negative); Blood,Urine Negative (Negative); Clarity,Urine Turbid (Clear); Color,Urine Yellow (Yellow); Glucose,Urine (UA) Normal (Normal); Ketones,Urine Negative (Negative); Leukocyte Esterase,Urine Large (Negative); Nitrite,Urine Positive (Negative); Protein,Urine 30 mg/dL (Neg-Trace); Specific Gravity,Urine 1.015 (1.010-1.025); Urobilinogen,Urine Normal (Normal)
[2018-01-26 11:05] LABS: Bacteria,Urine Many per hpf (None-Few); Squamous Epithelial Cell,Urine Moderate per lpf (None-Few); WBC,Urine TNTC per hpf (0-3)
[2018-01-26] MEDS ORDERED: Ondansetron ODT 4 MG TAB.RAPDIS SL ONE (11:09)
[2018-01-26] MEDS ORDERED: *HR* Promethazine 25 MG/ML VIAL IVP ONE (11:10)
[2018-01-26] MEDS ORDERED: Piperacillin/Tazobactam 3.375 GM in 0.9 % Sodium Chloride Mini Bag 100 ML IVPB ONE (11:17)
[2018-01-26 11:21] LABS: RBC,Urine 0-3 per hpf (0-3)
[2018-01-26] MEDS ORDERED: *HR* FentaNYL (PF) 100 MCG/2 ML VIAL IVP ONE ×3 (11:36→15:15)
[2018-01-26 11:51] LABS: Basophils % 0.3 %; Eosinophils % 0.6 %; Hematocrit 36.5 % (35.3-44.9); Hemoglobin 11.7 g/dL (11.5-15.4); Immature Granulocytes % 0.3 % (0-4); Lymphocytes # 1.1 K/mcL (0.6-4.6); Lymphocytes % 16.2 %; Mean Corpuscular HGB Conc 32.1 g/dL (31.6-35.5); Mean Corpuscular Hemoglobin 28.7 pg (28.0-33.3); Mean Corpuscular Volume 89.5 fL (83.0-100.0); Mean Platelet Volume 10.4 fL (9.4-12.4); Monocytes # 0.2 K/mcL (0.0-1.3); Monocytes % 3.2 %; Neutrophils # 5.2 K/mcL (1.6-8.9); Platelet Count 352 K/mcL (140-400); Red Blood Count 4.08 M/mcL (3.82-4.97); Red Cell Distribution Width 14.5 % (11.5-14.5); Segmented Neutrophils % 79.4 %
[2018-01-26 12:12] LABS: Calcium 9.6 mg/dL (8.6-10.3); Potassium 4.9 mEq/L (3.5-5.1)
[2018-01-26] MEDS ORDERED: Naloxone 0.4 MG/ML INJ IVP PRN (12:54)
[2018-01-26] MEDS ORDERED: 0.9 % Sodium Chloride 1,000 ML IVC SCH (13:15)
--- NOTE | 2018-01-26 13:18 | Internal Med History&Physical ---
<Kaylee Marcum - Last Filed: 01/26/18 13:54> Date of Encounter: 01/26/18 Time of Encounter: 13:05 Internal Medicine - H&P: HPI Chief complaint: Back pain Admitted From: Home Plans for Post Hospital Care: Home History of present illness: Ms. Joseph is a 53 year old female with history of cervical cancer. The patient began to chills and back pain at home. Patient has had multiple UTI's and felt that she was begining to get another one. Her last UTI was in November. The patient with a wbc @6.5, vitals were stable, no fevers. She has an extensive cervical cancer history, with subsequent kidney disease afterward and UTIs. Right nephrostomy tube in place with purulent dried drainage to skin. Patient also has a urostomy with foul older noted. The UA showed + nitrites, protein 30, bacteria is many, wbc is tntc, and large leukocyte esterace. Patient was started on zosyn in the ED, and will continue every 8hrs. The patient creat is 2.50, baseline is around 2.1-2.2, the bun is 25. Consult for IR to replace right nephrostomy tube ordered. However will need to call them on Saturday morning. The patient indicated the tube was last changed 3-4 months ago. Past Med Surg Social Fam HX - Past Medical History Medical history: cancer, renal disease, other Additional medical history: cervical CA Psychiatric history: anxiety, bipolar, depression - Past Surgical History Surgical History: colostomy, hysterectomy, other Additional surgical history: bilateral nephrostomy, colostomy - Social History Smoking Status: Former smoker Smokeless Tobacco Status: No Alcohol use: none Drug use: none - Family History Father Living Status: Still Living Hx Family Cancer: Yes (prostate) Internal Medicine - H&P: Meds ALPRAZolam [Xanax 1 MG Tablet] 1 mg PO TID PRN 05/24/15 [History] Quetiapine Fumarate [Seroquel] 400 mg PO HS 05/25/15 [History] Trazodone HCl 300 mg PO HS 05/09/17 [History] Ondansetron ODT [Zofran ODT] 4 mg SL Q6HR PRN 06/23/17 [History] Duloxetine HCl [Cymbalta] 60 mg PO DAILY 01/26/18 [History] Pantoprazole Sodium [Protonix] 40 mg PO DAILY 01/26/18 [History] 3 Allergy/AdvReac Type Severity Reaction Status Date / Time codeine AdvReac Hives Verified 10/20/17 18:47 ibuprofen AdvReac See Verified 10/20/17 18:47 Comments morphine AdvReac Vomiting Verified 10/20/17 18:47 All Systems PM: A 10-system review of systems was performed and is negative for pertinent findings except as documented above in the HPI. - Constitutional Constitutional: chills, no fever(s), no night sweats - EENT Eyes: no change in vision, no discharge, no pain, no photophobia Ears: no ear discharge, no ear pain, no tinnitus Nose, mouth and throat: no dysphagia, no nasal discharge, no neck pain, no sore throat - Cardiovascular Cardiovascular ROS IM: no chest pain, no diaphoresis, no dyspnea, no lightheadedness, no palpitations, no syncope - Respiratory Respiratory: no cough, no dyspnea, no wheezing, no excessive phlegm production - Gastrointestinal Gastrointestinal: no abdominal pain, no diarrhea, no hematemesis, no hematochezia, no melena, no nausea, no vomiting - Genitourinary Genitourinary: other (Right nephrostomy tube, and urostomy), no change in urinary stream, no dysuria, no flank pain, no hematuria - Musculoskeletal Musculoskeletal ROS IM: no numbness, no tingling - Integumentary Integumentary IM: no rash, no unusual bruising - Neurological Neurological ROS: no confusion, no convulsions, no focal weakness, no numbness, no tingling, no tremor(s) - Hematologic/Lymphatic Hematologic/Lymphatic: no easy bruising - Constitutional Vitals: Temp Pulse Resp BP Pulse Ox 98.0 F 60 18 125/78 93 01/26/18 10:38 01/26/18 11:57 01/26/18 12:53 01/26/18 12:53 01/26/18 11:57 General appearance: Present: A&O X 3, answers questions appropriately - Head Head exam: Present: atraumatic, normocephalic - Eye Eye exam: Present: PERRL, conjuntiva pink, sclera anicteric Pupils: Present: PERRL - Neck Neck exam general surgery: Present: supple, trachea midline. Absent: lymphadenopathy - Respiratory Respiratory exam: Present: CTAB. Absent: accessory muscle use, rales, rhonchi, wheezes - Cardiovascular Cardiovascular exam: Present: RRR, +S1, +S2. Absent: diastolic murmur, gallop, rubs, systolic murmur - GI/Abdominal GI/Abdominal exam: Present: normal bowel sounds, soft, no peritoneal signs. Absent: distended, tenderness - Extremities Exam Extremities exam: Present: warm, radial pulses palpable and symmetrical. Absent : calf tenderness, cyanotic, pedal edema - Neurological Exam Neurological exam: Present: CN II-XII intact, oriented X3, no focal deficits. Absent: pronater drift, facial droop, speech deficit - Skin Skin exam: Present: dry, intact Internal Med - H&P Results - Labs CBC & Chem 7: 01/26/18 11:29 01/26/18 11:29 - Assessment and plan (1) Complicated UTI (urinary tract infection) Current Visit: Yes Status: Acute Assessment and plan: The UTI is likely the result of renal failure and ? infected nephrostomy tube IVF's IV Zosyn q8h Consult IR to replace right nephrostomy tube. Patient states nephrostomy tube was placed about 2 years ago. Last changed 3-4 months ago. She typically goes o [facility] or [facility] for the changes. Daily labs (2) Acute on chronic renal insufficiency Current Visit: Yes Status: Acute Assessment and plan: Likely a result of the patients complicated UTI. IVF's IV Zosyn q8h Consult IR to replace right nephrostomy tube. Patient states last change was x 2 years ago. Daily labs Avoid nephrotoxic drugs - Time Spent With Patient Total time spent is greater than 50% in coordination of care (as documented) at patient's floor/unit and/or counseling patient: less than 15 minutes <Sea Wright - Last Filed: 01/26/18 14:31> Date of Encounter: 01/26/18 Internal Medicine - H&P: HPI History of present illness: Ms. Joseph is a 53 year old female All Systems PM: A 10-system review of systems was performed and is negative for pertinent findings except as documented above in the HPI. - Constitutional Vitals: Temp Pulse Resp BP Pulse Ox 98.0 F 60 18 125/78 93 07/29/18 10:38 01/26/18 11:57 01/26/18 12:53 01/26/18 12:53 01/26/18 11:57 Internal Med - H&P Results - Labs CBC & Chem 7: 01/26/18 11:29 01/26/18 11:29 - Attending Attestation I have seen and examined the patient with Kaylee Marcum and agree with his/her assessment and plan. 53-year-old male with history of tobacco carcinoma status post colostomy, removal of bladder, vaginal reconstruction, hysterectomy, and R nephrostomy tube with recurrent UTI, presented to the ED with flank pain as well as nausea and vomiting. Last lnephrostomy tube change was about 4-5 months ago. She was afebrile and hemodynamically stable but labs revealed acute on chronic failure as well as urinalysis being positive for leukocyte esterase and nitrite. Given her polymicrobial urinary infection in the last year or so, she was started on IV Zosyn. IR consult through exchange of nephrostomy tube, will probably need a PICC line tomorrow as well to complete 14 day course of IV antibiotics. Follow up on urine and blood cultures to de-escalate abx. Sea Wright MD - Time Spent With Patient Total time spent is greater than 50% in coordination of care (as documented) at patient's floor/unit and/or counseling patient:
[2018-01-26] MEDS: Ondansetron ODT 4 MG TAB.RAPDIS SL PRN ×2 (14:57→21:18)
[2018-01-26] MEDS: *HR* FentaNYL (PF) 100 MCG/2 ML VIAL IVP PRN (20:24)
[2018-01-26] MEDS: ALPRAZolam 1 MG TABLET PO PRN (21:17)
[2018-01-26] MEDS: traZODone 50 MG TABLET PO SCH (21:18)
[2018-01-26] MEDS ORDERED: Piperacillin/Tazobactam 3.375 GM in 0.9 % Sodium Chloride Mini Bag 100 ML IVPB SCH (22:00)
[2018-01-27 01:44] LABS: Basophils % 0.6 %; Eosinophils # 0.1 K/mcL (0.0-0.6); Eosinophils % 2.2 %; Hematocrit 33.7 % (35.3-44.9); Hemoglobin 10.9 g/dL (11.5-15.4); Immature Granulocytes % 0.2 % (0-4); Lymphocytes # 1.7 K/mcL (0.6-4.6); Lymphocytes % 34.7 %; Mean Corpuscular HGB Conc 32.3 g/dL (31.6-35.5); Mean Corpuscular Hemoglobin 29.3 pg (28.0-33.3); Mean Corpuscular Volume 90.6 fL (83.0-100.0); Mean Platelet Volume 10.4 fL (9.4-12.4); Monocytes # 0.3 K/mcL (0.0-1.3); Monocytes % 5.4 %; Neutrophils # 2.9 K/mcL (1.6-8.9); Platelet Count 286 K/mcL (140-400); Red Blood Count 3.72 M/mcL (3.82-4.97); Red Cell Distribution Width 14.6 % (11.5-14.5); Segmented Neutrophils % 56.9 %
[2018-01-27 02:02] LABS: Calcium 8.5 mg/dL (8.6-10.3); Potassium 4.2 mEq/L (3.5-5.1)
[2018-01-27] MEDS: *HR* FentaNYL (PF) 100 MCG/2 ML VIAL IVP PRN ×3 (04:03→22:21)
[2018-01-27] MEDS: ALPRAZolam 1 MG TABLET PO PRN (06:00)
[2018-01-27] MEDS ORDERED: Piperacillin/Tazobactam 3.375 GM in 0.9 % Sodium Chloride Mini Bag 100 ML IVPB SCH (06:00)
[2018-01-27] MEDS ORDERED: 0.9 % Sodium Chloride 500 ML ONE ×2 (08:29→08:58)
[2018-01-27] MEDS ORDERED: *HR* Midazolam HCl 2 MG/2 ML VIAL IVP ONE (08:46)
[2018-01-27] MEDS ORDERED: *HR* FentaNYL (PF) 100 MCG/2 ML VIAL IVP ONE (08:46)
--- NOTE | 2018-01-27 08:48 | Pre-Sedation Evaluation ---
Pre-sedation evaluation - Pre-sedation checklist Procedure: nephrostomy tube insertion Recent Vitals: Last Vital Signs Temp 98.2 F 01/27/18 06:59 Pulse 63 01/27/18 06:59 Resp 14 01/27/18 06:59 BP 105/70 01/27/18 06:59 Pulse Ox 99 01/27/18 06:59 H&P (including ROS) documented in medical record: Yes Previous reaction to sedatives/anesthetics: No Dietary Status: NPO after Midnight Dentition: No loose teeth or bridges Possible difficult airway: No ASA Classification *see protocol: CLASS II-Mild systemic disease Cardiac Registry (Cardio Only) - Functional Capacity - Clincal Frailty Scale
--- NOTE | 2018-01-27 09:13 | IR Procedure Note ---
Date of procedure: 01/27/18 Consent Obtained: Verbal consent, Written consent Timeout: Correct patient and procedure verified, Correct site verified, Time out performed, Skin prep completed Local anesthetic: Lidocaine 1% Indications: Urinary tract infection Procedure Performed: Right nephrostomy tube exchange Was there an learning support assistant present: No Site/Technique: Right nephrostomy tube exchanged in [facility] Results/Findings: New nephrostomy tube in good position Estimated blood loss (cc): 0 Complications: None; Tolerated procedure well Post Procedure Treatment Plan: Nephrostomy tube to gravity drainage Specimen: None
[2018-01-27] MEDS: Ondansetron ODT 4 MG TAB.RAPDIS SL PRN (11:47)
--- NOTE | 2018-01-27 13:17 | Internal Med Progress Note ---
Hospitalist Progress Note - Encounter Date of Encounter: 01/27/18 Time of Encounter: 12:40 - Subjective Interval History: Reports mild improvement in her nausea and flank pain. No fever/chills. Able to a small amount of food. - Exam Vitals: Temp Pulse Resp BP Pulse Ox 98.2 F 63 18 134/80 100 01/27/18 06:59 01/27/18 09:07 01/27/18 09:07 01/27/18 09:07 01/27/18 09:07 Exam: General: Alert and oriented HEENT:EOM, pupils equal, round, and reactive. Cardiovascular:Normal S1 & S2, no murmurs or gallops. No JVD. Pulse regular. Lungs:Normal breath sounds, no wheezes or crackles. Abdomen:Soft, non-tender, R flank: non-tender, nephrostomy tube dressin intact, draining clear urine - Assessment and Plan (1) Complicated UTI (urinary tract infection) Current Visit: Yes Status: Acute Assessment and Plan: Patient has chronic right-sided nephrostomy tube complicated by recurrent episodes of UTI. Status post exchange of right nephrostomy tube today Previous cultures have been polymicrobial, including Escherichia coli, Proteus, and Enterococcus faecalis. Started on Zosyn and improving currently. She previously had issues with administrating IV antibiotics at home, would favor sending her home on oral agents if possible Called microbiology today to confirm that the final urine culture results will be available tomorrow morning continue zosyn and hopefully de-escalate to PO agents tomorrow for a total of 14 day course (2) Acute on chronic renal insufficiency Current Visit: Yes Status: Acute Assessment and Plan: Improving on IV fluid, oral intake has not been the best so far will continue IVF today, encourage PO intake anti-emetics (3) Anxiety and depression Current Visit: No Status: Chronic Assessment and Plan: Continue Cymbalta and when necessary Xanax. (4) DVT prophylaxis Current Visit: No Status: Acute Assessment and Plan: SCDs - Time Spent with Patient Total time spent is greater than 50% in coordination of care (as documented) at patient's floor/unit and/or counseling patient: Plan of Care Discussed with: nurse Internal Medicine: Result - Labs CBC & Chem 7: 01/27/18 01:23 01/27/18 01:23 Labs: Short CBC 01/27/18 Range/Units 01:23 WBC 5.0 (4.3-11.1) K/mcL Hgb 10.9 L (11.5-15.4) g/dL Hct 33.7 L (35.3-44.9) % Plt Count 286 (140-400) K/mcL Neutrophils # 2.9 (1.6-8.9) K/mcL BMP 01/27/18 01:23 Sodium 138 Potassium 4.2 Chloride 112 H Carbon Dioxide 19 L BUN 21 H Creatinine 2.24 H Glucose 88 Calcium 8.5 L - Impressions Impressions Nephrostomy Tube Change 01/27/18 00:00 IMPRESSION: Fluoroscopic guided exchange of the right nephrostomy tube. No immediate complications. D/ / Kalin Cortes MD / Kalin Cortes MD Interpreting Provider: Kalin Cortes MD - VTE Documentation of Mechanical Device: Intermittent pneumatic compression device Consult Discharge Plan - Plan Referrals: Yanick Dunn MD [Primary Care Provider] -
[2018-01-27] MEDS: Piperacillin/Tazobactam 3.375 GM in 0.9 % Sodium Chloride Mini Bag 100 ML IVPB SCH (18:23)
[2018-01-27] MEDS: traZODone 50 MG TABLET PO SCH (20:43)
[2018-01-28] MEDS: Piperacillin/Tazobactam 3.375 GM in 0.9 % Sodium Chloride Mini Bag 100 ML IVPB SCH ×2 (05:35→18:31)
[2018-01-28 06:15] LABS: Potassium 4.4 mEq/L (3.5-5.1)
[2018-01-28] MEDS: ALPRAZolam 1 MG TABLET PO PRN ×3 (08:22→23:01)
[2018-01-28] MEDS: Ondansetron ODT 4 MG TAB.RAPDIS SL PRN ×2 (08:28→17:21)
[2018-01-28] MEDS: *HR* OxyCODONE/APAP 5/325 TABLET PO PRN ×3 (11:46→23:00)
--- NOTE | 2018-01-28 14:42 | Internal Med Progress Note ---
Hospitalist Progress Note - Encounter Date of Encounter: 01/28/18 Time of Encounter: 09:30 - Subjective Interval History: Ms. Joseph is a 53 year old female with history of cervical cancer presented to the ED with back pain. Because of her extensive cervical cancer she status post right-sided nephrostomy tube which was draining purulent material. The UA on admission showed + nitrites, protein 30, bacteria is many, wbc is tntc, and large leukocyte esterace. Patient was started on Zosyn in the ED. With improvement of her symptoms IR was consulted and right nephrostomy tube was changed on January 27. Patient creatinine was 2.5 on admission which trended back to baseline of 1.9- 2.1 with IV fluids. Today she reports that she feels much better, her flank pain is more controlled. She denied any chills, fever, nausea, vomiting. She was able to tolerate more of her diet. she denies palpitations, CP, SOB, diarrhea, abnormal bleeding at the nephrostomy sight. - Exam Vitals: Temp Pulse Resp BP Pulse Ox 98.6 F 60 16 124/79 98 01/28/18 11:17 01/28/18 11:17 01/28/18 11:17 01/28/18 11:17 01/28/18 11:17 Exam: General: Patient is alert, oriented, no acute distress, obese Head: atraumatic, normocephalic, Eye: normal appearance, PERRL, no scleral icterus, no conjunctival injection Chest: normal inspection, symmetric chest rise Respiratory: Good respiratory effort. Bilateral breath sounds are clear without wheezing, crackles, or rhonchi. Cardiovascular: Regular rate and rhythm. s1 and s2 No clicks, rubs, gallops, or murmors. Abdomen: Bowel sounds present normoactive x-4 quadrants. Abdomen is soft, nondistended. Epigastric tenderness. No guarding or rebound. No organomegaly noted, obese, Right flank with nephrostomy tube draining clear urine musculoskeletal: Spontaneously moving all extremities. Skin: warm, dry, intact. Neuro: Alert and oriented x4. Sensation light touch intact. Cranial nerves 2- 12 is intact. Psych: Patient's affect is normal - Assessment and Plan (1) Complicated UTI (urinary tract infection) Current Visit: Yes Status: Acute Assessment and Plan: Patient has chronic right-sided nephrostomy tube complicated by recurrent episodes of UTI. Status post exchange of right nephrostomy tube 01/27/18 urine cx followed and is positive for leal sensitive E.coli adn MDRO proteus ID was consulted for Abx recommendations for discharge will continue Zosyn as Both bacteria are sensitive to zosyn will follow final blood cx (2) Anxiety and depression Current Visit: No Status: Chronic Assessment and Plan: Continue Cymbalta and when necessary Xanax. (3) Acute on chronic renal insufficiency Current Visit: Yes Status: Acute Assessment and Plan: Improving on IV fluid- will continue almost back to baseline of 1.9-2.1 will follow her oral intake -if good enough will DC IVF in the AM anti-emetics (4) DVT prophylaxis Current Visit: No Status: Acute Assessment and Plan: SCDs DVT Prophylaxis: SCDs - Time Spent with Patient Total time spent is greater than 50% in coordination of care (as documented) at patient's floor/unit and/or counseling patient: Greater than 35 minutes (45) Internal Medicine: Result - Labs CBC & Chem 7: 01/27/18 01:23 01/28/18 05:22 Labs: BMP 01/28/18 05:22 Sodium 139 Potassium 4.4 Chloride 112 H Carbon Dioxide 21 L BUN 19 Creatinine 2.20 H Glucose 91 Calcium 9.0 - VTE Documentation of Mechanical Device: Intermittent pneumatic compression device Consult Discharge Plan - Plan Additional Instructions: woul dneed to have it solutions architect reinstated will need help with IV administeration of Abx for her complicated UTI at home depending on what infectious disease recommends today. Referrals: Yanick Dunn MD [Primary Care Provider] -
--- NOTE | 2018-01-28 16:17 | Infectious Disease Consult ---
Date of Encounter: 01/29/18 Time of Encounter: 16:17 Assessment and Plan (1) Complicated UTI (urinary tract infection) Status: Acute Assessment and plan: Causative organism: Proteus vulgaris and E. coli. Etiology unclear. The patient does have a right nephrostomy tube that apparently had purulent drainage coming out around it. Per the patient, the urine specimen was collected from the nephrostomy bag in the ER, so not sure that these are truly the causative organism vs. contaminant from the bag. Status post right nephrostomy tube exchange 01/27/18 by IR. No imaging was done, but clinical picture consistent with pyelonephritis. Continue Zosyn 3.375 grams IV Q8H. Duration of treatment depends on the clinical picture, but likely a total of 7- 10 days given the absence of sepsis and clinical improvement. Can likely switch to PO Bactrim when ready for discharge. The patient does have an MONSERRAT and known CKD, but Bactrim is our only oral option and the patient doesn't want to go home on IV antibiotics. I discussed the risks associated with Bactrim and her MONSERRAT/CKD and she verbalizes understanding and is okay to proceed with PO Bactrim on discharge. Will need to dose-adjust based on CrCl. Monitor renal function and dose-adjust antibiotics. (2) Pyelonephritis Status: Acute (3) Nephrostomy complication Status: Acute Assessment and plan: Given the MONSERRAT and the patient's report that there was urine leaking out from around the tube, concern that the tube may have been occluded. No imaging was done prior to nephrostomy tube replacement. Status post nephrostomy tube exchange 01/27/18 by IR. (4) Acute on chronic renal insufficiency Status: Acute Assessment and plan: Etiology unclear: UTI vs. occluded nephrostomy tube. Improved. Continue to trend. Strict I's and O's. Dose-adjust antibiotics. (5) Cervical cancer Status: Chronic Assessment and plan: Status post chemo, radiation, and hysterectomy 2 years ago. Qualifiers: Malignant neoplasm of cervix location: unspecified location Qualified Code( s): C53.9 - Malignant neoplasm of cervix uteri, unspecified (6) History of creation of ostomy Status: Acute (7) Anxiety and depression Status: Chronic Infectious Disease HPI - Data of Consult Patient: new to practice Consult date: 01/29/18 Requesting Physician: Yue Magdaleno MD Primary Care Provider: Yanick Dunn MD - Consult Narrative Reason for consult: UTI History of present illness: Ms. 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 The patient was admitted to the hospital January 26 for UTI and acute kidney injury. We are consulted January 28 for antibiotic recommendations for complicated UTI. Briefly, the patient a 53-year-old female with past medical history as stated above. The patient came to the emergency department on the day of admission with complaints of generally feeling unwell, chills, nausea and vomiting, and foul-smelling urine. She states there was urine leaking out from around her nephrostomy tube. Upon arrival, the patient was afebrile. She was mildly tachycardic, but had a normal white blood cell count. Her serum creatinine was elevated at 2.50. Urinalysis was positive for nitrites, large amounts of leukocyte esterase, and too white blood cells. The culture came back positive for Proteus vulgaris and Escherichia coli. Chest x-ray was negative. Blood cultures were obtained 2 sets are no growth to date. She was started empirically on IV Zosyn based on previous culture results and admitted to the hospital for further evaluation. In, the patient has been evaluated by interventional radiology and had her right nephrostomy tube exchanged. Her renal function continues to improve. She is still on IV Zosyn. We have been asked to evaluate and make further recommendations. During my exam today, the patient endorses a history as stated above. She states she had nephrostomy tube and urostomy created due to postradiation scar tissue. She follows with Dr. Morocho at [facility]. She recently had her left nephrostomy tube removed due to no urinary output from the tube. A couple of days prior to admission she started having generalized feeling of unwellness with chills and rigors, but no documented fevers. She reports she had a couple episodes of nausea with vomiting and poor appetite. She states that her urine was foul-smelling and looked like pus. She denied any abdominal pain. She denied chest pain or shortness of breath or cough. She denied headache or neck pain or dizziness. She denied any congestion, earache, or sore throat. She reported pain in her right flank that was nonradiating. She denied pain in her extremities. She denies oral thrush or skin lesions. The patient lives at home with her family. She is unable to work outside the home. She is a light smoker and states she does pack of cigarettes will last her about 2 weeks. She denies any alcohol or illicit drug use. CC: Yue Magdaleno MD Past Med Surg Social Fam HX - Past Medical History Attestation: Yes The following information was validated with the patient. Source: patient, old records reviewed, nursing notes reviewed Medical history: cancer (Cervical cancer status post chemo and radiation), renal disease, other Additional medical history: cervical CA Psychiatric history: anxiety, bipolar, depression - Past Surgical History Surgical History: colostomy, hysterectomy, other Additional surgical history: bilateral nephrostomy, urostomy - Social History Smoking Status: Former smoker Smokeless Tobacco Status: No Alcohol use: none Drug use: none Occupational status: disabled Current living situation: Home - Independent Activity Level: Independent ambulation Recent Out of Country Travel Within the Last 8 Weeks: No Exposure or Possible Exposure to Illness During Travel: No - Family History Father Living Status: Still Living Hx Family Cancer: Yes (prostate) Infectious Disease-CN:Meds ALPRAZolam [Xanax 1 MG Tablet] 1 mg PO TID PRN 05/24/15 [History] Quetiapine Fumarate [Seroquel] 400 mg PO HS 05/25/15 [History] Trazodone HCl 300 mg PO HS 05/09/17 [History] Ondansetron ODT [Zofran ODT] 4 mg SL Q6HR PRN 06/23/17 [History] Duloxetine HCl [Cymbalta] 60 mg PO DAILY 01/26/18 [History] Pantoprazole Sodium [Protonix] 40 mg PO DAILY 01/26/18 [History] 3 Allergy/AdvReac Type Severity Reaction Status Date / Time codeine AdvReac Hives Verified 10/20/17 18:47 ibuprofen AdvReac See Verified 10/20/17 18:47 Comments morphine AdvReac Vomiting Verified 10/20/17 18:47 All systems: reviewed and no additional remarkable complaints except as stated Exam - Constitutional Vitals: Temp Pulse Resp BP Pulse Ox 98.6 F 59 16 113/71 98 01/28/18 15:19 01/28/18 15:19 01/28/18 15:19 01/28/18 15:19 01/28/18 15:19 General appearance: average body habitus, cooperative, no acute distress - Head Head exam: Present: atraumatic, normal inspection, normocephalic - Eye Eye exam: Present: EOMI, normal appearance, PERRL Pupils: Present: normal accommodation - ENT ENT exam: Present: mucous membranes moist - Neck Neck exam: Present: normal inspection - Respiratory Respiratory exam: Present: CTAB. Absent: rales, respiratory distress, rhonchi, wheezes - Cardiovascular Cardiovascular exam: Present: RRR, +S1, +S2 - GI/Abdominal GI/Abdominal exam: Present: normal bowel sounds, soft. Absent: distended, tenderness Additional comments: Urostomy noted with small amount of clear yellow urine. Right sided nephrostomy tube noted with clear yellow urine. - Extremities Exam Extremities exam: Present: normal inspection. Absent: joint swelling, pedal edema, tenderness - Back Exam Back exam: Present: CVA tenderness (R). Absent: CVA tenderness (L) Additional comments: Left flank nephrostomy tube site noted to be without redness, warmth, or drainage. - Neurological Exam Neurological exam: Present: alert, oriented X3, no focal deficits - Psychiatric Psychiatric exam: Present: normal affect, normal mood - Skin Skin exam: Present: dry, intact, normal color, warm Infectious Disease CN: Results - Labs CBC & Chem 7: 01/27/18 01:23 01/28/18 05:22 Cultures: Cultures 01/26/18 10:50 Urine Culture - Preliminary Urine,Ureter Proteus vulgaris Escherichia coli 01/26/18 11:29 Blood Culture - Preliminary Peripheral Venipuncture Culture is incubating and being continuously monitored for growth. Final report to follow. 01/26/18 11:29 Blood Culture - Preliminary Peripheral Venipuncture Culture is incubating and being continuously monitored for growth. Final report to follow. - VTE Documentation of Mechanical Device: Intermittent pneumatic compression device Consult Discharge Plan - Plan Additional Instructions: woul dneed to have oil field equipment mechanic reinstated will need help with IV administeration of Abx for her complicated UTI at home depending on what infectious disease recommends today. Referrals: Yanick Dunn MD [Primary Care Provider] -
[2018-01-28] MEDS: traZODone 50 MG TABLET PO SCH (19:59)
[2018-01-29] MEDS: Piperacillin/Tazobactam 3.375 GM in 0.9 % Sodium Chloride Mini Bag 100 ML IVPB SCH (05:31)
[2018-01-29 08:34] LABS: Hematocrit 33.3 % (35.3-44.9); Hemoglobin 10.9 g/dL (11.5-15.4); Mean Corpuscular HGB Conc 32.7 g/dL (31.6-35.5); Mean Corpuscular Hemoglobin 28.3 pg (28.0-33.3); Mean Corpuscular Volume 86.5 fL (83.0-100.0); Mean Platelet Volume 10.8 fL (9.4-12.4); Platelet Count 252 K/mcL (140-400); Red Blood Count 3.85 M/mcL (3.82-4.97); Red Cell Distribution Width 14.6 % (11.5-14.5)
[2018-01-29 08:38] LABS: Calcium 8.7 mg/dL (8.6-10.3); Potassium 4.9 mEq/L (3.5-5.1)
[2018-01-29] MEDS: *HR* OxyCODONE/APAP 5/325 TABLET PO PRN (08:50)
[2018-01-29] MEDS: ALPRAZolam 1 MG TABLET PO PRN (08:50)
[2018-01-29 11:07] VITALS: BP 124/80
--- NOTE | 2018-01-29 11:33 | Discharge Summary ---
- NOTES TO OUTPATIENT PROVIDER Notes to Outpatient Provider: follow up with mobile home servicer. follow up for replacement of nephrostomy tube as directed. follow up with BMP for kidney functions Date of Encounter: 01/29/18 Time of Encounter: 11:30 - Discharge Diagnosis (1) Complicated UTI (urinary tract infection) Priority: Primary Status: Acute (2) Anxiety and depression Priority: Secondary Status: Chronic (3) Acute on chronic renal insufficiency Priority: Secondary Status: Acute (4) DVT prophylaxis Priority: Secondary Status: Acute Hospital course: Ms. Joseph is a 53 year old female with history of cervical cancer presented to the ED with back pain. Because of her extensive cervical cancer she status post right-sided nephrostomy tube which was draining purulent material. The UA on admission showed + nitrites, protein 30, bacteria is many, wbc is tntc, and large leukocyte esterace. Patient was started on Zosyn in the ED. With improvement of her symptoms IR was consulted and right nephrostomy tube was changed on January 27. Patient creatinine was 2.5 on admission which trended back to baseline of 1.9- 2.1 with IV fluids. Per the patient, the urine specimen was collected from the nephrostomy bag in the ER, so not sure that these are truly the causative organism vs. contaminant from the bag. Causative organism: Proteus vulgaris and E. coli. ucx followed ID was consulted. "Duration of treatment depends on the clinical picture, but likely a total of 7- 10 days given the absence of sepsis and clinical improvement. Can likely switch to PO Bactrim when ready for discharge. The patient does have an MONSERRAT and known CKD, but Bactrim is our only oral option and the patient doesn't want to go home on IV antibiotics. I discussed the risks associated with Bactrim and her MONSERRAT/CKD and she verbalizes understanding and is okay to proceed with PO Bactrim on discharge. Will need to dose-adjust based on CrCl." she was discharged on 10 days of basctrim SS as she has CKD- dosage discussed with pharmacists to have Monitoring renal function and dose-adjust antibiotics by her PCP Discharge discussed with: patient, nurse - Time Spent with Patient Total time spent providing and/or coordinating discharge services: - Discharge Medications Prescriptions: Sulfamethoxazole/Trimeth SS [Bactrim SS] 1 each PO BID 10 Days #20 tablet Home Medications: ALPRAZolam [Xanax 1 MG Tablet] 1 mg PO TID PRN 05/24/15 [History] Quetiapine Fumarate [Seroquel] 400 mg PO HS 05/25/15 [History] Trazodone HCl 300 mg PO HS 05/09/17 [History] Ondansetron ODT [Zofran ODT] 4 mg SL Q6HR PRN 06/23/17 [History] Duloxetine HCl [Cymbalta] 60 mg PO DAILY 01/26/18 [History] Pantoprazole Sodium [Protonix] 40 mg PO DAILY 01/26/18 [History] Sulfamethoxazole/Trimeth SS [Bactrim SS] 1 each PO BID 10 Days #20 tablet [Rx] Allergies/Adverse Reactions: 3 Allergy/AdvReac Type Severity Reaction Status Date / Time codeine AdvReac Hives Verified 10/20/17 18:47 ibuprofen AdvReac See Verified 10/20/17 18:47 Comments morphine AdvReac Vomiting Verified 10/20/17 18:47 Date of admission: 01/27/18 14:15 Primary care physician: Yanick Dunn MD Consults: 01/28/18 11:06 Consult to Infectious Diseases [CONS] Stat Consulting Provider: Infectious Disease Carley Reason for Consult: proteus and ecoli complicated UTI Call Completed: No 01/28/18 14:10 Consult to Invasive Line Access Team [CONS] Routine Reason for Consult: Poor vascular access Line Type: EPIV - Constitutional Vitals: Temp Pulse Resp BP Pulse Ox 98.1 F 74 16 124/80 97 01/29/18 10:49 01/29/18 10:49 01/29/18 07:02 01/29/18 10:49 01/29/18 10:49 General appearance: Present: A&O X 3, answers questions appropriately Exam: General: Patient is alert, oriented, no acute distress, obese Head: atraumatic, normocephalic, Eye: normal appearance, PERRL, no scleral icterus, no conjunctival injection Chest: normal inspection, symmetric chest rise Respiratory: Good respiratory effort. Bilateral breath sounds are clear without wheezing, crackles, or rhonchi. Cardiovascular: Regular rate and rhythm. s1 and s2 No clicks, rubs, gallops, or murmors. Abdomen: Bowel sounds present normoactive x-4 quadrants. Abdomen is soft, nondistended. Epigastric tenderness. No guarding or rebound. No organomegaly noted, obese, Right flank with nephrostomy tube draining clear urine musculoskeletal: Spontaneously moving all extremities. Skin: warm, dry, intact. Neuro: Alert and oriented x4. Sensation light touch intact. Cranial nerves 2- 12 is intact. Psych: Patient's affect is normal - Patient Status Disposition: Home, Self-Care Condition: Good Functional capacity at discharge: independent ambulation Overall status at discharge: patient is progressing back to baseline - Discharge Instructions Instructions: Urinary Tract Infection in Women (DC) Follow Up With: Yanick Dunn MD [Primary Care Provider] - Additional Instructions: haile arrington to have outpatient case manager reinstated will need help with IV administeration of Abx for her complicated UTI at home depending on what infectious disease recommends today. - Diet and Activity Activity: increase activity as tolerated Diet: advance to your usual diet - VTE Documentation of Mechanical Device: Intermittent pneumatic compression device
--- NOTE | 2018-01-29 13:34 | Infectious Disease Progress No ---
Date of Encounter: 01/29/18 Time of Encounter: 12:45 - Assessment and Plan (1) Complicated UTI (urinary tract infection) Current Visit: Yes Status: Acute Causative organism: Proteus vulgaris and E. coli. Etiology unclear. The patient does have a right nephrostomy tube that apparently had purulent drainage coming out around it. Per the patient, the urine specimen was collected from the nephrostomy bag in the ER, so not sure that these are truly the causative organism vs. contaminant from the bag. Status post right nephrostomy tube exchange 01/27/18 by IR. No imaging was done, but clinical picture consistent with pyelonephritis. Continue Zosyn 3.375 grams IV, but increase to Q8H for CrCl ~22. Duration of treatment depends on the clinical picture, but likely a total of 7- 10 days given the absence of sepsis and clinical improvement. Can likely switch to PO Bactrim when ready for discharge. The patient does have an MONSERRAT and known CKD, but Bactrim is our only oral option and the patient doesn't want to go home on IV antibiotics. I discussed the risks associated with Bactrim and her MONSERRAT/CKD and she verbalizes understanding and is okay to proceed with PO Bactrim on discharge. Will need to dose-adjust based on CrCl. Recommend 1 DS tab PO daily. Monitor renal function and dose-adjust antibiotics. (2) Pyelonephritis Current Visit: No Status: Acute (3) Nephrostomy complication Current Visit: No Status: Resolved Given the MONSERRAT and the patient's report that there was urine leaking out from around the tube, concern that the tube may have been occluded. No imaging was done prior to nephrostomy tube replacement. Status post nephrostomy tube exchange 01/27/18 by IR. (4) Acute on chronic renal insufficiency Current Visit: Yes Status: Acute Etiology unclear: UTI vs. occluded nephrostomy tube. Improved. Baseline appears to be around 2. Continue to trend. Strict I's and O's. Dose-adjust antibiotics. (5) Cervical cancer Current Visit: No Status: Chronic Status post chemo, radiation, and hysterectomy 2 years ago. Qualifiers: Malignant neoplasm of cervix location: unspecified location Qualified Code( s): C53.9 - Malignant neoplasm of cervix uteri, unspecified (6) History of creation of ostomy Current Visit: No Status: Acute (7) Anxiety and depression Current Visit: No Status: Chronic - Subjective Interval history: Patient seen and examined. No acute events noted overnight. Patient states overall she feels better. Reports some sparse chills, but no rigors or fevers. Denies chest pain, shortness of breath, or cough. Denies nausea, vomiting, or diarrhea. Denies abdominal pain. States urine output is good and her urine remains clear and odor-free. Reports persistent pressure to the right flank, but no pain. Denies oral thrush or skin lesions. States overall he appetite is better. Infect Dis PN-Objective Data - Labs CBC & Chem 7: 01/29/18 08:01 01/29/18 08:01 Labs: Laboratory Results - last 24 hr 01/29/18 01/29/18 08: 08:01 WBC 5.1 RBC 3.85 Hgb 10.9 L Hct 33.3 L MCV 86.5 MCH 28.3 MCHC 32.7 RDW 14.6 H Plt Count 252 MPV 10.8 Sodium 138 Potassium 4.9 Chloride 112 H Carbon Dioxide 20 L BUN 17 Creatinine 2.06 H Est GFR ( Amer) 31 L Est GFR (Non-Af Amer) 25 L BUN/Creatinine Ratio 8 Glucose 93 Calculated Osmolality 287 Calcium 8.7 Exam - Constitutional Vitals: Temp Pulse Resp BP Pulse Ox 98.1 F 74 16 124/80 97 01/29/18 10:49 01/29/18 10:49 01/29/18 07:02 01/29/18 10:49 01/29/18 10:49 General appearance: average body habitus, cooperative, no acute distress - Head Head exam: Present: atraumatic, normal inspection, normocephalic - Eye Eye exam: Present: EOMI, normal appearance, PERRL Pupils: Present: normal accommodation - ENT ENT exam: Present: mucous membranes moist - Neck Neck exam: Present: normal inspection - Respiratory Respiratory exam: Present: CTAB. Absent: rales, respiratory distress, rhonchi, wheezes - Cardiovascular Cardiovascular exam: Present: RRR, +S1, +S2 - GI/Abdominal GI/Abdominal exam: Present: normal bowel sounds, soft. Absent: distended, tenderness Additional comments: Urostomy noted to the lower abdomen with small amount of clear yellow urine noted in the collection bag. - Extremities Exam Extremities exam: Present: normal inspection. Absent: joint swelling, pedal edema, tenderness - Back Exam Back exam: Present: CVA tenderness (R) (Mild, improved.), normal inspection. Absent: CVA tenderness (L) - Neurological Exam Neurological exam: Present: alert, oriented X3, no focal deficits - Psychiatric Psychiatric exam: Present: normal affect, normal mood - Skin Skin exam: Present: dry, intact, normal color, warm - VTE Documentation of Mechanical Device: Intermittent pneumatic compression device Consult Discharge Plan - Plan Instructions: Urinary Tract Infection in Women (DC) Additional Instructions: woul dneed to have office workforce planner reinstated will need help with IV administeration of Abx for her complicated UTI at home depending on what infectious disease recommends today. Referrals: Yanick Dunn MD [Primary Care Provider] - (Web request entered. Office will call with date and time of appointment. Thank you) Prescriptions: Sulfamethoxazole/Trimeth SS [Bactrim SS] 1 each PO BID 10 Days #20 tablet
== END 2018-01-29 15:01 | disposition home or self-care (01) | DRG 699 ==
LOC: EMEROO 10:18 → 3ANU 10:18 → SUATTDRO 01-27 14:15
PROVIDERS: ADMIT Internal Medicine; ATTEND Internal Medicine

== ENCOUNTER 2019-01-15 14:41 | Inpatient (IN) ==
[2019-01-15] MEDS ORDERED: 0.9 % Sodium Chloride 1,000 ML IVC ONE ×2 (15:03→17:22)
--- NOTE | 2019-01-15 15:21 | Emergency Department Note ---
Disposition Clinical Impression: Hyponatremia Disposition: Admitted As Inpatient Condition: Fair Forms: ED Satisfaction Letter Time of Disposition: 17:53 Weakness HPI - General Chief complaint: ED Weakness Stated complaint: weakness Time Seen by Provider: 01/15/19 14:59 Source: patient Limitations: no limitations - History of Present Illness HPI Narrative: Patient is 54-year-old female presents here with a history of right-sided abdo nicola pain. Patient also has right-sided flank pain. The patient states that she has been having this for just over a week. The patient states that she had a nephrostomy tube placed at [facility] couple months ago. The patient was supposed to have this taken out in October, however the urologist apparently had went out of town. The patient is now seen by Dr. Hannon here at the [facility]. The patient has had some nausea and vomiting, she denies fevers or chills. She states the pain at times is sharp in nature, somewhat worse with movement. The patient states the tenderness around her nephrostomy tube and then radiates forward. Patient has a urostomy to the left lower quadrant. The patient states that she has no left-sided abdominal pain. She denies any focal arm or leg weakness. The patient denies any chest pain, she does complain of shortness of breath with exertion. Patient does have a history of end-stage renal disease however she is not on dialysis as of yet. She has had diminished appetite and feels somewhat dehydrated here in the emergency room. She denies any headache. She denies any mid back pain. Pain Scale: 8 - Related Data Home Medications Medication Instructions Recorded Confirmed ALPRAZolam [Xanax 1 MG Tablet] 1 mg PO TID PRN 05/24/15 01/26/18 Quetiapine Fumarate [Seroquel] 400 mg PO HS 05/25/15 01/26/18 Trazodone HCl 300 mg PO HS 05/09/17 01/26/18 Ondansetron ODT [Zofran ODT] 4 mg SL Q6HR PRN 06/23/17 01/26/18 Duloxetine HCl [Cymbalta] 60 mg PO DAILY 01/26/18 01/26/18 Pantoprazole Sodium [Protonix] 40 mg PO DAILY 01/26/18 01/26/18 Previous Rx's Medication Instructions Recorded Sulfamethoxazole/Trimeth SS 1 each PO BID 10 Days #20 tablet 01/29/18 [Bactrim SS] Allergies Allergy/AdvReac Type Severity Reaction Status Date / Time codeine AdvReac Hives Verified 12/05/18 11:49 ibuprofen AdvReac See Verified 12/05/18 11:49 Comments morphine AdvReac Vomiting Verified 12/05/18 11:49 Review of Systems: As mentioned per history of present illness and as follows. Constitutional: Negative for chills or fever HENT: Negative for sore throat. Eyes: Negative for visual disturbance Respiratory: Negative for shortness of breath. Cardiovascular: Negative for palpitations. Gastrointestinal: Positive for abdominal pain Genitourinary: Negative for dysuria Musculoskeletal: Positive for back pain. Skin: Negative for rash. Neurological: Negative for focal weakness Psychiatric/Behavioral: Negative for depression Past Medical History - Past Medical History Medical history: Reports: cancer, renal disease, other Surgical history: Reports: colostomy, hysterectomy, other Psychiatric history: Reports: anxiety, bipolar, depression MEDICAL OFFICE REP history: Reports: cervical cancer, other - Social History Smoking Status: Current some day smoker Smokeless Tobacco Status: No Alcohol use: Reports: none Drug use: Reports: none Physical Exam PHYSICAL EXAM Constitutional: Well developed, Well nourished, No acute distress, Non-toxic appearance. HENT: Normocephalic, Atraumatic, Bilateral external ears normal, Oropharynx moist, No oral exudates, Nose normal. Neck- Normal range of motion, No te nderness, Supple. Eyes: PERRL, EOMI, Conjunctiva normal,. Cardiovascular: Regular rate and rhythm without clicks, rubs, gallops or murmurs. Respiratory: Normal breath sounds, No respiratory distress, No wheezing, rhonchi, or crackles. GI: Soft, tenderness is noted over the right upper quadrant, right lower quadrant of the abdomen, no evidence of guarding or peritoneal signs. Bowel sounds are active. Musculoskeletal: Good range of motion in all major joints. No tenderness to palpation or major deformities noted to the extremities, tenderness is noted over the right flank, there is evidence of a nephrostomy tube in place over the right flank region.. +5/5 strength noted to all extremities. Integument: Warm, Dry, No erythema, No rash. No edema. Sensory erythema or sialitis surrounding the nephrostomy tube site, no evidence of drainage around the site. Neurologic: Alert & oriented x 3, Normal sensory function, No focal deficits noted. CN II-XII grossly intact. - General Limitations: no limitations General appearance: alert, in no apparent distress Course Vital Signs Temperature 97.1 F L 01/15/19 14:51 Pulse Rate 94 01/15/19 14:51 Respiratory Rate 18 01/15/19 14:51 Blood Pressure 95/67 01/15/19 14:51 O2 Sat by Pulse Oximetry 95 01/15/19 14:51 Temperature 97.1 F L 01/15/19 14:51 Pulse Rate 78 01/15/19 16:36 Respiratory Rate 20 01/15/19 16:36 Blood Pressure 122/95 01/15/19 16:36 O2 Sat by Pulse Oximetry 98 01/15/19 16:36 Oxygen Delivery Oxygen Delivery Room Air Weakness - MDM Narrative Medical decision making narrative: EKG was obtained for her weakness, this showed sinus rhythm at 86 beats a minute, QT interval is prolonged at 495 ms, the patient has normal WA interval. No ST elevation or depression. Interpreted by myself Patient at this time did have labs obtained here in the emergency room as well as a CAT scan, CAT scan does show evidence of severe right-sided hydronephrosis with adequate position of nephrostomy stent. The patient did have a small focus of gas in the right renal pelvis, this could represent the manipulation of catheter versus infection. The patient cannot get a urinalysis secondary to the fact that her urine is collected ostomy is also contaminated with stool. The patient also had difficulty obtaining good IV access here in the emergency room. I do not believe this point in time the patient warrants central line placement, a PICC line would be beneficial. Patient at this point time is going to be admitted to the hospitalist. Did discuss the case with urology as well and Dr. Alaniz he is agreed to see the patient as well. Patient will be admitted in stable condition to the floor. The patient was ordered for 2 L of IV fluids to help with her hyponatremia. Final impression 1. Hyponatremia 2. Right-sided hydronephrosis 3. Dehydration - Lab Data Result diagrams: 01/15/19 16:10 01/15/19 16:10 Lab Results 01/15/19 01/15/19 01/15/19 Range/Units 16:10 16:10 16:10 WBC 4.5 (4.3-11.1) K/mcL RBC 3.51 L (3.82-4.97) M/mcL Hgb 10.2 L (11.5-15.4) g/dL Hct 31.5 L (35.3-44.9) % MCV 89.7 (83.0-100.0) fL MCH 29.1 (28.0-33.3) pg MCHC 32.4 (31.6-35.5) g/dL RDW 14.8 H (11.5-14.5) % Plt Count 411 H (140-400) K/mcL MPV 9.7 (9.4-12.4) fL Immature Gran % 0.7 (0-4) % Seg Neutrophils % 60.1 % Lymphocytes % 19.6 % Monocytes % 17.8 % Eosinophils % 1.1 % Basophils % 0.7 % Neutrophils # 2.7 (1.6-8.9) K/mcL Lymphocytes # 0.9 (0.6-4.6) K/mcL Monocytes # 0.8 (0.0-1.3) K/mcL Eosinophils # 0.1 (0.0-0.6) K/mcL Basophils # 0.0 (0.0-0.2) K/mcL PT 12.1 (9.4-12.1) Seconds INR 1.1 Sodium 126 L (136-145) mEq/L Potassium 3.3 L (3.5-5.1) mEq/L Chloride 102 (98-107) mEq/L Carbon Dioxide 14 L (23-29) mEq/L BUN 57 H (6-20) mg/dL Creatinine 2.44 H (0.60-1.20) mg/dL Est GFR ( Amer) 25 L (> 60) Est GFR (Non-Af Amer) 21 L (> 60) BUN/Creatinine Ratio 23 (6-26) Glucose 110 H (70-105) mg/dL Calculated Osmolality 278 L (280-300) Lactic Acid (0.5-2.2) mmol/L Calcium 8.5 L (8.6-10.3) mg/dL Total Bilirubin 0.2 L (0.3-1.0) mg/dL Direct Bilirubin 0.1 (0.0-0.2) mg/dL Indirect Bilirubin 0.1 (0.0-1.2) mg/dL AST 7 L (13-39) Units/L ALT 6 L (7-52) Units/L Alkaline Phosphatase 80 (34-104) Units/L Troponin I < 0.03 (< 0.04) ng/mL Serum Total Protein 6.0 L (6.4-8.9) g/dL Albumin 2.8 L (3.5-5.7) g/dL Globulin 3.2 (2.4-3.5) g/dL Albumin/Globulin Ratio 0.9 L (1.1-2.2) 01/15/19 Range/Units 16:10 WBC (4.3-11.1) K/mcL RBC (3.82-4.97) M/mcL Hgb (11.5-15.4) g/dL Hct (35.3-44.9) % MCV (83.0-100.0) fL MCH (28.0-33.3) pg MCHC (31.6-35.5) g/dL RDW (11.5-14.5) % Plt Count (140-400) K/mcL MPV (9.4-12.4) fL Immature Gran % (0-4) % Seg Neutrophils % % Lymphocytes % % Monocytes % % Eosinophils % % Basophils % % Neutrophils # (1.6-8.9) K/mcL Lymphocytes # (0.6-4.6) K/mcL Monocytes # (0.0-1.3) K/mcL Eosinophils # (0.0-0.6) K/mcL Basophils # (0.0-0.2) K/mcL PT (9.4-12.1) Seconds INR Sodium (136-145) mEq/L Potassium (3.5-5.1) mEq/L Chloride (98-107) mEq/L Carbon Dioxide (23-29) mEq/L BUN (6-20) mg/dL Creatinine (0.60-1.20) mg/dL Est GFR ( Amer) (> 60) Est GFR (Non-Af Amer) (> 60) BUN/Creatinine Ratio (6-26) Glucose (70-105) mg/dL Calculated Osmolality (280-300) Lactic Acid 0.3 L (0.5-2.2) mmol/L Calcium (8.6-10.3) mg/dL Total Bilirubin (0.3-1.0) mg/dL Direct Bilirubin (0.0-0.2) mg/dL Indirect Bilirubin (0.0-1.2) mg/dL AST (13-39) Units/L ALT (7-52) Units/L Alkaline Phosphatase (34-104) Units/L Troponin I (< 0.04) ng/mL Serum Total Protein (6.4-8.9) g/dL Albumin (3.5-5.7) g/dL Globulin (2.4-3.5) g/dL Albumin/Globulin Ratio (1.1-2.2)
[2019-01-15] MEDS ORDERED: Morphine Sulfate 2 MG/ML SYRINGE IVP ONE (15:22)
[2019-01-15] MEDS ORDERED: Promethazine 12.5 MG in 0.9 % Sodium Chloride 50 ML IVPB PRN (15:23)
[2019-01-15 16:30] LABS: Basophils % 0.7 %; Eosinophils # 0.1 K/mcL (0.0-0.6); Eosinophils % 1.1 %; Hematocrit 31.5 % (35.3-44.9); Hemoglobin 10.2 g/dL (11.5-15.4); Immature Granulocytes % 0.7 % (0-4); Lymphocytes # 0.9 K/mcL (0.6-4.6); Lymphocytes % 19.6 %; Mean Corpuscular HGB Conc 32.4 g/dL (31.6-35.5); Mean Corpuscular Hemoglobin 29.1 pg (28.0-33.3); Mean Corpuscular Volume 89.7 fL (83.0-100.0); Mean Platelet Volume 9.7 fL (9.4-12.4); Monocytes # 0.8 K/mcL (0.0-1.3); Monocytes % 17.8 %; Neutrophils # 2.7 K/mcL (1.6-8.9); Platelet Count 411 K/mcL (140-400); Red Blood Count 3.51 M/mcL (3.82-4.97); Red Cell Distribution Width 14.8 % (11.5-14.5); Segmented Neutrophils % 60.1 %; White Blood Count 4.5 K/mcL (4.3-11.1)
[2019-01-15 16:41] LABS: INR 1.1; Prothrombin Time 12.1 Seconds (9.4-12.1)
[2019-01-15 16:51] LABS: Alanine Aminotransferase 6 Units/L (7-52); Albumin 2.8 g/dL (3.5-5.7); Albumin/Globulin Ratio 0.9 (1.1-2.2); Alkaline Phosphatase 80 Units/L (34-104); Aspartate Amino Transferase 7 Units/L (13-39); BUN/Creatinine Ratio 23 (6-26); Bilirubin,Direct 0.1 mg/dL (0.0-0.2); Bilirubin,Indirect 0.1 mg/dL (0.0-1.2); Bilirubin,Total 0.2 mg/dL (0.3-1.0); Blood Urea Nitrogen 57 mg/dL (6-20); Calcium 8.5 mg/dL (8.6-10.3); Carbon Dioxide 14 mEq/L (23-29); Chloride 102 mEq/L (98-107); Globulin 3.2 g/dL (2.4-3.5); Glucose 110 mg/dL (70-105); Osmolality,Calculated 278 (280-300); Potassium 3.3 mEq/L (3.5-5.1); Sodium 126 mEq/L (136-145); Troponin I < 0.03 ng/mL (< 0.04); eGFR For African Americans 25 (> 60); eGFR For Non-African Americans 21 (> 60)
[2019-01-15] MEDS ORDERED: cefTRIAXone 1,000 MG in 0.9 % Sodium Chloride Mini Bag 100 ML IVPB ONE (17:36)
--- NOTE | 2019-01-15 18:17 | Internal Med History&Physical ---
Date of Encounter: 01/15/19 Time of Encounter: 18:15 Internal Medicine - H&P: HPI History of present illness: Ms. Joseph is a 54 year old female with history of cervical carcinoma status- post etensive abdominal surgery including colostomy, removal of bladder, bilateral nephrostomy tubes presented to ED for abdominal pain. Flank pain is bilateral but more so on the right. She was supposed to have nephrostomy tube removal two months ago but Urology had scheduling issues at [facility]. She denies fevers/chills, n/v. She has a history of ESRD, not currently requiring dialysis. Sodium was low at 126, which she has had few episodes of this in the past. CT was done showing development of severe right hydronephrosis. In the ED she was given IV fluid hydration and Rocephin. Past Med Surg Social Fam HX - Past Medical History Medical history: cancer, renal disease, other Additional medical history: cervical CA, Stage 4 renal disease Psychiatric history: anxiety, bipolar, depression - Past Surgical History Surgical History: colostomy, hysterectomy, other Additional surgical history: bilateral nephrostomy, urostomy, - Social History Smoking Status: Current some day smoker Smokeless Tobacco Status: No Alcohol use: none Drug use: none - Family History Father Living Status: Still Living Hx Family Cancer: Yes (prostate) Internal Medicine - H&P: Meds ALPRAZolam [Xanax 1 MG Tablet] 1 mg PO TID PRN 05/24/15 [History] Quetiapine Fumarate [Seroquel] 400 mg PO HS 05/25/15 [History] Trazodone HCl 300 mg PO HS 05/09/17 [History] Ondansetron ODT [Zofran ODT] 4 mg SL Q6HR PRN 06/23/17 [History] Duloxetine HCl [Cymbalta] 60 mg PO DAILY 01/26/18 [History] Pantoprazole Sodium [Protonix] 40 mg PO DAILY 01/26/18 [History] Sulfamethoxazole/Trimeth SS [Bactrim SS] 1 each PO BID 10 Days #20 tablet 01/29/18 [Rx] Allergy/AdvReac Type Severity Reaction Status Date / Time codeine AdvReac Hives Verified 01/15/19 18:51 ibuprofen AdvReac See Verified 01/15/19 18:51 Comments morphine AdvReac Vomiting Verified 01/15/19 18:51 All Systems PM: A 10-system review of systems was performed and is negative for pertinent findings except as documented above in the HPI. - Constitutional Vitals: Temp Pulse Resp BP Pulse Ox 97.1 F L 78 20 122/95 98 01/15/19 14:51 01/15/19 16:36 01/15/19 16:36 01/15/19 16:36 01/15/19 16:36 General appearance: Present: A&O X 3 Exam: . - Head Head exam: Present: atraumatic, normocephalic - Eye Eye exam: Present: PERRL, conjuntiva pink, sclera anicteric Pupils: Present: PERRL - Neck Neck exam general surgery: Present: supple, trachea midline. Absent: lymphadenopathy - Respiratory Respiratory exam: Present: CTAB. Absent: accessory muscle use, rales, rhonchi, wheezes - Cardiovascular Cardiovascular exam: Present: RRR, +S1, +S2. Absent: diastolic murmur, gallop, rubs, systolic murmur - GI/Abdominal GI/Abdominal exam: Present: normal bowel sounds, soft, tenderness (mild TTP in right quadrants. ), no peritoneal signs. Absent: distended Additional comments: Nephrostomy tube insurtion site clean without purulent drainage. - Extremities Exam Extremities exam: Present: warm, radial pulses palpable and symmetrical. Absent: calf tenderness, cyanotic, pedal edema - Neurological Exam Neurological exam: Present: CN II-XII intact, oriented X3, no focal deficits. Absent: pronater drift, facial droop, speech deficit - Skin Skin exam: Present: dry, intact Internal Med - H&P Results - Labs CBC & Chem 7: 01/15/19 16:10 01/15/19 16:10 Labs: Short CBC 01/15/19 Range/Units 16:10 WBC 4.5 (4.3-11.1) K/mcL Hgb 10.2 L (11.5-15.4) g/dL Hct 31.5 L (35.3-44.9) % Plt Count 411 H (140-400) K/mcL Neutrophils # 2.7 (1.6-8.9) K/mcL BMP 01/15/19 16:10 Sodium 126 L Potassium 3.3 L Chloride 102 Carbon Dioxide 14 L BUN 57 H Creatinine 2.44 H Glucose 110 H Calcium 8.5 L Cardiac Enzymes 01/15/19 Range/Units 16:10 Troponin I < 0.03 (< 0.04) ng/mL Liver Function 01/15/19 Range/Units 16:10 Total Bilirubin 0.2 L (0.3-1.0) mg/dL Direct Bilirubin 0.1 (0.0-0.2) mg/dL AST 7 L (13-39) Units/L ALT 6 L (7-52) Units/L Alkaline Phosphatase 80 (34-104) Units/L Albumin 2.8 L (3.5-5.7) g/dL - Impressions ITS Impressions Abdomen/Pelvis CT 01/15/19 15:07 IMPRESSION: 1. Interval development of severe right hydronephrosis and perinephric edema despite adequate position of the percutaneous nephroureteral catheter extending into the ileal conduit. 2. Otherwise stable appearance of the abdomen and pelvis. Retroperitoneal adenopathy is unchanged from 2017. 3. Right lower lobe pulmonary nodule is unchanged from 2017. D/ / 01/15/2019 16:03:31 Jared Roman MD / christine Interpreting Provider: Jared Roman MD - Assessment and Plan (1) Hydronephrosis Current Visit: No Status: Acute Assessment and plan: Likely etiology of patient abdominal pain. Urology consulted, recommendations appreciated. Qualifiers: Hydronephrosis type: unspecified Qualified Code(s): N13.30 - Unspecified hydronephrosis (2) Hyponatremia Current Visit: Yes Status: Acute Assessment and plan: Appears to be due to poor PO intake. Will continue IV fluids administered in ED. Of note she is eating fast food at bedside which likely has a high sodium content as well. (3) Acute on chronic renal insufficiency Current Visit: No Status: Acute Assessment and plan: Slightly above baseline 2.1, will give IV fluids and recheck in AM. (4) DVT prophylaxis Current Visit: No Status: Acute (5) Malfunction of nephrostomy tube Current Visit: No Status: Acute - Time Spent With Patient Total time spent is greater than 50% in coordination of care (as documented) at patient's floor/unit and/or counseling patient:
[2019-01-15] MEDS ORDERED: Naloxone 0.4 MG/ML INJ IVP PRN (19:10)
[2019-01-15] MEDS ORDERED: ALPRAZolam 1 MG TABLET PO PRN (19:12)
[2019-01-15] MEDS ORDERED: Ondansetron ODT 4 MG TAB.RAPDIS SL PRN (19:12)
[2019-01-15] MEDS: Cefuroxime PO 250 MG TABLET PO SCH (19:52)
[2019-01-15] MEDS ORDERED: Famotidine 20 MG TABLET PO SCH (21:00)
[2019-01-15] MEDS: traZODone 50 MG TABLET PO SCH (22:47)
[2019-01-16] MEDS: Cefuroxime PO 250 MG TABLET PO SCH (05:31)
[2019-01-16] MEDS: *HR* Heparin 5,000 UNIT/ML VIAL SQ SCH ×2 (05:31→18:16)
[2019-01-16 06:05] LABS: Basophils % 0.4 %; Eosinophils # 0.1 K/mcL (0.0-0.6); Eosinophils % 2.7 %; Hematocrit 31.2 % (35.3-44.9); Immature Granulocytes % 0.7 % (0-4); Lymphocytes # 1.1 K/mcL (0.6-4.6); Lymphocytes % 24.1 %; Mean Corpuscular HGB Conc 32.1 g/dL (31.6-35.5); Mean Corpuscular Hemoglobin 29.5 pg (28.0-33.3); Mean Platelet Volume 9.7 fL (9.4-12.4); Monocytes # 0.7 K/mcL (0.0-1.3); Monocytes % 15.9 %; Neutrophils # 2.5 K/mcL (1.6-8.9); Platelet Count 411 K/mcL (140-400); Red Blood Count 3.39 M/mcL (3.82-4.97); Red Cell Distribution Width 14.7 % (11.5-14.5); Segmented Neutrophils % 56.2 %; White Blood Count 4.5 K/mcL (4.3-11.1)
[2019-01-16 06:16] LABS: Calcium 8.6 mg/dL (8.6-10.3); Potassium 3.3 mEq/L (3.5-5.1)
--- NOTE | 2019-01-16 08:14 | Urology - Consult Note ---
Date of Encounter: 01/16/19 Time of Encounter: 07:40 - Assessment and Plan (1) Acute on chronic renal insufficiency Current Visit: Yes Status: Acute Assessment and plan: Patient is a 54-year-old female who presents with acute superimposed on chronic renal insufficiency. Patient's serum creatinine is elevated to 2.7 this amanda macdonald Patient with severe right hydronephrosis, and stable left hydronephrosis with an atrophic kidney. Plan to exchange nephroureteral catheter and maximize drainage externally. (2) Hydronephrosis Current Visit: Yes Status: Acute Assessment and plan: Patient is a 54-year-old female who presents with severe right hydronephrosis. Vital signs are stable and afebrile. Blood and urine cultures are pending. Renal function is compromised. Patient underwent a pyeloplasty at [facility] approximately 2 months ago. Patient has not been in to follow-up postoperatively. We discussed possible transfer to [facility], but the patient declined this. Patient is in the process of transitioning her care to [place]. Nephroureteral catheter is due to be exchanged. I will call interventional radiology and request the procedure for later today. Patient will remain nothing by mouth. Qualifiers: Hydronephrosis type: with other ureteral stricture Qualified Code(s): N13.1 - Hydronephrosis with ureteral stricture, not elsewhere classified (3) Cervical cancer Current Visit: Yes Status: Chronic Assessment and plan: Patient is a 54-year-old female who presents the history of stage IV cervical cancer. Patient reports she was initially diagnosed in 2012. Patient is status post radical hysterectomy as well as chemotherapy and radiation. [facility] records are pending. Qualifiers: Malignant neoplasm of cervix location: unspecified location Qualified Code(s): C53.9 - Malignant neoplasm of cervix uteri, unspecified Urology CN:HPI Consult date: 01/16/19 Reason for consult Urology: Hydronephrosis Requesting physician: Kota Ortez History of present illness: Patient is a 54-year-old female who presents with a one-week history of right flank pain and right hydronephrosis. Patient has a very complicated past medical history with stage IV cervical cancer diagnosed 6 years ago. Patient has undergone chemotherapy, radiation and radical hysterectomy at [facility]. Patient reports she sustained an injury to her bladder during the hysterectomy, and she had a colostomy and urostomy postoperatively. Patient has undergone multiple surgeries and now has one ileal conduit in the left lower quadrant. Patient underwent a CT of the abdomen and pelvis in the emergency department revealing severe right hydronephrosis, perinephric edema and stable left hydronephrosis with parenchymal atrophy. Patient underwent a right pyeloplasty in October 2018 at [facility], and she has an indwelling right nephroureteral catheter that is capped externally. Patient was due to have catheter changed, but her appointment at [facility] was canceled. Patient is in the process of transitioning records from [facility] to [place] to resume full care closer to home. On my examination, patient is lying in bed in no apparent distress, and she reports continued right flank pain and nausea. Patient denies any blood in the ostomy, fever or chills. Patient denies any known family history of malignancy. Past Med Surg Social Fam HX - Past Medical History Medical history: cancer, renal disease, other Additional medical history: cervical CA, Stage 4 renal disease Psychiatric history: anxiety, bipolar, depression - Past Surgical History Surgical History: colostomy, hysterectomy, other Additional surgical history: bilateral nephrostomy, urostomy, - Social History Smoking Status: Current some day smoker Smokeless Tobacco Status: No Alcohol use: none Drug use: none - Family History Father Living Status: Still Living Hx Family Cardiac Disorders: Yes (grandfather heart attack) Hx Family Respiratory Disorders: No Hx Family Cancer: Yes (prostate) Hx Family GI Disorders: No Hx Family Genitourinary Disorders: No Hx Family Endocrine Disorder: No Hx Family Musculoskeletal Disorders: No Hx Family Neuromuscular Disorders: No Hx Family Neurologic Disorders: No Hx Family HEENT Disorders: No Hx Family Autoimmune Disorders: No Hx Family Reproductive Disorders: No Hx Family Psychosocial Disorders: No Hx Family Medical Disorders: No Medications and Allergies ALPRAZolam [Xanax 1 MG Tablet] 1 mg PO TID PRN 05/24/15 [History] Quetiapine Fumarate [Seroquel] 400 mg PO HS 05/25/15 [History] Trazodone HCl 300 mg PO HS 05/09/17 [History] Ondansetron ODT [Zofran ODT] 4 mg SL Q6HR PRN 06/23/17 [History] Pantoprazole Sodium [Protonix] 40 mg PO DAILY 01/26/18 [History] FLUoxetine HCl [PROzac] 20 mg PO DAILY 01/16/19 [History] Allergy/AdvReac Type Severity Reaction Status Date / Time codeine AdvReac Hives Verified 01/15/19 18:51 ibuprofen AdvReac See Verified 01/15/19 18:51 Comments morphine AdvReac Vomiting Verified 01/15/19 18:51 Review of Systems - Constitutional fatigue, weakness, no chills, no fever(s) - EENT Nose, mouth and throat: no dizziness, no headache(s) - Cardiovascular no chest pain, no diaphoresis, no dyspnea - Respiratory no cough, no dyspnea - Gastrointestinal abdominal pain, nausea, vomiting - Genitourinary Genitourinary: flank pain, no hematuria, no urinary incontinence Menstruation: post hysterectomy - Musculoskeletal back pain, no muscle weakness - Integumentary no erythema, no rash - Neurological no confusion, no syncope - Psychiatric no anxiety, no confusion - Hematologic/Lymphatic no easy bleeding, no easy bruising - Allergic/Immunologic no throat swelling, no wheezing Exam Initial Vital Signs Temp Pulse Resp BP Pulse Ox 97.1 F L 94 18 95/67 95 01/15/19 14:51 01/15/19 14:51 01/15/19 14:51 01/15/19 14:51 01/15/19 14:51 - General physical appearance Present: no distress, moderate pain, chronically ill - Eyes Present: PERRL, normal ocular movement - ENT Present: normal nares, no hearing loss, no congestion - Neck Present: no masses, trachea midline, no lymphadenopathy - Respiratory Present: normal respiratory effort - Cardiovascular Cardiovascular exam IM: RRR - Abdomen Abdomen: Present: soft, non tender. Absent: distended - Genitourinary Present: other (Urine appears clear and ostomy; right flank nephroureteral catheter capped without drainage; site is benign) - Integumentary Present: no rash, no abnormal pigmentation - Neurologic Present: normal coordination - Musculoskeletal Present: other (Normal posture) Urology Results - Labs 01/16/19 04:22 01/16/19 04:22 Abnormal lab results RBC 3.39 M/mcL (3.82-4.97) L 01/16/19 04:22 Hgb 10.0 g/dL (11.5-15.4) L 01/16/19 04:22 Hct 31.2 % (35.3-44.9) L 01/16/19 04:22 RDW 14.7 % (11.5-14.5) H 01/16/19 04:22 Plt Count 411 K/mcL (140-400) H 01/16/19 04:22 Sodium 133 mEq/L (136-145) L 01/16/19 04:22 Potassium 3.3 mEq/L (3.5-5.1) L 01/16/19 04:22 Carbon Dioxide 14 mEq/L (23-29) L 01/16/19 04:22 BUN 55 mg/dL (6-20) H 01/16/19 04:22 Creatinine 2.70 mg/dL (0.60-1.20) H 01/16/19 04:22 Est GFR ( Amer) 22 (> 60) L 01/16/19 04:22 Est GFR (Non-Af Amer) 18 (> 60) L 01/16/19 04:22 Glucose 110 mg/dL (70-105) H 01/15/19 16:10 POC Glucose 115 mg/dL (70-99) H 01/15/19 23:49 Calculated Osmolality 278 (280-300) L 01/15/19 16:10 Lactic Acid 0.3 mmol/L (0.5-2.2) L 01/15/19 16:10 Calcium 8.5 mg/dL (8.6-10.3) L 01/15/19 16:10 Total Bilirubin 0.2 mg/dL (0.3-1.0) L 01/15/19 16:10 AST 7 Units/L (13-39) L 01/15/19 16:10 ALT 6 Units/L (7-52) L 01/15/19 16:10 Serum Total Protein 6.0 g/dL (6.4-8.9) L 01/15/19 16:10 Albumin 2.8 g/dL (3.5-5.7) L 01/15/19 16:10 Albumin/Globulin Ratio 0.9 (1.1-2.2) L 01/15/19 16:10 Diabetes panel 01/15/19 01/16/19 Range/Units 16:10 04:22 Sodium 126 L 133 L (136-145) mEq/L Potassium 3.3 L 3.3 L (3.5-5.1) mEq/L Chloride 102 101 (98-107) mEq/L Carbon Dioxide 14 L 14 L (23-29) mEq/L BUN 57 H 55 H (6-20) mg/dL Creatinine 2.44 H 2.70 H (0.60-1.20) mg/dL Glucose 110 H 101 (70-105) mg/dL Calcium 8.5 L 8.6 (8.6-10.3) mg/dL AST 7 L (13-39) Units/L ALT 6 L (7-52) Units/L Alkaline Phosphatase 80 (34-104) Units/L Albumin 2.8 L (3.5-5.7) g/dL Calcium panel 01/15/19 01/16/19 Range/Units 16:10 04:22 Calcium 8.5 L 8.6 (8.6-10.3) mg/dL Albumin 2.8 L (3.5-5.7) g/dL Pituitary panel 01/15/19 01/16/19 Range/Units 16:10 04:22 Sodium 126 L 133 L (136-145) mEq/L Potassium 3.3 L 3.3 L (3.5-5.1) mEq/L Chloride 102 101 (98-107) mEq/L Carbon Dioxide 14 L 14 L (23-29) mEq/L BUN 57 H 55 H (6-20) mg/dL Creatinine 2.44 H 2.70 H (0.60-1.20) mg/dL Glucose 110 H 101 (70-105) mg/dL Calcium 8.5 L 8.6 (8.6-10.3) mg/dL Adrenal panel 01/15/19 01/16/19 Range/Units 16:10 04:22 Sodium 126 L 133 L (136-145) mEq/L Potassium 3.3 L 3.3 L (3.5-5.1) mEq/L Chloride 102 101 (98-107) mEq/L Carbon Dioxide 14 L 14 L (23-29) mEq/L BUN 57 H 55 H (6-20) mg/dL Creatinine 2.44 H 2.70 H (0.60-1.20) mg/dL Glucose 110 H 101 (70-105) mg/dL Calcium 8.5 L 8.6 (8.6-10.3) mg/dL Total Bilirubin 0.2 L (0.3-1.0) mg/dL AST 7 L (13-39) Units/L ALT 6 L (7-52) Units/L Alkaline Phosphatase 80 (34-104) Units/L Albumin 2.8 L (3.5-5.7) g/dL All other labs normal. - Imaging CT scan - abdomen: report reviewed, image reviewed CT scan - pelvis: report reviewed, image reviewed Consult Discharge Plan - Plan Referrals: Yanick Dunn MD [Primary Care Provider] -
[2019-01-16] MEDS ORDERED: FLUoxetine HCl Oral Soln 20 MG/5 ML UDC PO SCH ×2 (09:00→10:08)
[2019-01-16] MEDS: FLUoxetine 20 MG CAPSULE PO SCH (11:09)
--- NOTE | 2019-01-16 11:18 | Nephrology Consult Note ---
Date of Encounter: 01/16/19 Time of Encounter: 10:50 Assessment and Plan (1) MONSERRAT (acute kidney injury) Current Visit: Yes Status: Acute Nonoliguric acute kidney injury on chronic kidney disease stage IV. Her baseline GFR appears to be in the 20s, and her renal function is a little worse at this time. She does not have uremic findings on exam, and her MONSERRAT is not severe enough for [employer] at this time. Imaging demonstrated worsening hydronephrosis, and I appreciate Urology's recommendations. The etiology for her chronic kidney disease is most likely multifactorial including chronic obstruction and NSAIDs. I recommend IV fluids and following a renal protective/conservative strategy by avoidance of nephrotoxic agents. She has been taking NSAIDs [id number], and I counseled her to avoid these going forward. We should avoid other nephrotoxic medications in the hospital as able, and dose medications by creatinine clearance. Strict I/O, daily weights and renal diet are all recommended as well. Thank you for consulting the [facility], and I will follow with you. (2) CKD (chronic kidney disease), stage IV Current Visit: Yes Status: Chronic Baseline CKD stage IV upon review of her labs (3) Hydronephrosis Current Visit: Yes Status: Acute Appreciate Urology Qualifiers: Hydronephrosis type: with other ureteral stricture Qualified Code(s): N13.1 - Hydronephrosis with ureteral stricture, not elsewhere classified (4) Hyponatremia Current Visit: Yes Status: Acute Likely hypovolemic hyponatremia vs perhaps from the urinary tract obstruction. Will trend. Recommend 0.9% IVF. (5) Hypokalemia Current Visit: Yes Status: Acute (6) Anemia Current Visit: Yes Status: Acute Goal Hgb is 10-11 in the setting of CKD, but I will defer to the primary team if she were to need any GI work up. I will check iron levels, and if low then would add IV iron and once iron stores are repleted she may also need EPO. Transfusion parameters as per primary. Qualifiers: Anemia type: unspecified type Qualified Code(s): D64.9 - Anemia, unspecified History of Present Illness - Reason for Consult Consult date: 01/16/19 Acute Kidney Injury, Chronic Kidney Disease, hyponatremia, hypokalemia Requesting physician: Jerry Gonzalez - Chief Complaint MONSERRAT on CKD stage IV with hydronephrosis - History of Present Illness The patient is a very pleasant 54-year-old female with a past medical history of chronic kidney disease stage IV, cervical cancer status post urostomy/nephrostomy tubes, and et al who presented with findings of elevated creatinine. She said that she has seen urologists at [facility] in the past, but did not affirm seen any nephrologists in the past. She reported that she takes NSAIDs at least once or twice per week. She affirmed feeling thirsty and voiced feeling dehydrated. She did not report recent IV contrast exposure or recent chemotherapy to her knowledge. She did not affirm chest pain, shortness of breath, swelling, abdominal pain, or diarrhea. Family history: She did not affirm having any first-degree relatives with a history of ESRD. Past Med Surg Social Fam HX - Past Medical History Medical history: cancer, renal disease, other Additional medical history: cervical CA, Stage 4 renal disease Psychiatric history: anxiety, bipolar, depression - Past Surgical History Surgical History: colostomy, hysterectomy, other Additional surgical history: bilateral nephrostomy, urostomy, - Social History Smoking Status: Current some day smoker Smokeless Tobacco Status: No Alcohol use: none Drug use: none - Family History Father Living Status: Still Living Hx Family Cardiac Disorders: Yes (grandfather heart attack) Hx Family Respiratory Disorders: No Hx Family Cancer: Yes (prostate) Hx Family GI Disorders: No Hx Family Genitourinary Disorders: No Hx Family Endocrine Disorder: No Hx Family Musculoskeletal Disorders: No Hx Family Neuromuscular Disorders: No Hx Family Neurologic Disorders: No Hx Family HEENT Disorders: No Hx Family Autoimmune Disorders: No Hx Family Reproductive Disorders: No Hx Family Psychosocial Disorders: No Hx Family Medical Disorders: No Medications and Allergies ALPRAZolam [Xanax 1 MG Tablet] 1 mg PO TID PRN 05/24/15 [History] Quetiapine Fumarate [Seroquel] 400 mg PO HS 05/25/15 [History] Trazodone HCl 300 mg PO HS 05/09/17 [History] Ondansetron ODT [Zofran ODT] 4 mg SL Q6HR PRN 06/23/17 [History] Pantoprazole Sodium [Protonix] 40 mg PO DAILY 01/26/18 [History] FLUoxetine HCl [PROzac] 20 mg PO DAILY 01/16/19 [History] Allergy/AdvReac Type Severity Reaction Status Date / Time codeine AdvReac Hives Verified 01/15/19 18:51 ibuprofen AdvReac See Verified 01/15/19 18:51 Comments morphine AdvReac Vomiting Verified 01/15/19 18:51 Review of Systems All Systems: reviewed and no additional remarkable complaints except as stated Exam - Vital Signs Vital signs: Initial Vital Signs Temp Pulse Resp BP Pulse Ox 97.1 F L 94 18 95/67 95 01/15/19 14:51 01/15/19 14:51 01/15/19 14:51 01/15/19 14:51 01/15/19 14:51 Vital Signs - Last 8 Hours Temp Pulse Resp BP Pulse Ox 01/16/19 07:00 98.4 F 78 16 108/73 92 01/16/19 03:20 98.4 F 78 18 131/73 Intake and Output 01/15/19 01/16/19 01/16/19 23:59 07:59 15:59 Intake Total 10.5 / 10.5 Output Total 500 / 500 400 / 700 300 / 700 Balance -489.5 / -489.5 -400 / -700 -300 / -700 Intake: IV Fluids 10.5 / 10.5 0.9 % Sodium Chloride 1,000 ML 10 / 10 @ 999 mls/hr IVC .Q1H1M ONE Rx# :[id number] Phenergan 12.5 MG In 0.9 % 0.5 / 0.5 Sodium Chloride 50 ML @ 204 mls /hr IVPB Q6HR PRN Rx#: [id number] Oral 0 / 0 Output: Urine/Stool Mix 500 / 500 400 / 400 Urostomy 300 / 300 Other: Weight 52.6 kg Blood Glucose* 115 102 - General Appearance General appearance: well-developed, well-nourished, appears started age EENT: ATNC, PERRL, mucous membranes dry Neck: no JVD, supple Respiratory: no kyphosis, clear Cardiology: no murmurs, no edema, regular rate, regular rhythm, normal S1, normal S2 Gastrointestinal: normoactive bowel sounds, no tenderness, no guarding Integumentary: no rash, warm and dry Neurologic: no focal deficit, no asterixis, alert and oriented x3 Musculoskeletal: no deformities, no erythema, no cyanosis Psychiatric: mood/affect appropriate, cooperative Results - Lab Results 01/16/19 04:22 01/16/19 04:22 Most recent lab results 01/16/19 04:22 Calcium 8.6 Consult Discharge Plan - Plan Referrals: Yanick Dunn MD [Primary Care Provider] -
[2019-01-16] MEDS ORDERED: 0.9 % Sodium Chloride 1,000 ML IVC SCH (12:00)
[2019-01-16 14:56] LABS: Clarity,Urine Turbid (Clear)
[2019-01-16 14:57] LABS: Urine Specimen Comments Mucoid Specimen
[2019-01-16 14:58] LABS: Color,Urine Other (Yellow)
--- NOTE | 2019-01-16 15:10 | Internal Med Progress Note ---
Hospitalist Progress Note - Encounter Date of Encounter: 01/16/19 Time of Encounter: 15:06 - Subjective Interval History: Patient admitted overnight and had a right nephroureteral catheter exchanged this morning. Has some postprocedural pain. Still making urine. - Exam Vitals: Temp Pulse Resp BP Pulse Ox 98.0 F 82 16 106/70 94 01/16/19 11:00 01/16/19 11:00 01/16/19 11:00 01/16/19 11:00 01/16/19 11:00 Exam: General: Ill-appearing and in no acute distress HEENT: No erythema of posterior pharynx. No exudates. Lymphatics: No mandibular or cervical lymphadenopathy Cardiovascular: RRR. No murmurs. No chest wall tenderness. Lungs: Clear to auscelltation bilaterally. Regular chest rise. Abdomen: Non-tender. Colostomy bag in place. No rebound or gaurding. Nl bowel sounds. Nephrectomy tube on that side clean dry and intact Extremities: No edema. 2+ pulses radial and pedal pulses Skin: No rahses, abrasions, or contusions. Nl cap refill. Psych: Nl attention. A&Ox3 Neuro: sailmaker II-XII intact. 5/5 strength. Sensation to light touch and pinprick intact. - Assessment and Plan (1) Hydronephrosis Current Visit: Yes Status: Acute Assessment and Plan: Patient with history of metastatic cervical cancer necessitating removal of bladder and colon with urostomy/colostomy and right nephroureteral catheter presents with right flank pain with imaging suggestive of hydronephrosis. -Urology following and recommended exchange of R nephroureteral catheter by IR and patient is s/p this procedure without complications PLAN: - Monitor drain output - Pain control - Urology following, appreciate recommendations (2) Malfunction of nephrostomy tube Current Visit: No Status: Acute Assessment and Plan: See above (3) Acute on chronic renal insufficiency Current Visit: Yes Status: Acute (4) Hyponatremia Current Visit: Yes Status: Acute Assessment and Plan: Hypovolemic in setting of pain and resolved with IVF. - Monitor (5) Cervical cancer Current Visit: Yes Status: Chronic Assessment and Plan: Patient has history of metastatic cervical cancer necessitating removal of bladder and colon with urostomy/colostomy and right nephroureteral catheter. Says her disease is currently in remission. Was following with [facility] but is in process of establishing care with [facility]. - Consult to Oncology (6) MONSERRAT (acute kidney injury) Current Visit: Yes Status: Acute Assessment and Plan: In setting of poor oral intake and NSAID use. - Nephrology consulted, appreciate recommendations (7) CKD (chronic kidney disease), stage IV Current Visit: Yes Status: Chronic Assessment and Plan: See above DVT Prophylaxis: Heparin - Time Spent with Patient Total time spent is greater than 50% in coordination of care (as documented) at patient's floor/unit and/or counseling patient: Greater than 35 minutes Internal Medicine: Result - Labs CBC & Chem 7: 01/16/19 04:22 01/16/19 04:22 Labs: Short CBC 01/15/19 01/16/19 Range/Units 16:10 04:22 WBC 4.5 4.5 (4.3-11.1) K/mcL Hgb 10.2 L 10.0 L (11.5-15.4) g/dL Hct 31.5 L 31.2 L (35.3-44.9) % Plt Count 411 H 411 H (140-400) K/mcL Neutrophils # 2.7 2.5 (1.6-8.9) K/mcL BMP 01/15/19 01/16/19 16:10 04:22 Sodium 126 L 133 L Potassium 3.3 L 3.3 L Chloride 102 101 Carbon Dioxide 14 L 14 L BUN 57 H 55 H Creatinine 2.44 H 2.70 H Glucose 110 H 101 Calcium 8.5 L 8.6 Cardiac Enzymes 01/15/19 Range/Units 16:10 Troponin I < 0.03 (< 0.04) ng/mL Liver Function 01/15/19 Range/Units 16:10 Total Bilirubin 0.2 L (0.3-1.0) mg/dL Direct Bilirubin 0.1 (0.0-0.2) mg/dL AST 7 L (13-39) Units/L ALT 6 L (7-52) Units/L Alkaline Phosphatase 80 (34-104) Units/L Albumin 2.8 L (3.5-5.7) g/dL Urine 01/16/19 Range/Units 13:19 Urine Color Other A (Yellow) Urine Clarity Turbid A (Clear) Urine pH TNP Ur Specific [place] TNP Urine Protein TNP Urine Glucose (UA) TNP - ABG Interpretation ABG results: PT/INR, D-dimer PT 12.1 Seconds (9.4-12.1) 01/15/19 16:10 - Impressions Impressions Abdomen/Pelvis CT 01/15/19 15:07 IMPRESSION: 1. Interval development of severe right hydronephrosis and perinephric edema despite adequate position of the percutaneous nephroureteral catheter extending into the ileal conduit. 2. Otherwise stable appearance of the abdomen and pelvis. Retroperitoneal adenopathy is unchanged from 2017. 3. Right lower lobe pulmonary nodule is unchanged from 2017. D/ / 01/15/2019 16:03:31 Jared Roman MD / christine Interpreting Provider: Jared Roman MD Consult Discharge Plan - Plan Referrals: Yanick Dunn MD [Primary Care Provider] - (1) Hydronephrosis Qualifiers: Hydronephrosis type: with other ureteral stricture Qualified Code(s): N13.1 - Hydronephrosis with ureteral stricture, not elsewhere classified (5) Cervical cancer Qualifiers: Malignant neoplasm of cervix location: unspecified location Qualified Code(s): C53.9 - Malignant neoplasm of cervix uteri, unspecified
--- NOTE | 2019-01-16 15:12 | Oncology Inp Consult Note ---
<Dariela Eaton - Last Filed: 01/16/19 15:09> Date of Encounter: 01/16/19 Time of Encounter: 14:00 - Data of Consult Patient: new to practice Consult date: 01/16/19 Requesting Physician: Jerry Gonzalez Primary Care Provider: Yanick Dunn MD - Consult Narrative Reason for consult: metastatic cervical cancer History of present illness: Ivonne, a 54 yo female with known history of cervical cancer, presented to the ED for abdominal pain (right-side), and alternating constipation and diarrhea. She also c/o fever, chills, and fatigue. Denies headache or vision changes. She states that she had nephrostomy tube placed at [facility] and now has transitioned care to [facility]. She states that she saw Dr. Galvez at [facility] approximately four years ago. She states that she received concurrent chemotherapy and radiation at that time. She has not been seen at [facility] for follow-up since 12/20/15 and wishes to resume surveillance. Diagnosis: Cervical cancer s/p resection 03/27/12. 09/26 lymph nodes positive. Treatment history: Received adjuvant chemoradiotherapy with Cisplatin, but treatment course complicated by recurrent UTI's and Hepatitis C reactivation, limiting Cisplatin doses. She continued with 6 cycles of Carboplatin (AUC 5) and paclitaxel (175 mg/m2) every three weeks. She completed six cycles with one delay and reduction in Neulasta dosing due to bone pain. 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 Brachytherapy. External beam radiotherapy with concurrent Cisplatin 03/21/15-04/11/15. Patient had severe reaction to Cisplatin and further treatment discontinued. 2015: Further relapse documented by biopsy Brachytherapy and pelvic exenteration Social: Lives in [place], [place] Has 2 adult daughters Former smoker: quit 6 months ago Denies alcohol or illicit drug use. Past Med Surg Social Fam HX - Past Medical History Medical history: cancer, renal disease, other Additional medical history: cervical CA, Stage 4 renal disease Psychiatric history: anxiety, bipolar, depression - Past Surgical History Surgical History: colostomy, hysterectomy, other Additional surgical history: bilateral nephrostomy, urostomy, - Social History Smoking Status: Current some day smoker Smokeless Tobacco Status: No Alcohol use: none Drug use: none - Family History Father Living Status: Still Living Hx Family Cardiac Disorders: Yes (grandfather heart attack) Hx Family Respiratory Disorders: No Hx Family Cancer: Yes (prostate) Hx Family GI Disorders: No Hx Family Genitourinary Disorders: No Hx Family Endocrine Disorder: No Hx Family Musculoskeletal Disorders: No Hx Family Neuromuscular Disorders: No Hx Family Neurologic Disorders: No Hx Family HEENT Disorders: No Hx Family Autoimmune Disorders: No Hx Family Reproductive Disorders: No Hx Family Psychosocial Disorders: No Hx Family Medical Disorders: No Medications and Allergies ALPRAZolam [Xanax 1 MG Tablet] 1 mg PO TID PRN 05/24/15 [History] Quetiapine Fumarate [Seroquel] 400 mg PO HS 05/25/15 [History] Trazodone HCl 300 mg PO HS 05/09/17 [History] Ondansetron ODT [Zofran ODT] 4 mg SL Q6HR PRN 06/23/17 [History] Pantoprazole Sodium [Protonix] 40 mg PO DAILY 01/26/18 [History] FLUoxetine HCl [PROzac] 20 mg PO DAILY 01/16/19 [History] Allergy/AdvReac Type Severity Reaction Status Date / Time codeine AdvReac Hives Verified 01/15/19 18:51 ibuprofen AdvReac See Verified 01/15/19 18:51 Comments morphine AdvReac Vomiting Verified 01/15/19 18:51 Constitutional: Present: anorexia, chills, fatigue, fever(s). Absent: headache(s) Cardiovascular: Absent: chest pain, dyspnea Respiratory: Absent: cough, dyspnea on exertion, chest congestion Gastrointestinal: Present: abdominal pain, constipation, diarrhea, early satiety. Absent: nausea, vomiting Genitourinary: Absent: hematuria Neurological: Absent: headache(s), loss of vision Oncology - Exam - Constitutional General appearance: cooperative, no acute distress, thin - Respiratory Respiratory exam: Present: decreased breath sounds - Cardiovascular Cardiovascular exam: Present: RRR, tachycardia - GI/Abdominal GI/Abdominal exam: Present: normal bowel sounds, soft - Neurological Exam Neurological exam: Present: alert, oriented X3. Absent: facial droop, speech deficit - Psychiatric Psychiatric exam: Present: normal affect, normal mood - Skin Skin exam: Present: dry, normal color, warm Oncology Inpatient Results Labs: Laboratory Results - last 24 hr 01/15/19 01/15/19 01/15/19 16:10 16:10 16:10 WBC 4.5 RBC 3.51 L Hgb 10.2 L Hct 31.5 L MCV 89.7 MCH 29.1 MCHC 32.4 RDW 14.8 H Plt Count 411 H MPV 9.7 Immature Gran % 0.7 Seg Neutrophils % 60.1 Lymphocytes % 19.6 Monocytes % 17.8 Eosinophils % 1.1 Basophils % 0.7 Neutrophils # 2.7 Lymphocytes # 0.9 Monocytes # 0.8 Eosinophils # 0.1 Basophils # 0.0 PT 12.1 INR 1.1 Sodium 126 L Potassium 3.3 L Chloride 102 Carbon Dioxide 14 L BUN 57 H Creatinine 2.44 H Est GFR ( Amer) 25 L Est GFR (Non-Af Amer) 21 L BUN/Creatinine Ratio 23 Glucose 110 H POC Glucose Calculated Osmolality 278 L Lactic Acid Calcium 8.5 L Total Bilirubin 0.2 L Direct Bilirubin 0.1 Indirect Bilirubin 0.1 AST 7 L ALT 6 L Alkaline Phosphatase 80 Troponin I < 0.03 Serum Total Protein 6.0 L Albumin 2.8 L Globulin 3.2 Albumin/Globulin Ratio 0.9 L Urine Color Urine Clarity Urine pH Ur Specific [place] Urine Protein Urine Glucose (UA) Urine Ketones Urine Blood Urine Nitrite Urine Bilirubin Urine Urobilinogen Ur Leukocyte Esterase Urine Sodium 01/15/19 01/15/19 01/16/19 16:10 23:49 04:22 WBC 4.5 RBC 3.39 L Hgb 10.0 L Hct 31.2 L MCV 92.0 MCH 29.5 MCHC 32.1 RDW 14.7 H Plt Count 411 H MPV 9.7 Immature Gran % 0.7 Seg Neutrophils % 56.2 Lymphocytes % 24.1 Monocytes % 15.9 Eosinophils % 2.7 Basophils % 0.4 Neutrophils # 2.5 Lymphocytes # 1.1 Monocytes # 0.7 Eosinophils # 0.1 Basophils # 0.0 PT INR Sodium Potassium Chloride Carbon Dioxide BUN Creatinine Est GFR ( Amer) Est GFR (Non-Af Amer) BUN/Creatinine Ratio Glucose POC Glucose 115 H Calculated Osmolality Lactic Acid 0.3 L Calcium Total Bilirubin Direct Bilirubin Indirect Bilirubin AST ALT Alkaline Phosphatase Troponin I Serum Total Protein Albumin Globulin Albumin/Globulin Ratio Urine Color Urine Clarity Urine pH Ur Specific [place] Urine Protein Urine Glucose (UA) Urine Ketones Urine Blood Urine Nitrite Urine Bilirubin Urine Urobilinogen Ur Leukocyte Esterase Urine Sodium 01/16/19 01/16/19 01/16/19 04:22 05:25 13:19 WBC RBC Hgb Hct MCV MCH MCHC RDW Plt Count MPV Immature Gran % Seg Neutrophils % Lymphocytes % Monocytes % Eosinophils % Basophils % Neutrophils # Lymphocytes # Monocytes # Eosinophils # Basophils # PT INR Sodium 133 L Potassium 3.3 L Chloride 101 Carbon Dioxide 14 L BUN 55 H Creatinine 2.70 H Est GFR ( Amer) 22 L Est GFR (Non-Af Amer) 18 L BUN/Creatinine Ratio 20 Glucose 101 POC Glucose 102 H Calculated Osmolality 291 Lactic Acid Calcium 8.6 Total Bilirubin Direct Bilirubin Indirect Bilirubin AST ALT Alkaline Phosphatase Troponin I Serum Total Protein Albumin Globulin Albumin/Globulin Ratio Urine Color Other A Urine Clarity Turbid A Urine pH TNP Ur Specific [place] TNP Urine Protein TNP Urine Glucose (UA) TNP Urine Ketones TNP Urine Blood TNP Urine Nitrite TNP Urine Bilirubin TNP Urine Urobilinogen TNP Ur Leukocyte Esterase TNP Urine Sodium 01/16/19 01/16/19 13:19 14:13 WBC RBC Hgb Hct MCV MCH MCHC RDW Plt Count MPV Immature Gran % Seg Neutrophils % Lymphocytes % Monocytes % Eosinophils % Basophils % Neutrophils # Lymphocytes # Monocytes # Eosinophils # Basophils # PT INR Sodium Potassium Chloride Carbon Dioxide BUN Creatinine Est GFR ( Amer) Est GFR (Non-Af Amer) BUN/Creatinine Ratio Glucose POC Glucose 108 H Calculated Osmolality Lactic Acid Calcium Total Bilirubin Direct Bilirubin Indirect Bilirubin AST ALT Alkaline Phosphatase Troponin I Serum Total Protein Albumin Globulin Albumin/Globulin Ratio Urine Color Urine Clarity Urine pH Ur Specific [place] Urine Protein Urine Glucose (UA) Urine Ketones Urine Blood Urine Nitrite Urine Bilirubin Urine Urobilinogen Ur Leukocyte Esterase Urine Sodium 70.2 Consult Discharge Plan - Plan Referrals: Yanick Dunn MD [Primary Care Provider] - Inpatient Charges [facility] - Last Filed: 01/16/19 17:46> Date of Encounter: 01/16/19 - Data of Consult Requesting Physician: Jerry Gonzalez Primary Care Provider: Yanick Dunn MD Inpatient Charges Provider: Dr. Peace Brown Consult - Inpatient: [id number] - Attending Attestation I examined this patient and my medical decision-making was reviewed with the Advanced Practice Nurse. I agree with the documented findings, disposition and treatment plan as described except to the extent set forth below. -H/o cervical cancer treated with chemoradiation in the past. She was following closely with her needle straightener -Now presenting with abdominal pain -Will obtain CT Chest w/o contrast -Will perform an anemia w/u Thank you for the consult!
[2019-01-16 15:56] LABS: Amorphous Sediment,Urine Many (Few); RBC,Urine 15-30 per hpf (0-3); WBC,Urine 30-50 per hpf (0-3)
[2019-01-16 15:57] LABS: Squamous Epithelial Cell,Urine Moderate per lpf (None-Few)
[2019-01-16] MEDS: traZODone 50 MG TABLET PO SCH (20:53)
--- NOTE | 2019-01-17 00:17 | Electrocardiograph Report ---
[facility] Test Date: 2019-01-15 Pat Name: Ivonne Joseph Department: EXAM30 Room: 2A24 Gender: F English Language Arts Teacher: : 1965 Requested By: [id number] Order Number: [id number] Reading MD: Fortino Ospina Measurements Intervals [place] Rate: 86 P: -20 W[place]: 130 QRS: 88 QRSD: 90 T: 71 QT: 495 QTc: 593 Interpretive Statements Sinus rhythm Prolonged QT interval Electronically Signed On 01-17-2019 0:15:51 EDT by Fortino Ospina
[2019-01-17] MEDS ORDERED: 0.9 % Sodium Chloride 500 ML IVC SCH (04:00)
[2019-01-17] MEDS: *HR* Heparin 5,000 UNIT/ML VIAL SQ SCH (06:07)
[2019-01-17 06:45] LABS: Hematocrit 32.9 % (35.3-44.9); Hemoglobin 10.5 g/dL (11.5-15.4); Mean Corpuscular HGB Conc 31.9 g/dL (31.6-35.5); Mean Corpuscular Hemoglobin 29.7 pg (28.0-33.3); Mean Corpuscular Volume 92.9 fL (83.0-100.0); Mean Platelet Volume 9.4 fL (9.4-12.4); Platelet Count 441 K/mcL (140-400); Red Blood Count 3.54 M/mcL (3.82-4.97); Red Cell Distribution Width 14.6 % (11.5-14.5); White Blood Count 3.9 K/mcL (4.3-11.1)
[2019-01-17] MEDS ORDERED: Cefuroxime PO 250 MG TABLET PO SCH (07:00)
[2019-01-17 07:14] LABS: Albumin 2.8 g/dL (3.5-5.7); Calcium 8.6 mg/dL (8.6-10.3); Magnesium 2.2 mg/dL (1.6-2.6); Phosphorous 3.6 mg/dL (2.7-4.5); Potassium 3.3 mEq/L (3.5-5.1)
[2019-01-17 07:21] VITALS: BP 119/74
[2019-01-17 07:28] LABS: Folate 5.5 ng/mL (3.0-16.0)
[2019-01-17] MEDS: FLUoxetine 20 MG CAPSULE PO SCH (08:59)
--- NOTE | 2019-01-17 09:11 | Urology Progress Note ---
Date of Encounter: 01/17/19 Time of Encounter: 09:07 - Assessment and Plan (1) Hydronephrosis Current Visit: Yes Status: Acute Assessment and plan: 54-year-old woman with hydronephrosis of her right kidney which is essentially a solitary kidney as she has a nonfunctioning left kidney. We opened her nephroureteral catheter to drainage. Her creatinine has improved. She still produces urine down her ostomy. She is currently maximally drained out her right kidney. I recommend keeping her nephroureteral catheter to dependent drainage as we are doing here. A final decision regarding her catheter needs to be made by [facility]. Otherwise, we will continue with the nephroureteral catheter draining as a nephrostomy tube as well as stenting open her ureter to allow urine to drain out her ostomy. Disposition per primary team, but I think it is reasonable to discharge her at any point. Qualifiers: Hydronephrosis type: with other ureteral stricture Qualified Code(s): N13.1 - Hydronephrosis with ureteral stricture, not elsewhere classified (2) Malfunction of nephrostomy tube Current Visit: No Status: Acute (3) UTI (urinary tract infection) Current Visit: No Status: Acute Qualifiers: Urinary tract infection type: catheter-associated UTI Indwelling urinary catheter type: nephrostomy catheter Encounter type: subsequent encounter Qualified Code(s): T83.512D - Infection and inflammatory reaction due to nephrostomy catheter, subsequent encounter; N39.0 - Urinary tract infection, site not specified Progress Note Narrative: Yesterday, we opened the nephroureteral catheter to dependent drainage out her flank. Purulent urine has returned. Her renal function has mildly improved today. She says she is feeling okay. Objective Initial Vital Signs Temp Pulse Resp BP Pulse Ox 97.1 F L 94 18 95/67 95 01/15/19 14:51 01/15/19 14:51 01/15/19 14:51 01/15/19 14:51 01/15/19 14:51 - General physical appearance Present: well developed, well nourished, no distress - Respiratory Present: normal expansion - Abdomen Present: soft - Genitourinary Urine Appearance: Present: Cloudy (Nephroureteral catheter in place. Urine draining out the nephrostomy tube is rosey color. The urostomy is productive with rosey-colored urine) - Integumentary Present: no rash - Labs 01/17/19 06:23 01/17/19 06:23 Diabetes panel 01/17/19 Range/Units 06:23 Sodium 130 L (136-145) mEq/L Potassium 3.3 L (3.5-5.1) mEq/L Chloride 105 (98-107) mEq/L Carbon Dioxide 14 L (23-29) mEq/L BUN 44 H (6-20) mg/dL Creatinine 2.51 H (0.60-1.20) mg/dL Glucose 108 H (70-105) mg/dL Calcium 8.6 (8.6-10.3) mg/dL Albumin 2.8 L (3.5-5.7) g/dL Calcium panel 01/17/19 Range/Units 06:23 Calcium 8.6 (8.6-10.3) mg/dL Phosphorus 3.6 (2.7-4.5) mg/dL Albumin 2.8 L (3.5-5.7) g/dL Pituitary panel 01/17/19 Range/Units 06:23 Sodium 130 L (136-145) mEq/L Potassium 3.3 L (3.5-5.1) mEq/L Chloride 105 (98-107) mEq/L Carbon Dioxide 14 L (23-29) mEq/L BUN 44 H (6-20) mg/dL Creatinine 2.51 H (0.60-1.20) mg/dL Glucose 108 H (70-105) mg/dL Calcium 8.6 (8.6-10.3) mg/dL Adrenal panel 01/17/19 Range/Units 06:23 Sodium 130 L (136-145) mEq/L Potassium 3.3 L (3.5-5.1) mEq/L Chloride 105 (98-107) mEq/L Carbon Dioxide 14 L (23-29) mEq/L BUN 44 H (6-20) mg/dL Creatinine 2.51 H (0.60-1.20) mg/dL Glucose 108 H (70-105) mg/dL Calcium 8.6 (8.6-10.3) mg/dL Albumin 2.8 L (3.5-5.7) g/dL Consult Discharge Plan - Plan Referrals: Yanick Dunn MD [Primary Care Provider] -
--- NOTE | 2019-01-17 09:45 | Discharge Summary ---
Orders not resulted at time of discharge: Pending orders 01/15/19 16:10 Culture,Blood [BC] Stat 01/17/19 06:23 Protein Electrophoresis AM 0400 Date of Encounter: 01/17/19 Time of Encounter: 09:36 - Discharge Diagnosis (1) Hydronephrosis Priority: Primary Status: Acute Qualifiers: Hydronephrosis type: with ureteropelvic junction obstruction Qualified Code(s): Q62.11 - Congenital occlusion of ureteropelvic junction (2) Malfunction of nephrostomy tube Priority: Secondary Status: Acute (3) Acute on chronic renal insufficiency Priority: Secondary Status: Acute (4) Hyponatremia Priority: Secondary Status: Acute (5) Cervical cancer Priority: Secondary Status: Chronic Qualifiers: Malignant neoplasm of cervix location: unspecified location Qualified Code(s): C53.9 - Malignant neoplasm of cervix uteri, unspecified (6) MONSERRAT (acute kidney injury) Priority: Secondary Status: Acute (7) CKD (chronic kidney disease), stage IV Priority: Secondary Status: Chronic Hospital course: Ms. Joseph is a 54 year old female with history of metastatic cervical cancer necessitating removal of bladder and colon with urostomy/colostomy (ileal conduit urinary diversion along with a colostomy which is ending in a double barrel ostomy in the right lower quadrant) and right nephroureteral catheter (usually capped on outside allowing urine to drain down her ostomy) presented with right flank pain with worsening renal function and imaging suggestive of hydronephrosis. Nephroureteral catheter was opended to drain to gravity and renal function and flank pain improved. Usually follows with [facility] urology for these issues so patient was instructed to follow-up with them to decide on definitive management and keep nephroureteral catheter draining to gravity in the meantime. Oncology also consulted this admission and CT chest was done for survallence with evidence of new pulmonary nodules. Will have her follow-up with her oncologist regarding this. - Time Spent with Patient Total time spent providing and/or coordinating discharge services: 44 minutes Time spent: Greater than 30 minutes - Discharge Medications Prescriptions: New OxyCODONE Immed Rel [Roxicodone 5 MG] 5 mg PO Q4HR PRN 7 Days #15 tablet PRN Reason: Pain Continued ALPRAZolam [Xanax 1 MG Tablet] 1 mg PO TID PRN PRN Reason: Anxiety Ondansetron ODT [Zofran ODT] 4 mg SL Q6HR PRN PRN Reason: Nausea Pantoprazole Sodium [Protonix] 40 mg PO DAILY FLUoxetine HCl [Prozac] 20 mg PO DAILY HydrOXYzine [Atarax] 10 mg PO Q8H PRN PRN Reason: Itching Quetiapine Fumarate 400 mg PO HS Trazodone HCl 300 mg PO HS Home Medications: ALPRAZolam [Xanax 1 MG Tablet] 1 mg PO TID PRN 05/24/15 [History] Ondansetron ODT [Zofran ODT] 4 mg SL Q6HR PRN 06/23/17 [History] Pantoprazole Sodium [Protonix] 40 mg PO DAILY 01/26/18 [History] FLUoxetine HCl [Prozac] 20 mg PO DAILY 01/16/19 [History] HydrOXYzine [Atarax] 10 mg PO Q8H PRN 01/16/19 [History] Quetiapine Fumarate 400 mg PO HS 01/16/19 [History] Trazodone HCl 300 mg PO HS 01/16/19 [History] OxyCODONE Immed Rel [Roxicodone 5 MG] 5 mg PO Q4HR PRN 7 Days #15 tablet 01/17/19 [Rx] Allergies/Adverse Reactions: Allergy/AdvReac Type Severity Reaction Status Date / Time codeine AdvReac Hives Verified 01/16/19 18:51 ibuprofen AdvReac See Verified 01/16/19 18:51 Comments morphine AdvReac Vomiting Verified 01/16/19 18:51 Date of admission: 01/16/19 09:44 Primary care physician: Yanick Dunn MD Consults: 01/15/19 19:13 Consult to Urology [CONS] Routine Consulting Provider: [facility] [place] Reason for Consult: Hydronephrosis, called by ED Call Completed: Yes 01/15/19 22:29 Consult to Nutrition [CONS] Routine Comment: Consulting Provider: NUTRITION Reason for Dietary Consult: MST Score 01/16/19 08:39 Consult to Interventional Radiology [CONS] Routine Consulting Provider: Radiology Interventional [facility] Reason for Consult: right nephroureteral catheter exchange Time Notified: 08:40 Call Completed: Yes 01/16/19 10:03 Consult to Nephrology [CONS] Stat Consulting Provider: [facility] Reason for Consult: hx of renal disease, acute worsening from hydroneohrosis with GFR of 20 Call Completed: Yes Consult to Oncology [CONS] Stat Consulting Provider: [facility] Reason for Consult: hx of cervical cancer, concern for recurrence Call Completed: Yes - Constitutional Vitals: Temp Pulse Resp BP Pulse Ox 98.0 F 67 16 119/74 95 01/17/19 07:20 01/17/19 07:20 01/17/19 07:20 01/17/19 07:20 01/17/19 07:20 General appearance: Present: A&O X 3 Exam: General: Ill-appearing and in no acute distress HEENT: No erythema of posterior pharynx. No exudates. Lymphatics: No mandibular or cervical lymphadenopathy Cardiovascular: RRR. No murmurs. No chest wall tenderness. Lungs: Clear to auscelltation bilaterally. Regular chest rise. Abdomen: Non-tender. Colostomy bag in place. No rebound or gaurding. Nl bowel sounds. Nephrectomy tube on that side clean dry and intact Extremities: No edema. 2+ pulses radial and pedal pulses Skin: No rahses, abrasions, or contusions. Nl cap refill. Psych: Nl attention. A&Ox3 Neuro: special assets officer II-XII intact. 5/5 strength. Sensation to light touch and pinprick intact. - Patient Status Disposition: Home, Self-Care Condition: Good Functional capacity at discharge: independent ambulation Overall status at discharge: patient is progressing back to baseline - Discharge Instructions Follow Up With: Yanick Dunn MD [Primary Care Provider] - - Diet and Activity Activity: increase activity as tolerated Diet: regular diet
[2019-01-17] MEDS ORDERED: *HR* OxyCODONE Immed Rel 5 MG TABLET PO PRN (09:52)
--- NOTE | 2019-01-17 10:16 | Nephrology Progress Note ---
Date of Encounter: 01/17/19 Time of Encounter: 08:48 - Assessment and Plan (1) Metabolic acidosis Current Visit: Yes Status: Chronic I suspect this is chronic, but now that she is reestablishing care locally, I see that she has a metabolic acidosis, which is likely related to her chronic kidney disease and previous urostomy surgeries. I was going to recommend starting oral sodium bicarbonate, and I see now that a discharge summary has already been finalized. I will have my clinic team contact her to help arrange outpt follow-up, and I can start oral sodium bicarb as an outpatient. I reviewed the risks/benefits/pros and cons of this medication with her. (2) CKD (chronic kidney disease), stage IV Current Visit: Yes Status: Chronic Baseline CKD stage IV upon review of her labs. She should follow a renal protective strategy by avoiding NSAIDs, and other nephrotoxins as able. (3) MONSERRAT (acute kidney injury) Current Visit: Yes Status: Acute Improving back to near baseline CKD stage IV (4) Hydronephrosis Current Visit: Yes Status: Acute Acute on Chronic. She has seen Urology over the years for this Qualifiers: Hydronephrosis type: with ureteropelvic junction obstruction Qualified Code(s): Q62.11 - Congenital occlusion of ureteropelvic junction (5) Hyponatremia Current Visit: Yes Status: Acute Improving, and I will plan to start oral sodium bicarbonate as described below which will also help with the hyponatremia. (6) Hypokalemia Current Visit: Yes Status: Acute Should replace with oral potassium. Okay to consume foods that are rich in potassium for now. (7) Anemia Current Visit: Yes Status: Acute Goal Hgb is 10-11 in the setting of CKD, but I will defer to the primary team if she were to need any GI work up. Transfusion parameters as per primary. Qualifiers: Anemia type: unspecified type Qualified Code(s): D64.9 - Anemia, unspecified Subjective Principal diagnosis: CKD stage IV Interval history: The patient was seen and examined earlier today. She did not affirm vomiting, but did report having some chronic constipation and chronic abdominal cramping, which she described was about the same. Her floor RN was present during my interview and exam. Objective - Vital Signs Vital signs: Vital Signs Temp Pulse Resp BP Pulse Ox 01/17/19 07:20 98.0 F 67 16 119/74 95 01/17/19 04:00 98.6 F 74 16 107/70 96 01/17/19 00:05 97.8 F 72 16 120/83 95 01/16/19 21:02 94 01/16/19 20:14 97.6 F 81 16 118/83 94 01/16/19 16:16 98.0 F 81 16 116/76 93 01/16/19 11:00 98.0 F 82 16 106/70 94 Intake and Output 01/16/19 01/17/19 01/17/19 23:59 07:59 15:59 Intake Total 120 / 240 220 / 460 240 / 460 Output Total 117 / 1995 1450 / 1450 Balance -1055 / -1755 -1230 / -990 240 / -990 Intake: Oral 120 / 240 220 / 460 240 / 460 Output: Urine 100 / 100 350 / 350 Urostomy 275 / 575 Right Nephrostomy 600 / 600 Wound Drainage 200 / 320 1100 / 1100 Right Flank 200 / 320 1100 / 1100 Other: Percent of Meal Consumed 90% Weight 50.6 kg Patient Weight 01/17/19 23:59 Weight 50.6 kg - General Appearance General appearance: Present: well-developed, well-nourished, appears started age EENT: Present: ATNC, PERRL, mucous membranes moist Neck: Present: no JVD, supple Respiratory: Present: no kyphosis, clear Cardiology: Present: no murmurs, no edema, regular rate, regular rhythm Gastrointestinal: Present: normoactive bowel sounds, tenderness (mild TTP but no guarding), no guarding Integumentary: Present: no rash, warm and dry Neurologic: Present: no focal deficit, no asterixis, alert and oriented x3 Musculoskeletal: Present: no deformities, no erythema Psychiatric: Present: mood/affect appropriate, cooperative - Lab 01/17/19 06:23 01/17/19 06:23 Most recent lab results 01/17/19 06:23 Calcium 8.6 Phosphorus 3.6 Magnesium 2.2 Consult Discharge Plan - Plan Referrals: Yanick Dunn MD [Primary Care Provider] - (web requested 01/17/19) Prescriptions: OxyCODONE Immed Rel [Roxicodone 5 MG] 5 mg PO Q4HR PRN 7 Days #15 tablet PRN Reason: Pain
[2019-01-20 05:38] LABS: Alpha 2 Globulin (PEP) 1.21 g/dL (0.48-1.05); Beta Globulin (PEP) 0.81 g/dL (0.48-1.10)
[2019-01-20 08:55] LABS: IFE Reflexed NOT DONE
== END 2019-01-17 11:50 | disposition home or self-care (01) | DRG 698 ==
LOC: EMEROOARM 14:41 → 2ANU 14:41 → SUATTDRO 21:09 → 2ANU 21:55
PROVIDERS: ADMIT Student in an Organized Health Care Education/Training Program; ATTEND Internal Medicine

== ENCOUNTER 2019-07-14 16:44 | Inpatient (IN) ==
[2019-07-14 18:29] LABS: Basophils % 0.3 %; Eosinophils # 0.1 K/mcL (0.0-0.6); Eosinophils % 1.4 %; Hematocrit 31.7 % (35.3-44.9); Hemoglobin 10.3 g/dL (11.5-15.4); Immature Granulocytes % 0.1 % (0-4); Lymphocytes # 0.8 K/mcL (0.6-4.6); Lymphocytes % 11.2 %; Mean Corpuscular HGB Conc 32.5 g/dL (31.6-35.5); Mean Corpuscular Hemoglobin 29.9 pg (28.0-33.3); Mean Corpuscular Volume 91.9 fL (83.0-100.0); Mean Platelet Volume 9.9 fL (9.4-12.4); Monocytes # 0.8 K/mcL (0.0-1.3); Neutrophils # 5.3 K/mcL (1.6-8.9); Platelet Count 330 K/mcL (140-400); Red Blood Count 3.45 M/mcL (3.82-4.97); Red Cell Distribution Width 13.9 % (11.5-14.5); White Blood Count 6.9 K/mcL (4.3-11.1)
[2019-07-14 18:30] LABS: Albumin 3.4 g/dL (3.5-5.7); Bilirubin,Indirect 0.2 mg/dL (0.0-1.0); Bilirubin,Total 0.2 mg/dL (0.3-1.0); Calcium 8.7 mg/dL (8.6-10.3); Globulin 3.3 g/dL (2.4-3.5); Potassium 4.2 mEq/L (3.5-5.1); Total Protein 6.7 g/dL (6.4-8.9)
[2019-07-14] MEDS ORDERED: 0.9 % Sodium Chloride 1,000 ML IVC ONE (19:21)
[2019-07-14 21:43] LABS: Bilirubin,Urine Negative (Negative); Blood,Urine Moderate (Negative); Clarity,Urine Turbid (Clear); Color,Urine Red (Yellow); Glucose,Urine (UA) Normal (Normal); Ketones,Urine Negative (Negative); Leukocyte Esterase,Urine Large (Negative); Nitrite,Urine Negative (Negative); PH,Urine 7.5 pH Units (5.0-8.0); Protein,Urine >=1000 mg/dL (Neg-Trace); Specific Gravity,Urine 1.021 (1.010-1.025); Urobilinogen,Urine Normal (Normal)
[2019-07-15] MEDS ORDERED: Vancomycin Oral Soln 125 MG/2.5 ML UDC PO ONE (00:20)
[2019-07-15] MEDS ORDERED: *HR* OxyCODONE/APAP 5/325 TABLET PO ONE (01:43)
[2019-07-15] MEDS ORDERED: Naloxone 0.4 MG/ML INJ IVP PRN (02:49)
[2019-07-15] MEDS ORDERED: Ondansetron ODT 4 MG TAB.RAPDIS SL PRN (03:18)
[2019-07-15 04:29] LABS: Basophils % 0.2 %; Eosinophils # 0.1 K/mcL (0.0-0.6); Hematocrit 30.4 % (35.3-44.9); Hemoglobin 9.7 g/dL (11.5-15.4); Immature Granulocytes % 0.2 % (0-4); Lymphocytes # 0.6 K/mcL (0.6-4.6); Mean Corpuscular HGB Conc 31.9 g/dL (31.6-35.5); Mean Corpuscular Volume 90.7 fL (83.0-100.0); Mean Platelet Volume 9.7 fL (9.4-12.4); Monocytes # 0.5 K/mcL (0.0-1.3); Monocytes % 10.5 %; Neutrophils # 3.7 K/mcL (1.6-8.9); Platelet Count 321 K/mcL (140-400); Red Blood Count 3.35 M/mcL (3.82-4.97); Red Cell Distribution Width 13.7 % (11.5-14.5); Segmented Neutrophils % 74.1 %; White Blood Count 4.9 K/mcL (4.3-11.1)
[2019-07-15 04:32] LABS: Prothrombin Time 11.1 Seconds (9.4-12.1)
[2019-07-15 04:41] LABS: Bilirubin,Total 0.2 mg/dL (0.3-1.0); Calcium 7.9 mg/dL (8.6-10.3); Chol/HDL Ratio 4.9 (0-4.9); Magnesium 1.9 mg/dL (1.6-2.6); Phosphorous 5.4 mg/dL (2.7-4.5); Potassium 3.9 mEq/L (3.5-5.1)
[2019-07-15 07:08] LABS: Estimated Average Glucose 108 mg/dl
[2019-07-15] MEDS ORDERED: 0.9 % Sodium Chloride 1,000 ML IVC SCH (07:45)
[2019-07-15] MEDS ORDERED: ALPRAZolam 1 MG TABLET PO SCH (09:00)
[2019-07-15] MEDS ORDERED: *HR* Midazolam HCl 5 MG/5 ML VIAL IVP ONE (10:26)
[2019-07-15] MEDS ORDERED: ceFAZolin 2,000 MG in D5% in Water 100 ML IVPB ONE (10:26)
[2019-07-15] MEDS ORDERED: *HR* FentaNYL (PF) 100 MCG/2 ML VIAL IVP ONE (10:26)
[2019-07-15] MEDS ORDERED: 0.9 % Sodium Chloride 500 ML ONE (10:28)
[2019-07-15] MEDS ORDERED: *HR* Midazolam HCl 2 MG/2 ML VIAL ONE (10:33)
[2019-07-15] MEDS ORDERED: *HR* FentaNYL (PF) 100 MCG/2 ML VIAL ONE (10:33)
[2019-07-15] MEDS: Vancomycin Oral Soln 125 MG/2.5 ML UDC PO SCH ×4 (12:06→20:51)
[2019-07-15] MEDS: *HR* Heparin 5,000 UNIT/ML VIAL SQ SCH ×2 (12:56→20:53)
[2019-07-15] MEDS: ALPRAZolam 1 MG TABLET PO PRN (15:38)
[2019-07-15] MEDS: 0.9 % Sodium Chloride 1,000 ML IVC SCH (15:38)
[2019-07-15 15:57] LABS: Calcium 7.6 mg/dL (8.6-10.3); Potassium 3.5 mEq/L (3.5-5.1)
[2019-07-15] MEDS: Piperacillin/Tazobactam 3.375 GM in 0.9 % Sodium Chloride Mini Bag 100 ML IVPB SCH (16:41)
[2019-07-15] MEDS ORDERED: traZODone 50 MG TABLET PO SCH ×2 (21:00)
[2019-07-15] MEDS ORDERED: NON-FORMULARY MEDICATION 1 EACH EACH (Quetiapine Fumarate 400 MG) PO SCH (21:00)
[2019-07-16 04:42] LABS: Basophils % 0.3 %; Eosinophils # 0.1 K/mcL (0.0-0.6); Eosinophils % 1.2 %; Hematocrit 25.7 % (35.3-44.9); Hemoglobin 8.2 g/dL (11.5-15.4); Immature Granulocytes % 0.3 % (0-4); Lymphocytes # 0.8 K/mcL (0.6-4.6); Lymphocytes % 13.9 %; Mean Corpuscular HGB Conc 31.9 g/dL (31.6-35.5); Mean Corpuscular Hemoglobin 28.9 pg (28.0-33.3); Mean Corpuscular Volume 90.5 fL (83.0-100.0); Mean Platelet Volume 9.7 fL (9.4-12.4); Monocytes # 0.4 K/mcL (0.0-1.3); Monocytes % 7.2 %; Neutrophils # 4.5 K/mcL (1.6-8.9); Platelet Count 237 K/mcL (140-400); Red Blood Count 2.84 M/mcL (3.82-4.97); Red Cell Distribution Width 13.8 % (11.5-14.5); Segmented Neutrophils % 77.1 %; White Blood Count 5.8 K/mcL (4.3-11.1)
[2019-07-16 05:23] LABS: Calcium 7.8 mg/dL (8.6-10.3); Potassium 4.1 mEq/L (3.5-5.1)
[2019-07-16] MEDS: Piperacillin/Tazobactam 3.375 GM in 0.9 % Sodium Chloride Mini Bag 100 ML IVPB SCH (06:28)
[2019-07-16] MEDS: *HR* Heparin 5,000 UNIT/ML VIAL SQ SCH ×3 (06:28→22:32)
[2019-07-16] MEDS: 0.9 % Sodium Chloride 1,000 ML IVC SCH ×3 (08:35→22:35)
[2019-07-16] MEDS: Vancomycin Oral Soln 125 MG/2.5 ML UDC PO SCH ×4 (08:37→22:33)
[2019-07-16] MEDS: cefTRIAXone 2,000 MG in 0.9 % Sodium Chloride Mini Bag 100 ML IVPB SCH (18:01)
[2019-07-16] MEDS ORDERED: traZODone 50 MG TABLET PO SCH (21:00)
[2019-07-17] MEDS: *HR* Heparin 5,000 UNIT/ML VIAL SQ SCH ×3 (04:22→21:59)
[2019-07-17 04:45] LABS: Basophils % 0.4 %; Eosinophils # 0.2 K/mcL (0.0-0.6); Eosinophils % 3.1 %; Hematocrit 21.9 % (35.3-44.9); Hemoglobin 6.9 g/dL (11.5-15.4); Immature Granulocytes % 0.4 % (0-4); Lymphocytes % 18.8 %; Mean Corpuscular HGB Conc 31.5 g/dL (31.6-35.5); Mean Corpuscular Hemoglobin 29.1 pg (28.0-33.3); Mean Corpuscular Volume 92.4 fL (83.0-100.0); Mean Platelet Volume 9.8 fL (9.4-12.4); Monocytes # 0.4 K/mcL (0.0-1.3); Monocytes % 7.9 %; Neutrophils # 3.6 K/mcL (1.6-8.9); Platelet Count 228 K/mcL (140-400); Red Blood Count 2.37 M/mcL (3.82-4.97); Red Cell Distribution Width 14.2 % (11.5-14.5); Segmented Neutrophils % 69.4 %; White Blood Count 5.2 K/mcL (4.3-11.1)
[2019-07-17 05:02] LABS: Calcium 7.5 mg/dL (8.6-10.3); Potassium 4.4 mEq/L (3.5-5.1)
[2019-07-17] MEDS ORDERED: 0.9 % Sodium Chloride 250 ML ONE ×3 (08:43→14:14)
[2019-07-17] MEDS: 0.9 % Sodium Chloride 1,000 ML IVC SCH (08:47)
[2019-07-17] MEDS: Vancomycin Oral Soln 125 MG/2.5 ML UDC PO SCH ×4 (08:48→21:59)
[2019-07-17] MEDS: cefTRIAXone 2,000 MG in 0.9 % Sodium Chloride Mini Bag 100 ML IVPB SCH (08:49)
[2019-07-17] MEDS: Cholecalciferol (D-3) 1,000 UNIT (25MCG) TABLET PO SCH (08:49)
[2019-07-17] MEDS: Folic Acid 1 MG TABLET PO SCH (08:49)
[2019-07-17] MEDS ORDERED: traZODone 50 MG TABLET PO PRN (11:04)
[2019-07-17] MEDS ORDERED: Sodium Bicarbonate 150 MEQ in D5% in Water 1,000 ML IVC SCH (15:15)
[2019-07-17 15:55] LABS: Sodium, Urine 80.5 mEq/L
[2019-07-17] MEDS: Sodium Bicarbonate 150 MEQ in D5% in Water 1,000 ML IVC SCH (17:48)
[2019-07-17 18:22] LABS: Hematocrit 28.6 % (35.3-44.9)
[2019-07-17 18:24] LABS: Hemoglobin 9.5 g/dL (11.5-15.4)
[2019-07-17 18:43] LABS: % Iron Saturation 87 % (15-50); Iron 151 mcg/dL (50-170); Transferrin 124 mg/dL (203-362)
[2019-07-17 19:09] LABS: Folate > 22.3 ng/mL (3.0-16.0); Vitamin B12 500 pg/mL (250-1100)
[2019-07-18] MEDS: Sodium Bicarbonate 150 MEQ in D5% in Water 1,000 ML IVC SCH ×2 (03:19→13:12)
[2019-07-18] MEDS: ALPRAZolam 1 MG TABLET PO PRN ×3 (03:26→21:09)
[2019-07-18] MEDS: *HR* Heparin 5,000 UNIT/ML VIAL SQ SCH ×3 (05:11→21:10)
[2019-07-18 05:40] LABS: Basophils % 0.4 %; Eosinophils # 0.2 K/mcL (0.0-0.6); Eosinophils % 3.5 %; Hematocrit 29.5 % (35.3-44.9); Hemoglobin 9.9 g/dL (11.5-15.4); Lymphocytes # 1.3 K/mcL (0.6-4.6); Mean Corpuscular HGB Conc 33.6 g/dL (31.6-35.5); Mean Corpuscular Volume 86.5 fL (83.0-100.0); Mean Platelet Volume 9.4 fL (9.4-12.4); Monocytes # 0.3 K/mcL (0.0-1.3); Neutrophils # 3.4 K/mcL (1.6-8.9); Platelet Count 280 K/mcL (140-400); Red Blood Count 3.41 M/mcL (3.82-4.97); Red Cell Distribution Width 14.7 % (11.5-14.5); Segmented Neutrophils % 64.1 %; White Blood Count 5.2 K/mcL (4.3-11.1)
[2019-07-18 05:55] LABS: Calcium 7.9 mg/dL (8.6-10.3); Potassium 4.2 mEq/L (3.5-5.1)
[2019-07-18] MEDS: cefTRIAXone 2,000 MG in 0.9 % Sodium Chloride Mini Bag 100 ML IVPB SCH (09:14)
[2019-07-18] MEDS: Vancomycin Oral Soln 125 MG/2.5 ML UDC PO SCH ×4 (09:14→21:09)
[2019-07-18] MEDS: Folic Acid 1 MG TABLET PO SCH (09:15)
[2019-07-18] MEDS: Cholecalciferol (D-3) 1,000 UNIT (25MCG) TABLET PO SCH (09:15)
[2019-07-19 04:59] LABS: Basophils % 0.7 %; Eosinophils # 0.2 K/mcL (0.0-0.6); Eosinophils % 2.5 %; Hematocrit 32.4 % (35.3-44.9); Hemoglobin 10.8 g/dL (11.5-15.4); Immature Granulocytes % 1.2 % (0-4); Lymphocytes # 1.4 K/mcL (0.6-4.6); Lymphocytes % 22.6 %; Mean Corpuscular HGB Conc 33.3 g/dL (31.6-35.5); Mean Corpuscular Hemoglobin 29.3 pg (28.0-33.3); Mean Platelet Volume 9.2 fL (9.4-12.4); Monocytes # 0.4 K/mcL (0.0-1.3); Neutrophils # 3.9 K/mcL (1.6-8.9); Platelet Count 313 K/mcL (140-400); Red Blood Count 3.68 M/mcL (3.82-4.97); Red Cell Distribution Width 14.1 % (11.5-14.5)
[2019-07-19 05:19] LABS: Calcium 8.2 mg/dL (8.6-10.3); Potassium 3.9 mEq/L (3.5-5.1)
[2019-07-19] MEDS: *HR* Heparin 5,000 UNIT/ML VIAL SQ SCH (05:21)
[2019-07-19] MEDS: ALPRAZolam 1 MG TABLET PO PRN (05:21)
[2019-07-19 06:48] VITALS: BP 145/84
[2019-07-19] MEDS: cefTRIAXone 2,000 MG in 0.9 % Sodium Chloride Mini Bag 100 ML IVPB SCH (08:15)
[2019-07-19] MEDS: Folic Acid 1 MG TABLET PO SCH (08:15)
[2019-07-19] MEDS: Cholecalciferol (D-3) 1,000 UNIT (25MCG) TABLET PO SCH (08:16)
[2019-07-19] MEDS: Vancomycin Oral Soln 125 MG/2.5 ML UDC PO SCH ×2 (08:16→10:44)
[2019-07-19] MEDS ORDERED: FLU Vac QV 19-20 (6Month+)/PF 0.5 ML SYRINGE IM ONE (10:02)
== END 2019-07-19 11:10 | disposition home or self-care (01) | DRG 659 ==
LOC: EMEROOARM 16:44 → 2ANU 16:44 → SUATTDRO 07-15 00:40 → 2ANU 07-15 01:47
PROVIDERS: ADMIT Student in an Organized Health Care Education/Training Program; ATTEND Family Medicine

== ENCOUNTER 2020-06-27 16:19 | Inpatient (IN) ==
[2020-06-27 17:19] LABS: Basophils % 0.1 %; Eosinophils # 0.1 K/mcL (0.0-0.6); Eosinophils % 0.9 %; Hematocrit 24.9 % (35.3-44.9); Immature Granulocytes % 0.7 % (0-4); Lymphocytes # 0.7 K/mcL (0.6-4.6); Lymphocytes % 7.7 %; Mean Corpuscular HGB Conc 30.1 g/dL (31.6-35.5); Mean Corpuscular Hemoglobin 28.6 pg (28.0-33.3); Mean Platelet Volume 9.5 fL (9.4-12.4); Monocytes % 11.8 %; Neutrophils # 6.7 K/mcL (1.6-8.9); Platelet Count 357 K/mcL (140-400); Red Blood Count 2.62 M/mcL (3.82-4.97); Red Cell Distribution Width 14.1 % (11.5-14.5); Segmented Neutrophils % 78.8 %; White Blood Count 8.5 K/mcL (4.3-11.1)
[2020-06-27 17:23] LABS: Hemoglobin 7.5 g/dL (11.5-15.4)
[2020-06-27 17:36] LABS: Calcium 8.4 mg/dL (8.6-10.3); Potassium 4.6 mEq/L (3.5-5.1)
[2020-06-27] MEDS ORDERED: Ondansetron 4 MG/2 ML VIAL IVP ONE (21:14)
[2020-06-27] MEDS ORDERED: *HR* HYDROmorphone (PF) 1 MG/ML SYRINGE IVP ONE (21:14)
[2020-06-27] MEDS ORDERED: Naloxone 0.4 MG/ML INJ IVP PRN (22:43)
[2020-06-27] MEDS ORDERED: Ibuprofen 600 MG TABLET PO ONE (22:48)
[2020-06-27] MEDS ORDERED: Sodium Bicarbonate 75 MEQ in 0.45 % Sodium Chloride 1,000 ML IVC SCH (23:00)
[2020-06-27 23:33] LABS: Adenovirus Not Detected (Not Detect); Bordetella Pertussis Not Detected (Not Detect); Chlamydophila pneumoniae Not Detected (Not Detect); Coronavirus 229E Not Detected (Not Detect); Coronavirus HKU1 Not Detected (Not Detect); Coronavirus NL63 Not Detected (Not Detect); Coronavirus OC43 Not Detected (Not Detect); Human Metapneumovirus Not Detected (Not Detect); Human Rhinovirus/Enterovirus Not Detected (Not Detect); Influenza A Subtype 2009 H1 Not Detected (Not Detect); Influenza B Not Detected (Not Detect); Mycoplasma pneumoniae Not Detected (Not Detect); Parainfluenza Virus 1 Not Detected (Not Detect); Parainfluenza Virus 2 Not Detected (Not Detect); Parainfluenza Virus 3 Not Detected (Not Detect); Parainfluenza Virus 4 Not Detected (Not Detect); Respiratory Syncytial Virus Not Detected (Not Detect); SARS-CoV-2 Not Detected (Not Detect)
[2020-06-28 00:45] LABS: Basophils % 0.1 %; Eosinophils # 0.1 K/mcL (0.0-0.6); Hematocrit 24.3 % (35.3-44.9); Hemoglobin 7.2 g/dL (11.5-15.4); Immature Granulocytes % 0.8 % (0-4); Lymphocytes # 0.5 K/mcL (0.6-4.6); Lymphocytes % 6.5 %; Mean Corpuscular HGB Conc 29.6 g/dL (31.6-35.5); Mean Corpuscular Hemoglobin 28.2 pg (28.0-33.3); Mean Corpuscular Volume 95.3 fL (83.0-100.0); Mean Platelet Volume 9.4 fL (9.4-12.4); Monocytes # 0.9 K/mcL (0.0-1.3); Monocytes % 11.3 %; Neutrophils # 6.1 K/mcL (1.6-8.9); Platelet Count 384 K/mcL (140-400); Red Blood Count 2.55 M/mcL (3.82-4.97); Red Cell Distribution Width 14.2 % (11.5-14.5); Segmented Neutrophils % 80.3 %; White Blood Count 7.6 K/mcL (4.3-11.1)
[2020-06-28 00:52] LABS: INR 1.3; Prothrombin Time 15.2 Seconds (9.4-12.1)
[2020-06-28 01:09] LABS: Albumin 2.8 g/dL (3.5-5.7); Albumin/Globulin Ratio 0.8 (1.1-2.2); Bilirubin,Total 0.3 mg/dL (0.3-1.0); Calcium 8.2 mg/dL (8.6-10.3); Globulin 3.7 g/dL (2.4-3.5); Potassium 4.6 mEq/L (3.5-5.1); Total Protein 6.5 g/dL (6.4-8.9)
[2020-06-28] MEDS: MetroNIDAZOLE 500 MG/100 ML 500 MG/100 ML BAG IVPB SCH ×3 (03:55→18:03)
[2020-06-28] MEDS ORDERED: Ondansetron 4 MG/2 ML VIAL IVP PRN (04:42)
[2020-06-28 07:15] LABS: Calcium 7.7 mg/dL (8.6-10.3); Magnesium 1.9 mg/dL (1.6-2.6)
[2020-06-28] MEDS: Vancomycin Oral Soln 125 MG/2.5 ML UDC PO SCH ×4 (08:06→21:12)
[2020-06-28] MEDS: *HR* OxyCODONE Immed Rel 5 MG TABLET PO PRN ×3 (10:29→23:29)
[2020-06-28 11:12] LABS: ABG Base Excess -13 mEq/L (-2 to 3); ABG HCO3 11 mEq/L (21-27); ABG Oxygen Saturation 98 % (95-98); ABG PCO2 20 mmHg (35-45); ABG PH 7.34 pH Units (7.32-7.45); ABG PO2 107 mmHg (85-104); ABG TCO2 11 mEq/L (20-26)
[2020-06-28] MEDS ORDERED: 0.9 % Sodium Chloride 500 ML ONE ×2 (12:43→12:58)
[2020-06-28] MEDS ORDERED: *HR* FentaNYL (PF) 100 MCG/2 ML VIAL IVP ONE ×2 (12:50→13:02)
[2020-06-28] MEDS ORDERED: *HR* Midazolam HCl 2 MG/2 ML VIAL IVP ONE ×2 (12:50→13:02)
[2020-06-28 13:13] LABS: Immature Reticulocyte % 21.2 % (11.0-38.0); Retculocyte # 0.04 M/mcL (0.05-0.10); Reticulocyte % 1.5 % (1.6-2.8)
[2020-06-28] MEDS ORDERED: Isovue-300 50ML VIAL IVP ONE (13:36)
[2020-06-28 14:02] LABS: Folate > 22.3 ng/mL (3.0-16.0); Vitamin B12 1410 pg/mL (250-1100)
[2020-06-28 14:37] LABS: Bilirubin,Urine Negative (Negative); Blood,Urine Large (Negative); Clarity,Urine Ex.Turbid (Clear); Color,Urine Light-Orange (Yellow); Glucose,Urine (UA) Normal (Normal); Ketones,Urine Negative (Negative); Leukocyte Esterase,Urine Large (Negative); Nitrite,Urine Negative (Negative); Protein,Urine >=300 mg/dL (Neg-Trace); Specific Gravity,Urine 1.021 (1.010-1.025); Urobilinogen,Urine Normal (Normal)
[2020-06-28 14:45] LABS: Amorphous Sediment,Urine Present per hpf (None-Few); Bacteria,Urine Present per hpf (None-Few); RBC,Urine TNTC per hpf (0-3); Squamous Epithelial Cell,Urine Present per hpf (None-Few); WBC,Urine Present per hpf (0-3)
[2020-06-28 15:03] LABS: Creatinine,Urine 15 mg/dL
[2020-06-28 15:04] LABS: Amphetamine Screen,Urine Negative ng/mL (Cutoff=1000); Barbiturate Screen,Urine Negative ng/mL (Cutoff=200); Benzodiazepines Screen,Urine Positive ng/mL (Cutoff=200); Cannabinoid Screen,Urine Negative ng/mL (Cutoff = 50); Cocaine Screen,Urine Negative ng/mL (Cutoff= 300); Opiate Screen,Urine Negative ng/mL (Cutoff=300); Phencyclidine Screen,Urine Negative ng/mL (Cutoff=25)
[2020-06-28] MEDS: Sodium Bicarbonate 75 MEQ in 0.45 % Sodium Chloride 1,000 ML IVC SCH ×2 (16:55→21:12)
[2020-06-28] MEDS: *HR* Heparin 5,000 UNIT/ML VIAL SQ SCH (21:12)
[2020-06-29] MEDS: MetroNIDAZOLE 500 MG/100 ML 500 MG/100 ML BAG IVPB SCH ×3 (02:21→19:32)
[2020-06-29] MEDS: *HR* Heparin 5,000 UNIT/ML VIAL SQ SCH ×2 (05:01→14:36)
[2020-06-29] MEDS: Sodium Bicarbonate 75 MEQ in 0.45 % Sodium Chloride 1,000 ML IVC SCH ×3 (05:50→23:55)
[2020-06-29] MEDS: *HR* OxyCODONE Immed Rel 5 MG TABLET PO PRN ×4 (06:05→23:54)
[2020-06-29 06:44] LABS: Eosinophils # 0.1 K/mcL (0.0-0.6); Eosinophils % 1.3 %; Hematocrit 19.5 % (35.3-44.9); Hemoglobin 6.1 g/dL (11.5-15.4); Immature Granulocytes % 0.8 % (0-4); Lymphocytes # 0.8 K/mcL (0.6-4.6); Lymphocytes % 10.9 %; Mean Corpuscular HGB Conc 31.3 g/dL (31.6-35.5); Mean Corpuscular Hemoglobin 29.8 pg (28.0-33.3); Mean Corpuscular Volume 95.1 fL (83.0-100.0); Mean Platelet Volume 9.6 fL (9.4-12.4); Monocytes # 0.6 K/mcL (0.0-1.3); Monocytes % 8.4 %; Neutrophils # 5.6 K/mcL (1.6-8.9); Platelet Count 374 K/mcL (140-400); Red Blood Count 2.05 M/mcL (3.82-4.97); Red Cell Distribution Width 14.4 % (11.5-14.5); Segmented Neutrophils % 78.6 %; White Blood Count 7.1 K/mcL (4.3-11.1)
[2020-06-29 07:07] LABS: Calcium 6.1 mg/dL (8.6-10.3)
[2020-06-29] MEDS: Vancomycin Oral Soln 125 MG/2.5 ML UDC PO SCH ×4 (08:15→20:53)
[2020-06-29] MEDS ORDERED: 0.9 % Sodium Chloride 250 ML ONE (09:53)
[2020-06-29] MEDS: Calcium Gluconate 1gm/50mL 1 GM/50 ML BAG IVPB SCH ×3 (10:20→12:33)
[2020-06-29 18:25] LABS: Basophils % 0.2 %; Eosinophils # 0.1 K/mcL (0.0-0.6); Eosinophils % 1.3 %; Hematocrit 27.4 % (35.3-44.9); Immature Granulocytes % 1.5 % (0-4); Lymphocytes # 0.7 K/mcL (0.6-4.6); Mean Corpuscular HGB Conc 32.1 g/dL (31.6-35.5); Mean Corpuscular Hemoglobin 29.1 pg (28.0-33.3); Mean Corpuscular Volume 90.7 fL (83.0-100.0); Mean Platelet Volume 9.1 fL (9.4-12.4); Monocytes # 0.7 K/mcL (0.0-1.3); Monocytes % 8.3 %; Neutrophils # 6.6 K/mcL (1.6-8.9); Platelet Count 383 K/mcL (140-400); Red Blood Count 3.02 M/mcL (3.82-4.97); Red Cell Distribution Width 14.6 % (11.5-14.5); Segmented Neutrophils % 79.7 %; White Blood Count 8.2 K/mcL (4.3-11.1)
[2020-06-29 18:26] LABS: Hemoglobin 8.8 g/dL (11.5-15.4)
[2020-06-29 18:44] LABS: Calcium 6.7 mg/dL (8.6-10.3)
[2020-06-29] MEDS: ALPRAZolam 1 MG TABLET PO PRN (20:53)
[2020-06-29] MEDS: (Doxepin Hcl 10 MG) PO SCH (20:53)
[2020-06-29] MEDS: traZODone 50 MG TABLET PO SCH (20:53)
[2020-06-30] MEDS: MetroNIDAZOLE 500 MG/100 ML 500 MG/100 ML BAG IVPB SCH (03:10)
[2020-06-30 03:40] LABS: Basophils % 0.2 %; Eosinophils # 0.1 K/mcL (0.0-0.6); Eosinophils % 1.4 %; Hematocrit 27.1 % (35.3-44.9); Hemoglobin 8.6 g/dL (11.5-15.4); Immature Granulocytes % 2.2 % (0-4); Lymphocytes # 0.9 K/mcL (0.6-4.6); Mean Corpuscular HGB Conc 31.7 g/dL (31.6-35.5); Mean Corpuscular Hemoglobin 28.3 pg (28.0-33.3); Mean Corpuscular Volume 89.1 fL (83.0-100.0); Mean Platelet Volume 9.1 fL (9.4-12.4); Monocytes # 0.6 K/mcL (0.0-1.3); Monocytes % 7.6 %; Neutrophils # 6.3 K/mcL (1.6-8.9); Platelet Count 384 K/mcL (140-400); Red Blood Count 3.04 M/mcL (3.82-4.97); Segmented Neutrophils % 77.6 %; White Blood Count 8.1 K/mcL (4.3-11.1)
[2020-06-30 03:54] LABS: Calcium 6.3 mg/dL (8.6-10.3); Potassium 3.8 mEq/L (3.5-5.1)
[2020-06-30] MEDS: *HR* OxyCODONE Immed Rel 5 MG TABLET PO PRN ×4 (05:27→20:57)
[2020-06-30] MEDS: Sodium Bicarbonate 75 MEQ in 0.45 % Sodium Chloride 1,000 ML IVC SCH (07:52)
[2020-06-30] MEDS: Cyanocobalamin (B-12) 1,000 MCG TABLET PO SCH (07:53)
[2020-06-30] MEDS: Vancomycin Oral Soln 125 MG/2.5 ML UDC PO SCH ×4 (07:53→20:57)
[2020-06-30] MEDS: Cholecalciferol (D-3) 1,000 UNIT (25MCG) TABLET PO SCH (07:53)
[2020-06-30] MEDS: Folic Acid 1 MG TABLET PO SCH (07:53)
[2020-06-30] MEDS ORDERED: *HR* OxyCODONE Immed Rel 5 MG TABLET PO PRN (08:43)
[2020-06-30] MEDS ORDERED: Acetaminophen IV 1,000 MG/100 ML BAG IVPB ONE (08:43)
[2020-06-30 09:35] LABS: VBG Ionized Calcium 0.85 mmol/L (1.15-1.35)
[2020-06-30] MEDS: cefTRIAXone 1,000 MG in Water for inj. (sterile) 10 ML IVP SCH (09:56)
[2020-06-30] MEDS ORDERED: Ferumoxytol 510 MG in 0.9 % Sodium Chloride 100 ML IVPB ONE (13:42)
[2020-06-30] MEDS: ALPRAZolam 1 MG TABLET PO PRN (15:59)
[2020-06-30] MEDS: Calcium Gluconate 1gm/50mL 1 GM/50 ML BAG IVPB SCH ×2 (17:26→18:18)
[2020-06-30 20:12] LABS: VBG Ionized Calcium 1.03 mmol/L (1.15-1.35)
[2020-06-30] MEDS: (Doxepin Hcl 10 MG) PO SCH (20:57)
[2020-06-30] MEDS: traZODone 50 MG TABLET PO SCH (20:57)
[2020-07-01] MEDS: *HR* OxyCODONE Immed Rel 5 MG TABLET PO PRN ×2 (03:42→08:20)
[2020-07-01 03:53] LABS: Basophils % 0.3 %; Eosinophils # 0.1 K/mcL (0.0-0.6); Eosinophils % 1.2 %; Hematocrit 28.5 % (35.3-44.9); Lymphocytes # 0.9 K/mcL (0.6-4.6); Lymphocytes % 8.3 %; Mean Corpuscular HGB Conc 31.6 g/dL (31.6-35.5); Mean Corpuscular Volume 91.9 fL (83.0-100.0); Mean Platelet Volume 9.1 fL (9.4-12.4); Monocytes # 0.8 K/mcL (0.0-1.3); Monocytes % 7.8 %; Neutrophils # 8.4 K/mcL (1.6-8.9); Platelet Count 429 K/mcL (140-400); Red Cell Distribution Width 15.2 % (11.5-14.5); Segmented Neutrophils % 80.4 %; White Blood Count 10.4 K/mcL (4.3-11.1)
[2020-07-01 03:55] LABS: VBG Ionized Calcium 1.03 mmol/L (1.15-1.35)
[2020-07-01 04:11] LABS: Albumin 2.2 g/dL (3.5-5.7); Calcium 7.6 mg/dL (8.6-10.3); Potassium 4.2 mEq/L (3.5-5.1)
[2020-07-01] MEDS: Cyanocobalamin (B-12) 1,000 MCG TABLET PO SCH (07:58)
[2020-07-01] MEDS: Cholecalciferol (D-3) 1,000 UNIT (25MCG) TABLET PO SCH (07:58)
[2020-07-01] MEDS: Folic Acid 1 MG TABLET PO SCH (07:58)
[2020-07-01] MEDS: Vancomycin Oral Soln 125 MG/2.5 ML UDC PO SCH ×4 (08:01→21:31)
[2020-07-01] MEDS: cefTRIAXone 1,000 MG in Water for inj. (sterile) 10 ML IVP SCH (08:02)
[2020-07-01] MEDS: Calcium Gluconate 1gm/50mL 1 GM/50 ML BAG IVPB SCH ×2 (08:24→09:41)
[2020-07-01] MEDS: ALPRAZolam 1 MG TABLET PO PRN ×2 (09:40→23:57)
[2020-07-01] MEDS ORDERED: Simethicone 80 MG TAB.CHEW PO PRN (09:46)
[2020-07-01] MEDS: Albumin 25% 25gram/100mL 25 GM/100 ML IV.SOLN IVC SCH ×2 (10:40→12:21)
[2020-07-01] MEDS ORDERED: Naloxone 0.4 MG/ML INJ IVP PRN (11:47)
[2020-07-01] MEDS ORDERED: Ondansetron 4 MG/2 ML VIAL IVP PRN (11:47)
[2020-07-01] MEDS ORDERED: Acetaminophen IV 1,000 MG/100 ML BAG IVPB ONE (11:54)
[2020-07-01] MEDS: *HR* OxyCODONE Immed Rel 15 MG TABLET PO PRN ×3 (12:45→23:58)
[2020-07-01] MEDS ORDERED: *HR* Heparin 5,000 UNIT/ML VIAL SQ SCH (14:00)
[2020-07-01] MEDS: traZODone 50 MG TABLET PO SCH (21:31)
[2020-07-01] MEDS: DOXEPIN HCL 10 MG PO SCH (21:32)
[2020-07-02 05:17] LABS: Basophils % 0.4 %; Eosinophils # 0.2 K/mcL (0.0-0.6); Eosinophils % 1.7 %; Hematocrit 27.7 % (35.3-44.9); Hemoglobin 8.6 g/dL (11.5-15.4); Immature Granulocytes % 3.8 % (0-4); Lymphocytes # 1.2 K/mcL (0.6-4.6); Lymphocytes % 12.7 %; Mean Corpuscular Hemoglobin 29.2 pg (28.0-33.3); Mean Corpuscular Volume 93.9 fL (83.0-100.0); Mean Platelet Volume 9.1 fL (9.4-12.4); Monocytes # 0.7 K/mcL (0.0-1.3); Monocytes % 7.2 %; Neutrophils # 7.1 K/mcL (1.6-8.9); Platelet Count 454 K/mcL (140-400); Red Blood Count 2.95 M/mcL (3.82-4.97); Red Cell Distribution Width 14.9 % (11.5-14.5); Segmented Neutrophils % 74.2 %; White Blood Count 9.6 K/mcL (4.3-11.1)
[2020-07-02 05:31] LABS: Calcium 8.3 mg/dL (8.6-10.3); Phosphorous 5.9 mg/dL (2.7-4.5); Potassium 4.2 mEq/L (3.5-5.1)
[2020-07-02] MEDS: *HR* OxyCODONE Immed Rel 15 MG TABLET PO PRN ×3 (06:41→21:33)
[2020-07-02] MEDS: Cholecalciferol (D-3) 1,000 UNIT (25MCG) TABLET PO SCH (08:09)
[2020-07-02] MEDS: cefTRIAXone 1,000 MG in Water for inj. (sterile) 10 ML IVP SCH (08:09)
[2020-07-02] MEDS: Vancomycin Oral Soln 125 MG/2.5 ML UDC PO SCH ×4 (08:10→21:35)
[2020-07-02] MEDS: ALPRAZolam 1 MG TABLET PO PRN ×3 (08:38→21:34)
[2020-07-02] MEDS ORDERED: Folic Acid 1 MG TABLET PO SCH (09:00)
[2020-07-02] MEDS ORDERED: Cyanocobalamin (B-12) 1,000 MCG TABLET PO SCH (09:00)
[2020-07-02] MEDS: traZODone 50 MG TABLET PO SCH (21:34)
[2020-07-02] MEDS: DOXEPIN HCL 10 MG PO SCH (21:35)
[2020-07-03] MEDS: Simethicone 80 MG TAB.CHEW PO PRN (02:21)
[2020-07-03] MEDS: *HR* OxyCODONE Immed Rel 5 MG TABLET PO PRN (02:22)
[2020-07-03 02:39] LABS: Hematocrit 30.5 % (35.3-44.9); Hemoglobin 9.5 g/dL (11.5-15.4); Mean Corpuscular HGB Conc 31.1 g/dL (31.6-35.5); Mean Corpuscular Hemoglobin 29.1 pg (28.0-33.3); Mean Corpuscular Volume 93.3 fL (83.0-100.0); Mean Platelet Volume 8.9 fL (9.4-12.4); Platelet Count 494 K/mcL (140-400); Red Blood Count 3.27 M/mcL (3.82-4.97); Red Cell Distribution Width 14.6 % (11.5-14.5); White Blood Count 11.5 K/mcL (4.3-11.1)
[2020-07-03 03:04] LABS: Calcium 8.7 mg/dL (8.6-10.3); Potassium 4.1 mEq/L (3.5-5.1)
[2020-07-03] MEDS: *HR* OxyCODONE Immed Rel 15 MG TABLET PO PRN ×5 (04:57→22:28)
[2020-07-03] MEDS: ALPRAZolam 1 MG TABLET PO PRN ×3 (04:58→22:28)
[2020-07-03] MEDS: Vancomycin Oral Soln 125 MG/2.5 ML UDC PO SCH ×4 (09:32→22:28)
[2020-07-03] MEDS: Cholecalciferol (D-3) 1,000 UNIT (25MCG) TABLET PO SCH (09:32)
[2020-07-03] MEDS: cefTRIAXone 1,000 MG in Water for inj. (sterile) 10 ML IVP SCH (09:32)
[2020-07-03] MEDS: traZODone 50 MG TABLET PO SCH (22:28)
[2020-07-04] MEDS: *HR* OxyCODONE Immed Rel 15 MG TABLET PO PRN ×4 (02:50→20:34)
[2020-07-04] MEDS: ALPRAZolam 1 MG TABLET PO PRN ×2 (05:00→20:34)
[2020-07-04] MEDS: *HR* OxyCODONE Immed Rel 5 MG TABLET PO PRN (05:00)
[2020-07-04 05:37] LABS: Basophils % 0.4 %; Eosinophils # 0.1 K/mcL (0.0-0.6); Eosinophils % 1.8 %; Hematocrit 30.1 % (35.3-44.9); Hemoglobin 9.2 g/dL (11.5-15.4); Lymphocytes # 1.2 K/mcL (0.6-4.6); Lymphocytes % 14.9 %; Mean Corpuscular HGB Conc 30.6 g/dL (31.6-35.5); Mean Corpuscular Hemoglobin 28.5 pg (28.0-33.3); Mean Corpuscular Volume 93.2 fL (83.0-100.0); Mean Platelet Volume 9.2 fL (9.4-12.4); Monocytes # 0.5 K/mcL (0.0-1.3); Monocytes % 6.4 %; Neutrophils # 5.8 K/mcL (1.6-8.9); Platelet Count 476 K/mcL (140-400); Red Blood Count 3.23 M/mcL (3.82-4.97); Red Cell Distribution Width 14.2 % (11.5-14.5); Segmented Neutrophils % 72.5 %
[2020-07-04 05:39] LABS: INR 1.1; Prothrombin Time 12.8 Seconds (9.4-12.1)
[2020-07-04 05:55] LABS: Calcium 8.5 mg/dL (8.6-10.3); Phosphorous 8.1 mg/dL (2.7-4.5); Potassium 3.8 mEq/L (3.5-5.1)
[2020-07-04 07:42] LABS: Hepatitis B Surface Antibody < 3.10 mIU/mL
[2020-07-04] MEDS ORDERED: 0.9 % Sodium Chloride 250 ML IVC PRN (07:42)
[2020-07-04] MEDS ORDERED: 0.9 % Sodium Chloride 1,000 ML PRIME SCH (07:45)
[2020-07-04 07:52] LABS: Hepatitis B Surface Antigen Nonreactive (Nonreactive)
[2020-07-04] MEDS: Vancomycin Oral Soln 125 MG/2.5 ML UDC PO SCH ×3 (08:25→17:45)
[2020-07-04] MEDS: Cholecalciferol (D-3) 1,000 UNIT (25MCG) TABLET PO SCH (08:25)
[2020-07-04] MEDS ORDERED: Cefdinir 300 MG CAPSULE PO SCH (09:00)
[2020-07-04] MEDS ORDERED: Vancomycin 1 EACH in 0.9 % Sodium Chloride 250 ML IVPB PRN (10:00)
[2020-07-04] MEDS ORDERED: Cefepime HCl 2,000 MG in Water for inj. (sterile) 20 ML IVP SCH (10:00)
[2020-07-04] MEDS: Calcium Acetate 667 MG CAPSULE PO SCH ×2 (12:44→17:44)
[2020-07-04] MEDS ORDERED: Heparin 1,000 UNITS/500 mL 500 ML ONE (13:53)
[2020-07-04] MEDS ORDERED: Lidocaine/EPI 1:100k 1% 50 ML VIAL ONE (13:53)
[2020-07-04] MEDS ORDERED: *HR* Midazolam HCl 5 MG/5 ML VIAL IVP ONE (13:55)
[2020-07-04] MEDS ORDERED: *HR* FentaNYL (PF) 100 MCG/2 ML VIAL IVP ONE (13:55)
[2020-07-04] MEDS ORDERED: 0.9 % Sodium Chloride 500 ML ONE (14:00)
[2020-07-04] MEDS ORDERED: *HR* Heparin 5,000 UNIT/ML VIAL ONE (14:11)
[2020-07-04] MEDS: Cefepime HCl 1,000 MG in Water for inj. (sterile) 10 ML IVP SCH (17:44)
[2020-07-04] MEDS: traZODone 50 MG TABLET PO SCH (20:34)
[2020-07-04] MEDS: Simethicone 80 MG TAB.CHEW PO PRN (20:42)
[2020-07-05] MEDS: *HR* OxyCODONE Immed Rel 15 MG TABLET PO PRN ×5 (00:42→22:35)
[2020-07-05] MEDS: *HR* OxyCODONE Immed Rel 5 MG TABLET PO PRN ×4 (02:19→19:49)
[2020-07-05] MEDS: ALPRAZolam 1 MG TABLET PO PRN ×3 (02:20→21:21)
[2020-07-05 04:53] LABS: Basophils % 0.2 %; Eosinophils # 0.1 K/mcL (0.0-0.6); Hematocrit 27.4 % (35.3-44.9); Hemoglobin 8.7 g/dL (11.5-15.4); Lymphocytes % 11.5 %; Mean Corpuscular HGB Conc 31.8 g/dL (31.6-35.5); Mean Corpuscular Hemoglobin 29.9 pg (28.0-33.3); Mean Corpuscular Volume 94.2 fL (83.0-100.0); Mean Platelet Volume 9.1 fL (9.4-12.4); Monocytes # 0.5 K/mcL (0.0-1.3); Monocytes % 5.6 %; Neutrophils # 6.9 K/mcL (1.6-8.9); Platelet Count 456 K/mcL (140-400); Red Blood Count 2.91 M/mcL (3.82-4.97); Red Cell Distribution Width 13.9 % (11.5-14.5); Segmented Neutrophils % 79.7 %; White Blood Count 8.7 K/mcL (4.3-11.1)
[2020-07-05 05:11] LABS: Calcium 8.6 mg/dL (8.6-10.3); Potassium 4.1 mEq/L (3.5-5.1)
[2020-07-05] MEDS: Vancomycin Oral Soln 125 MG/2.5 ML UDC PO SCH ×5 (06:49→21:22)
[2020-07-05] MEDS ORDERED: 0.9 % Sodium Chloride 250 ML IVC PRN (07:06)
[2020-07-05] MEDS ORDERED: *HR* Heparin 10,000 UNIT/10 ML VIAL IV PRN (09:44)
[2020-07-05] MEDS: Calcium Acetate 667 MG CAPSULE PO SCH ×3 (10:22→17:14)
[2020-07-05] MEDS: Cholecalciferol (D-3) 1,000 UNIT (25MCG) TABLET PO SCH (10:51)
[2020-07-05] MEDS: Simethicone 80 MG TAB.CHEW PO PRN ×2 (11:01→17:22)
[2020-07-05] MEDS ORDERED: Ergocalciferol (VIT D2) 50,000 UNIT (1.25MG) CAP PO SCH (14:00)
[2020-07-05] MEDS: Cefepime HCl 1,000 MG in Water for inj. (sterile) 10 ML IVP SCH (15:11)
[2020-07-05] MEDS ORDERED: Menthol 9.1 MG LOZENGE PO PRN (17:15)
[2020-07-05] MEDS: Doxycycline 100 MG CAPSULE PO SCH (21:21)
[2020-07-05] MEDS: traZODone 50 MG TABLET PO SCH (21:21)
[2020-07-06 04:58] LABS: Basophils % 0.4 %; Eosinophils # 0.1 K/mcL (0.0-0.6); Eosinophils % 1.4 %; Hematocrit 26.8 % (35.3-44.9); Hemoglobin 8.2 g/dL (11.5-15.4); Lymphocytes # 1.2 K/mcL (0.6-4.6); Lymphocytes % 17.7 %; Mean Corpuscular HGB Conc 30.6 g/dL (31.6-35.5); Mean Corpuscular Hemoglobin 29.4 pg (28.0-33.3); Mean Corpuscular Volume 96.1 fL (83.0-100.0); Mean Platelet Volume 9.2 fL (9.4-12.4); Monocytes # 0.5 K/mcL (0.0-1.3); Monocytes % 6.7 %; Neutrophils # 5.1 K/mcL (1.6-8.9); Platelet Count 404 K/mcL (140-400); Red Blood Count 2.79 M/mcL (3.82-4.97); Red Cell Distribution Width 13.6 % (11.5-14.5); Segmented Neutrophils % 72.8 %
[2020-07-06 05:16] LABS: Calcium 8.5 mg/dL (8.6-10.3); Potassium 4.2 mEq/L (3.5-5.1)
[2020-07-06] MEDS ORDERED: 0.9 % Sodium Chloride 250 ML IVC PRN (06:31)
[2020-07-06] MEDS: Doxycycline 100 MG CAPSULE PO SCH (07:43)
[2020-07-06] MEDS: *HR* OxyCODONE Immed Rel 15 MG TABLET PO PRN ×3 (07:44→16:01)
[2020-07-06] MEDS: Calcium Acetate 667 MG CAPSULE PO SCH ×2 (07:44→11:46)
[2020-07-06] MEDS: Vancomycin Oral Soln 125 MG/2.5 ML UDC PO SCH ×2 (07:44→11:46)
[2020-07-06] MEDS: ALPRAZolam 1 MG TABLET PO PRN ×2 (07:48→16:11)
[2020-07-06] MEDS ORDERED: levoFLOXacin 750 MG TABLET PO ONE (11:22)
[2020-07-06] MEDS ORDERED: FLU Vac QV 20-21 (6Month+)/PF 0.5 ML SYRINGE IM ONE (12:12)
[2020-07-06 15:54] VITALS: BP 115/76
[2020-07-06] MEDS: Simethicone 80 MG TAB.CHEW PO PRN (16:02)
== END 2020-07-06 16:41 | disposition home or self-care (01) | DRG 674 ==
LOC: EMEROOARM 16:19 → 2ANU 16:19 → ICNU 21:43 → SUATTDRO 22:43 → ICNU 06-28 00:03 → 2ANU 07-01 19:36
PROVIDERS: ADMIT Internal Medicine; ATTEND Internal Medicine
PROC: IRPERMA (2020-07-04 13:00)

== ENCOUNTER 2021-01-18 14:04 | Inpatient (IN) ==
[2021-01-18] MEDS: 0.9 % Sodium Chloride 1,000 ML IVC SCH ×2 (14:52→16:37)
[2021-01-18 14:57] LABS: Hematocrit 29.5 % (35.3-44.9); Hemoglobin 9.9 g/dL (11.5-15.4); Mean Corpuscular HGB Conc 33.6 g/dL (31.6-35.5); Mean Corpuscular Hemoglobin 30.3 pg (28.0-33.3); Mean Corpuscular Volume 90.2 fL (83.0-100.0); Mean Platelet Volume 12.7 fL (9.4-12.4); Red Blood Count 3.27 M/mcL (3.82-4.97); White Blood Count 2.1 K/mcL (4.3-11.1)
[2021-01-18] MEDS ORDERED: Piperacillin/Tazobactam 3.375 GM in 0.9 % Sodium Chloride Mini Bag 100 ML IVPB ONE (14:58)
[2021-01-18 15:07] LABS: Bilirubin,Urine Negative (Negative); Blood,Urine Moderate (Negative); Clarity,Urine Clear (Clear); Color,Urine Light-Yellow (Yellow); Glucose,Urine (UA) Normal (Normal); Ketones,Urine Negative (Negative); Leukocyte Esterase,Urine Negative (Negative); Nitrite,Urine Negative (Negative); Protein,Urine 70 mg/dL (Neg-Trace); Specific Gravity,Urine 1.007 (1.010-1.025); Urobilinogen,Urine Normal (Normal); WBC,Urine 0-3 per hpf (0-3)
[2021-01-18 15:28] LABS: Albumin 3.4 g/dL (3.5-5.7); Albumin/Globulin Ratio 1.2 (1.1-2.2); Bilirubin,Direct 0.1 mg/dL (0.0-0.2); Bilirubin,Indirect 0.2 mg/dL (0.0-1.0); Bilirubin,Total 0.3 mg/dL (0.3-1.0); Calcium 8.3 mg/dL (8.6-10.3); Globulin 2.9 g/dL (2.4-3.5); Potassium 3.9 mEq/L (3.5-5.1); Total Protein 6.3 g/dL (6.4-8.9)
[2021-01-18] MEDS ORDERED: Isovue-300 50ML VIAL IVP ONE (15:37)
[2021-01-18 15:43] LABS: Platelet Count 29 K/mcL (140-400)
[2021-01-18 16:55] LABS: Monocytes # 0.3 K/mcL (0.0-1.3)
[2021-01-18] MEDS ORDERED: Ondansetron 4 MG/2 ML VIAL IVP ONE (16:56)
[2021-01-18] MEDS ORDERED: *HR* FentaNYL (PF) 100 MCG/2 ML VIAL IVP STA (16:57)
[2021-01-18 17:01] LABS: Large Platelets Present (Not Present); Lymphocytes # 0.1 K/mcL (0.6-4.6); Neutrophils # 1.7 K/mcL (1.6-8.9); Platelet Estimate Marked Decrease (Normal)
[2021-01-18 17:02] LABS: Hypochromasia Present (Not Present)
[2021-01-18 17:03] LABS: Ovalocytes 1+ (Not Present); Tear Drop Cells 1+ (Not Present)
[2021-01-18] MEDS ORDERED: Ondansetron 4 MG/2 ML VIAL IVP PRN (17:06)
[2021-01-18] MEDS ORDERED: Naloxone 0.4 MG/ML INJ IVP PRN (17:06)
[2021-01-18] MEDS ORDERED: Sodium Bicarbonate 150 MEQ in 0.45 % Sodium Chloride 1,000 ML IVC SCH (18:00)
[2021-01-18] MEDS: traZODone 50 MG TABLET PO SCH (20:37)
[2021-01-18] MEDS ORDERED: *HR* OxyCODONE Immed Rel 15 MG TABLET PO PRN (21:28)
[2021-01-18] MEDS: (Doxepin Hcl 10 MG Capsule) PO SCH (22:06)
[2021-01-18] MEDS: *HR* OxyCODONE Immed Rel 5 MG TABLET PO PRN (22:26)
[2021-01-19] MEDS ORDERED: Acetaminophen 325 MG TABLET PO ONE ×2 (01:46→21:51)
[2021-01-19 01:58] LABS: Hemoglobin 8.1 g/dL (11.5-15.4); Lymphocytes # 0.1 K/mcL (0.6-4.6); Mean Corpuscular HGB Conc 33.8 g/dL (31.6-35.5); Mean Corpuscular Hemoglobin 30.5 pg (28.0-33.3); Mean Corpuscular Volume 90.2 fL (83.0-100.0); Mean Platelet Volume 11.7 fL (9.4-12.4); Red Blood Count 2.66 M/mcL (3.82-4.97); Red Cell Distribution Width 13.1 % (11.5-14.5)
[2021-01-19 02:05] LABS: Platelet Count 25 K/mcL (140-400)
[2021-01-19 02:20] LABS: Calcium 7.3 mg/dL (8.6-10.3); Magnesium 1.4 mg/dL (1.6-2.6); Potassium 3.9 mEq/L (3.5-5.1)
[2021-01-19 02:35] LABS: Neutrophils # 0.8 K/mcL (1.6-8.9); Platelet Estimate Marked Decrease (Normal)
[2021-01-19 02:36] LABS: Large Platelets Present (Not Present)
[2021-01-19] MEDS ORDERED: Piperacillin/Tazobactam 3.375 GM in 0.9 % Sodium Chloride Mini Bag 100 ML IVPB SCH (06:00)
[2021-01-19] MEDS: Folic Acid 1 MG TABLET PO SCH (07:30)
[2021-01-19] MEDS ORDERED: Magnesium Sulfate 1 GM/102 ML PIGGYBACK IVPB ONE (07:32)
[2021-01-19] MEDS ORDERED: Sodium Bicarbonate 150 MEQ in 0.45 % Sodium Chloride 1,000 ML IVC SCH (10:00)
[2021-01-19] MEDS ORDERED: Sodium Bicarbonate 75 MEQ in 0.45 % Sodium Chloride 1,000 ML IVC SCH ×2 (10:04→12:42)
[2021-01-19] MEDS: Gabapentin 300 MG CAPSULE PO PRN ×3 (10:20→21:28)
[2021-01-19 11:28] LABS: Ferritin > 1500 ng/mL (10-120); Iron < 10 mcg/dL (50-170); Transferrin 127 mg/dL (203-362)
[2021-01-19 11:29] LABS: Folate > 22.3 ng/mL (3.0-16.0); Vitamin B12 1474 pg/mL (250-1100)
[2021-01-19] MEDS ORDERED: Piperacillin/Tazobactam 2.25 GM in 0.9 % Sodium Chloride Mini Bag 100 ML IVPB SCH (16:00)
[2021-01-19] MEDS: Piperacillin/Tazobactam 3.375 GM in 0.9 % Sodium Chloride Mini Bag 100 ML IVPB SCH (17:10)
[2021-01-19] MEDS: (Doxepin Hcl 10 MG Capsule) PO SCH (21:26)
[2021-01-19] MEDS: ALPRAZolam 1 MG TABLET PO PRN (21:26)
[2021-01-19] MEDS: traZODone 50 MG TABLET PO SCH (21:26)
[2021-01-20 03:37] LABS: Immature Granulocytes % 0.9 % (0-4); Lymphocytes # 0.1 K/mcL (0.6-4.6); Lymphocytes % 10.7 %; White Blood Count 1.1 K/mcL (4.3-11.1)
[2021-01-20 03:39] LABS: Hematocrit 23.1 % (35.3-44.9); Hemoglobin 7.7 g/dL (11.5-15.4); Immature Platelets 13.1 % (1.1-6.1); Mean Corpuscular HGB Conc 33.3 g/dL (31.6-35.5); Mean Corpuscular Hemoglobin 29.8 pg (28.0-33.3); Mean Corpuscular Volume 89.5 fL (83.0-100.0); Mean Platelet Volume 12.2 fL (9.4-12.4); Monocytes # 0.1 K/mcL (0.0-1.3); Monocytes % 9.8 %; Neutrophils # 0.9 K/mcL (1.6-8.9); Red Blood Count 2.58 M/mcL (3.82-4.97); Red Cell Distribution Width 13.2 % (11.5-14.5); Segmented Neutrophils % 78.6 %
[2021-01-20 03:54] LABS: Platelet Count 24 K/mcL (140-400)
[2021-01-20 04:00] LABS: Calcium 7.3 mg/dL (8.6-10.3); Magnesium 1.7 mg/dL (1.6-2.6); Phosphorous 3.7 mg/dL (2.7-4.5); Potassium 3.6 mEq/L (3.5-5.1)
[2021-01-20 04:24] LABS: Anisocytosis 1+ (Not Present); Platelet Estimate Decreased (Normal); Reactive Lymphocytes Present (Not Present); Toxic Granulation Present (Not Present)
[2021-01-20] MEDS: Piperacillin/Tazobactam 3.375 GM in 0.9 % Sodium Chloride Mini Bag 100 ML IVPB SCH ×2 (05:28→16:51)
[2021-01-20] MEDS: *HR* OxyCODONE Immed Rel 5 MG TABLET PO PRN ×2 (05:46→20:35)
[2021-01-20] MEDS ORDERED: 0.9 % Sodium Chloride 1,000 ML ONE (06:01)
[2021-01-20] MEDS: Gabapentin 300 MG CAPSULE PO PRN ×2 (08:03→16:50)
[2021-01-20] MEDS: ALPRAZolam 1 MG TABLET PO PRN ×3 (08:03→23:22)
[2021-01-20] MEDS: Folic Acid 1 MG TABLET PO SCH (08:03)
[2021-01-20 09:14] LABS: Hepatitis B Surface Antibody < 3.10 mIU/mL
[2021-01-20 09:39] LABS: Hepatitis B Surface Antigen Nonreactive (Nonreactive)
[2021-01-20] MEDS: Acetaminophen 325 MG TABLET PO PRN ×2 (11:06→23:22)
[2021-01-20] MEDS ORDERED: 0.9 % Sodium Chloride 250 ML IVC PRN (11:31)
[2021-01-20] MEDS ORDERED: 0.9 % Sodium Chloride 1,000 ML PRIME SCH (11:45)
[2021-01-20] MEDS ORDERED: Lidocaine/EPI 1:100k 1% 50 ML VIAL ONE (13:36)
[2021-01-20] MEDS ORDERED: Heparin 1,000 UNITS/500 mL 500 ML ONE (13:36)
[2021-01-20] MEDS ORDERED: *HR* Heparin 5,000 UNIT/ML VIAL ONE (13:42)
[2021-01-20] MEDS ORDERED: Albumin 25% 25gram/100mL 25 GM/100 ML IV.SOLN ONE (15:20)
[2021-01-20] MEDS ORDERED: Albumin 25% 25gram/100mL 25 GM/100 ML IV.SOLN IVPB PRN (15:47)
[2021-01-20] MEDS: traZODone 50 MG TABLET PO SCH (20:34)
[2021-01-20] MEDS: (Doxepin Hcl 10 MG Capsule) PO SCH (20:36)
[2021-01-21 00:42] LABS: Immature Granulocytes % 1.9 % (0-4); Red Cell Distribution Width 13.2 % (11.5-14.5)
[2021-01-21 00:44] LABS: Hematocrit 23.3 % (35.3-44.9); Hemoglobin 7.6 g/dL (11.5-15.4); Immature Platelets 11.9 % (1.1-6.1); Lymphocytes # 0.2 K/mcL (0.6-4.6); Lymphocytes % 17.5 %; Mean Corpuscular HGB Conc 32.6 g/dL (31.6-35.5); Mean Corpuscular Hemoglobin 29.1 pg (28.0-33.3); Mean Corpuscular Volume 89.3 fL (83.0-100.0); Monocytes # 0.1 K/mcL (0.0-1.3); Monocytes % 9.7 %; Neutrophils # 0.7 K/mcL (1.6-8.9); Red Blood Count 2.61 M/mcL (3.82-4.97); Segmented Neutrophils % 70.9 %
[2021-01-21 00:55] LABS: Platelet Count 27 K/mcL (140-400)
[2021-01-21 01:03] LABS: Calcium 7.2 mg/dL (8.6-10.3); Magnesium 1.7 mg/dL (1.6-2.6); Phosphorous 1.3 mg/dL (2.7-4.5); Potassium 3.4 mEq/L (3.5-5.1)
[2021-01-21 01:04] LABS: Platelet Estimate Marked Decrease (Normal)
[2021-01-21] MEDS: Piperacillin/Tazobactam 3.375 GM in 0.9 % Sodium Chloride Mini Bag 100 ML IVPB SCH ×2 (06:03→17:13)
[2021-01-21] MEDS ORDERED: 0.9 % Sodium Chloride 250 ML IVC PRN (08:05)
[2021-01-21] MEDS: Folic Acid 1 MG TABLET PO SCH (08:39)
[2021-01-21] MEDS ORDERED: *HR* Heparin 10,000 UNIT/10 ML VIAL IV PRN (11:25)
[2021-01-21] MEDS: Acetaminophen 325 MG TABLET PO PRN (12:04)
[2021-01-21] MEDS: ALPRAZolam 1 MG TABLET PO PRN ×2 (12:38→20:22)
[2021-01-21] MEDS: *HR* OxyCODONE Immed Rel 5 MG TABLET PO PRN ×2 (13:41→20:21)
[2021-01-21] MEDS: traZODone 50 MG TABLET PO SCH (20:20)
[2021-01-21] MEDS: (Doxepin Hcl 10 MG Capsule) PO SCH (20:22)
[2021-01-22 01:59] LABS: Eosinophils % 0.9 %; Red Cell Distribution Width 13.4 % (11.5-14.5)
[2021-01-22 02:01] LABS: Hematocrit 23.4 % (35.3-44.9); Hemoglobin 7.6 g/dL (11.5-15.4); Immature Granulocytes % 1.8 % (0-4); Immature Platelets 10.2 % (1.1-6.1); Lymphocytes # 0.2 K/mcL (0.6-4.6); Lymphocytes % 16.7 %; Mean Corpuscular HGB Conc 32.5 g/dL (31.6-35.5); Mean Corpuscular Hemoglobin 29.6 pg (28.0-33.3); Mean Corpuscular Volume 91.1 fL (83.0-100.0); Mean Platelet Volume 12.5 fL (9.4-12.4); Monocytes # 0.2 K/mcL (0.0-1.3); Monocytes % 13.2 %; Neutrophils # 0.7 K/mcL (1.6-8.9); Red Blood Count 2.57 M/mcL (3.82-4.97); Segmented Neutrophils % 67.4 %; White Blood Count 1.1 K/mcL (4.3-11.1)
[2021-01-22 02:03] LABS: Platelet Count 35 K/mcL (140-400)
[2021-01-22 02:19] LABS: Magnesium 1.6 mg/dL (1.6-2.6); Phosphorous 1.4 mg/dL (2.7-4.5); Potassium 3.8 mEq/L (3.5-5.1)
[2021-01-22 02:46] LABS: Large Platelets Present (Not Present); Platelet Estimate Decreased (Normal); Smudge Cells Present (Not Present)
[2021-01-22] MEDS: Piperacillin/Tazobactam 3.375 GM in 0.9 % Sodium Chloride Mini Bag 100 ML IVPB SCH ×2 (06:02→16:54)
[2021-01-22] MEDS: Acetaminophen 325 MG TABLET PO PRN (08:03)
[2021-01-22] MEDS: Folic Acid 1 MG TABLET PO SCH (08:03)
[2021-01-22] MEDS: ALPRAZolam 1 MG TABLET PO PRN ×2 (13:06→18:44)
[2021-01-22] MEDS: *HR* OxyCODONE Immed Rel 5 MG TABLET PO PRN ×2 (13:06→20:07)
[2021-01-22] MEDS: traZODone 50 MG TABLET PO SCH (20:08)
[2021-01-22] MEDS: (Doxepin Hcl 10 MG Capsule) PO SCH (20:09)
[2021-01-23 01:16] LABS: Eosinophils % 2.4 %
[2021-01-23 01:18] LABS: Hematocrit 24.3 % (35.3-44.9); Hemoglobin 7.6 g/dL (11.5-15.4); Immature Platelets 11.6 % (1.1-6.1); Lymphocytes # 0.3 K/mcL (0.6-4.6); Lymphocytes % 20.6 %; Mean Corpuscular HGB Conc 31.3 g/dL (31.6-35.5); Mean Corpuscular Hemoglobin 29.2 pg (28.0-33.3); Mean Corpuscular Volume 93.5 fL (83.0-100.0); Mean Platelet Volume 12.2 fL (9.4-12.4); Monocytes # 0.2 K/mcL (0.0-1.3); Monocytes % 12.7 %; Neutrophils # 0.8 K/mcL (1.6-8.9); Red Cell Distribution Width 13.4 % (11.5-14.5); Segmented Neutrophils % 64.3 %; White Blood Count 1.3 K/mcL (4.3-11.1)
[2021-01-23 01:22] LABS: Prothrombin Time 11.7 Seconds (9.4-12.1)
[2021-01-23 01:25] LABS: Platelet Count 41 K/mcL (140-400)
[2021-01-23 01:33] LABS: Calcium 7.5 mg/dL (8.6-10.3); Potassium 3.9 mEq/L (3.5-5.1)
[2021-01-23 02:50] LABS: Hypochromasia Present (Not Present); Platelet Estimate Decreased (Normal)
[2021-01-23] MEDS: Piperacillin/Tazobactam 3.375 GM in 0.9 % Sodium Chloride Mini Bag 100 ML IVPB SCH (05:52)
[2021-01-23] MEDS ORDERED: 0.9 % Sodium Chloride 250 ML IVC PRN (07:08)
[2021-01-23] MEDS ORDERED: Heparin 1,000 UNITS/500 mL 500 ML ONE (07:22)
[2021-01-23] MEDS ORDERED: Lidocaine/EPI 1:100k 1% 50 ML VIAL ONE (07:23)
[2021-01-23] MEDS: Folic Acid 1 MG TABLET PO SCH (08:11)
[2021-01-23] MEDS: ALPRAZolam 1 MG TABLET PO PRN ×3 (08:51→20:23)
[2021-01-23] MEDS: *HR* OxyCODONE Immed Rel 5 MG TABLET PO PRN ×2 (10:46→17:02)
[2021-01-23] MEDS ORDERED: Gabapentin 300 MG CAPSULE PO PRN ×2 (11:58→12:04)
[2021-01-23] MEDS ORDERED: Gabapentin 300 MG CAPSULE PO SCH (12:00)
[2021-01-23] MEDS ORDERED: *HR* Heparin 10,000 UNIT/10 ML VIAL IV PRN (13:38)
[2021-01-23] MEDS ORDERED: Amoxicillin/Clavulanate 500 MG TABLET PO SCH ×2 (17:00)
[2021-01-23] MEDS: traZODone 50 MG TABLET PO SCH (20:23)
[2021-01-23] MEDS: (Doxepin Hcl 10 MG Capsule) PO SCH (20:23)
[2021-01-23] MEDS ORDERED: Gabapentin 300 MG CAPSULE PO ONE (22:11)
[2021-01-24] MEDS: *HR* OxyCODONE Immed Rel 5 MG TABLET PO PRN ×3 (00:40→14:28)
[2021-01-24 01:16] LABS: Basophils % 0.7 %; Hemoglobin 7.7 g/dL (11.5-15.4); Immature Granulocytes % 0.7 % (0-4)
[2021-01-24 01:18] LABS: Hematocrit 23.6 % (35.3-44.9); Immature Platelets 11.9 % (1.1-6.1); Lymphocytes # 0.4 K/mcL (0.6-4.6); Lymphocytes % 23.2 %; Mean Corpuscular HGB Conc 32.6 g/dL (31.6-35.5); Mean Corpuscular Hemoglobin 29.8 pg (28.0-33.3); Mean Corpuscular Volume 91.5 fL (83.0-100.0); Mean Platelet Volume 12.9 fL (9.4-12.4); Monocytes # 0.2 K/mcL (0.0-1.3); Monocytes % 13.2 %; Neutrophils # 0.9 K/mcL (1.6-8.9); Red Blood Count 2.58 M/mcL (3.82-4.97); Segmented Neutrophils % 60.2 %; White Blood Count 1.5 K/mcL (4.3-11.1)
[2021-01-24 01:23] LABS: Platelet Count 56 K/mcL (140-400)
[2021-01-24 01:36] LABS: Calcium 7.6 mg/dL (8.6-10.3); Magnesium 1.6 mg/dL (1.6-2.6); Phosphorous 2.2 mg/dL (2.7-4.5); Potassium 3.7 mEq/L (3.5-5.1)
[2021-01-24 01:45] LABS: Hypochromasia Present (Not Present); Platelet Estimate Decreased (Normal)
[2021-01-24 06:54] VITALS: TEMP 98.4
[2021-01-24] MEDS: Folic Acid 1 MG TABLET PO SCH (08:28)
[2021-01-24] MEDS: ALPRAZolam 1 MG TABLET PO PRN ×2 (08:33→14:27)
[2021-01-24] MEDS ORDERED: Lidocaine/EPI 1:100k 1% 50 ML VIAL ONE (09:15)
[2021-01-24] MEDS ORDERED: Heparin 1,000 UNITS/500 mL 500 ML ONE (09:15)
[2021-01-24] MEDS ORDERED: 0.9 % Sodium Chloride 500 ML ONE (09:23)
[2021-01-24] MEDS ORDERED: *HR* FentaNYL (PF) 100 MCG/2 ML VIAL IVP ONE (09:40)
[2021-01-24] MEDS ORDERED: CeFAZolin Syr 2,000MG/20 ML 2,000 MG/20 ML SYRINGE IVPB ONE (09:40)
[2021-01-24] MEDS ORDERED: *HR* Midazolam HCl 5 MG/5 ML VIAL IVP ONE (09:40)
[2021-01-24] MEDS ORDERED: *HR* Midazolam HCl 2 MG/2 ML VIAL ONE (09:58)
[2021-01-24] MEDS ORDERED: *HR* Heparin 5,000 UNIT/ML VIAL ONE (10:05)
[2021-01-24] MEDS ORDERED: CeFAZolin 2,000MG/50ML DUPLEX 2,000 MG/50 ML BAG IVPB ONE (10:15)
[2021-01-24 11:05] VITALS: BP 133/63; PULSE 80; O2SAT 94
== END 2021-01-24 16:18 | disposition home or self-care (01) | DRG 698 ==
LOC: 2ANU 14:04 → EMEROOARM 14:04 → SUATTDRO 17:37 → 2ANU 18:03
PROVIDERS: ADMIT Internal Medicine; ATTEND Internal Medicine

== ENCOUNTER 2021-05-19 15:32 | Inpatient (IN) ==
[2021-05-19 17:54] LABS: Bacteria,Urine Moderate per hpf (None-Few); Bilirubin,Urine Negative (Negative); Blood,Urine Small (Negative); Clarity,Urine Turbid (Clear); Color,Urine Yellow (Yellow); Glucose,Urine (UA) Normal (Normal); Ketones,Urine Negative (Negative); Leukocyte Esterase,Urine Large (Negative); Mucus,Urine Few per lpf (None-Few); Nitrite,Urine Negative (Negative); PH,Urine 6.5 pH Units (5.0-8.0); Protein,Urine 200 mg/dL (Neg-Trace); RBC,Urine 30-50 per hpf (0-3); Specific Gravity,Urine 1.014 (1.010-1.025); Squamous Epithelial Cell,Urine Few per hpf (None-Few); Urobilinogen,Urine Normal (Normal); WBC,Urine TNTC per hpf (0-3)
[2021-05-19 18:09] LABS: Adenovirus Not Detected (Not Detect); Bordetella Pertussis Not Detected (Not Detect); Chlamydophila pneumoniae Not Detected (Not Detect); Coronavirus 229E Not Detected (Not Detect); Coronavirus HKU1 Not Detected (Not Detect); Coronavirus NL63 Not Detected (Not Detect); Coronavirus OC43 Not Detected (Not Detect); Human Metapneumovirus Not Detected (Not Detect); Human Rhinovirus/Enterovirus DETECTED (Not Detect); Influenza A Subtype 2009 H1 Not Detected (Not Detect); Influenza B Not Detected (Not Detect); Parainfluenza Virus 1 Not Detected (Not Detect); Parainfluenza Virus 2 Not Detected (Not Detect); Parainfluenza Virus 3 Not Detected (Not Detect); Parainfluenza Virus 4 Not Detected (Not Detect); Respiratory Syncytial Virus Not Detected (Not Detect); SARS-CoV-2 Not Detected (Not Detect)
[2021-05-19 18:10] LABS: Mycoplasma pneumoniae Not Detected (Not Detect)
[2021-05-19] MEDS ORDERED: Acetaminophen 325 MG TABLET PO ONE (18:22)
[2021-05-19 18:38] LABS: Monocytes % 6.5 %
[2021-05-19 18:40] LABS: Basophils % 0.1 %; Eosinophils # 0.1 K/mcL (0.0-0.6); Eosinophils % 0.8 %; Hematocrit 17.1 % (35.3-44.9); Immature Granulocytes % 0.2 % (0-4); Lymphocytes # 0.6 K/mcL (0.6-4.6); Mean Corpuscular HGB Conc 29.8 g/dL (31.6-35.5); Mean Corpuscular Hemoglobin 27.3 pg (28.0-33.3); Mean Corpuscular Volume 91.4 fL (83.0-100.0); Mean Platelet Volume 10.5 fL (9.4-12.4); Monocytes # 0.5 K/mcL (0.0-1.3); Neutrophils # 7.1 K/mcL (1.6-8.9); Platelet Count 192 K/mcL (140-400); Red Blood Count 1.87 M/mcL (3.82-4.97); Red Cell Distribution Width 16.7 % (11.5-14.5); Segmented Neutrophils % 85.4 %; White Blood Count 8.3 K/mcL (4.3-11.1)
[2021-05-19 18:48] LABS: INR 1.3; Prothrombin Time 14.2 Seconds (9.4-12.1)
[2021-05-19 18:54] LABS: Hemoglobin 5.1 g/dL (11.5-15.4)
[2021-05-19 18:56] LABS: Albumin 2.7 g/dL (3.5-5.7); Albumin/Globulin Ratio 0.7 (1.1-2.2); Bilirubin,Total 0.4 mg/dL (0.3-1.0); Calcium 8.2 mg/dL (8.6-10.3); Globulin 3.9 g/dL (2.4-3.5); Potassium 3.7 mEq/L (3.5-5.1); Total Protein 6.6 g/dL (6.4-8.9)
[2021-05-19 19:46] LABS: Hypochromasia Present (Not Present); Platelet Estimate Normal (Normal)
[2021-05-19] MEDS ORDERED: cefTRIAXone 1,000 MG in 0.9 % Sodium Chloride Mini Bag 100 ML IVPB ONE (20:32)
[2021-05-19] MEDS ORDERED: Ondansetron 4 MG/2 ML VIAL IVP PRN (22:37)
[2021-05-19] MEDS ORDERED: Naloxone 0.4 MG/ML INJ IVP PRN (22:37)
[2021-05-20] MEDS ORDERED: 0.9 % Sodium Chloride 250 ML ONE (01:06)
[2021-05-20] MEDS: Ertapenem 1,000 MG in 0.9 % Sodium Chloride Mini Bag 100 ML IVPB SCH (01:43)
[2021-05-20] MEDS: *HR* Heparin 5,000 UNIT/ML VIAL SQ SCH ×3 (05:13→21:47)
[2021-05-20 06:30] LABS: Hematocrit 22.9 % (35.3-44.9); Hemoglobin 7.1 g/dL (11.5-15.4); Immature Reticulocyte % 8.6 % (11.0-38.0); Mean Corpuscular Hemoglobin 27.7 pg (28.0-33.3); Mean Corpuscular Volume 89.5 fL (83.0-100.0); Mean Platelet Volume 10.8 fL (9.4-12.4); Platelet Count 179 K/mcL (140-400); Red Blood Count 2.56 M/mcL (3.82-4.97); Red Cell Distribution Width 15.2 % (11.5-14.5); Retculocyte # 0.04 M/mcL (0.05-0.10); Reticulocyte % 1.4 % (1.6-2.8); White Blood Count 7.4 K/mcL (4.3-11.1)
[2021-05-20] MEDS ORDERED: Vancomycin 1,250 MG/262.5 ML IV.SOLN IVPB ONE (07:00)
[2021-05-20 07:04] LABS: BUN/Creatinine Ratio 7 (6-26); Blood Urea Nitrogen 45 mg/dL (6-20); Calcium 8.1 mg/dL (8.6-10.3); Carbon Dioxide 23 mEq/L (23-29); Chloride 99 mEq/L (98-107); Ferritin 279 ng/mL (10-120); Glucose 117 mg/dL (70-105); Iron < 10 mcg/dL (50-170); Osmolality,Calculated 289 (280-300); Potassium 3.5 mEq/L (3.5-5.1); Sodium 133 mEq/L (136-145); Thyroid Stimulating Hormone 1.082 mcIU/mL (0.340-5.600); eGFR For African Americans 8 (> 60); eGFR For Non-African Americans 7 (> 60)
[2021-05-20 07:20] LABS: Folate > 22.3 ng/mL (3.0-16.0); Vitamin B12 813 pg/mL (250-1100)
[2021-05-20] MEDS ORDERED: *HR* Heparin 10,000 UNIT/10 ML VIAL IV PRN (07:55)
[2021-05-20] MEDS ORDERED: 0.9 % Sodium Chloride 250 ML IVC PRN (07:55)
[2021-05-20] MEDS ORDERED: 0.9 % Sodium Chloride 1,000 ML PRIME SCH (08:00)
[2021-05-20] MEDS ORDERED: Ondansetron 4 MG/2 ML VIAL IVP PRN (09:16)
[2021-05-20] MEDS: *HR* HYDROmorphone 2 MG/ML SYRINGE IVP PRN ×2 (09:35→14:48)
[2021-05-20 10:03] LABS: Acinetobacter baumannii by PCR Not Detected (Not Detect); Enterobacter cloacae Cmplx PCR Not Detected (Not Detect); Enterococcus by PCR Not Detected (Not Detect); Escherichia coli by PCR Not Detected (Not Detect); Klebsiella oxytoca by PCR Not Detected (Not Detect); Klebsiella pneumoniae by PCR Not Detected (Not Detect); Proteus by PCR Not Detected (Not Detect); Staphylococcus aureus by PCR Not Detected (Not Detect); Staphylococcus by PCR Not Detected (Not Detect); Streptococcus agalactiae(B)PCR Not Detected (Not Detect); Streptococcus by PCR DETECTED (Not Detect); Streptococcus pneumoniae PCR Not Detected (Not Detect); Streptococcus pyogenes (A) PCR Not Detected (Not Detect); blaKPC Carbapenem-Resist Gene Not Detected (Not Detect)
[2021-05-20 10:04] LABS: Candida albicans by PCR Not Detected (Not Detect); Candida glabrata by PCR Not Detected (Not Detect); Candida krusei by PCR Not Detected (Not Detect); Candida parapsilosis by PCR Not Detected (Not Detect); Candida tropicalis by PCR Not Detected (Not Detect); Pseudomonas aeruginosa by PCR Not Detected (Not Detect); Serratia marcescens by PCR DETECTED (Not Detect)
[2021-05-20] MEDS ORDERED: *HR* Alteplase (Cathflo) 2 MG VIAL IVP ONE ×2 (10:58→12:30)
[2021-05-20 11:07] LABS: Hepatitis B Surface Antibody < 3.10 mIU/mL
[2021-05-20 14:11] LABS: Hepatitis B Surface Antigen Reactive (Nonreactive)
[2021-05-21] MEDS ORDERED: ALPRAZolam 1 MG TABLET PO ONE (00:01)
[2021-05-21] MEDS: Ertapenem 1,000 MG in 0.9 % Sodium Chloride Mini Bag 100 ML IVPB SCH (00:17)
[2021-05-21 01:55] LABS: Basophils % 0.4 %; Eosinophils # 0.1 K/mcL (0.0-0.6); Eosinophils % 1.7 %; Hematocrit 23.5 % (35.3-44.9); Hemoglobin 7.5 g/dL (11.5-15.4); Immature Granulocytes % 0.3 % (0-4); Lymphocytes # 1.1 K/mcL (0.6-4.6); Lymphocytes % 15.7 %; Mean Corpuscular HGB Conc 31.9 g/dL (31.6-35.5); Mean Corpuscular Hemoglobin 28.6 pg (28.0-33.3); Mean Corpuscular Volume 89.7 fL (83.0-100.0); Mean Platelet Volume 10.3 fL (9.4-12.4); Monocytes # 0.6 K/mcL (0.0-1.3); Monocytes % 8.3 %; Neutrophils # 5.2 K/mcL (1.6-8.9); Platelet Count 181 K/mcL (140-400); Red Blood Count 2.62 M/mcL (3.82-4.97); Red Cell Distribution Width 15.7 % (11.5-14.5); Segmented Neutrophils % 73.6 %
[2021-05-21 02:13] LABS: Calcium 8.3 mg/dL (8.6-10.3); Potassium 3.7 mEq/L (3.5-5.1)
[2021-05-21] MEDS: *HR* HYDROmorphone 2 MG/ML SYRINGE IVP PRN ×3 (03:32→20:32)
[2021-05-21] MEDS: *HR* Heparin 5,000 UNIT/ML VIAL SQ SCH ×3 (06:21→20:32)
[2021-05-21] MEDS: *HR* OxyCODONE Immed Rel 5 MG TABLET PO PRN ×2 (16:57→23:26)
[2021-05-22] MEDS: *HR* HYDROmorphone 2 MG/ML SYRINGE IVP PRN ×4 (01:23→20:19)
[2021-05-22] MEDS: Ertapenem 1,000 MG in 0.9 % Sodium Chloride Mini Bag 100 ML IVPB SCH (01:34)
[2021-05-22 03:18] LABS: Basophils % 0.3 %; Eosinophils # 0.2 K/mcL (0.0-0.6); Eosinophils % 1.7 %; Hematocrit 27.3 % (35.3-44.9); Hemoglobin 8.3 g/dL (11.5-15.4); Immature Granulocytes % 0.5 % (0-4); Lymphocytes # 1.2 K/mcL (0.6-4.6); Lymphocytes % 13.5 %; Mean Corpuscular HGB Conc 30.4 g/dL (31.6-35.5); Mean Corpuscular Hemoglobin 27.6 pg (28.0-33.3); Mean Corpuscular Volume 90.7 fL (83.0-100.0); Monocytes # 0.6 K/mcL (0.0-1.3); Monocytes % 6.4 %; Neutrophils # 6.7 K/mcL (1.6-8.9); Platelet Count 220 K/mcL (140-400); Red Blood Count 3.01 M/mcL (3.82-4.97); Red Cell Distribution Width 15.3 % (11.5-14.5); Segmented Neutrophils % 77.6 %; White Blood Count 8.6 K/mcL (4.3-11.1)
[2021-05-22 03:32] LABS: Calcium 8.7 mg/dL (8.6-10.3); Potassium 4.3 mEq/L (3.5-5.1)
[2021-05-22] MEDS: *HR* Heparin 5,000 UNIT/ML VIAL SQ SCH ×3 (05:26→20:18)
[2021-05-22] MEDS: *HR* OxyCODONE Immed Rel 5 MG TABLET PO PRN ×3 (05:26→18:12)
[2021-05-22] MEDS ORDERED: 0.9 % Sodium Chloride 1,000 ML PRIME SCH (08:45)
[2021-05-22] MEDS ORDERED: 0.9 % Sodium Chloride 250 ML IVC PRN (08:45)
[2021-05-22] MEDS ORDERED: *HR* Heparin 10,000 UNIT/10 ML VIAL IV PRN (08:45)
[2021-05-22] MEDS ORDERED: Furosemide 20 MG TABLET PO PRN (11:34)
[2021-05-22] MEDS ORDERED: ALPRAZolam 1 MG TABLET PO PRN (11:34)
[2021-05-22] MEDS ORDERED: Cefepime HCl 1,000 MG in 0.9 % Sodium Chloride Mini Bag 100 ML IVPB SCH ×2 (12:00)
[2021-05-22] MEDS: hydrALAZINE 25 MG TABLET PO SCH ×2 (15:21→20:19)
[2021-05-22] MEDS ORDERED: Vancomycin 500 MG in 0.9 % Sodium Chloride Mini Bag 100 ML IVPB ONE (16:00)
[2021-05-22] MEDS: Cefepime HCl 1,000 MG in 0.9 % Sodium Chloride Mini Bag 100 ML IVPB SCH (17:54)
[2021-05-22] MEDS ORDERED: (Doxepin Hcl 10 MG Capsule) PO SCH (21:00)
[2021-05-22] MEDS ORDERED: traZODone 50 MG TABLET PO SCH (21:00)
[2021-05-23 01:36] LABS: Basophils % 0.3 %; Eosinophils # 0.1 K/mcL (0.0-0.6); Eosinophils % 1.6 %; Hematocrit 28.9 % (35.3-44.9); Hemoglobin 8.9 g/dL (11.5-15.4); Immature Granulocytes % 0.5 % (0-4); Lymphocytes # 1.3 K/mcL (0.6-4.6); Lymphocytes % 14.4 %; Mean Corpuscular HGB Conc 30.8 g/dL (31.6-35.5); Mean Corpuscular Volume 90.9 fL (83.0-100.0); Mean Platelet Volume 9.8 fL (9.4-12.4); Monocytes # 0.5 K/mcL (0.0-1.3); Monocytes % 5.2 %; Neutrophils # 6.9 K/mcL (1.6-8.9); Platelet Count 270 K/mcL (140-400); Red Blood Count 3.18 M/mcL (3.82-4.97); Red Cell Distribution Width 15.2 % (11.5-14.5); White Blood Count 8.8 K/mcL (4.3-11.1)
[2021-05-23 01:49] LABS: Calcium 8.6 mg/dL (8.6-10.3); Potassium 3.9 mEq/L (3.5-5.1)
[2021-05-23] MEDS: *HR* Heparin 5,000 UNIT/ML VIAL SQ SCH ×2 (05:23→14:14)
[2021-05-23] MEDS: *HR* OxyCODONE Immed Rel 5 MG TABLET PO PRN ×2 (05:31→10:54)
[2021-05-23] MEDS: hydrALAZINE 25 MG TABLET PO SCH ×2 (08:54→14:14)
[2021-05-23 13:50] LABS: Transferrin 104 mg/dL (200-400)
[2021-05-23] MEDS: *HR* HYDROmorphone 2 MG/ML SYRINGE IVP PRN (14:30)
[2021-05-23] MEDS: Cefepime HCl 1,000 MG in 0.9 % Sodium Chloride Mini Bag 100 ML IVPB SCH (18:10)
[2021-05-23 19:02] VITALS: BP 88/60; PULSE 84; TEMP 98.3; O2SAT 99
== END 2021-05-23 19:55 | disposition short-term general hospital (02) | DRG 871 ==
LOC: EMEROOARM 15:32 → 2ANU 15:32 → SUATTDRO 22:01 → 2ANU 23:36
PROVIDERS: ADMIT Student in an Organized Health Care Education/Training Program; ATTEND Student in an Organized Health Care Education/Training Program
PROC: IRFLUID (2021-05-22 12:00)

== ENCOUNTER 2021-09-26 11:52 | Inpatient (IN) ==
[2021-09-26 13:50] LABS: Basophils % 0.2 %; Eosinophils % 0.3 %; Monocytes % 4.6 %
[2021-09-26 13:52] LABS: Immature Platelets 9.8 % (1.1-6.1)
[2021-09-26] MEDS ORDERED: *HR* HYDROcodone/Acet 5/325 mg TABLET PO ONE (13:52)
[2021-09-26] MEDS ORDERED: *HR* HYDROmorphone 2 MG/ML SYRINGE IVP ONE (13:57)
[2021-09-26 14:23] LABS: Calcium 8.1 mg/dL (8.6-10.3); Potassium 4.6 mEq/L (3.5-5.1)
[2021-09-26 14:24] LABS: Hematocrit 29.7 % (35.3-44.9); Hemoglobin 9.7 g/dL (11.5-15.4); Immature Granulocytes % 0.8 % (0-4); Lymphocytes # 0.4 K/mcL (0.6-4.6); Lymphocytes % 3.2 %; Mean Corpuscular HGB Conc 32.7 g/dL (31.6-35.5); Mean Corpuscular Hemoglobin 30.1 pg (28.0-33.3); Mean Corpuscular Volume 92.2 fL (83.0-100.0); Mean Platelet Volume 12.9 fL (9.4-12.4); Monocytes # 0.6 K/mcL (0.0-1.3); Neutrophils # 10.8 K/mcL (1.6-8.9); Red Blood Count 3.22 M/mcL (3.82-4.97); Red Cell Distribution Width 14.9 % (11.5-14.5); Segmented Neutrophils % 90.9 %; White Blood Count 11.9 K/mcL (4.3-11.1)
[2021-09-26 14:25] LABS: Platelet Count 83 K/mcL (140-400)
[2021-09-26] MEDS ORDERED: 0.9 % Sodium Chloride 500 ML IVC ONE (16:35)
[2021-09-26] MEDS ORDERED: Naloxone 0.4 MG/ML INJ IVP PRN (17:17)
[2021-09-26] MEDS ORDERED: Ondansetron 4 MG/2 ML VIAL IVP PRN (17:23)
[2021-09-26] MEDS: *HR* OxyCODONE/APAP 5/325 TABLET PO PRN (19:20)
[2021-09-27 02:53] LABS: Basophils % 0.2 %; Eosinophils # 0.1 K/mcL (0.0-0.6); Eosinophils % 1.1 %; Hematocrit 29.1 % (35.3-44.9); Hemoglobin 9.6 g/dL (11.5-15.4); Immature Platelets 9.3 % (1.1-6.1); Lymphocytes # 1.3 K/mcL (0.6-4.6); Mean Corpuscular Hemoglobin 30.2 pg (28.0-33.3); Mean Corpuscular Volume 91.5 fL (83.0-100.0); Monocytes # 1.7 K/mcL (0.0-1.3); Neutrophils # 9.6 K/mcL (1.6-8.9); Red Blood Count 3.18 M/mcL (3.82-4.97); Red Cell Distribution Width 14.8 % (11.5-14.5); Segmented Neutrophils % 74.7 %; White Blood Count 12.8 K/mcL (4.3-11.1)
[2021-09-27 02:57] LABS: Platelet Count 64 K/mcL (140-400)
[2021-09-27 03:01] LABS: Calcium 8.1 mg/dL (8.6-10.3); Potassium 5.2 mEq/L (3.5-5.1)
[2021-09-27] MEDS: *HR* OxyCODONE/APAP 5/325 TABLET PO PRN ×2 (06:47→15:27)
[2021-09-27] MEDS ORDERED: 0.9 % Sodium Chloride 250 ML IVC PRN (07:35)
[2021-09-27] MEDS ORDERED: (Doxepin Hcl 10 MG Capsule) PO PRN (07:38)
[2021-09-27] MEDS ORDERED: *HR* Heparin 10,000 UNIT/10 ML VIAL IV PRN (07:43)
[2021-09-27] MEDS ORDERED: 0.9 % Sodium Chloride 1,000 ML PRIME SCH (07:45)
[2021-09-27] MEDS: Venlafaxine XR (24 HR) 150 MG CAP.ER.24H PO SCH (08:54)
[2021-09-27] MEDS: hydrALAZINE 25 MG TABLET PO SCH ×3 (08:54→20:19)
[2021-09-27 09:26] LABS: Bacteria,Urine Few per hpf (None-Few); Bilirubin,Urine Negative (Negative); Blood,Urine Small (Negative); Clarity,Urine Turbid (Clear); Color,Urine Light-Yellow (Yellow); Glucose,Urine (UA) Normal (Normal); Ketones,Urine Negative (Negative); Leukocyte Esterase,Urine Large (Negative); Mucus,Urine Few per lpf (None-Few); Nitrite,Urine Negative (Negative); Protein,Urine 50 mg/dL (Neg-Trace); Specific Gravity,Urine 1.008 (1.010-1.025); Squamous Epithelial Cell,Urine Few per hpf (None-Few); Urobilinogen,Urine Normal (Normal); WBC,Urine 50-100 per hpf (0-3)
[2021-09-27 09:41] LABS: Amphetamine Screen,Urine Negative ng/mL (Cutoff=1000); Barbiturate Screen,Urine Negative ng/mL (Cutoff=200); Benzodiazepines Screen,Urine Positive ng/mL (Cutoff=200); Cannabinoid Screen,Urine Negative ng/mL (Cutoff = 50); Cocaine Screen,Urine Positive ng/mL (Cutoff= 300); Opiate Screen,Urine Negative ng/mL (Cutoff=300); Phencyclidine Screen,Urine Negative ng/mL (Cutoff=25)
[2021-09-27 10:07] LABS: Sodium, Urine 38.3 mEq/L
[2021-09-27 10:27] LABS: Hepatitis B Surface Antibody < 3.10 mIU/mL
[2021-09-27 11:44] LABS: Hepatitis B Surface Antigen Reactive (Nonreactive)
[2021-09-27] MEDS: ALPRAZolam 1 MG TABLET PO PRN (15:27)
[2021-09-27] MEDS ORDERED: *HR* Alteplase (Cathflo) 2 MG VIAL IVP ONE (16:08)
[2021-09-27] MEDS ORDERED: cefTRIAXone 1,000 MG in 0.9 % Sodium Chloride 10 ML IVPB SCH (17:00)
[2021-09-27] MEDS: Acetaminophen 325 MG TABLET PO PRN (17:33)
[2021-09-27] MEDS ORDERED: 0.9 % Sodium Chloride 1,000 ML IVC ONE (19:35)
[2021-09-28] MEDS: *HR* OxyCODONE/APAP 5/325 TABLET PO PRN ×4 (00:21→20:04)
[2021-09-28 00:35] LABS: Mean Corpuscular HGB Conc 33.5 g/dL (31.6-35.5); Mean Corpuscular Hemoglobin 30.2 pg (28.0-33.3)
[2021-09-28 00:37] LABS: Basophils % 0.1 %; Hematocrit 24.2 % (35.3-44.9); Hemoglobin 8.1 g/dL (11.5-15.4); Immature Granulocytes % 5.5 % (0-4); Immature Platelets 6.2 % (1.1-6.1); Lymphocytes # 0.6 K/mcL (0.6-4.6); Lymphocytes % 3.3 %; Mean Corpuscular Volume 90.3 fL (83.0-100.0); Mean Platelet Volume 11.9 fL (9.4-12.4); Monocytes # 0.8 K/mcL (0.0-1.3); Monocytes % 4.6 %; Neutrophils # 14.8 K/mcL (1.6-8.9); Platelet Count 53 K/mcL (140-400); Red Blood Count 2.68 M/mcL (3.82-4.97); Red Cell Distribution Width 14.6 % (11.5-14.5); Segmented Neutrophils % 86.5 %; White Blood Count 17.1 K/mcL (4.3-11.1)
[2021-09-28 00:52] LABS: Calcium 7.8 mg/dL (8.6-10.3); Potassium 4.1 mEq/L (3.5-5.1)
[2021-09-28 00:59] LABS: Platelet Estimate Decreased (Normal); Polychromasia 1+ (Not Present)
[2021-09-28] MEDS ORDERED: 0.9 % Sodium Chloride 1,000 ML IVC ONE (01:40)
[2021-09-28] MEDS ORDERED: 0.9 % Sodium Chloride 250 ML IVC PRN (07:31)
[2021-09-28] MEDS ORDERED: *HR* Heparin 10,000 UNIT/10 ML VIAL IV PRN (07:37)
[2021-09-28 08:47] LABS: CTX-M ESBL Gene Not Detected (Not Detect); IMP Carbapenem-Resist Gene Not Detected (Not Detect); NDM Carbapenem-Resist Gene Not Detected (Not Detect); OXA-48-like Carbap-Resist Gene Not Detected (Not Detect); VIM Carbapenem-Resist Gene Not Detected (Not Detect); blaKPC Carbapenem-Resist Gene Not Detected (Not Detect); mcr-1 Colistin-Resist Gene Not Detected (Not Detect); mecA/C & MREJ (MRSA) Gene Not Detected (Not Detect)
[2021-09-28 08:48] LABS: A.calcoaceticus-baumannii cplx Not Detected (Not Detect); Bacteroides fragilis by PCR Not Detected (Not Detect); Candida albicans by PCR Not Detected (Not Detect); Candida auris by PCR Not Detected (Not Detect); Candida glabrata by PCR Not Detected (Not Detect); Candida krusei by PCR Not Detected (Not Detect); Candida parapsilosis by PCR Not Detected (Not Detect); Candida tropicalis by PCR Not Detected (Not Detect); Crypto. neoformans/gattii PCR Not Detected (Not Detect); Enterobacter cloacae Cmplx PCR DETECTED (Not Detect); Enterococcus faecalis by PCR Not Detected (Not Detect); Enterococcus faecium by PCR Not Detected (Not Detect); Escherichia coli by PCR Not Detected (Not Detect); Klebs. pneumoniae group by PCR Not Detected (Not Detect); Klebsiella aerogenes by PCR Not Detected (Not Detect); Klebsiella oxytoca by PCR Not Detected (Not Detect); Proteus by PCR Not Detected (Not Detect); Pseudomonas aeruginosa by PCR Not Detected (Not Detect); Salmonella species by PCR Not Detected (Not Detect); Serratia marcescens by PCR Not Detected (Not Detect); Staph epidermidis by PCR Not Detected (Not Detect); Staph lugdunensis by PCR Not Detected (Not Detect); Staphylococcus aureus by PCR DETECTED (Not Detect); Stenotrophomonas maltophilia Not Detected (Not Detect); Streptococcus agalactiae(B)PCR Not Detected (Not Detect); Streptococcus by PCR DETECTED (Not Detect); Streptococcus pneumoniae PCR Not Detected (Not Detect); Streptococcus pyogenes (A) PCR Not Detected (Not Detect)
[2021-09-28] MEDS ORDERED: Perflutren Lipid Microsphere 1.3 ML in 0.9 % Sodium Chloride 8.7 ML IVP PRN (08:55)
[2021-09-28] MEDS: Venlafaxine XR (24 HR) 150 MG CAP.ER.24H PO SCH (09:28)
[2021-09-28] MEDS: ALPRAZolam 1 MG TABLET PO PRN ×2 (09:28→20:05)
[2021-09-28] MEDS: hydrALAZINE 25 MG TABLET PO SCH ×3 (09:29→20:04)
[2021-09-28] MEDS ORDERED: Cefepime HCl 1,000 MG in 0.9 % Sodium Chloride 10 ML IVP SCH ×2 (14:00→16:00)
[2021-09-28] MEDS ORDERED: Heparin 1,000 UNITS/500 mL 500 ML ONE (14:56)
[2021-09-28] MEDS ORDERED: *HR* Heparin 5,000 UNIT/ML VIAL ONE (14:59)
[2021-09-28] MEDS ORDERED: levoFLOXacin 500 MG TABLET PO SCH (15:15)
[2021-09-28] MEDS ORDERED: Cefepime HCl 2,000 MG in 0.9 % Sodium Chloride 10 ML IVP SCH (16:00)
[2021-09-29] MEDS: *HR* OxyCODONE/APAP 5/325 TABLET PO PRN ×4 (00:49→21:27)
[2021-09-29] MEDS: traZODone 50 MG TABLET PO PRN (00:49)
[2021-09-29] MEDS: ALPRAZolam 1 MG TABLET PO PRN ×2 (04:10→15:48)
[2021-09-29 06:38] LABS: Calcium 7.9 mg/dL (8.6-10.3); Potassium 4.1 mEq/L (3.5-5.1)
[2021-09-29] MEDS ORDERED: 0.9 % Sodium Chloride 250 ML IVC PRN (07:35)
[2021-09-29] MEDS ORDERED: *HR* Heparin 10,000 UNIT/10 ML VIAL IV PRN (07:51)
[2021-09-29] MEDS ORDERED: 0.9 % Sodium Chloride 500 ML ONE ×2 (08:32→08:55)
[2021-09-29] MEDS ORDERED: *HR* Midazolam HCl 2 MG/2 ML VIAL ONE (08:55)
[2021-09-29] MEDS ORDERED: *HR* FentaNYL (PF) 100 MCG/2 ML VIAL ONE (08:55)
[2021-09-29] MEDS ORDERED: *HR* Midazolam HCl 2 MG/2 ML VIAL IVP ONE (08:56)
[2021-09-29] MEDS ORDERED: *HR* FentaNYL (PF) 100 MCG/2 ML VIAL IVP ONE (08:57)
[2021-09-29] MEDS ORDERED: CeFAZolin 2 GM/100 ML BAG IVPB SCH (09:00)
[2021-09-29] MEDS ORDERED: Isovue-300 50ML VIAL IVP ONE (09:06)
[2021-09-29] MEDS: hydrALAZINE 25 MG TABLET PO SCH ×3 (09:37→19:36)
[2021-09-29 12:40] LABS: Hemoglobin 7.7 g/dL (11.5-15.4)
[2021-09-29 12:42] LABS: Hematocrit 23.6 % (35.3-44.9); Mean Corpuscular HGB Conc 32.6 g/dL (31.6-35.5); Mean Corpuscular Hemoglobin 29.7 pg (28.0-33.3); Mean Corpuscular Volume 91.1 fL (83.0-100.0); Mean Platelet Volume 12.5 fL (9.4-12.4); Red Blood Count 2.59 M/mcL (3.82-4.97); Red Cell Distribution Width 14.6 % (11.5-14.5); White Blood Count 10.2 K/mcL (4.3-11.1)
[2021-09-29 12:43] LABS: Platelet Count 59 K/mcL (140-400)
[2021-09-29] MEDS: Venlafaxine XR (24 HR) 150 MG CAP.ER.24H PO SCH (14:00)
[2021-09-29 14:04] LABS: Lymphocytes # 0.8 K/mcL (0.6-4.6); Monocytes # 0.4 K/mcL (0.0-1.3); Platelet Estimate Slight Decrease (Normal)
[2021-09-29] MEDS: ceFAZolin 1,000 MG in 0.9 % Sodium Chloride 10 ML IVP SCH (15:49)
[2021-09-29] MEDS ORDERED: levoFLOXacin 750 MG TABLET PO ONE (16:00)
[2021-09-30] MEDS: *HR* OxyCODONE/APAP 5/325 TABLET PO PRN ×4 (05:49→23:46)
[2021-09-30 06:07] LABS: Basophils % 0.2 %; Hematocrit 23.9 % (35.3-44.9); Immature Granulocytes % 1.4 % (0-4)
[2021-09-30 06:09] LABS: Eosinophils % 0.3 %; Hemoglobin 7.7 g/dL (11.5-15.4); Immature Platelets 9.4 % (1.1-6.1); Lymphocytes # 0.5 K/mcL (0.6-4.6); Lymphocytes % 4.9 %; Mean Corpuscular HGB Conc 32.2 g/dL (31.6-35.5); Mean Corpuscular Hemoglobin 29.7 pg (28.0-33.3); Mean Corpuscular Volume 92.3 fL (83.0-100.0); Mean Platelet Volume 12.9 fL (9.4-12.4); Monocytes # 0.5 K/mcL (0.0-1.3); Monocytes % 4.4 %; Neutrophils # 9.7 K/mcL (1.6-8.9); Red Blood Count 2.59 M/mcL (3.82-4.97); Red Cell Distribution Width 14.7 % (11.5-14.5); Segmented Neutrophils % 88.8 %; White Blood Count 10.9 K/mcL (4.3-11.1)
[2021-09-30 06:14] LABS: Platelet Count 63 K/mcL (140-400)
[2021-09-30 06:29] LABS: Albumin 2.5 g/dL (3.5-5.7); Albumin/Globulin Ratio 0.9 (1.1-2.2); Bilirubin,Total 0.7 mg/dL (0.3-1.0); Globulin 2.9 g/dL (2.4-3.5); Potassium 3.9 mEq/L (3.5-5.1); Total Protein 5.4 g/dL (6.4-8.9)
[2021-09-30] MEDS: Venlafaxine XR (24 HR) 150 MG CAP.ER.24H PO SCH (09:16)
[2021-09-30] MEDS: ALPRAZolam 1 MG TABLET PO PRN ×4 (09:16→22:26)
[2021-09-30] MEDS: hydrALAZINE 25 MG TABLET PO SCH ×3 (09:16→22:31)
[2021-09-30] MEDS: ceFAZolin 1,000 MG in 0.9 % Sodium Chloride 10 ML IVP SCH (16:03)
[2021-09-30] MEDS: traZODone 50 MG TABLET PO PRN ×2 (22:31)
[2021-10-01 03:42] LABS: Albumin 2.3 g/dL (3.5-5.7); Albumin/Globulin Ratio 0.7 (1.1-2.2); Basophils % 0.1 %; Bilirubin,Total 0.4 mg/dL (0.3-1.0); Eosinophils # 0.1 K/mcL (0.0-0.6); Eosinophils % 0.8 %; Globulin 3.4 g/dL (2.4-3.5); Hematocrit 21.8 % (35.3-44.9); Hemoglobin 7.1 g/dL (11.5-15.4); Immature Granulocytes % 1.1 % (0-4); Lymphocytes # 0.9 K/mcL (0.6-4.6); Lymphocytes % 6.6 %; Mean Corpuscular HGB Conc 32.6 g/dL (31.6-35.5); Mean Corpuscular Hemoglobin 30.3 pg (28.0-33.3); Mean Corpuscular Volume 93.2 fL (83.0-100.0); Mean Platelet Volume 12.1 fL (9.4-12.4); Monocytes # 0.6 K/mcL (0.0-1.3); Monocytes % 4.5 %; Neutrophils # 12.1 K/mcL (1.6-8.9); Potassium 3.8 mEq/L (3.5-5.1); Red Blood Count 2.34 M/mcL (3.82-4.97); Red Cell Distribution Width 14.7 % (11.5-14.5); Segmented Neutrophils % 86.9 %; Total Protein 5.7 g/dL (6.4-8.9); White Blood Count 13.9 K/mcL (4.3-11.1)
[2021-10-01 03:43] LABS: Platelet Count 91 K/mcL (140-400)
[2021-10-01] MEDS: GuaiFENesin/Codeine Oral Soln 5 ML UDC PO PRN (03:44)
[2021-10-01] MEDS: *HR* OxyCODONE/APAP 5/325 TABLET PO PRN ×4 (03:46→20:56)
[2021-10-01] MEDS: ALPRAZolam 1 MG TABLET PO PRN ×3 (04:29→20:56)
[2021-10-01] MEDS: Venlafaxine XR (24 HR) 150 MG CAP.ER.24H PO SCH (07:49)
[2021-10-01] MEDS: hydrALAZINE 25 MG TABLET PO SCH ×3 (07:50→20:56)
[2021-10-01 10:30] LABS: A.calcoaceticus-baumannii cplx Not Detected (Not Detect); Bacteroides fragilis by PCR Not Detected (Not Detect); Candida albicans by PCR Not Detected (Not Detect); Candida auris by PCR Not Detected (Not Detect); Candida glabrata by PCR Not Detected (Not Detect); Candida krusei by PCR Not Detected (Not Detect); Candida parapsilosis by PCR Not Detected (Not Detect); Candida tropicalis by PCR Not Detected (Not Detect); Crypto. neoformans/gattii PCR Not Detected (Not Detect); Enterobacter cloacae Cmplx PCR Not Detected (Not Detect); Enterobacterales by PCR Not Detected (Not Detect); Enterococcus faecalis by PCR Not Detected (Not Detect); Enterococcus faecium by PCR Not Detected (Not Detect); Escherichia coli by PCR Not Detected (Not Detect); Klebs. pneumoniae group by PCR Not Detected (Not Detect); Klebsiella aerogenes by PCR Not Detected (Not Detect); Klebsiella oxytoca by PCR Not Detected (Not Detect); Proteus by PCR Not Detected (Not Detect); Pseudomonas aeruginosa by PCR Not Detected (Not Detect); Salmonella species by PCR Not Detected (Not Detect); Serratia marcescens by PCR Not Detected (Not Detect); Staph epidermidis by PCR Not Detected (Not Detect); Staph lugdunensis by PCR Not Detected (Not Detect); Staphylococcus aureus by PCR DETECTED (Not Detect); Stenotrophomonas maltophilia Not Detected (Not Detect); Streptococcus agalactiae(B)PCR Not Detected (Not Detect); Streptococcus by PCR Not Detected (Not Detect); Streptococcus pneumoniae PCR Not Detected (Not Detect); Streptococcus pyogenes (A) PCR Not Detected (Not Detect); mecA/C & MREJ (MRSA) Gene Not Detected (Not Detect)
[2021-10-01] MEDS: ceFAZolin 1,000 MG in 0.9 % Sodium Chloride 10 ML IVP SCH (15:25)
[2021-10-01] MEDS: levoFLOXacin 500 MG TABLET PO SCH (15:25)
[2021-10-01] MEDS: traZODone 50 MG TABLET PO PRN (20:57)
[2021-10-02] MEDS: Acetaminophen 325 MG TABLET PO PRN ×2 (04:06→20:32)
[2021-10-02] MEDS: *HR* OxyCODONE/APAP 5/325 TABLET PO PRN ×4 (04:07→19:58)
[2021-10-02 05:18] LABS: Basophils % 0.1 %; Eosinophils # 0.1 K/mcL (0.0-0.6); Eosinophils % 0.3 %; Hematocrit 21.4 % (35.3-44.9); Hemoglobin 6.8 g/dL (11.5-15.4); Lymphocytes # 0.7 K/mcL (0.6-4.6); Lymphocytes % 3.8 %; Mean Corpuscular HGB Conc 31.8 g/dL (31.6-35.5); Mean Corpuscular Hemoglobin 30.6 pg (28.0-33.3); Mean Corpuscular Volume 96.4 fL (83.0-100.0); Mean Platelet Volume 11.8 fL (9.4-12.4); Monocytes # 0.5 K/mcL (0.0-1.3); Monocytes % 2.6 %; Neutrophils # 17.3 K/mcL (1.6-8.9); Platelet Count 117 K/mcL (140-400); Red Blood Count 2.22 M/mcL (3.82-4.97); Red Cell Distribution Width 15.1 % (11.5-14.5); Segmented Neutrophils % 92.2 %; White Blood Count 18.8 K/mcL (4.3-11.1)
[2021-10-02 05:33] LABS: Alanine Aminotransferase < 3 Units/L (7-52); Albumin 2.4 g/dL (3.5-5.7); Albumin/Globulin Ratio 0.6 (1.1-2.2); Alkaline Phosphatase 157 Units/L (34-104); Aspartate Amino Transferase 9 Units/L (13-39); BUN/Creatinine Ratio 8 (6-26); Bilirubin,Total 0.5 mg/dL (0.3-1.0); Blood Urea Nitrogen 36 mg/dL (6-20); C-Reactive Protein 268 mg/L (Less than 10); Carbon Dioxide 22 mEq/L (23-29); Chloride 97 mEq/L (98-107); Globulin 3.8 g/dL (2.4-3.5); Glucose 96 mg/dL (70-105); Osmolality,Calculated 276 (280-300); Potassium 4.2 mEq/L (3.5-5.1); Sodium 129 mEq/L (136-145); Total Protein 6.2 g/dL (6.4-8.9); eGFR For African Americans 12 (> 60); eGFR For Non-African Americans 10 (> 60)
[2021-10-02] MEDS ORDERED: 0.9 % Sodium Chloride 250 ML IVC SCH (08:00)
[2021-10-02] MEDS ORDERED: 0.9 % Sodium Chloride 250 ML IVC PRN (08:01)
[2021-10-02] MEDS ORDERED: *HR* Heparin 10,000 UNIT/10 ML VIAL IV PRN (08:01)
[2021-10-02] MEDS: hydrALAZINE 25 MG TABLET PO SCH ×3 (09:32→19:58)
[2021-10-02] MEDS: Venlafaxine XR (24 HR) 150 MG CAP.ER.24H PO SCH (09:32)
[2021-10-02] MEDS: ALPRAZolam 1 MG TABLET PO PRN ×3 (09:39→19:58)
[2021-10-02] MEDS: ceFAZolin 1,000 MG in 0.9 % Sodium Chloride 10 ML IVP SCH (15:30)
[2021-10-02] MEDS: GuaiFENesin/Codeine Oral Soln 5 ML UDC PO PRN (19:57)
[2021-10-02] MEDS: traZODone 50 MG TABLET PO PRN (19:59)
[2021-10-03] MEDS: *HR* OxyCODONE/APAP 5/325 TABLET PO PRN ×4 (04:48→20:40)
[2021-10-03] MEDS: ALPRAZolam 1 MG TABLET PO PRN ×3 (04:48→22:26)
[2021-10-03] MEDS: GuaiFENesin/Codeine Oral Soln 5 ML UDC PO PRN ×3 (05:17→22:35)
[2021-10-03 05:51] LABS: Basophils % 0.2 %; Eosinophils # 0.1 K/mcL (0.0-0.6); Eosinophils % 0.6 %; Hematocrit 24.2 % (35.3-44.9); Hemoglobin 7.6 g/dL (11.5-15.4); Immature Granulocytes % 1.4 % (0-4); Lymphocytes % 5.5 %; Mean Corpuscular HGB Conc 31.4 g/dL (31.6-35.5); Mean Corpuscular Hemoglobin 29.9 pg (28.0-33.3); Mean Corpuscular Volume 95.3 fL (83.0-100.0); Mean Platelet Volume 11.6 fL (9.4-12.4); Monocytes # 0.7 K/mcL (0.0-1.3); Monocytes % 3.9 %; Neutrophils # 16.7 K/mcL (1.6-8.9); Platelet Count 142 K/mcL (140-400); Red Blood Count 2.54 M/mcL (3.82-4.97); Red Cell Distribution Width 15.6 % (11.5-14.5); Segmented Neutrophils % 88.4 %; White Blood Count 18.9 K/mcL (4.3-11.1)
[2021-10-03 06:14] LABS: Alanine Aminotransferase < 3 Units/L (7-52); Albumin 2.4 g/dL (3.5-5.7); Albumin/Globulin Ratio 0.7 (1.1-2.2); Alkaline Phosphatase 159 Units/L (34-104); Aspartate Amino Transferase 12 Units/L (13-39); BUN/Creatinine Ratio 8 (6-26); Bilirubin,Total 0.4 mg/dL (0.3-1.0); Blood Urea Nitrogen 28 mg/dL (6-20); Calcium 8.1 mg/dL (8.6-10.3); Carbon Dioxide 24 mEq/L (23-29); Chloride 99 mEq/L (98-107); Globulin 3.4 g/dL (2.4-3.5); Glucose 111 mg/dL (70-105); Osmolality,Calculated 282 (280-300); Potassium 4.1 mEq/L (3.5-5.1); Sodium 133 mEq/L (136-145); Total Protein 5.8 g/dL (6.4-8.9); eGFR For African Americans 15 (> 60); eGFR For Non-African Americans 13 (> 60)
[2021-10-03] MEDS: Venlafaxine XR (24 HR) 150 MG CAP.ER.24H PO SCH (08:39)
[2021-10-03] MEDS: hydrALAZINE 25 MG TABLET PO SCH ×3 (08:39→20:39)
[2021-10-03 10:18] LABS: C-Reactive Protein 284 mg/L (Less than 10)
[2021-10-03] MEDS ORDERED: *HR* FentaNYL (PF) 100 MCG/2 ML VIAL IVP PRN (10:18)
[2021-10-03] MEDS ORDERED: *HR* Midazolam HCl 5 MG/5 ML VIAL IVP PRN (10:18)
[2021-10-03] MEDS ORDERED: 0.9 % Sodium Chloride 500 ML IVC ONE (10:18)
[2021-10-03] MEDS ORDERED: Lidocaine Viscous Oral Soln 15 ML SOLUTION MM PRN (10:18)
[2021-10-03] MEDS: levoFLOXacin 500 MG TABLET PO SCH (15:56)
[2021-10-03] MEDS: traZODone 50 MG TABLET PO PRN (20:40)
[2021-10-04 03:04] LABS: Basophils % 0.1 %; Eosinophils # 0.1 K/mcL (0.0-0.6); Eosinophils % 0.3 %; Hematocrit 23.3 % (35.3-44.9); Hemoglobin 7.3 g/dL (11.5-15.4); Immature Granulocytes % 0.9 % (0-4); Lymphocytes # 0.8 K/mcL (0.6-4.6); Lymphocytes % 4.3 %; Mean Corpuscular HGB Conc 31.3 g/dL (31.6-35.5); Mean Corpuscular Hemoglobin 29.9 pg (28.0-33.3); Mean Corpuscular Volume 95.5 fL (83.0-100.0); Mean Platelet Volume 11.6 fL (9.4-12.4); Monocytes # 0.7 K/mcL (0.0-1.3); Neutrophils # 15.9 K/mcL (1.6-8.9); Platelet Count 171 K/mcL (140-400); Red Blood Count 2.44 M/mcL (3.82-4.97); Red Cell Distribution Width 15.5 % (11.5-14.5); Segmented Neutrophils % 90.4 %; White Blood Count 17.6 K/mcL (4.3-11.1)
[2021-10-04 03:24] LABS: Albumin 2.2 g/dL (3.5-5.7); Albumin/Globulin Ratio 0.6 (1.1-2.2); Bilirubin,Total 0.4 mg/dL (0.3-1.0); Calcium 7.9 mg/dL (8.6-10.3); Potassium 4.5 mEq/L (3.5-5.1); Total Protein 6.2 g/dL (6.4-8.9)
[2021-10-04] MEDS: *HR* OxyCODONE/APAP 5/325 TABLET PO PRN ×4 (05:02→22:49)
[2021-10-04] MEDS ORDERED: *HR* Heparin 10,000 UNIT/10 ML VIAL IV PRN (07:37)
[2021-10-04] MEDS ORDERED: 0.9 % Sodium Chloride 250 ML IVC PRN (07:37)
[2021-10-04] MEDS ORDERED: Vancomycin 1 EACH in 0.9 % Sodium Chloride 250 ML IVPB PRN (09:00)
[2021-10-04] MEDS: Venlafaxine XR (24 HR) 150 MG CAP.ER.24H PO SCH (09:07)
[2021-10-04] MEDS: hydrALAZINE 25 MG TABLET PO SCH ×3 (09:08→20:29)
[2021-10-04] MEDS: ALPRAZolam 1 MG TABLET PO PRN ×3 (09:12→20:28)
[2021-10-04] MEDS ORDERED: Benzonatate 100 MG CAPSULE PO PRN (09:27)
[2021-10-04] MEDS ORDERED: Lidocaine Viscous Oral Soln 15 ML SOLUTION MM PRN (10:46)
[2021-10-04] MEDS ORDERED: 0.9 % Sodium Chloride 500 ML IVC ONE (10:46)
[2021-10-04] MEDS ORDERED: Ketamine HCL *QUVA* 50mg (1mL) SYRINGE ONE (11:11)
[2021-10-04] MEDS ORDERED: *HR* Heparin 5,000 UNIT/ML VIAL IVP PRN (12:33)
[2021-10-04] MEDS ORDERED: *HR* Heparin 5,000 UNIT/ML VIAL IVP ONE (12:33)
[2021-10-04] MEDS ORDERED: Heparin 25,000UNIT/250ML 1/2NS 25,000 UNIT/250 ML IV.SOLN IVC SCH (12:45)
[2021-10-04 13:30] LABS: INR 1.3
[2021-10-04 13:31] LABS: Heparin anti-factor XA UFH < 0.04 IU/mL (0.30-0.70)
[2021-10-04 19:02] LABS: Hematocrit 21.6 % (35.3-44.9); Mean Corpuscular HGB Conc 32.4 g/dL (31.6-35.5); Mean Corpuscular Volume 95.6 fL (83.0-100.0); Mean Platelet Volume 11.9 fL (9.4-12.4); Platelet Count 178 K/mcL (140-400); Red Blood Count 2.26 M/mcL (3.82-4.97); Red Cell Distribution Width 15.5 % (11.5-14.5)
[2021-10-04 20:05] LABS: Enterococcus faecalis by PCR Not Detected (Not Detect); Enterococcus faecium by PCR Not Detected (Not Detect); Staphylococcus aureus by PCR DETECTED (Not Detect); mecA/C & MREJ (MRSA) Gene Not Detected (Not Detect)
[2021-10-04 20:09] LABS: A.calcoaceticus-baumannii cplx Not Detected (Not Detect); Bacteroides fragilis by PCR Not Detected (Not Detect); Candida albicans by PCR Not Detected (Not Detect); Candida auris by PCR Not Detected (Not Detect); Candida glabrata by PCR Not Detected (Not Detect); Candida krusei by PCR Not Detected (Not Detect); Candida parapsilosis by PCR Not Detected (Not Detect); Candida tropicalis by PCR Not Detected (Not Detect); Crypto. neoformans/gattii PCR Not Detected (Not Detect); Enterobacter cloacae Cmplx PCR Not Detected (Not Detect); Enterobacterales by PCR Not Detected (Not Detect); Escherichia coli by PCR Not Detected (Not Detect); Klebs. pneumoniae group by PCR Not Detected (Not Detect); Klebsiella aerogenes by PCR Not Detected (Not Detect); Klebsiella oxytoca by PCR Not Detected (Not Detect); Proteus by PCR Not Detected (Not Detect); Pseudomonas aeruginosa by PCR Not Detected (Not Detect); Salmonella species by PCR Not Detected (Not Detect); Serratia marcescens by PCR Not Detected (Not Detect); Staph epidermidis by PCR Not Detected (Not Detect); Staph lugdunensis by PCR Not Detected (Not Detect); Stenotrophomonas maltophilia Not Detected (Not Detect); Streptococcus agalactiae(B)PCR Not Detected (Not Detect); Streptococcus by PCR Not Detected (Not Detect); Streptococcus pneumoniae PCR Not Detected (Not Detect); Streptococcus pyogenes (A) PCR Not Detected (Not Detect)
[2021-10-04] MEDS: GuaiFENesin/Codeine Oral Soln 5 ML UDC PO PRN (20:29)
[2021-10-04] MEDS: *HR* Heparin 5,000 UNIT/ML VIAL IVP PRN (20:55)
[2021-10-04] MEDS: traZODone 50 MG TABLET PO PRN (22:49)
[2021-10-05] MEDS: *HR* OxyCODONE/APAP 5/325 TABLET PO PRN ×4 (03:17→20:37)
[2021-10-05] MEDS: GuaiFENesin/Codeine Oral Soln 5 ML UDC PO PRN ×2 (03:17→20:37)
[2021-10-05 04:20] LABS: Basophils % 0.1 %; Eosinophils % 0.1 %; Hematocrit 21.7 % (35.3-44.9); Hemoglobin 6.8 g/dL (11.5-15.4); Immature Granulocytes % 0.8 % (0-4); Lymphocytes # 0.5 K/mcL (0.6-4.6); Lymphocytes % 3.9 %; Mean Corpuscular HGB Conc 31.3 g/dL (31.6-35.5); Mean Corpuscular Hemoglobin 30.1 pg (28.0-33.3); Mean Platelet Volume 11.6 fL (9.4-12.4); Monocytes # 0.6 K/mcL (0.0-1.3); Neutrophils # 12.7 K/mcL (1.6-8.9); Platelet Count 186 K/mcL (140-400); Red Blood Count 2.26 M/mcL (3.82-4.97); Red Cell Distribution Width 15.6 % (11.5-14.5); Segmented Neutrophils % 91.1 %; White Blood Count 13.9 K/mcL (4.3-11.1)
[2021-10-05 04:26] LABS: Albumin 2.2 g/dL (3.5-5.7); Albumin/Globulin Ratio 0.5 (1.1-2.2); Bilirubin,Total 0.4 mg/dL (0.3-1.0); Calcium 7.6 mg/dL (8.6-10.3); Globulin 4.1 g/dL (2.4-3.5); Potassium 4.6 mEq/L (3.5-5.1); Total Protein 6.3 g/dL (6.4-8.9)
[2021-10-05] MEDS: *HR* Heparin 5,000 UNIT/ML VIAL IVP PRN (06:31)
[2021-10-05] MEDS: hydrALAZINE 25 MG TABLET PO SCH ×3 (09:29→21:00)
[2021-10-05] MEDS: Venlafaxine XR (24 HR) 150 MG CAP.ER.24H PO SCH (09:29)
[2021-10-05 09:55] LABS: HBV Quant Interpretation DETECTED (Not Detected); HBV Quant Log by PCR 8.95 log IU/mL
[2021-10-05] MEDS: levoFLOXacin 500 MG TABLET PO SCH (14:54)
[2021-10-05] MEDS ORDERED: SODIUM CHLORIDE/NAHCO3/KCL/PEG 4,000 ML SOLN.RECON PO ONE (17:00)
[2021-10-05] MEDS: ALPRAZolam 1 MG TABLET PO PRN (17:33)
[2021-10-05] MEDS: traZODone 50 MG TABLET PO PRN (20:37)
[2021-10-06] MEDS: Acetaminophen 325 MG TABLET PO PRN ×2 (00:15→18:27)
[2021-10-06] MEDS: *HR* OxyCODONE/APAP 5/325 TABLET PO PRN ×2 (02:58→12:26)
[2021-10-06 03:02] LABS: Basophils % 0.1 %; Eosinophils % 0.1 %; Hematocrit 26.9 % (35.3-44.9); Hemoglobin 8.5 g/dL (11.5-15.4); Immature Granulocytes % 0.8 % (0-4); Lymphocytes # 0.3 K/mcL (0.6-4.6); Lymphocytes % 1.9 %; Mean Corpuscular HGB Conc 31.6 g/dL (31.6-35.5); Mean Corpuscular Hemoglobin 29.3 pg (28.0-33.3); Mean Corpuscular Volume 92.8 fL (83.0-100.0); Mean Platelet Volume 11.1 fL (9.4-12.4); Monocytes # 0.4 K/mcL (0.0-1.3); Monocytes % 2.8 %; Neutrophils # 14.8 K/mcL (1.6-8.9); Platelet Count 211 K/mcL (140-400); Red Cell Distribution Width 16.9 % (11.5-14.5); Segmented Neutrophils % 94.3 %; White Blood Count 15.7 K/mcL (4.3-11.1)
[2021-10-06 03:26] LABS: % Iron Saturation 11 % (15-50); Calcium 8.1 mg/dL (8.6-10.3); Iron 17 mcg/dL (50-170); Magnesium 1.4 mg/dL (1.6-2.6); Phosphorous 3.5 mg/dL (2.7-4.5); Potassium 4.9 mEq/L (3.5-5.1); Transferrin 111 mg/dL (203-362)
[2021-10-06 03:50] LABS: Ferritin 882 ng/mL (10-120)
[2021-10-06] MEDS: Venlafaxine XR (24 HR) 150 MG CAP.ER.24H PO SCH (08:07)
[2021-10-06] MEDS: hydrALAZINE 25 MG TABLET PO SCH ×2 (08:07→14:09)
[2021-10-06] MEDS: Pantoprazole 40 MG VIAL IVP SCH ×2 (08:07→18:21)
[2021-10-06] MEDS ORDERED: *HR* Heparin 10,000 UNIT/10 ML VIAL IV PRN (08:28)
[2021-10-06] MEDS ORDERED: 0.9 % Sodium Chloride 250 ML IVC PRN (08:28)
[2021-10-06] MEDS ORDERED: *HR* Propofol 200 MG/20 ML VIAL IVP ONE (08:31)
[2021-10-06] MEDS ORDERED: Lidocaine -MPF 2% 5 ML VIAL ONE (08:31)
[2021-10-06] MEDS ORDERED: 0.9 % Sodium Chloride 500 ML IVC ONE (09:20)
[2021-10-06] MEDS ORDERED: 0.9 % Sodium Chloride 500 ML ONE (09:21)
[2021-10-06] MEDS ORDERED: *HR* Heparin 5,000 UNIT/ML VIAL IVP ONE (11:59)
[2021-10-06] MEDS ORDERED: *HR* Heparin 5,000 UNIT/ML VIAL IVP PRN ×2 (11:59)
[2021-10-06] MEDS ORDERED: Heparin 25,000UNIT/250ML 1/2NS 25,000 UNIT/250 ML IV.SOLN IVC SCH (12:00)
[2021-10-06 12:58] LABS: Hematocrit 23.9 % (35.3-44.9); Hemoglobin 7.5 g/dL (11.5-15.4); Mean Corpuscular HGB Conc 31.4 g/dL (31.6-35.5); Mean Corpuscular Hemoglobin 29.8 pg (28.0-33.3); Mean Corpuscular Volume 94.8 fL (83.0-100.0); Mean Platelet Volume 11.3 fL (9.4-12.4); Platelet Count 194 K/mcL (140-400); Red Blood Count 2.52 M/mcL (3.82-4.97); Red Cell Distribution Width 17.1 % (11.5-14.5); White Blood Count 13.7 K/mcL (4.3-11.1)
[2021-10-06 13:07] LABS: Heparin anti-factor XA UFH < 0.04 IU/mL (0.30-0.70); INR 1.3; Prothrombin Time 14.7 Seconds (9.4-12.1)
[2021-10-06] MEDS: ALPRAZolam 1 MG TABLET PO PRN (14:19)
[2021-10-06] MEDS ORDERED: *HR* OxyCODONE/APAP 5/325 TABLET PO PRN (14:28)
[2021-10-06] MEDS: Morphine Sulfate 2 MG/ML SYRINGE IVP PRN ×2 (15:49→20:43)
[2021-10-06] MEDS ORDERED: Cefepime HCl 1,000 MG in 0.9 % Sodium Chloride 10 ML IVP SCH (16:00)
[2021-10-06 19:58] VITALS: BP 100/58; PULSE 101; TEMP 98.3; O2SAT 94
== END 2021-10-06 22:15 | disposition short-term general hospital (02) | DRG 871 ==
LOC: 2ANU 11:52 → EMEROOARM 11:52 → SUATTDRO 17:10 → 2ANU 18:07
PROVIDERS: ADMIT Student in an Organized Health Care Education/Training Program; ATTEND Hospitalist

== ENCOUNTER 2022-01-02 08:57 | Inpatient (IN) ==
[2022-01-02 09:59] LABS: Basophils % 0.2 %; Eosinophils % 0.1 %; Hemoglobin 8.1 g/dL (11.5-15.4); Immature Granulocytes % 0.7 % (0-4); Lymphocytes # 0.8 K/mcL (0.6-4.6); Lymphocytes % 5.3 %; Mean Corpuscular HGB Conc 33.8 g/dL (31.6-35.5); Mean Corpuscular Hemoglobin 30.7 pg (28.0-33.3); Mean Platelet Volume 10.8 fL (9.4-12.4); Monocytes # 0.8 K/mcL (0.0-1.3); Monocytes % 5.5 %; Neutrophils # 13.2 K/mcL (1.6-8.9); Platelet Count 185 K/mcL (140-400); Red Blood Count 2.64 M/mcL (3.82-4.97); Red Cell Distribution Width 15.3 % (11.5-14.5); Segmented Neutrophils % 88.2 %; White Blood Count 14.9 K/mcL (4.3-11.1)
[2022-01-02 10:03] LABS: Mean Corpuscular Volume 90.9 fL (83.0-100.0)
[2022-01-02 10:14] LABS: INR 1.1; Prothrombin Time 12.6 Seconds (9.4-12.1)
[2022-01-02 10:46] LABS: Alanine Aminotransferase 26 Units/L (7-52); Albumin 2.9 g/dL (3.5-5.7); Albumin/Globulin Ratio 0.7 (1.1-2.2); Alkaline Phosphatase 79 Units/L (34-104); Aspartate Amino Transferase 21 Units/L (13-39); BUN/Creatinine Ratio 17 (6-26); Bilirubin,Total 0.4 mg/dL (0.3-1.0); Blood Urea Nitrogen 85 mg/dL (6-20); Calcium 8.6 mg/dL (8.6-10.3); Carbon Dioxide 8 mEq/L (23-29); Chloride 106 mEq/L (98-107); Globulin 4.2 g/dL (2.4-3.5); Glucose 102 mg/dL (70-105); Osmolality,Calculated 292 (280-300); Potassium 3.4 mEq/L (3.5-5.1); Sodium 128 mEq/L (136-145); Total Protein 7.1 g/dL (6.4-8.9); Troponin I < 0.03 ng/mL (< 0.04); eGFR For African Americans 11 (> 60); eGFR For Non-African Americans 9 (> 60)
[2022-01-02] MEDS ORDERED: Azithromycin 500 MG in 0.9 % Sodium Chloride 250 ML IVPB ONE (11:03)
[2022-01-02] MEDS ORDERED: Cefepime HCl 2,000 MG in 0.9 % Sodium Chloride 10 ML IVP ONE (11:10)
[2022-01-02 11:29] LABS: VBG HCO3 11 mEq/L (21-27); VBG PCO2 28 mmHg (41-51); VBG PO2 65 mmHg (25-50)
[2022-01-02] MEDS ORDERED: Lidocaine 2% Syringe 100 MG/5 ML IVP ONE (12:43)
[2022-01-02] MEDS ORDERED: *HR* OxyCODONE Immed Rel 5 MG TABLET PO ONE (14:43)
[2022-01-02] MEDS ORDERED: Ondansetron ODT 4 MG TAB.RAPDIS SL ONE (14:44)
[2022-01-02] MEDS ORDERED: *HR* FentaNYL (PF) 100 MCG/2 ML VIAL IVP ONE (14:58)
[2022-01-02] MEDS ORDERED: 0.9 % Sodium Chloride 500 ML ONE (14:59)
[2022-01-02] MEDS ORDERED: Iopamidol - 300 50 ML VIAL IVP ONE (15:14)
[2022-01-02] MEDS ORDERED: 0.9 % Sodium Chloride 1,000 ML IVC ONE (17:33)
[2022-01-02] MEDS ORDERED: Naloxone 0.4 MG/ML INJ IVP PRN (22:07)
[2022-01-02 22:46] LABS: A.calcoaceticus-baumannii cplx Not Detected (Not Detect); Bacteroides fragilis by PCR Not Detected (Not Detect); Candida albicans by PCR Not Detected (Not Detect); Candida auris by PCR Not Detected (Not Detect); Candida glabrata by PCR Not Detected (Not Detect); Candida krusei by PCR Not Detected (Not Detect); Candida parapsilosis by PCR Not Detected (Not Detect); Candida tropicalis by PCR Not Detected (Not Detect); Crypto. neoformans/gattii PCR Not Detected (Not Detect); Enterobacter cloacae Cmplx PCR Not Detected (Not Detect); Enterobacterales by PCR Not Detected (Not Detect); Enterococcus faecalis by PCR Not Detected (Not Detect); Enterococcus faecium by PCR Not Detected (Not Detect); Escherichia coli by PCR Not Detected (Not Detect); Klebs. pneumoniae group by PCR Not Detected (Not Detect); Klebsiella aerogenes by PCR Not Detected (Not Detect); Klebsiella oxytoca by PCR Not Detected (Not Detect); Proteus by PCR Not Detected (Not Detect); Pseudomonas aeruginosa by PCR Not Detected (Not Detect); Salmonella species by PCR Not Detected (Not Detect); Serratia marcescens by PCR Not Detected (Not Detect); Staph epidermidis by PCR Not Detected (Not Detect); Staph lugdunensis by PCR Not Detected (Not Detect); Staphylococcus aureus by PCR Not Detected (Not Detect); Staphylococcus by PCR Not Detected (Not Detect); Stenotrophomonas maltophilia Not Detected (Not Detect); Streptococcus agalactiae(B)PCR Not Detected (Not Detect); Streptococcus by PCR Not Detected (Not Detect); Streptococcus pneumoniae PCR Not Detected (Not Detect); Streptococcus pyogenes (A) PCR Not Detected (Not Detect)
[2022-01-02] MEDS ORDERED: *HR* OxyCODONE Immed Rel 5 MG TABLET PO PRN (23:02)
[2022-01-02] MEDS ORDERED: Vancomycin 1 EACH in 0.9 % Sodium Chloride 250 ML IVPB PRN (23:21)
[2022-01-03] MEDS ORDERED: Perflutren Lipid Microsphere 1.3 ML in 0.9 % Sodium Chloride 8.7 ML IVP PRN (01:17)
[2022-01-03] MEDS ORDERED: Sodium Bicarbonate 150 MEQ in D5% in Water 1,000 ML IVC SCH (01:45)
[2022-01-03] MEDS: *HR* OxyCODONE Immed Rel 5 MG TABLET PO PRN ×4 (02:50→21:50)
[2022-01-03 03:22] LABS: VBG HCO3 10 mEq/L (21-27); VBG PCO2 20 mmHg (41-51); VBG PH 7.32 pH Units (7.32-7.42); VBG PO2 220 mmHg (25-50)
[2022-01-03 03:32] LABS: Calcium 8.2 mg/dL (8.6-10.3); Magnesium 1.9 mg/dL (1.6-2.6); Phosphorous 5.2 mg/dL (2.7-4.5); Potassium 3.1 mEq/L (3.5-5.1)
[2022-01-03] MEDS ORDERED: Cefepime HCl 2,000 MG in 0.9 % Sodium Chloride 10 ML IVP SCH (04:00)
[2022-01-03] MEDS ORDERED: Sodium Bicarbonate 50 MEQ/50 ML VIAL IVP ONE (05:05)
[2022-01-03] MEDS ORDERED: *HR* Heparin 5,000 UNIT/ML VIAL SQ SCH (06:00)
[2022-01-03 06:03] LABS: Bacteria,Urine Few per hpf (None-Few); Bilirubin,Urine Negative (Negative); Blood,Urine Trace (Negative); Clarity,Urine Clear (Clear); Color,Urine Colorless (Yellow); Glucose,Urine (UA) Normal (Normal); Ketones,Urine Negative (Negative); Leukocyte Esterase,Urine Moderate (Negative); Mucus,Urine Few per lpf (None-Few); Nitrite,Urine Negative (Negative); Protein,Urine 30 mg/dL (Neg-Trace); Specific Gravity,Urine 1.007 (1.010-1.025); Squamous Epithelial Cell,Urine Few per hpf (None-Few); Urobilinogen,Urine Normal (Normal); WBC,Urine 15-30 per hpf (0-3)
[2022-01-03 06:09] LABS: Sodium, Urine 30.8 mEq/L
[2022-01-03] MEDS: Sodium Bicarbonate 75 MEQ in 0.45 % Sodium Chloride 1,000 ML IVC SCH (06:09)
[2022-01-03 06:23] LABS: Amphetamine Screen,Urine Positive ng/mL (Cutoff=1000); Barbiturate Screen,Urine Negative ng/mL (Cutoff=200)
[2022-01-03 06:24] LABS: Benzodiazepines Screen,Urine Positive ng/mL (Cutoff=300); Cannabinoid Screen,Urine Negative ng/mL (Cutoff = 50); Cocaine Screen,Urine Positive ng/mL (Cutoff= 300); Opiate Screen,Urine Negative ng/mL (Cutoff=300); Phencyclidine Screen,Urine Negative ng/mL (Cutoff=25)
[2022-01-03] MEDS: ALPRAZolam 0.5 MG TABLET PO PRN ×3 (07:01→21:50)
[2022-01-03] MEDS: NIFEdipine XL (24 HR) 60 MG TAB.ER.24 PO SCH (07:48)
[2022-01-03] MEDS: Lactobacillus 1 EACH CAP.SPRINK PO SCH (07:49)
[2022-01-03] MEDS: MetroNIDAZOLE 500 MG/100 ML 500 MG/100 ML BAG IVPB SCH ×2 (07:49→16:31)
[2022-01-03] MEDS: Apixaban 5 MG TABLET PO SCH ×2 (07:49→21:51)
[2022-01-03] MEDS: Ondansetron 4 MG/2 ML VIAL IVP PRN (12:48)
[2022-01-03 14:28] LABS: Adenovirus Not Detected (Not Detect); Bordetella Pertussis Not Detected (Not Detect); Chlamydophila pneumoniae Not Detected (Not Detect); Coronavirus 229E Not Detected (Not Detect); Coronavirus HKU1 Not Detected (Not Detect); Coronavirus NL63 Not Detected (Not Detect); Coronavirus OC43 Not Detected (Not Detect); Human Metapneumovirus Not Detected (Not Detect); Human Rhinovirus/Enterovirus Not Detected (Not Detect); Influenza A Subtype 2009 H1 Not Detected (Not Detect); Influenza B Not Detected (Not Detect); Mycoplasma pneumoniae Not Detected (Not Detect); Parainfluenza Virus 1 Not Detected (Not Detect); Parainfluenza Virus 2 Not Detected (Not Detect); Parainfluenza Virus 3 Not Detected (Not Detect); Parainfluenza Virus 4 Not Detected (Not Detect); Respiratory Syncytial Virus Not Detected (Not Detect); SARS-CoV-2 Not Detected (Not Detect)
[2022-01-03] MEDS: Darbepoetin 100 MCG/0.5 ML SYRINGE SQ SCH (16:37)
[2022-01-04] MEDS: MetroNIDAZOLE 500 MG/100 ML 500 MG/100 ML BAG IVPB SCH ×2 (00:12→07:41)
[2022-01-04] MEDS: Sodium Bicarbonate 75 MEQ in 0.45 % Sodium Chloride 1,000 ML IVC SCH ×2 (02:02→19:59)
[2022-01-04] MEDS: *HR* OxyCODONE Immed Rel 5 MG TABLET PO PRN ×3 (03:57→20:12)
[2022-01-04] MEDS: ALPRAZolam 0.5 MG TABLET PO PRN ×3 (03:58→20:12)
[2022-01-04 04:09] LABS: Basophils % 0.3 %; Eosinophils # 0.1 K/mcL (0.0-0.6); Eosinophils % 0.9 %; Hematocrit 18.9 % (35.3-44.9); Hemoglobin 6.4 g/dL (11.5-15.4); Immature Granulocytes % 0.9 % (0-4); Lymphocytes # 0.9 K/mcL (0.6-4.6); Lymphocytes % 10.8 %; Mean Corpuscular HGB Conc 33.9 g/dL (31.6-35.5); Mean Corpuscular Hemoglobin 30.3 pg (28.0-33.3); Mean Platelet Volume 10.5 fL (9.4-12.4); Monocytes # 0.6 K/mcL (0.0-1.3); Monocytes % 6.9 %; Neutrophils # 6.9 K/mcL (1.6-8.9); Platelet Count 197 K/mcL (140-400); Red Blood Count 2.11 M/mcL (3.82-4.97); Red Cell Distribution Width 15.1 % (11.5-14.5); Segmented Neutrophils % 80.2 %; White Blood Count 8.7 K/mcL (4.3-11.1)
[2022-01-04 04:10] LABS: Mean Corpuscular Volume 89.6 fL (83.0-100.0)
[2022-01-04 04:26] LABS: Calcium 7.3 mg/dL (8.6-10.3); Phosphorous 3.9 mg/dL (2.7-4.5); Potassium 2.9 mEq/L (3.5-5.1)
[2022-01-04] MEDS ORDERED: Cefepime HCl 1,000 MG in 0.9 % Sodium Chloride 10 ML IVP SCH (05:00)
[2022-01-04] MEDS: Apixaban 5 MG TABLET PO SCH (07:41)
[2022-01-04] MEDS: NIFEdipine XL (24 HR) 60 MG TAB.ER.24 PO SCH (07:41)
[2022-01-04] MEDS: Lactobacillus 1 EACH CAP.SPRINK PO SCH (07:41)
[2022-01-04] MEDS ORDERED: 0.9 % Sodium Chloride 250 ML IVC SCH ×2 (08:30→18:45)
[2022-01-04 10:10] LABS: vanA/B Vancomycin-Resist Genes Not Detected (Not Detect)
[2022-01-04 10:11] LABS: A.calcoaceticus-baumannii cplx Not Detected (Not Detect); Bacteroides fragilis by PCR Not Detected (Not Detect); Candida albicans by PCR Not Detected (Not Detect); Candida auris by PCR Not Detected (Not Detect); Candida glabrata by PCR Not Detected (Not Detect); Candida krusei by PCR Not Detected (Not Detect); Candida parapsilosis by PCR Not Detected (Not Detect); Candida tropicalis by PCR Not Detected (Not Detect); Crypto. neoformans/gattii PCR Not Detected (Not Detect); Enterobacter cloacae Cmplx PCR Not Detected (Not Detect); Enterobacterales by PCR Not Detected (Not Detect); Enterococcus faecalis by PCR DETECTED (Not Detect); Enterococcus faecium by PCR Not Detected (Not Detect); Escherichia coli by PCR Not Detected (Not Detect); Klebs. pneumoniae group by PCR Not Detected (Not Detect); Klebsiella aerogenes by PCR Not Detected (Not Detect); Klebsiella oxytoca by PCR Not Detected (Not Detect); Proteus by PCR Not Detected (Not Detect); Pseudomonas aeruginosa by PCR Not Detected (Not Detect); Salmonella species by PCR Not Detected (Not Detect); Serratia marcescens by PCR Not Detected (Not Detect); Staph epidermidis by PCR Not Detected (Not Detect); Staph lugdunensis by PCR Not Detected (Not Detect); Staphylococcus aureus by PCR Not Detected (Not Detect); Staphylococcus by PCR Not Detected (Not Detect); Stenotrophomonas maltophilia Not Detected (Not Detect); Streptococcus agalactiae(B)PCR Not Detected (Not Detect); Streptococcus by PCR Not Detected (Not Detect); Streptococcus pneumoniae PCR Not Detected (Not Detect); Streptococcus pyogenes (A) PCR Not Detected (Not Detect)
[2022-01-04] MEDS ORDERED: 0.9 % Sodium Chloride 250 ML ONE (10:35)
[2022-01-04] MEDS: Ondansetron 4 MG/2 ML VIAL IVP PRN (12:43)
[2022-01-04] MEDS ORDERED: Acetaminophen IV 1,000 MG/100 ML BAG IVPB ONE (13:31)
[2022-01-04] MEDS ORDERED: Potassium Chloride Elixir 20 MEQ/15 ML UDC PO ONE (14:27)
[2022-01-04] MEDS ORDERED: metroNIDAZOLE 500 MG TABLET PO SCH (15:00)
[2022-01-04] MEDS ORDERED: Benzonatate 100 MG CAPSULE PO PRN (17:59)
[2022-01-04 18:25] LABS: Hematocrit 17.1 % (35.3-44.9)
[2022-01-04 18:29] LABS: Hemoglobin 5.8 g/dL (11.5-15.4)
[2022-01-04] MEDS: Melatonin 3 MG TABLET PO PRN (22:51)
[2022-01-05 03:03] LABS: Basophils % 0.6 %; Eosinophils # 0.1 K/mcL (0.0-0.6); Eosinophils % 1.2 %; Hematocrit 24.1 % (35.3-44.9); Immature Granulocytes % 0.8 % (0-4); Lymphocytes % 14.8 %; Mean Corpuscular HGB Conc 33.6 g/dL (31.6-35.5); Mean Corpuscular Hemoglobin 30.3 pg (28.0-33.3); Mean Corpuscular Volume 90.3 fL (83.0-100.0); Mean Platelet Volume 10.5 fL (9.4-12.4); Monocytes # 0.6 K/mcL (0.0-1.3); Monocytes % 9.3 %; Neutrophils # 4.8 K/mcL (1.6-8.9); Platelet Count 178 K/mcL (140-400); Red Blood Count 2.67 M/mcL (3.82-4.97); Red Cell Distribution Width 15.2 % (11.5-14.5); Segmented Neutrophils % 73.3 %; White Blood Count 6.6 K/mcL (4.3-11.1)
[2022-01-05 03:04] LABS: Hemoglobin 8.1 g/dL (11.5-15.4)
[2022-01-05 03:28] LABS: Calcium 7.3 mg/dL (8.6-10.3); Phosphorous 4.4 mg/dL (2.7-4.5); Potassium 3.3 mEq/L (3.5-5.1)
[2022-01-05] MEDS: *HR* OxyCODONE Immed Rel 5 MG TABLET PO PRN ×3 (05:15→20:40)
[2022-01-05] MEDS: ALPRAZolam 0.5 MG TABLET PO PRN ×3 (05:15→20:40)
[2022-01-05] MEDS: Lactobacillus 1 EACH CAP.SPRINK PO SCH (09:46)
[2022-01-05] MEDS: NIFEdipine XL (24 HR) 60 MG TAB.ER.24 PO SCH (09:46)
[2022-01-05] MEDS: Sodium Bicarbonate 75 MEQ in 0.45 % Sodium Chloride 1,000 ML IVC SCH (09:56)
[2022-01-05] MEDS: Ampicillin/Sulbactam 3,000 MG in 0.9 % Sodium Chloride Mini Bag 100 ML IVPB SCH (17:56)
[2022-01-05] MEDS: Apixaban 5 MG TABLET PO SCH (20:40)
[2022-01-05] MEDS: traZODone 50 MG TABLET PO PRN (20:40)
[2022-01-06] MEDS: Sodium Bicarbonate 75 MEQ in 0.45 % Sodium Chloride 1,000 ML IVC SCH ×2 (03:19→16:25)
[2022-01-06] MEDS: *HR* OxyCODONE Immed Rel 5 MG TABLET PO PRN ×2 (03:19→16:27)
[2022-01-06] MEDS: ALPRAZolam 0.5 MG TABLET PO PRN ×3 (03:19→20:03)
[2022-01-06 03:46] LABS: Basophils % 0.6 %; Eosinophils # 0.1 K/mcL (0.0-0.6); Eosinophils % 1.3 %; Hematocrit 24.5 % (35.3-44.9); Hemoglobin 8.2 g/dL (11.5-15.4); Immature Granulocytes % 0.8 % (0-4); Lymphocytes # 1.2 K/mcL (0.6-4.6); Lymphocytes % 16.4 %; Mean Corpuscular HGB Conc 33.5 g/dL (31.6-35.5); Mean Corpuscular Hemoglobin 29.9 pg (28.0-33.3); Mean Corpuscular Volume 89.4 fL (83.0-100.0); Mean Platelet Volume 10.2 fL (9.4-12.4); Monocytes # 0.5 K/mcL (0.0-1.3); Monocytes % 7.1 %; Neutrophils # 5.2 K/mcL (1.6-8.9); Platelet Count 201 K/mcL (140-400); Red Blood Count 2.74 M/mcL (3.82-4.97); Red Cell Distribution Width 16.2 % (11.5-14.5); Segmented Neutrophils % 73.8 %; White Blood Count 7.1 K/mcL (4.3-11.1)
[2022-01-06 04:02] LABS: Calcium 7.4 mg/dL (8.6-10.3); Phosphorous 4.1 mg/dL (2.7-4.5); Potassium 3.5 mEq/L (3.5-5.1)
[2022-01-06] MEDS: Lactobacillus 1 EACH CAP.SPRINK PO SCH (08:36)
[2022-01-06] MEDS: Apixaban 5 MG TABLET PO SCH ×2 (08:36→20:03)
[2022-01-06] MEDS: NIFEdipine XL (24 HR) 60 MG TAB.ER.24 PO SCH (08:37)
[2022-01-06] MEDS: Ampicillin/Sulbactam 3,000 MG in 0.9 % Sodium Chloride Mini Bag 100 ML IVPB SCH (08:38)
[2022-01-06] MEDS: traZODone 50 MG TABLET PO PRN (20:03)
[2022-01-06] MEDS: Melatonin 3 MG TABLET PO PRN (20:03)
[2022-01-07] MEDS: *HR* OxyCODONE Immed Rel 5 MG TABLET PO PRN ×2 (03:26→07:39)
[2022-01-07] MEDS: Sodium Bicarbonate 75 MEQ in 0.45 % Sodium Chloride 1,000 ML IVC SCH ×3 (04:49→13:22)
[2022-01-07] MEDS: ALPRAZolam 0.5 MG TABLET PO PRN ×3 (07:39→21:06)
[2022-01-07 08:01] LABS: Basophils % 0.5 %; Eosinophils # 0.1 K/mcL (0.0-0.6); Eosinophils % 1.3 %; Hematocrit 25.2 % (35.3-44.9); Immature Granulocytes % 1.1 % (0-4); Lymphocytes % 13.9 %; Mean Corpuscular HGB Conc 31.7 g/dL (31.6-35.5); Mean Corpuscular Hemoglobin 29.7 pg (28.0-33.3); Mean Corpuscular Volume 93.7 fL (83.0-100.0); Mean Platelet Volume 10.2 fL (9.4-12.4); Monocytes # 0.4 K/mcL (0.0-1.3); Neutrophils # 5.8 K/mcL (1.6-8.9); Platelet Count 193 K/mcL (140-400); Red Blood Count 2.69 M/mcL (3.82-4.97); Red Cell Distribution Width 16.5 % (11.5-14.5); Segmented Neutrophils % 78.2 %; White Blood Count 7.4 K/mcL (4.3-11.1)
[2022-01-07 08:17] LABS: Calcium 7.5 mg/dL (8.6-10.3); Phosphorous 3.1 mg/dL (2.7-4.5); Potassium 3.9 mEq/L (3.5-5.1)
[2022-01-07] MEDS: Lactobacillus 1 EACH CAP.SPRINK PO SCH (11:10)
[2022-01-07] MEDS: Apixaban 5 MG TABLET PO SCH ×2 (11:10→21:06)
[2022-01-07] MEDS: NIFEdipine XL (24 HR) 60 MG TAB.ER.24 PO SCH (11:10)
[2022-01-07] MEDS: Ampicillin/Sulbactam 3,000 MG in 0.9 % Sodium Chloride Mini Bag 100 ML IVPB SCH ×2 (11:11→13:28)
[2022-01-07 14:00] LABS: Mycoplasma pneumoniae IgG 0.47 U/L (<=0.09)
[2022-01-07] MEDS: traZODone 50 MG TABLET PO PRN (21:05)
[2022-01-07] MEDS: Melatonin 3 MG TABLET PO PRN (21:06)
[2022-01-08 01:52] LABS: Basophils % 0.4 %; Eosinophils # 0.1 K/mcL (0.0-0.6); Eosinophils % 1.2 %; Hematocrit 24.4 % (35.3-44.9); Hemoglobin 7.8 g/dL (11.5-15.4); Immature Granulocytes % 1.2 % (0-4); Lymphocytes # 1.2 K/mcL (0.6-4.6); Lymphocytes % 15.4 %; Mean Corpuscular Hemoglobin 30.6 pg (28.0-33.3); Mean Corpuscular Volume 95.7 fL (83.0-100.0); Mean Platelet Volume 9.5 fL (9.4-12.4); Monocytes # 0.4 K/mcL (0.0-1.3); Monocytes % 5.2 %; Neutrophils # 5.9 K/mcL (1.6-8.9); Platelet Count 170 K/mcL (140-400); Red Blood Count 2.55 M/mcL (3.82-4.97); Red Cell Distribution Width 16.6 % (11.5-14.5); Segmented Neutrophils % 76.6 %; White Blood Count 7.6 K/mcL (4.3-11.1)
[2022-01-08 02:10] LABS: Calcium 7.7 mg/dL (8.6-10.3); Phosphorous 2.8 mg/dL (2.7-4.5); Potassium 4.1 mEq/L (3.5-5.1)
[2022-01-08] MEDS: *HR* OxyCODONE Immed Rel 5 MG TABLET PO PRN ×2 (06:03→15:29)
[2022-01-08] MEDS: Apixaban 5 MG TABLET PO SCH ×2 (09:03→20:14)
[2022-01-08] MEDS: ALPRAZolam 0.5 MG TABLET PO PRN ×3 (09:03→21:34)
[2022-01-08] MEDS: NIFEdipine XL (24 HR) 60 MG TAB.ER.24 PO SCH (09:03)
[2022-01-08] MEDS: Lactobacillus 1 EACH CAP.SPRINK PO SCH (09:03)
[2022-01-08] MEDS: Ampicillin/Sulbactam 3,000 MG in 0.9 % Sodium Chloride Mini Bag 100 ML IVPB SCH ×2 (09:03→20:15)
[2022-01-08] MEDS: Sodium Bicarbonate 75 MEQ in 0.45 % Sodium Chloride 1,000 ML IVC SCH ×2 (11:34→15:21)
[2022-01-08] MEDS: Melatonin 3 MG TABLET PO PRN (21:34)
[2022-01-08] MEDS: traZODone 50 MG TABLET PO PRN (21:34)
[2022-01-09] MEDS: *HR* OxyCODONE Immed Rel 5 MG TABLET PO PRN ×3 (06:17→17:29)
[2022-01-09] MEDS: ALPRAZolam 0.5 MG TABLET PO PRN ×3 (06:18→21:43)
[2022-01-09 06:40] LABS: Basophils % 0.5 %; Eosinophils # 0.1 K/mcL (0.0-0.6); Eosinophils % 1.3 %; Hematocrit 25.9 % (35.3-44.9); Immature Granulocytes % 0.9 % (0-4); Lymphocytes # 0.8 K/mcL (0.6-4.6); Lymphocytes % 12.7 %; Mean Corpuscular HGB Conc 30.9 g/dL (31.6-35.5); Mean Corpuscular Hemoglobin 30.3 pg (28.0-33.3); Mean Corpuscular Volume 98.1 fL (83.0-100.0); Mean Platelet Volume 9.8 fL (9.4-12.4); Monocytes # 0.3 K/mcL (0.0-1.3); Monocytes % 4.4 %; Neutrophils # 5.1 K/mcL (1.6-8.9); Platelet Count 172 K/mcL (140-400); Red Blood Count 2.64 M/mcL (3.82-4.97); Red Cell Distribution Width 16.5 % (11.5-14.5); Segmented Neutrophils % 80.2 %; White Blood Count 6.3 K/mcL (4.3-11.1)
[2022-01-09 06:47] LABS: Calcium 7.7 mg/dL (8.6-10.3); Phosphorous 3.2 mg/dL (2.7-4.5); Potassium 4.7 mEq/L (3.5-5.1)
[2022-01-09] MEDS: Sodium Bicarbonate 75 MEQ in 0.45 % Sodium Chloride 1,000 ML IVC SCH (08:37)
[2022-01-09] MEDS: NIFEdipine XL (24 HR) 60 MG TAB.ER.24 PO SCH (11:23)
[2022-01-09] MEDS: Ampicillin/Sulbactam 3,000 MG in 0.9 % Sodium Chloride Mini Bag 100 ML IVPB SCH ×2 (11:23→21:43)
[2022-01-09] MEDS: Lactobacillus 1 EACH CAP.SPRINK PO SCH (11:23)
[2022-01-09] MEDS: Apixaban 5 MG TABLET PO SCH ×2 (11:23→21:43)
[2022-01-09] MEDS: traZODone 50 MG TABLET PO PRN (21:43)
[2022-01-09] MEDS: Melatonin 3 MG TABLET PO PRN (21:43)
[2022-01-10 04:35] LABS: Basophils % 0.5 %; Eosinophils # 0.1 K/mcL (0.0-0.6); Eosinophils % 1.7 %; Hematocrit 25.8 % (35.3-44.9); Immature Granulocytes % 1.2 % (0-4); Lymphocytes # 0.9 K/mcL (0.6-4.6); Lymphocytes % 15.1 %; Mean Corpuscular Hemoglobin 30.5 pg (28.0-33.3); Mean Corpuscular Volume 98.5 fL (83.0-100.0); Mean Platelet Volume 9.6 fL (9.4-12.4); Monocytes # 0.3 K/mcL (0.0-1.3); Monocytes % 5.3 %; Neutrophils # 4.5 K/mcL (1.6-8.9); Platelet Count 177 K/mcL (140-400); Red Blood Count 2.62 M/mcL (3.82-4.97); Red Cell Distribution Width 16.4 % (11.5-14.5); Segmented Neutrophils % 76.2 %; White Blood Count 5.9 K/mcL (4.3-11.1)
[2022-01-10 04:54] LABS: Calcium 8.1 mg/dL (8.6-10.3); Phosphorous 4.3 mg/dL (2.7-4.5); Potassium 5.3 mEq/L (3.5-5.1)
[2022-01-10] MEDS: *HR* OxyCODONE Immed Rel 5 MG TABLET PO PRN ×2 (10:14→20:59)
[2022-01-10] MEDS: NIFEdipine XL (24 HR) 60 MG TAB.ER.24 PO SCH (10:14)
[2022-01-10] MEDS: ALPRAZolam 0.5 MG TABLET PO PRN ×2 (10:14→20:59)
[2022-01-10] MEDS: Lactobacillus 1 EACH CAP.SPRINK PO SCH (10:14)
[2022-01-10] MEDS: Ampicillin/Sulbactam 3,000 MG in 0.9 % Sodium Chloride Mini Bag 100 ML IVPB SCH (10:15)
[2022-01-10] MEDS: SODIUM ZIRCONIUM CYCLOSILICATE 5 GM POWD.PACK PO SCH ×3 (10:15→20:59)
[2022-01-10] MEDS: Apixaban 5 MG TABLET PO SCH ×2 (10:15→20:59)
[2022-01-10] MEDS: Darbepoetin 100 MCG/0.5 ML SYRINGE SQ SCH (16:14)
[2022-01-11] MEDS: Ampicillin/Sulbactam 3,000 MG in 0.9 % Sodium Chloride Mini Bag 100 ML IVPB SCH ×3 (00:09→19:36)
[2022-01-11] MEDS: *HR* OxyCODONE Immed Rel 5 MG TABLET PO PRN ×4 (01:40→22:13)
[2022-01-11] MEDS: traZODone 50 MG TABLET PO PRN ×2 (02:19→22:12)
[2022-01-11 05:37] LABS: Basophils % 0.7 %; Eosinophils # 0.1 K/mcL (0.0-0.6); Eosinophils % 1.6 %; Hematocrit 25.8 % (35.3-44.9); Hemoglobin 7.9 g/dL (11.5-15.4); Immature Granulocytes % 0.5 % (0-4); Lymphocytes % 18.8 %; Mean Corpuscular HGB Conc 30.6 g/dL (31.6-35.5); Mean Corpuscular Hemoglobin 30.6 pg (28.0-33.3); Mean Platelet Volume 9.6 fL (9.4-12.4); Monocytes # 0.3 K/mcL (0.0-1.3); Monocytes % 5.6 %; Platelet Count 174 K/mcL (140-400); Red Blood Count 2.58 M/mcL (3.82-4.97); Red Cell Distribution Width 16.5 % (11.5-14.5); Segmented Neutrophils % 72.8 %; White Blood Count 5.5 K/mcL (4.3-11.1)
[2022-01-11 05:49] LABS: Albumin 2.5 g/dL (3.5-5.7); Albumin/Globulin Ratio 0.8 (1.1-2.2); Bilirubin,Indirect 0.2 mg/dL (0.0-1.0); Bilirubin,Total 0.2 mg/dL (0.3-1.0); Calcium 7.9 mg/dL (8.6-10.3); Globulin 3.3 g/dL (2.4-3.5); Magnesium 1.6 mg/dL (1.6-2.6); Total Protein 5.8 g/dL (6.4-8.9)
[2022-01-11 06:12] LABS: Folate 13.2 ng/mL (3.0-16.0)
[2022-01-11] MEDS: ALPRAZolam 0.5 MG TABLET PO PRN ×3 (06:27→22:13)
[2022-01-11] MEDS ORDERED: Cyanocobalamin (B-12) 1,000 MCG/ML VIAL SQ ONE (07:32)
[2022-01-11] MEDS: Lactobacillus 1 EACH CAP.SPRINK PO SCH (08:32)
[2022-01-11] MEDS: NIFEdipine XL (24 HR) 60 MG TAB.ER.24 PO SCH (08:32)
[2022-01-11] MEDS: Apixaban 5 MG TABLET PO SCH ×2 (08:33→19:36)
[2022-01-12 02:52] LABS: Basophils % 0.8 %; Eosinophils # 0.1 K/mcL (0.0-0.6); Eosinophils % 1.8 %; Hemoglobin 7.8 g/dL (11.5-15.4); Immature Granulocytes % 0.6 % (0-4); Lymphocytes % 20.6 %; Mean Corpuscular Hemoglobin 30.4 pg (28.0-33.3); Mean Corpuscular Volume 101.2 fL (83.0-100.0); Mean Platelet Volume 9.6 fL (9.4-12.4); Monocytes # 0.3 K/mcL (0.0-1.3); Monocytes % 5.7 %; Neutrophils # 3.6 K/mcL (1.6-8.9); Platelet Count 166 K/mcL (140-400); Red Blood Count 2.57 M/mcL (3.82-4.97); Red Cell Distribution Width 16.4 % (11.5-14.5); Segmented Neutrophils % 70.5 %; White Blood Count 5.1 K/mcL (4.3-11.1)
[2022-01-12 03:13] LABS: Calcium 8.1 mg/dL (8.6-10.3); Magnesium 1.8 mg/dL (1.6-2.6); Potassium 5.1 mEq/L (3.5-5.1)
[2022-01-12] MEDS: Lactobacillus 1 EACH CAP.SPRINK PO SCH (08:21)
[2022-01-12] MEDS: NIFEdipine XL (24 HR) 60 MG TAB.ER.24 PO SCH (08:21)
[2022-01-12] MEDS: Apixaban 5 MG TABLET PO SCH ×2 (08:21→20:40)
[2022-01-12] MEDS: Ampicillin/Sulbactam 3,000 MG in 0.9 % Sodium Chloride Mini Bag 100 ML IVPB SCH ×2 (08:23→22:36)
[2022-01-12] MEDS: *HR* OxyCODONE Immed Rel 5 MG TABLET PO PRN ×3 (08:41→20:41)
[2022-01-12] MEDS: ALPRAZolam 0.5 MG TABLET PO PRN ×3 (08:41→22:40)
[2022-01-12] MEDS ORDERED: *HR* Midazolam HCl 5 MG/5 ML VIAL IVP ONE (10:55)
[2022-01-12] MEDS ORDERED: Ketamine HCL *QUVA* 50mg (1mL) SYRINGE ONE (10:55)
[2022-01-12] MEDS ORDERED: Lidocaine Viscous Oral Soln 15 ML SOLUTION MM PRN (11:17)
[2022-01-12] MEDS ORDERED: 0.9 % Sodium Chloride 500 ML IVC ONE (11:18)
[2022-01-12] MEDS: traZODone 50 MG TABLET PO PRN (22:35)
[2022-01-13] MEDS: *HR* OxyCODONE Immed Rel 5 MG TABLET PO PRN ×4 (01:08→20:26)
[2022-01-13 03:08] LABS: Basophils % 0.7 %; Eosinophils # 0.1 K/mcL (0.0-0.6); Hematocrit 25.2 % (35.3-44.9); Hemoglobin 7.7 g/dL (11.5-15.4); Immature Granulocytes % 0.4 % (0-4); Lymphocytes # 0.9 K/mcL (0.6-4.6); Lymphocytes % 20.8 %; Mean Corpuscular HGB Conc 30.6 g/dL (31.6-35.5); Mean Corpuscular Hemoglobin 30.4 pg (28.0-33.3); Mean Corpuscular Volume 99.6 fL (83.0-100.0); Mean Platelet Volume 9.4 fL (9.4-12.4); Monocytes # 0.2 K/mcL (0.0-1.3); Monocytes % 5.3 %; Neutrophils # 3.2 K/mcL (1.6-8.9); Platelet Count 162 K/mcL (140-400); Red Blood Count 2.53 M/mcL (3.82-4.97); Red Cell Distribution Width 16.3 % (11.5-14.5); Segmented Neutrophils % 70.8 %; White Blood Count 4.5 K/mcL (4.3-11.1)
[2022-01-13 03:21] LABS: Albumin 2.6 g/dL (3.5-5.7); Albumin/Globulin Ratio 0.8 (1.1-2.2); Bilirubin,Direct 0.1 mg/dL (0.0-0.2); Bilirubin,Indirect 0.1 mg/dL (0.0-1.0); Bilirubin,Total 0.2 mg/dL (0.3-1.0); Globulin 3.3 g/dL (2.4-3.5); Magnesium 1.7 mg/dL (1.6-2.6); Potassium 5.3 mEq/L (3.5-5.1); Total Protein 5.9 g/dL (6.4-8.9)
[2022-01-13] MEDS: ALPRAZolam 0.5 MG TABLET PO PRN ×2 (07:13→13:42)
[2022-01-13] MEDS: Lactobacillus 1 EACH CAP.SPRINK PO SCH (08:50)
[2022-01-13] MEDS: NIFEdipine XL (24 HR) 60 MG TAB.ER.24 PO SCH (08:50)
[2022-01-13] MEDS: SODIUM ZIRCONIUM CYCLOSILICATE 5 GM POWD.PACK PO SCH ×3 (08:50→20:26)
[2022-01-13] MEDS: Apixaban 5 MG TABLET PO SCH ×2 (08:50→20:27)
[2022-01-13] MEDS: Ampicillin/Sulbactam 3,000 MG in 0.9 % Sodium Chloride Mini Bag 100 ML IVPB SCH ×2 (08:51→20:26)
[2022-01-14] MEDS: ALPRAZolam 0.5 MG TABLET PO PRN ×4 (00:34→22:24)
[2022-01-14] MEDS: *HR* OxyCODONE Immed Rel 5 MG TABLET PO PRN ×4 (00:34→16:12)
[2022-01-14] MEDS: traZODone 50 MG TABLET PO PRN (00:34)
[2022-01-14 02:37] LABS: Eosinophils # 0.1 K/mcL (0.0-0.6); Eosinophils % 2.6 %; Hematocrit 26.1 % (35.3-44.9); Hemoglobin 8.1 g/dL (11.5-15.4); Immature Granulocytes % 0.2 % (0-4); Lymphocytes # 0.9 K/mcL (0.6-4.6); Lymphocytes % 22.1 %; Mean Corpuscular Hemoglobin 30.8 pg (28.0-33.3); Mean Corpuscular Volume 99.2 fL (83.0-100.0); Mean Platelet Volume 9.1 fL (9.4-12.4); Monocytes # 0.3 K/mcL (0.0-1.3); Neutrophils # 2.8 K/mcL (1.6-8.9); Platelet Count 164 K/mcL (140-400); Red Blood Count 2.63 M/mcL (3.82-4.97); Segmented Neutrophils % 67.1 %; White Blood Count 4.2 K/mcL (4.3-11.1)
[2022-01-14 02:53] LABS: Calcium 8.3 mg/dL (8.6-10.3); Magnesium 1.8 mg/dL (1.6-2.6); Phosphorous 5.9 mg/dL (2.7-4.5); Potassium 4.4 mEq/L (3.5-5.1)
[2022-01-14] MEDS: NIFEdipine XL (24 HR) 60 MG TAB.ER.24 PO SCH (09:01)
[2022-01-14] MEDS: Lactobacillus 1 EACH CAP.SPRINK PO SCH (09:01)
[2022-01-14] MEDS: Ampicillin/Sulbactam 3,000 MG in 0.9 % Sodium Chloride Mini Bag 100 ML IVPB SCH ×2 (09:02→21:20)
[2022-01-14] MEDS: Apixaban 5 MG TABLET PO SCH ×2 (09:02→21:21)
[2022-01-14 19:12] LABS: Adenovirus F 40/41 PCR Not detected (Not detect); Astrovirus PCR Not detected (Not detect); C.difficile Toxin A/B Gene PCR Not detected (Not detect); Campylobacter by PCR Not detected (Not detect); Cryptosporidium by PCR Not detected (Not detect); Cyclospora cayetanensis PCR Not detected (Not detect); Entamoeba histolytica PCR Not detected (Not detect); Enteroaggregative E.coli(EAEC) Not detected (Not detect); Enteropathogenic E.coli(EPEC) Not detected (Not detect); Enterotoxigenic E.coli (ETEC) Not detected (Not detect); Giardia lamblia PCR Not detected (Not detect); Norovirus GI/GII PCR Not detected (Not detect); Plesiomonas shigelloides PCR Not detected (Not detect); Rotavirus A PCR Not detected (Not detect); Salmonella PCR Not detected (Not detect); Sapovirus PCR Not detected (Not detect); Shig/EnteroinvasiveE coli EIEC Not detected (Not detect); Shigalike tox-prod E coli STEC Not detected (Not detect); Vibrio PCR Not detected (Not detect); Vibrio cholerae PCR Not detected (Not detect); Yersinia enterocolitica PCR Not detected (Not detect)
[2022-01-14] MEDS: Melatonin 3 MG TABLET PO PRN (21:21)
[2022-01-15 03:16] LABS: Basophils # 0.1 K/mcL (0.0-0.2); Eosinophils # 0.1 K/mcL (0.0-0.6); Eosinophils % 2.2 %; Hematocrit 29.3 % (35.3-44.9); Hemoglobin 9.1 g/dL (11.5-15.4); Immature Granulocytes % 0.2 % (0-4); Lymphocytes # 1.1 K/mcL (0.6-4.6); Lymphocytes % 22.1 %; Mean Corpuscular HGB Conc 31.1 g/dL (31.6-35.5); Mean Corpuscular Hemoglobin 30.5 pg (28.0-33.3); Mean Corpuscular Volume 98.3 fL (83.0-100.0); Mean Platelet Volume 9.2 fL (9.4-12.4); Monocytes # 0.3 K/mcL (0.0-1.3); Monocytes % 5.3 %; Neutrophils # 3.4 K/mcL (1.6-8.9); Platelet Count 197 K/mcL (140-400); Red Blood Count 2.98 M/mcL (3.82-4.97); Segmented Neutrophils % 69.2 %; White Blood Count 4.9 K/mcL (4.3-11.1)
[2022-01-15 03:33] LABS: Calcium 8.6 mg/dL (8.6-10.3); Magnesium 1.9 mg/dL (1.6-2.6); Phosphorous 5.8 mg/dL (2.7-4.5); Potassium 5.1 mEq/L (3.5-5.1)
[2022-01-15] MEDS: Apixaban 5 MG TABLET PO SCH ×2 (09:08→20:33)
[2022-01-15] MEDS: Ampicillin/Sulbactam 3,000 MG in 0.9 % Sodium Chloride Mini Bag 100 ML IVPB SCH (09:09)
[2022-01-15] MEDS: NIFEdipine XL (24 HR) 60 MG TAB.ER.24 PO SCH (09:10)
[2022-01-15] MEDS: *HR* OxyCODONE Immed Rel 5 MG TABLET PO PRN ×2 (09:57→18:14)
[2022-01-15] MEDS: ALPRAZolam 0.5 MG TABLET PO PRN ×2 (09:58→18:14)
[2022-01-15] MEDS: Lactobacillus 1 EACH CAP.SPRINK PO SCH (20:33)
[2022-01-15] MEDS: traZODone 50 MG TABLET PO PRN (22:31)
[2022-01-16 03:12] LABS: Basophils % 0.7 %; Eosinophils # 0.1 K/mcL (0.0-0.6); Eosinophils % 2.1 %; Hematocrit 28.3 % (35.3-44.9); Hemoglobin 9.1 g/dL (11.5-15.4); Immature Granulocytes % 0.2 % (0-4); Lymphocytes # 1.1 K/mcL (0.6-4.6); Lymphocytes % 25.3 %; Mean Corpuscular HGB Conc 32.2 g/dL (31.6-35.5); Mean Corpuscular Hemoglobin 31.2 pg (28.0-33.3); Mean Corpuscular Volume 96.9 fL (83.0-100.0); Mean Platelet Volume 8.8 fL (9.4-12.4); Monocytes # 0.2 K/mcL (0.0-1.3); Monocytes % 5.3 %; Neutrophils # 2.9 K/mcL (1.6-8.9); Platelet Count 173 K/mcL (140-400); Red Blood Count 2.92 M/mcL (3.82-4.97); Segmented Neutrophils % 66.4 %; White Blood Count 4.3 K/mcL (4.3-11.1)
[2022-01-16 03:31] LABS: Calcium 8.6 mg/dL (8.6-10.3); Magnesium 2.1 mg/dL (1.6-2.6); Phosphorous 6.1 mg/dL (2.7-4.5); Potassium 4.6 mEq/L (3.5-5.1)
[2022-01-16] MEDS: *HR* OxyCODONE Immed Rel 5 MG TABLET PO PRN ×4 (03:41→22:12)
[2022-01-16] MEDS: ALPRAZolam 0.5 MG TABLET PO PRN (03:41)
[2022-01-16] MEDS: Loratadine 10 MG TABLET PO SCH (09:53)
[2022-01-16] MEDS: NIFEdipine XL (24 HR) 60 MG TAB.ER.24 PO SCH (09:53)
[2022-01-16] MEDS: Lactobacillus 1 EACH CAP.SPRINK PO SCH ×2 (09:53→22:13)
[2022-01-16] MEDS: Ampicillin/Sulbactam 3,000 MG in 0.9 % Sodium Chloride Mini Bag 100 ML IVPB SCH (09:53)
[2022-01-16] MEDS: Apixaban 5 MG TABLET PO SCH ×2 (09:53→22:11)
[2022-01-16] MEDS: ALPRAZolam 1 MG TABLET PO PRN ×2 (10:01→16:36)
[2022-01-16] MEDS: traZODone 50 MG TABLET PO PRN (22:13)
[2022-01-17] MEDS: *HR* OxyCODONE Immed Rel 5 MG TABLET PO PRN ×4 (04:00→22:20)
[2022-01-17] MEDS ORDERED: *HR* OxyCODONE Immed Rel 5 MG TABLET PO PRN (04:00)
[2022-01-17] MEDS: ALPRAZolam 1 MG TABLET PO PRN ×3 (04:01→22:19)
[2022-01-17] MEDS: Loratadine 10 MG TABLET PO SCH (09:40)
[2022-01-17] MEDS: NIFEdipine XL (24 HR) 60 MG TAB.ER.24 PO SCH (09:40)
[2022-01-17] MEDS: Ampicillin/Sulbactam 3,000 MG in 0.9 % Sodium Chloride Mini Bag 100 ML IVPB SCH (09:41)
[2022-01-17] MEDS: Lactobacillus 1 EACH CAP.SPRINK PO SCH ×2 (09:41→20:32)
[2022-01-17] MEDS: Apixaban 5 MG TABLET PO SCH ×2 (09:41→20:32)
[2022-01-17 09:46] LABS: Basophils % 0.7 %; Eosinophils # 0.1 K/mcL (0.0-0.6); Hemoglobin 8.8 g/dL (11.5-15.4); Immature Granulocytes % 0.2 % (0-4); Lymphocytes # 0.7 K/mcL (0.6-4.6); Lymphocytes % 17.6 %; Mean Corpuscular HGB Conc 31.4 g/dL (31.6-35.5); Mean Corpuscular Hemoglobin 31.2 pg (28.0-33.3); Mean Corpuscular Volume 99.3 fL (83.0-100.0); Mean Platelet Volume 8.7 fL (9.4-12.4); Monocytes # 0.3 K/mcL (0.0-1.3); Monocytes % 6.1 %; Platelet Count 166 K/mcL (140-400); Red Blood Count 2.82 M/mcL (3.82-4.97); Red Cell Distribution Width 16.3 % (11.5-14.5); Segmented Neutrophils % 73.4 %; White Blood Count 4.1 K/mcL (4.3-11.1)
[2022-01-17 10:04] LABS: Calcium 8.6 mg/dL (8.6-10.3); Magnesium 2.1 mg/dL (1.6-2.6); Phosphorous 5.3 mg/dL (2.7-4.5); Potassium 5.3 mEq/L (3.5-5.1)
[2022-01-17] MEDS: Darbepoetin 100 MCG/0.5 ML SYRINGE SQ SCH (11:25)
[2022-01-18] MEDS: Loratadine 10 MG TABLET PO SCH (08:22)
[2022-01-18] MEDS: Lactobacillus 1 EACH CAP.SPRINK PO SCH ×3 (08:22→21:24)
[2022-01-18] MEDS: *HR* OxyCODONE Immed Rel 5 MG TABLET PO PRN ×2 (08:22→21:24)
[2022-01-18] MEDS: ALPRAZolam 1 MG TABLET PO PRN ×2 (08:22→18:23)
[2022-01-18] MEDS: NIFEdipine XL (24 HR) 60 MG TAB.ER.24 PO SCH (08:22)
[2022-01-18] MEDS: Apixaban 5 MG TABLET PO SCH ×2 (08:23→21:24)
[2022-01-18] MEDS: Ampicillin/Sulbactam 3,000 MG in 0.9 % Sodium Chloride Mini Bag 100 ML IVPB SCH (08:23)
[2022-01-18 08:46] LABS: Calcium 9.1 mg/dL (8.6-10.3); Magnesium 2.1 mg/dL (1.6-2.6); Potassium 4.8 mEq/L (3.5-5.1)
[2022-01-18 09:12] LABS: Basophils % 0.6 %; Eosinophils # 0.1 K/mcL (0.0-0.6); Hemoglobin 10.1 g/dL (11.5-15.4); Immature Granulocytes % 0.2 % (0-4); Lymphocytes # 0.8 K/mcL (0.6-4.6); Lymphocytes % 16.6 %; Mean Corpuscular HGB Conc 31.6 g/dL (31.6-35.5); Mean Corpuscular Volume 98.2 fL (83.0-100.0); Mean Platelet Volume 8.8 fL (9.4-12.4); Monocytes # 0.2 K/mcL (0.0-1.3); Monocytes % 4.4 %; Neutrophils # 3.8 K/mcL (1.6-8.9); Platelet Count 189 K/mcL (140-400); Red Blood Count 3.26 M/mcL (3.82-4.97); Red Cell Distribution Width 16.5 % (11.5-14.5); Segmented Neutrophils % 76.2 %
[2022-01-18] MEDS: traZODone 50 MG TABLET PO PRN (21:23)
[2022-01-19 03:23] LABS: Basophils % 0.5 %; Eosinophils # 0.1 K/mcL (0.0-0.6); Eosinophils % 2.7 %; Hematocrit 26.7 % (35.3-44.9); Hemoglobin 8.5 g/dL (11.5-15.4); Immature Granulocytes % 0.3 % (0-4); Lymphocytes # 0.9 K/mcL (0.6-4.6); Lymphocytes % 24.1 %; Mean Corpuscular HGB Conc 31.8 g/dL (31.6-35.5); Mean Corpuscular Hemoglobin 31.6 pg (28.0-33.3); Mean Corpuscular Volume 99.3 fL (83.0-100.0); Mean Platelet Volume 8.8 fL (9.4-12.4); Monocytes # 0.2 K/mcL (0.0-1.3); Monocytes % 6.2 %; Neutrophils # 2.5 K/mcL (1.6-8.9); Platelet Count 146 K/mcL (140-400); Red Blood Count 2.69 M/mcL (3.82-4.97); Red Cell Distribution Width 16.4 % (11.5-14.5); Segmented Neutrophils % 66.2 %; White Blood Count 3.7 K/mcL (4.3-11.1)
[2022-01-19 03:39] LABS: Calcium 8.4 mg/dL (8.6-10.3); Potassium 4.2 mEq/L (3.5-5.1)
[2022-01-19] MEDS: *HR* OxyCODONE Immed Rel 5 MG TABLET PO PRN ×3 (06:47→22:19)
[2022-01-19] MEDS: Ampicillin/Sulbactam 3,000 MG in 0.9 % Sodium Chloride Mini Bag 100 ML IVPB SCH (08:19)
[2022-01-19] MEDS: Loratadine 10 MG TABLET PO SCH (08:23)
[2022-01-19] MEDS: Lactobacillus 1 EACH CAP.SPRINK PO SCH ×2 (08:23→20:21)
[2022-01-19] MEDS: NIFEdipine XL (24 HR) 60 MG TAB.ER.24 PO SCH (08:24)
[2022-01-19] MEDS: ALPRAZolam 1 MG TABLET PO PRN ×2 (08:24→16:52)
[2022-01-19] MEDS: Apixaban 5 MG TABLET PO SCH ×2 (08:24→20:21)
[2022-01-19] MEDS: traZODone 50 MG TABLET PO PRN (22:19)
[2022-01-20] MEDS: *HR* OxyCODONE Immed Rel 5 MG TABLET PO PRN ×4 (03:08→20:06)
[2022-01-20] MEDS: ALPRAZolam 1 MG TABLET PO PRN ×3 (03:08→20:33)
[2022-01-20 03:28] LABS: Basophils % 0.9 %; Eosinophils # 0.1 K/mcL (0.0-0.6); Eosinophils % 3.7 %; Hemoglobin 9.6 g/dL (11.5-15.4); Immature Granulocytes % 0.3 % (0-4); Lymphocytes % 27.8 %; Mean Corpuscular Hemoglobin 31.7 pg (28.0-33.3); Mean Platelet Volume 8.7 fL (9.4-12.4); Monocytes # 0.3 K/mcL (0.0-1.3); Monocytes % 7.2 %; Neutrophils # 2.1 K/mcL (1.6-8.9); Platelet Count 135 K/mcL (140-400); Red Blood Count 3.03 M/mcL (3.82-4.97); Red Cell Distribution Width 16.9 % (11.5-14.5); Segmented Neutrophils % 60.1 %; White Blood Count 3.5 K/mcL (4.3-11.1)
[2022-01-20 03:40] LABS: Potassium 4.3 mEq/L (3.5-5.1)
[2022-01-20] MEDS: Ampicillin/Sulbactam 3,000 MG in 0.9 % Sodium Chloride Mini Bag 100 ML IVPB SCH (08:29)
[2022-01-20] MEDS: Lactobacillus 1 EACH CAP.SPRINK PO SCH ×2 (08:30→20:05)
[2022-01-20] MEDS: Loratadine 10 MG TABLET PO SCH (08:30)
[2022-01-20] MEDS: NIFEdipine XL (24 HR) 60 MG TAB.ER.24 PO SCH (08:30)
[2022-01-20] MEDS: Apixaban 5 MG TABLET PO SCH ×2 (08:30→20:05)
[2022-01-20] MEDS: traZODone 50 MG TABLET PO PRN (20:32)
[2022-01-21 01:10] LABS: Basophils % 0.5 %; Eosinophils # 0.2 K/mcL (0.0-0.6); Hematocrit 28.8 % (35.3-44.9); Hemoglobin 9.1 g/dL (11.5-15.4); Immature Granulocytes % 0.2 % (0-4); Lymphocytes # 0.9 K/mcL (0.6-4.6); Mean Corpuscular HGB Conc 31.6 g/dL (31.6-35.5); Mean Corpuscular Hemoglobin 31.3 pg (28.0-33.3); Mean Platelet Volume 8.6 fL (9.4-12.4); Monocytes # 0.3 K/mcL (0.0-1.3); Monocytes % 6.4 %; Neutrophils # 2.7 K/mcL (1.6-8.9); Platelet Count 142 K/mcL (140-400); Red Blood Count 2.91 M/mcL (3.82-4.97); Red Cell Distribution Width 16.7 % (11.5-14.5); Segmented Neutrophils % 65.9 %; White Blood Count 4.1 K/mcL (4.3-11.1)
[2022-01-21 01:26] LABS: Calcium 8.7 mg/dL (8.6-10.3); Potassium 4.8 mEq/L (3.5-5.1)
[2022-01-21] MEDS: ALPRAZolam 1 MG TABLET PO PRN ×2 (08:04→16:40)
[2022-01-21] MEDS: *HR* OxyCODONE Immed Rel 5 MG TABLET PO PRN ×3 (08:04→21:38)
[2022-01-21] MEDS: Ampicillin/Sulbactam 3,000 MG in 0.9 % Sodium Chloride Mini Bag 100 ML IVPB SCH (08:05)
[2022-01-21] MEDS: Loratadine 10 MG TABLET PO SCH (08:05)
[2022-01-21] MEDS: Lactobacillus 1 EACH CAP.SPRINK PO SCH ×2 (08:05→21:37)
[2022-01-21] MEDS: NIFEdipine XL (24 HR) 60 MG TAB.ER.24 PO SCH (08:05)
[2022-01-21] MEDS: Apixaban 5 MG TABLET PO SCH ×2 (08:05→21:39)
[2022-01-22] MEDS: traZODone 50 MG TABLET PO PRN ×2 (01:12→21:51)
[2022-01-22] MEDS: ALPRAZolam 1 MG TABLET PO PRN ×3 (01:12→17:39)
[2022-01-22] MEDS: NIFEdipine XL (24 HR) 60 MG TAB.ER.24 PO SCH (09:05)
[2022-01-22] MEDS: Loratadine 10 MG TABLET PO SCH (09:05)
[2022-01-22] MEDS: Apixaban 5 MG TABLET PO SCH ×2 (09:05→21:51)
[2022-01-22] MEDS: Lactobacillus 1 EACH CAP.SPRINK PO SCH ×2 (09:06→21:51)
[2022-01-22] MEDS: *HR* OxyCODONE Immed Rel 5 MG TABLET PO PRN ×3 (09:06→21:51)
[2022-01-22] MEDS: Ampicillin/Sulbactam 3,000 MG in 0.9 % Sodium Chloride Mini Bag 100 ML IVPB SCH (09:06)
[2022-01-23] MEDS: ALPRAZolam 1 MG TABLET PO PRN ×2 (06:00→14:41)
[2022-01-23] MEDS: *HR* OxyCODONE Immed Rel 5 MG TABLET PO PRN ×3 (06:00→20:13)
[2022-01-23 06:16] LABS: Basophils % 0.5 %; Eosinophils # 0.1 K/mcL (0.0-0.6); Eosinophils % 2.1 %; Hematocrit 30.9 % (35.3-44.9); Hemoglobin 9.7 g/dL (11.5-15.4); Lymphocytes # 0.8 K/mcL (0.6-4.6); Lymphocytes % 20.3 %; Mean Corpuscular HGB Conc 31.4 g/dL (31.6-35.5); Mean Corpuscular Hemoglobin 31.5 pg (28.0-33.3); Mean Corpuscular Volume 100.3 fL (83.0-100.0); Mean Platelet Volume 9.2 fL (9.4-12.4); Monocytes # 0.3 K/mcL (0.0-1.3); Monocytes % 6.7 %; Neutrophils # 2.6 K/mcL (1.6-8.9); Platelet Count 142 K/mcL (140-400); Red Blood Count 3.08 M/mcL (3.82-4.97); Segmented Neutrophils % 70.4 %; White Blood Count 3.7 K/mcL (4.3-11.1)
[2022-01-23 06:35] LABS: Calcium 8.7 mg/dL (8.6-10.3); Potassium 4.5 mEq/L (3.5-5.1)
[2022-01-23] MEDS: NIFEdipine XL (24 HR) 60 MG TAB.ER.24 PO SCH (08:03)
[2022-01-23] MEDS: Lactobacillus 1 EACH CAP.SPRINK PO SCH ×2 (08:04→20:12)
[2022-01-23] MEDS: Ampicillin/Sulbactam 3,000 MG in 0.9 % Sodium Chloride Mini Bag 100 ML IVPB SCH (08:04)
[2022-01-23] MEDS: Apixaban 5 MG TABLET PO SCH ×2 (08:04→20:12)
[2022-01-23] MEDS: Loratadine 10 MG TABLET PO SCH (08:04)
[2022-01-23] MEDS: traZODone 50 MG TABLET PO PRN (20:13)
[2022-01-24] MEDS: ALPRAZolam 1 MG TABLET PO PRN ×3 (03:54→20:09)
[2022-01-24] MEDS: *HR* OxyCODONE Immed Rel 5 MG TABLET PO PRN ×4 (03:54→16:51)
[2022-01-24 04:55] LABS: Basophils % 0.6 %; Eosinophils # 0.1 K/mcL (0.0-0.6); Eosinophils % 3.5 %; Hematocrit 30.8 % (35.3-44.9); Hemoglobin 9.7 g/dL (11.5-15.4); Immature Granulocytes % 0.3 % (0-4); Lymphocytes # 0.8 K/mcL (0.6-4.6); Lymphocytes % 22.6 %; Mean Corpuscular HGB Conc 31.5 g/dL (31.6-35.5); Mean Corpuscular Hemoglobin 31.4 pg (28.0-33.3); Mean Corpuscular Volume 99.7 fL (83.0-100.0); Mean Platelet Volume 9.3 fL (9.4-12.4); Monocytes # 0.3 K/mcL (0.0-1.3); Monocytes % 7.3 %; Neutrophils # 2.2 K/mcL (1.6-8.9); Platelet Count 138 K/mcL (140-400); Red Blood Count 3.09 M/mcL (3.82-4.97); Red Cell Distribution Width 16.9 % (11.5-14.5); Segmented Neutrophils % 65.7 %; White Blood Count 3.4 K/mcL (4.3-11.1)
[2022-01-24 05:03] LABS: Calcium 8.9 mg/dL (8.6-10.3); Potassium 4.5 mEq/L (3.5-5.1)
[2022-01-24] MEDS: Loratadine 10 MG TABLET PO SCH (08:00)
[2022-01-24] MEDS: Lactobacillus 1 EACH CAP.SPRINK PO SCH ×2 (08:00→20:10)
[2022-01-24] MEDS: NIFEdipine XL (24 HR) 60 MG TAB.ER.24 PO SCH (08:00)
[2022-01-24] MEDS: Apixaban 5 MG TABLET PO SCH ×2 (08:00→20:10)
[2022-01-24] MEDS: Ampicillin/Sulbactam 3,000 MG in 0.9 % Sodium Chloride Mini Bag 100 ML IVPB SCH (08:00)
[2022-01-24] MEDS: Darbepoetin 100 MCG/0.5 ML SYRINGE SQ SCH (11:51)
[2022-01-24] MEDS: traZODone 50 MG TABLET PO PRN (20:10)
[2022-01-24] MEDS: Ondansetron 4 MG/2 ML VIAL IVP PRN (20:10)
[2022-01-25] MEDS: *HR* OxyCODONE Immed Rel 5 MG TABLET PO PRN ×4 (06:25→20:55)
[2022-01-25] MEDS: ALPRAZolam 1 MG TABLET PO PRN ×3 (06:26→20:55)
[2022-01-25 07:35] LABS: Basophils % 0.3 %; Eosinophils # 0.2 K/mcL (0.0-0.6); Eosinophils % 4.5 %; Hematocrit 31.8 % (35.3-44.9); Hemoglobin 10.4 g/dL (11.5-15.4); Immature Granulocytes % 0.3 % (0-4); Lymphocytes # 0.7 K/mcL (0.6-4.6); Lymphocytes % 19.3 %; Mean Corpuscular HGB Conc 32.7 g/dL (31.6-35.5); Mean Corpuscular Hemoglobin 32.4 pg (28.0-33.3); Mean Corpuscular Volume 99.1 fL (83.0-100.0); Mean Platelet Volume 9.3 fL (9.4-12.4); Monocytes # 0.2 K/mcL (0.0-1.3); Monocytes % 6.8 %; Neutrophils # 2.4 K/mcL (1.6-8.9); Platelet Count 140 K/mcL (140-400); Red Blood Count 3.21 M/mcL (3.82-4.97); Red Cell Distribution Width 16.9 % (11.5-14.5); Segmented Neutrophils % 68.8 %; White Blood Count 3.5 K/mcL (4.3-11.1)
[2022-01-25 07:50] LABS: Calcium 9.1 mg/dL (8.6-10.3); Potassium 4.9 mEq/L (3.5-5.1)
[2022-01-25] MEDS: Lactobacillus 1 EACH CAP.SPRINK PO SCH ×2 (09:30→20:54)
[2022-01-25] MEDS: Apixaban 5 MG TABLET PO SCH ×2 (09:30→20:57)
[2022-01-25] MEDS: NIFEdipine XL (24 HR) 60 MG TAB.ER.24 PO SCH (09:30)
[2022-01-25] MEDS: Loratadine 10 MG TABLET PO SCH (09:30)
[2022-01-25] MEDS: Ampicillin/Sulbactam 3,000 MG in 0.9 % Sodium Chloride Mini Bag 100 ML IVPB SCH (09:30)
[2022-01-25] MEDS: Ondansetron 4 MG/2 ML VIAL IVP PRN (15:39)
[2022-01-25] MEDS: traZODone 50 MG TABLET PO PRN (20:53)
[2022-01-26] MEDS: Lactobacillus 1 EACH CAP.SPRINK PO SCH ×2 (07:30→21:48)
[2022-01-26] MEDS: ALPRAZolam 1 MG TABLET PO PRN ×3 (07:30→21:47)
[2022-01-26] MEDS: Loratadine 10 MG TABLET PO SCH (07:31)
[2022-01-26] MEDS: *HR* OxyCODONE Immed Rel 5 MG TABLET PO PRN ×3 (07:31→21:48)
[2022-01-26] MEDS: NIFEdipine XL (24 HR) 60 MG TAB.ER.24 PO SCH (07:31)
[2022-01-26] MEDS: Apixaban 5 MG TABLET PO SCH ×2 (07:31→21:48)
[2022-01-26] MEDS: Ampicillin/Sulbactam 3,000 MG in 0.9 % Sodium Chloride Mini Bag 100 ML IVPB SCH (08:45)
[2022-01-26] MEDS: traZODone 50 MG TABLET PO PRN (21:48)
[2022-01-27] MEDS: ALPRAZolam 1 MG TABLET PO PRN ×2 (08:30→17:00)
[2022-01-27] MEDS: *HR* OxyCODONE Immed Rel 5 MG TABLET PO PRN ×3 (08:31→20:22)
[2022-01-27] MEDS: Lactobacillus 1 EACH CAP.SPRINK PO SCH ×2 (08:31→20:23)
[2022-01-27] MEDS: Ampicillin/Sulbactam 3,000 MG in 0.9 % Sodium Chloride Mini Bag 100 ML IVPB SCH (08:31)
[2022-01-27] MEDS: NIFEdipine XL (24 HR) 60 MG TAB.ER.24 PO SCH (08:31)
[2022-01-27] MEDS: Apixaban 5 MG TABLET PO SCH ×2 (08:31→20:24)
[2022-01-27] MEDS: Loratadine 10 MG TABLET PO SCH (08:31)
[2022-01-27] MEDS: Ondansetron 4 MG/2 ML VIAL IVP PRN ×2 (11:38→20:23)
[2022-01-28] MEDS: ALPRAZolam 1 MG TABLET PO PRN ×3 (04:57→21:28)
[2022-01-28] MEDS: *HR* OxyCODONE Immed Rel 5 MG TABLET PO PRN ×4 (04:57→21:28)
[2022-01-28] MEDS: Loratadine 10 MG TABLET PO SCH (09:18)
[2022-01-28] MEDS: NIFEdipine XL (24 HR) 60 MG TAB.ER.24 PO SCH (09:18)
[2022-01-28] MEDS: Lactobacillus 1 EACH CAP.SPRINK PO SCH ×2 (09:18→21:29)
[2022-01-28] MEDS: Apixaban 5 MG TABLET PO SCH ×2 (09:18→21:29)
[2022-01-28] MEDS: Ampicillin/Sulbactam 3,000 MG in 0.9 % Sodium Chloride Mini Bag 100 ML IVPB SCH (09:18)
[2022-01-28] MEDS: Ondansetron 4 MG/2 ML VIAL IVP PRN (14:35)
[2022-01-29 01:08] LABS: Calcium 8.9 mg/dL (8.6-10.3); Potassium 4.6 mEq/L (3.5-5.1)
[2022-01-29 01:33] LABS: Basophils % 0.5 %; Eosinophils # 0.1 K/mcL (0.0-0.6); Eosinophils % 3.5 %; Hematocrit 34.9 % (35.3-44.9); Immature Granulocytes % 0.2 % (0-4); Lymphocytes # 0.9 K/mcL (0.6-4.6); Lymphocytes % 22.8 %; Mean Corpuscular HGB Conc 31.5 g/dL (31.6-35.5); Mean Corpuscular Hemoglobin 31.4 pg (28.0-33.3); Mean Corpuscular Volume 99.7 fL (83.0-100.0); Mean Platelet Volume 8.9 fL (9.4-12.4); Monocytes # 0.3 K/mcL (0.0-1.3); Monocytes % 6.9 %; Neutrophils # 2.7 K/mcL (1.6-8.9); Platelet Count 118 K/mcL (140-400); Red Cell Distribution Width 16.2 % (11.5-14.5); Segmented Neutrophils % 66.1 %
[2022-01-29] MEDS: *HR* OxyCODONE Immed Rel 5 MG TABLET PO PRN ×4 (03:48→21:07)
[2022-01-29] MEDS: ALPRAZolam 1 MG TABLET PO PRN ×2 (08:49→16:06)
[2022-01-29] MEDS: NIFEdipine XL (24 HR) 60 MG TAB.ER.24 PO SCH (08:49)
[2022-01-29] MEDS: Ampicillin/Sulbactam 3,000 MG in 0.9 % Sodium Chloride Mini Bag 100 ML IVPB SCH (08:49)
[2022-01-29] MEDS: Apixaban 5 MG TABLET PO SCH ×2 (08:49→21:07)
[2022-01-29] MEDS: Lactobacillus 1 EACH CAP.SPRINK PO SCH ×2 (08:49→21:07)
[2022-01-29] MEDS: Loratadine 10 MG TABLET PO SCH (08:49)
[2022-01-29] MEDS: Ondansetron 4 MG/2 ML VIAL IVP PRN (10:52)
[2022-01-29] MEDS ORDERED: Moderna Covid-19 Vaccine 100MCG/0.5mL IM ONE (12:37)
[2022-01-30] MEDS: ALPRAZolam 1 MG TABLET PO PRN ×3 (00:30→19:36)
[2022-01-30] MEDS: *HR* OxyCODONE Immed Rel 5 MG TABLET PO PRN ×4 (05:03→19:36)
[2022-01-30] MEDS: Apixaban 5 MG TABLET PO SCH ×2 (10:21→19:36)
[2022-01-30] MEDS: Loratadine 10 MG TABLET PO SCH (10:21)
[2022-01-30] MEDS: Lactobacillus 1 EACH CAP.SPRINK PO SCH ×2 (10:21→19:35)
[2022-01-30] MEDS: NIFEdipine XL (24 HR) 60 MG TAB.ER.24 PO SCH (10:21)
[2022-01-30] MEDS: Ampicillin/Sulbactam 3,000 MG in 0.9 % Sodium Chloride Mini Bag 100 ML IVPB SCH (10:22)
[2022-01-30] MEDS: Ondansetron 4 MG/2 ML VIAL IVP PRN ×2 (14:51→23:27)
[2022-01-31] MEDS: *HR* OxyCODONE Immed Rel 5 MG TABLET PO PRN ×2 (05:23→09:38)
[2022-01-31 07:09] VITALS: TEMP 98.2
[2022-01-31] MEDS: Apixaban 5 MG TABLET PO SCH (08:09)
[2022-01-31] MEDS: NIFEdipine XL (24 HR) 60 MG TAB.ER.24 PO SCH (08:09)
[2022-01-31] MEDS: Loratadine 10 MG TABLET PO SCH (08:09)
[2022-01-31] MEDS: Lactobacillus 1 EACH CAP.SPRINK PO SCH (08:10)
[2022-01-31] MEDS: ALPRAZolam 1 MG TABLET PO PRN (08:20)
[2022-01-31] MEDS: Ampicillin/Sulbactam 3,000 MG in 0.9 % Sodium Chloride Mini Bag 100 ML IVPB SCH (09:07)
[2022-01-31 11:42] VITALS: BP 133/83; PULSE 85; O2SAT 96
== END 2022-01-31 12:30 | disposition left against medical advice (07) | DRG 314 ==
LOC: SUATTDRO → EMEROOARM 08:57 → 2ANU 08:57 → SUATTDRO 23:16 → 2ANU 01-03 00:15 → SUATTDRO 01-03 14:47
PROVIDERS: ADMIT Internal Medicine; ATTEND Internal Medicine